=== PATIENT | male | born 1945 | race American Indian/Alaskan Native ===

== ENCOUNTER 2017-02-13 17:25 | Emergency (ER) | payer MEDICARE ==
[2017-02-13] MEDS ORDERED: KEPPRA 1,000 MG/NS 0.75% 100ML 1,000 MG/100 ML BAG IV ONE (18:39)
[2017-02-13] MEDS ORDERED: ATIVAN ONE (18:42)
[2017-02-13] MEDS ORDERED: TORADOL IV ONE (18:46)
[2017-02-13] MEDS ORDERED: ATIVAN IV ONE (18:46)
[2017-02-13 19:05] LABS: Urine Drugs of Abuse Note Disclamer
[2017-02-13 19:14] LABS: Bilirubin,Urine NEG (Negative); Blood,Urine SM (Negative); Ketones,Urine 80 mg/dL (Negative); Leukocyte Esterase,Urine NEG (Negative); Mucus,Urine FEW /HPF; Nitrite,Urine NEG (Negative)
[2017-02-13 19:14] LABS: Albumin 4.5 g/dL (3.9-5); Albumin/Globulin Ratio 1.5 %; Anion Gap 24 mmol/L; BUN/Creatinine Ratio 17.14; Bilirubin,Direct 0.4 mg/dL (0-0.2); Bilirubin,Indirect 0.9 mg/dL; Bilirubin,Total 1.3 mg/dL (0.1-1.2); Blood Urea Nitrogen 12 mg/dL (9-20); Calcium 9.2 mg/dL (8.4-10.2); Carbon Dioxide 22 mmol/L (22-30); Chloride 96.5 mmol/L (98-107); Creatine Kinase 69 units/L (55-170); Glucose 101 mg/dL (75-100); Potassium 4.1 mmol/L (3.6-5.0); Sodium 138 mmol/L (137-145); Total Protein 7.6 g/dL (6.3-8.2)
[2017-02-13 19:16] LABS: Basophils % (Auto) 0.3 % (0.0-1.8); Hematocrit 50.4 % (35.5-45.6); Hemoglobin 17.2 gm/dl (11.8-15.2); Mean Corpuscular HGB Conc 34 % (32-34); Mean Corpuscular Hemoglobin 32 pg (28-32); Mean Corpuscular Volume 94 fl (84-94); Red Blood Count 5.35 M/mm3 (3.65-5.03); Red Cell Distribution Width 14.5 % (13.2-15.2); White Blood Count 13.1 K/mm3 (4.5-11.0)
[2017-02-13 19:25] LABS: Platelet Count 224 K/mm3 (140-440)
[2017-02-13 19:25] LABS: INR 0.97 (0.87-1.13)
[2017-02-13 19:26] LABS: Partial Thromboplastin Time 29.4 Sec. (24.2-36.6)
--- NOTE | 2017-02-13 19:47 | Cat Scan Report ---
FINAL REPORT PROCEDURE: CT HEAD/BRAIN WO CON TECHNIQUE: Computerized tomography of the head was performed without contrast material. HISTORY: headache after seizure COMPARISON: 06/28/2016 FINDINGS: There are stable involutional changes. No CT evidence of acute intracranial hemorrhage, mass, hydrocephalus, or acute territorial infarction. The intracranial arteries are symmetric in density. Calvarium is intact. Visualized paranasal sinuses and mastoids are aerated. IMPRESSION: No CT evidence of acute abnormality
--- NOTE | 2017-02-13 20:52 | Emergency Department Report ---
ED Seizure HPI - General Chief Complaint: Seizure Stated Complaint: SEIZURE Time Seen by Provider: 02/13/17 18:39 Source: patient, EMS Mode of arrival: Stretcher Limitations: No Limitations - History of Present Illness Initial Comments: 71-year-old male with a past medical history of seizures and alcohol abuse presents to the hospital status post seizure. Patient complains of headache after seizure. He is alert and oriented to self but does not know where he is or the year. He has been out of medication times one day. Patient states his last alcohol drink was 3 weeks ago. He is unsure what type of primary seizure disorder he has. Witnesses are not available at the bedside. When I was interviewing patient has eyes deviated to the right and he began to have jerking moments of his left arm and was using his right arm to stop it. This lasted for approximately 30 seconds. Nurse administered Ativan after episode stopped. - Related Data Previous Rx's Medication Instructions Recorded Last Taken Type Folic Acid [Folvite] 1 mg PO QDAY #30 tablet 07/01/16 Unknown Rx Thiamine [Vitamin B-1] 100 mg PO QDAY #30 tablet 07/01/16 Unknown Rx levETIRAcetam [Keppra TAB] 500 mg PO BID #60 tablet 02/14/17 Unknown Rx Allergies Allergy/AdvReac Type Severity Reaction Status Date / Time No Known Allergies Allergy Verified 06/28/16 17:42 ED Review of Systems ROS: Stated complaint: SEIZURE Other details as noted in HPI Comment: All other systems reviewed and negative Other: Constitutional: No fevers chills Eyes: No eye pain visual changes ENT: No ear pain or throat pain Neck: Denies pain Respiratory: + cough reported Cardiovascular: Denies chest pain GI: Denies abdominal pain : Denies dysuria Musculoskeletal: Denies back pain Skin: Denies rash, lesions, erythema Neurologic: Denies numbness, weakness Psychiatric: Denies suicidal ideation, hallucinations ED Past Medical Hx - Past Medical History Previous Medical History?: Yes Hx Seizures: Yes Additional medical history: Alcoholism - Surgical History Past Surgical History?: No Additional Surgical History: uknown family unware - Social History Smoking Status: Never Smoker - Medications Home Medications: Home Medications Medication Instructions Recorded Confirmed Last Taken Type Folic Acid [Folvite] 1 mg PO QDAY #30 tablet 07/01/16 02/13/17 Unknown Rx Thiamine [Vitamin B-1] 100 mg PO QDAY #30 tablet 07/01/16 02/13/17 Unknown Rx levETIRAcetam [Keppra TAB] 500 mg PO BID #60 tablet 02/14/17 Unknown Rx ED Physical Exam - General Limitations: No Limitations - Other Other exam information: General: No limitations, patient is alert in no acute distress Head exam: Atraumatic, normocephalic Eyes exam: Normal appearance, pupils equal reactive to light, extraocular movements intact ENT: Moist mucous membrane, normal oropharynx Neck exam: Normal inspection, full range of motion, no meningismus nontender Respiratory exam: Clear to auscultation bilateral, no wheezes, rales, crackles Cardiovascular: Normal rate and rhythm, normal heart sounds Abdomen: Soft, nondistended, and nontender, with normal bowel sounds, no rebound, or guarding Extremity: Full range of motion normal inspection no deformity Back: Normal Inspection, full range of motion, no tenderness Neurologic: Alert, oriented x3, cranial nerves intact, no motor or sensory deficit Psychiatric: normal affect, normal mood Skin: Warm, dry, intact ED Course Vital Signs 02/13/17 02/13/17 02/13/17 17:46 19:22 20:58 Temperature 99.4 F Pulse Rate 95 H 90 98 H Respiratory 18 16 20 Rate Blood Pressure 162/91 149/93 131/88 [Left] O2 Sat by Pulse 100 98 98 Oximetry 02/13/17 02/14/17 21:43 00:06 Temperature Pulse Rate 88 86 Respiratory 18 18 Rate Blood Pressure 113/75 102/61 [Left] O2 Sat by Pulse 97 96 Oximetry - Reevaluation(s) Reevaluation #1: 02/13/17 20:51 Pt treated with Ativan and keppra in the ed ED Medical Decision Making - Lab Data Result diagrams: 02/13/17 17:40 02/13/17 17:40 Lab Results 02/13/17 02/13/17 02/13/17 Range/Units 17:40 17:40 17:40 WBC 13.1 H (4.5-11.0) K/mm3 RBC 5.35 H (3.65-5.03) M/mm3 Hgb 17.2 H (11.8-15.2) gm/dl Hct 50.4 H (35.5-45.6) % MCV 94 (84-94) fl MCH 32 (28-32) pg MCHC 34 (32-34) % RDW 14.5 (13.2-15.2) % Plt Count 224 (140-440) K/mm3 Lymph % (Auto) 11.1 L (13.4-35.0) % [place] % (Auto) 2.0 (0.0-7.3) % Eos % (Auto) 0.0 (0.0-4.3) % Baso % (Auto) 0.3 (0.0-1.8) % Lymph # 1.5 (1.2-5.4) K/mm3 [place] # 0.3 (0.0-0.8) K/mm3 Eos # 0.0 (0.0-0.4) K/mm3 Baso # 0.0 (0.0-0.1) K/mm3 Seg Neutrophils % 86.6 H (40.0-70.0) % Seg Neutrophils # 11.3 H (1.8-7.7) K/mm3 PT (12.2-14.9) Sec. INR (0.87-1.13) APTT (24.2-36.6) Sec. Sodium 138 (137-145) mmol/L Potassium 4.1 (3.6-5.0) mmol/L Chloride 96.5 L (98-107) mmol/L Carbon Dioxide 22 (22-30) mmol/L Anion Gap 24 mmol/L BUN 12 (9-20) mg/dL Creatinine 0.7 L (0.8-1.5) mg/dL Estimated GFR > 60 ml/min BUN/Creatinine Ratio 17.14 % Glucose 101 H (75-100) mg/dL Calcium 9.2 (8.4-10.2) mg/dL Magnesium 2.20 (1.7-2.3) mg/dL Total Bilirubin 1.30 H (0.1-1.2) mg/dL Direct Bilirubin 0.4 H (0-0.2) mg/dL Indirect Bilirubin 0.9 mg/dL AST 24 (5-40) units/L ALT 46 (7-56) units/L Alkaline Phosphatase 61 (35-129) units/L Total Creatine Kinase 69 (55-170) units/L Total Protein 7.6 (6.3-8.2) g/dL Albumin 4.5 (3.9-5) g/dL Albumin/Globulin Ratio 1.5 % Urine Color (Yellow) Urine Turbidity (Clear) Urine pH (5.0-7.0) Ur Specific [place] (1.003-1.030) Urine Protein (Negative) mg/dL Urine Glucose (UA) (Negative) mg/dL Urine Ketones (Negative) mg/dL Urine Blood (Negative) Urine Nitrite (Negative) Urine Bilirubin (Negative) Urine Urobilinogen (<2.0) mg/dL Ur Leukocyte Esterase (Negative) Urine WBC (Auto) (0.0-6.0) /HPF Urine RBC (Auto) (0.0-6.0) /HPF U Epithel Cells (Auto) (0-13.0) /HPF Urine Mucus /HPF Urine Opiates Screen Urine Methadone Screen Ur Barbiturates Screen Ur Phencyclidine Scrn Ur Amphetamines Screen U Benzodiazepines Scrn Urine Cocaine Screen U Marijuana (THC) Screen Drugs of Abuse Note 02/13/17 02/13/17 02/13/17 Range/Units 18:54 19:01 19:01 WBC (4.5-11.0) K/mm3 RBC (3.65-5.03) M/mm3 Hgb (11.8-15.2) gm/dl Hct (35.5-45.6) % MCV (84-94) fl MCH (28-32) pg MCHC (32-34) % RDW (13.2-15.2) % Plt Count (140-440) K/mm3 Lymph % (Auto) (13.4-35.0) % [place] % (Auto) (0.0-7.3) % Eos % (Auto) (0.0-4.3) % Baso % (Auto) (0.0-1.8) % Lymph # (1.2-5.4) K/mm3 [place] # (0.0-0.8) K/mm3 Eos # (0.0-0.4) K/mm3 Baso # (0.0-0.1) K/mm3 Seg Neutrophils % (40.0-70.0) % Seg Neutrophils # (1.8-7.7) K/mm3 PT 12.8 (12.2-14.9) Sec. INR 0.97 (0.87-1.13) APTT 29.4 (24.2-36.6) Sec. Sodium (137-145) mmol/L Potassium (3.6-5.0) mmol/L Chloride (98-107) mmol/L Carbon Dioxide (22-30) mmol/L Anion Gap mmol/L BUN (9-20) mg/dL Creatinine (0.8-1.5) mg/dL Estimated GFR ml/min BUN/Creatinine Ratio % Glucose (75-100) mg/dL Calcium (8.4-10.2) mg/dL Magnesium (1.7-2.3) mg/dL Total Bilirubin (0.1-1.2) mg/dL Direct Bilirubin (0-0.2) mg/dL Indirect Bilirubin mg/dL AST (5-40) units/L ALT (7-56) units/L Alkaline Phosphatase (35-129) units/L Total Creatine Kinase (55-170) units/L Total Protein (6.3-8.2) g/dL Albumin (3.9-5) g/dL Albumin/Globulin Ratio % Urine Color Yellow (Yellow) Urine Turbidity Clear (Clear) Urine pH 6.0 (5.0-7.0) Ur Specific [place] 1.021 (1.003-1.030) Urine Protein 30 mg/dl (Negative) mg/dL Urine Glucose (UA) Neg (Negative) mg/dL Urine Ketones 80 (Negative) mg/dL Urine Blood Sm (Negative) Urine Nitrite Neg (Negative) Urine Bilirubin Neg (Negative) Urine Urobilinogen 2.0 (<2.0) mg/dL Ur Leukocyte Esterase Neg (Negative) Urine WBC (Auto) 2.0 (0.0-6.0) /HPF Urine RBC (Auto) 10.0 (0.0-6.0) /HPF U Epithel Cells (Auto) 1.0 (0-13.0) /HPF Urine Mucus Few /HPF Urine Opiates Screen Presumptive negative Urine Methadone Screen Presumptive negative Ur Barbiturates Screen Presumptive negative Ur Phencyclidine Scrn Presumptive negative Ur Amphetamines Screen Presumptive negative U Benzodiazepines Scrn Presumptive negative Urine Cocaine Screen Presumptive negative U Marijuana (THC) Screen Presumptive positive Drugs of Abuse Note Disclamer - Radiology Data Radiology results: report reviewed, image reviewed (chest x-ray: No acute finding) CT head: No acute finding - Medical Decision Making Patient was observed for several hours in the ED because as concerns about his baseline mental status. Patient is oriented at this time. In addition to IV Keppra and Ativan he received a liter D5NS due to significant urinary ketosis likely secondary to dehydration. Patient states he has not had alcohol in 3 weeks and no signs of alcohol withdrawal tremors, tachycardia, hypertension at this time. Per medical record patient has a history of cocaine abuse. He is only positive for marijuana at this time. CKs were normal range no electrolyte abnormalities. - Differential Diagnosis breakthrough seizure, alcohol withdrawal, intracranial hemorrhage Critical Care Time: No Critical care attestation.: If time is entered above; I have spent that time in minutes in the direct care of this critically ill patient, excluding procedure time. ED Disposition Clinical Impression: Seizure, Noncompliance with medication regimen, Dehydration Disposition: DISCHARGED TO HOME OR SELFCARE Is pt being admited?: No Does the pt Need Aspirin: No Condition: Stable Instructions: Recurrent Seizures Adult (ED), Dehydration (ED) Additional Instructions: Follow-up with either your primary care doctor or the doctor/clinic provided for further treatment. You were also provided the name of 2 neurologists for further treatment of your seizure disorder. Continue taking your medication as prescribed. Return if symptoms worsen. Prescriptions: levETIRAcetam [Keppra TAB] 500 mg PO BID #60 tablet Referrals: JOSE ANGEL LIPSCOMB MD [Primary Care Provider] - 3-5 Days [facility] [Provider Group] - 3-5 Days (Primary care clinic) DOROTHY PENG JR, MD [Staff Physician] - 3-5 Days (Primary care doctor) MICHAEL DE LA O MD [Staff Physician] - 3-5 Days (Neurologist) PALMIRA JIMENEZ MD [Staff Physician] - 3-5 Days (Neurologist) Time of Disposition: 00:37
[2017-02-13] MEDS: D5NS 1,000 ML IV SCH ×2 (21:47→22:00)
[2017-02-14 00:06] VITALS: BP 102/61
--- NOTE | 2017-02-14 08:43 | XRay Report ---
AP CHEST: HISTORY: Cough The lungs are hyperinflated but clear. No pleural effusion or pneumothorax. Heart and mediastinal structures are within normal limits. No significant change since 06/28/16. IMPRESSION: No acute cardiopulmonary process.
== END 2017-02-14 00:48 | disposition home or self-care (01) ==
LOC: ED 17:25
DX: R56.9 Unspecified convulsions (principal); E86.0 Dehydration; Z91.14 Patient's other noncompliance with medication regimen
CPT/HCPCS: 36415; 70450; 71010; 80048; 80074; 80307; 81001; 82550; 83735; 85025; 85610; 85730; 96365; 96375; 99285; J1885; J1953; J2060; J7042

== ENCOUNTER 2017-05-29 12:44 | Inpatient (IN) | payer MEDICARE ==
[2017-05-29] MEDS ORDERED: KEPPRA 1,000 MG/NS 0.75% 100ML 1,000 MG/100 ML BAG IV ONE ×2 (12:58→13:02)
[2017-05-29] MEDS ORDERED: NACL 0.9% 1000 ML 1,000 ML IV ONE ×2 (12:58→15:56)
[2017-05-29] MEDS ORDERED: NACL 0.9% 1000 ML 1,000 ML ONE (13:03)
--- NOTE | 2017-05-29 13:34 | XRay Report ---
Single view chest: Compared to 02/13/17. History: Seizure. Findings: Normal cardiomediastinal silhouette. Trachea is midline. No consolidation, pneumothorax or pleural effusion. Impression: No acute cardiopulmonary findings.
--- NOTE | 2017-05-29 13:43 | Emergency Department Report ---
ED Seizure HPI - General Chief Complaint: Seizure Stated Complaint: SEIZURES Time Seen by Provider: 05/29/17 12:57 Source: EMS Mode of arrival: Stretcher Limitations: Altered Mental Status - History of Present Illness Initial Comments: 72-year-old male with known history of seizure disorder here after 2 seizures at home. Patient is on Keppra but has not been taking his meds since January. He smells of alcohol on my initial assessment. He is not answering any of my questions on initial evaluation. MD Complaint: seizure -: Sudden Description of Episode: tonic-clonic movement Witnessed:: Yes Seizure History: known seizure disorder, history of non-compliance - Related Data Previous Rx's Medication Instructions Recorded Last Taken Type Folic Acid [Folvite] 1 mg PO QDAY #30 tablet 07/01/16 Unknown Rx Thiamine [Vitamin B-1] 100 mg PO QDAY #30 tablet 07/01/16 Unknown Rx levETIRAcetam [Keppra TAB] 500 mg PO BID #60 tablet 02/14/17 Unknown Rx Allergies Allergy/AdvReac Type Severity Reaction Status Date / Time No Known Allergies Allergy Verified 06/28/16 17:42 ED Review of Systems ROS: Stated complaint: SEIZURES Other details as noted in HPI Comment: Unobtainable due to pts medical conditions ED Past Medical Hx - Past Medical History Previous Medical History?: Yes Hx Seizures: Yes Additional medical history: Alcoholism - Surgical History Past Surgical History?: Yes Additional Surgical History: uknown family unware - Social History Smoking Status: Unknown if ever smoked Substance Use Type: Alcohol - Medications Home Medications: Home Medications Medication Instructions Recorded Confirmed Last Taken Type Folic Acid [Folvite] 1 mg PO QDAY #30 tablet 07/01/16 05/29/17 Unknown Rx Thiamine [Vitamin B-1] 100 mg PO QDAY #30 tablet 07/01/16 05/29/17 Unknown Rx levETIRAcetam [Keppra TAB] 500 mg PO BID #60 tablet 02/14/17 05/29/17 Unknown Rx ED Physical Exam - General Limitations: Altered Mental Status General appearance: alert, in no apparent distress, postictal - Head Head exam: Present: atraumatic, normocephalic - Eye Eye exam: Present: normal appearance - ENT ENT exam: Present: mucous membranes moist - Neck Neck exam: Present: normal inspection - Respiratory Respiratory exam: Present: normal lung sounds bilaterally. Absent: respiratory distress - Cardiovascular Cardiovascular Exam: Present: regular rate, normal rhythm, systolic murmur. Absent: diastolic murmur, rubs, gallop - GI/Abdominal GI/Abdominal exam: Present: soft, normal bowel sounds. Absent: distended, tenderness - Rectal Rectal exam: Present: deferred - Extremities Exam Extremities exam: Present: normal inspection - Back Exam Back exam: Present: normal inspection - Neurological Exam Neurological exam: Present: alert, oriented X3 - Psychiatric Psychiatric exam: Present: normal affect, normal mood - Skin Skin exam: Present: warm, dry, intact, normal color. Absent: rash ED Course Vital Signs 05/29/17 05/29/17 05/29/17 12:55 13:24 15:43 Temperature 97.9 F Pulse Rate 99 H 89 92 H Respiratory 20 18 18 Rate Blood Pressure 131/94 Blood Pressure 127/86 134/91 [Left] O2 Sat by Pulse 100 100 99 Oximetry ED Medical Decision Making - Lab Data Result diagrams: 05/29/17 14:45 05/29/17 13:12 Laboratory Results - last 24 hr 05/29/17 05/29/17 05/29/17 13:12 14:45 14:45 WBC 16.2 H RBC 5.12 H Hgb 16.5 H Hct 49.0 H MCV 96 H MCH 32 MCHC 34 RDW 14.0 Plt Count 232 Lymph % (Auto) 6.1 L [place] % (Auto) 4.4 Eos % (Auto) 0.0 Baso % (Auto) 0.3 Lymph # 1.0 L [place] # 0.7 Eos # 0.0 Baso # 0.0 Seg Neutrophils % 89.2 H Seg Neutrophils # 14.4 H Sodium 140 Potassium 5.5 H Chloride 97.8 L Carbon Dioxide 12 L Anion Gap 36 BUN 19 Creatinine 1.0 Estimated GFR > 60 BUN/Creatinine Ratio 19.00 Glucose 163 H Calcium 8.9 Total Bilirubin 0.30 AST 23 ALT 13 Alkaline Phosphatase 50 Total Protein 7.6 Albumin 4.4 Albumin/Globulin Ratio 1.4 Urine Color Urine Turbidity Urine pH Ur Specific [place] Urine Protein Urine Glucose (UA) Urine Ketones Urine Blood Urine Nitrite Urine Bilirubin Urine Urobilinogen Ur Leukocyte Esterase Urine WBC (Auto) Urine RBC (Auto) U Epithel Cells (Auto) Urine Opiates Screen Urine Methadone Screen Ur Barbiturates Screen Ur Phencyclidine Scrn Ur Amphetamines Screen U Benzodiazepines Scrn Urine Cocaine Screen U Marijuana (THC) Screen Drugs of Abuse Note Plasma/Serum Alcohol < 0.01 05/29/17 05/29/17 15:43 15:43 WBC RBC Hgb Hct MCV MCH MCHC RDW Plt Count Lymph % (Auto) [place] % (Auto) Eos % (Auto) Baso % (Auto) Lymph # [place] # Eos # Baso # Seg Neutrophils % Seg Neutrophils # Sodium Potassium Chloride Carbon Dioxide Anion Gap BUN Creatinine Estimated GFR BUN/Creatinine Ratio Glucose Calcium Total Bilirubin AST ALT Alkaline Phosphatase Total Protein Albumin Albumin/Globulin Ratio Urine Color Straw Urine Turbidity Clear Urine pH 5.0 Ur Specific [place] 1.012 Urine Protein 30 mg/dl Urine Glucose (UA) Neg Urine Ketones Tr Urine Blood Sm Urine Nitrite Neg Urine Bilirubin Neg Urine Urobilinogen < 2.0 Ur Leukocyte Esterase Neg Urine WBC (Auto) 3.0 Urine RBC (Auto) 4.0 U Epithel Cells (Auto) < 1.0 Urine Opiates Screen Presumptive negative Urine Methadone Screen Presumptive negative Ur Barbiturates Screen Presumptive negative Ur Phencyclidine Scrn Presumptive negative Ur Amphetamines Screen Presumptive negative U Benzodiazepines Scrn Presumptive negative Urine Cocaine Screen Presumptive positive U Marijuana (THC) Screen Presumptive positive Drugs of Abuse Note Disclamer Plasma/Serum Alcohol - EKG Data -: EKG Interpreted by Me - EKG Data 05/29/17 13:50 Sinus tachycardia rate 102 multiple PVCs and left axis deviation and LVH no ST segment changes. - Medical Decision Making 72-year-old male with a history of seizure disorder here with 2 seizures. Plan to give [place] of IV Keppra and will reassess patient as he is not giving me any history at this point. Check labs. Patient more arousable after approximately 30 minutes. Labs show likely alcoholic ketoacidosis. Given his in an gap of 32, aggressive hydration initiated and plan to admit to the hospitalist service. Portions of this chart were dictated with dictation software. There may be dictation errors contained within this note. Critical care attestation.: If time is entered above; I have spent that time in minutes in the direct care of this critically ill patient, excluding procedure time. ED Disposition Clinical Impression: Altered mental status, Alcoholic ketoacidosis, Seizure Disposition: OP ADMIT IP TO THIS HOSP Is pt being admited?: Yes Condition: Stable
[2017-05-29 14:08] LABS: Alanine Aminotransferase 13 units/L (7-56); Albumin 4.4 g/dL (3.9-5); Albumin/Globulin Ratio 1.4 %; Alkaline Phosphatase 50 units/L (35-129); Anion Gap 36 mmol/L; Blood Urea Nitrogen 19 mg/dL (9-20); Calcium 8.9 mg/dL (8.4-10.2); Carbon Dioxide 12 mmol/L (22-30); Chloride 97.8 mmol/L (98-107); Glucose 163 mg/dL (75-100); Potassium 5.5 mmol/L (3.6-5.0); Sodium 140 mmol/L (137-145); Total Protein 7.6 g/dL (6.3-8.2)
[2017-05-29 14:56] LABS: Basophils % (Auto) 0.3 % (0.0-1.8); Hemoglobin 16.5 gm/dl (11.8-15.2); Mean Corpuscular HGB Conc 34 % (32-34); Mean Corpuscular Hemoglobin 32 pg (28-32); Mean Corpuscular Volume 96 fl (84-94); Platelet Count 232 K/mm3 (140-440); Red Blood Count 5.12 M/mm3 (3.65-5.03); White Blood Count 16.2 K/mm3 (4.5-11.0)
[2017-05-29 15:53] LABS: Urine Drugs of Abuse Note Disclamer
[2017-05-29] MEDS ORDERED: ZOFRAN ONE (15:54)
[2017-05-29] MEDS ORDERED: ZOFRAN IV ONE (15:56)
[2017-05-29 16:05] LABS: Bilirubin,Urine NEG (Negative); Blood,Urine SM (Negative); Ketones,Urine TR mg/dL (Negative); Leukocyte Esterase,Urine NEG (Negative); Nitrite,Urine NEG (Negative); Urobilinogen,Urine < 2.0 mg/dL (<2.0)
[2017-05-29] MEDS ORDERED: LACTATED RINGERS 1,000 ML IV ONE (17:25)
[2017-05-29 18:21] LABS: ISTAT Base Excess -7; ISTAT DEVICE 0; ISTAT HCO3 18.8; ISTAT PCO2 33.6 (35-45); ISTAT PH 7.356 (7.35-7.45); ISTAT PO2 67 (80-105); ISTAT SO2 92; ISTAT TCO2 20
[2017-05-29] MEDS ORDERED: ATIVAN IV PRN ×2 (18:22)
--- NOTE | 2017-05-29 19:49 | History and Physical Report ---
History of Present Illness Date of examination: 05/29/17 Date of admission: 05/29/17 Chief complaint: Seizuresx 2 today History of present illness: History of Present Illness 2-year-old male with known history of seizure disorder here after 2 seizures at home. Patient is on Keppra but has not been taking his meds since January. He smells of alcohol on my initial assessment. He is not answering any questions on initial evaluation. MD Complaint: seizure -: Sudden Description of Episode: tonic-clonic movement Witnessed:: Yes Seizure History: known seizure disorder, history of non-compliance Review of Systems ROS: Stated complaint: SEIZURES Other details as noted in HPI Comment: Unobtainable due to pts medical conditions - Past Medical History Previous Medical History?: Yes Hx Seizures: Yes Additional medical history: Alcoholism - Surgical History Past Surgical History?: Yes Additional Surgical History: uknown family unware - Social History Smoking Status: Unknown if ever smoked Substance Use Type: Alcohol - Medications Home Medications: Home Medications Medication Instructions Recorded Confirmed Last Taken Type Folic Acid [Folvite] 1 mg PO QDAY #30 tablet 07/01/16 05/29/17 Unknown Rx Thiamine [Vitamin B-1] 100 mg PO QDAY #30 tablet 07/01/16 05/29/17 Unknown Rx levETIRAcetam [Keppra TAB] 500 mg PO BID #60 tablet 02/14/17 05/29/17 Unknown Rx Medications and Allergies Allergies Allergy/AdvReac Type Severity Reaction Status Date / Time No Known Allergies Allergy Verified 06/28/16 17:42 Home Medications Medication Instructions Recorded Confirmed Last Taken Type Folic Acid [Folvite] 1 mg PO QDAY #30 tablet 07/01/16 05/29/17 Unknown Rx Thiamine [Vitamin B-1] 100 mg PO QDAY #30 tablet 07/01/16 05/29/17 Unknown Rx levETIRAcetam [Keppra TAB] 500 mg PO BID #60 tablet 02/14/17 05/29/17 Unknown Rx Active Meds: Active Medications Lorazepam (Ativan) 2 mg IV Q1HR PRN PRN Reason: CIWA-Ar 8-15 Lorazepam (Ativan) 4 mg IV Q1HR PRN PRN Reason: CIWA-Ar 16-25 Last Admin: 05/29/17 18:34 Dose: 4 mg Exam - Constitutional Vitals: Temp Pulse Resp BP Pulse Ox 97.9 F 110 H 20 140/84 99 05/29/17 12:55 05/29/17 18:52 05/29/17 18:52 05/29/17 18:52 05/29/17 18:52 General appearance: Present: no acute distress, well-nourished - EENT Eyes: Present: PERRL ENT: hearing intact, clear oral mucosa - Neck Neck: Present: supple, normal ROM - Respiratory Respiratory effort: normal Respiratory: bilateral: CTA - Cardiovascular Heart rate: 80 Rhythm: regular Heart Sounds: Present: S1 & S2. Absent: rub, click - Extremities Extremities: no ischemia, pulses intact, pulses symmetrical, No edema Peripheral Pulses: within normal limits - Abdominal General gastrointestinal: Present: soft, non-tender, non-distended, normal bowel sounds Male genitourinary: Present: normal - Integumentary Integumentary: Present: clear, warm, dry - Musculoskeletal Musculoskeletal: strength equal bilaterally, generalized weakness, other ( Altered sensorium) - Psychiatric Psychiatric: appropriate mood/affect, intact judgment & insight - Neurologic Neurologic: CNII-XII intact, moves all extremities - Allied Health Allied health notes reviewed: nursing, case management Results - Labs CBC & Chem 7: 05/30/17 03:29 05/30/17 03:29 Labs: Laboratory Last Values WBC 16.2 K/mm3 (4.5-11.0) H 05/29/17 14:45 RBC 5.12 M/mm3 (3.65-5.03) H 05/29/17 14:45 Hgb 16.5 gm/dl (11.8-15.2) H 05/29/17 14:45 Hct 49.0 % (35.5-45.6) H 05/29/17 14:45 MCV 96 fl (84-94) H 05/29/17 14:45 MCH 32 pg (28-32) 05/29/17 14:45 MCHC 34 % (32-34) 05/29/17 14:45 RDW 14.0 % (13.2-15.2) 05/29/17 14:45 Plt Count 232 K/mm3 (140-440) 05/29/17 14:45 Lymph % (Auto) 6.1 % (13.4-35.0) L 05/29/17 14:45 [place] % (Auto) 4.4 % (0.0-7.3) 05/29/17 14:45 Eos % (Auto) 0.0 % (0.0-4.3) 05/29/17 14:45 Baso % (Auto) 0.3 % (0.0-1.8) 05/29/17 14:45 Lymph # 1.0 K/mm3 (1.2-5.4) L 05/29/17 14:45 [place] # 0.7 K/mm3 (0.0-0.8) 05/29/17 14:45 Eos # 0.0 K/mm3 (0.0-0.4) 05/29/17 14:45 Baso # 0.0 K/mm3 (0.0-0.1) 05/29/17 14:45 Seg Neutrophils % 89.2 % (40.0-70.0) H 05/29/17 14:45 Seg Neutrophils # 14.4 K/mm3 (1.8-7.7) H 05/29/17 14:45 POC ABG pH 7.356 (7.35-7.45) 05/29/17 18:19 POC ABG pCO2 33.6 (35-45) L 05/29/17 18:19 POC ABG pO2 67 (80-105) L 05/29/17 18:19 POC ABG HCO3 18.8 05/29/17 18:19 POC ABG Total CO2 20 05/29/17 18:19 POC ABG O2 Sat 92 05/29/17 18:19 POC ABG Base Excess -7 05/29/17 18:19 FiO2 21 % 05/29/17 18:19 Sodium 140 mmol/L (137-145) 05/29/17 13:12 Potassium 5.5 mmol/L (3.6-5.0) H 05/29/17 13:12 Chloride 97.8 mmol/L (98-107) L 05/29/17 13:12 Carbon Dioxide 12 mmol/L (22-30) L 05/29/17 13:12 Anion Gap 36 mmol/L 05/29/17 13:12 BUN 19 mg/dL (9-20) 05/29/17 13:12 Creatinine 1.0 mg/dL (0.8-1.5) 05/29/17 13:12 Estimated GFR > 60 ml/min 05/29/17 13:12 BUN/Creatinine Ratio 19.00 % 05/29/17 13:12 Glucose 163 mg/dL (75-100) H 05/29/17 13:12 Calcium 8.9 mg/dL (8.4-10.2) 05/29/17 13:12 Total Bilirubin 0.30 mg/dL (0.1-1.2) 05/29/17 13:12 AST 23 units/L (5-40) 05/29/17 13:12 ALT 13 units/L (7-56) 05/29/17 13:12 Alkaline Phosphatase 50 units/L (35-129) 05/29/17 13:12 Total Protein 7.6 g/dL (6.3-8.2) 05/29/17 13:12 Albumin 4.4 g/dL (3.9-5) 05/29/17 13:12 Albumin/Globulin Ratio 1.4 % 05/29/17 13:12 Urine Color Straw (Yellow) 05/29/17 15:43 Urine Turbidity Clear (Clear) 05/29/17 15:43 Urine pH 5.0 (5.0-7.0) 05/29/17 15:43 Ur Specific [place] 1.012 (1.003-1.030) 05/29/17 15:43 Urine Protein 30 mg/dl mg/dL (Negative) 05/29/17 15:43 Urine Glucose (UA) Neg mg/dL (Negative) 05/29/17 15:43 Urine Ketones Tr mg/dL (Negative) 05/29/17 15:43 Urine Blood Sm (Negative) 05/29/17 15:43 Urine Nitrite Neg (Negative) 05/29/17 15:43 Urine Bilirubin Neg (Negative) 05/29/17 15:43 Urine Urobilinogen < 2.0 mg/dL (<2.0) 05/29/17 15:43 Ur Leukocyte Esterase Neg (Negative) 05/29/17 15:43 Urine WBC (Auto) 3.0 /HPF (0.0-6.0) 05/29/17 15:43 Urine RBC (Auto) 4.0 /HPF (0.0-6.0) 05/29/17 15:43 U Epithel Cells (Auto) < 1.0 /HPF (0-13.0) 05/29/17 15:43 Urine Opiates Screen Presumptive negative 05/29/17 15:43 Urine Methadone Screen Presumptive negative 05/29/17 15:43 Ur Barbiturates Screen Presumptive negative 05/29/17 15:43 Ur Phencyclidine Scrn Presumptive negative 05/29/17 15:43 Ur Amphetamines Screen Presumptive negative 05/29/17 15:43 U Benzodiazepines Scrn Presumptive negative 05/29/17 15:43 Urine Cocaine Screen Presumptive positive 05/29/17 15:43 U Marijuana (THC) Screen Presumptive positive 05/29/17 15:43 Drugs of Abuse Note Disclamer 05/29/17 15:43 Plasma/Serum Alcohol < 0.01 gm% (0-0.07) 05/29/17 14:45 - Imaging and Cardiology EKG: report reviewed Chest x-ray: report reviewed (NAF) Assessment and Plan Advance Directives: Yes (Full code) VTE prophylaxis?: Chemical Plan of care discussed with patient/family: Yes - Patient Problems (1) Seizure disorder Current Visit: Yes Status: Acute Plan to address problem: Non compliant IV Keppra initiated Transition to PO Keppra (2) Encephalopathy acute Current Visit: Yes Status: Acute Plan to address problem: Sec to seizures. Patient somnolent and Lethargic in ER IV fluids for now (3) EtOH dependence Current Visit: Yes Status: Chronic Qualifiers: Substance use status: in withdrawal Complication of substance-induced condition: C Plan to address problem: Patient may go into DT's [place] protocol initiated (4) Tetrahydrocannabinol (THC) use disorder, mild, abuse Current Visit: Yes Status: Chronic Plan to address problem: Patient to be counselled (5) DVT prophylaxis Current Visit: Yes Status: Acute Plan to address problem: On Lovenox
[2017-05-29] MEDS ORDERED: ZOFRAN IV PRN (19:50)
[2017-05-29] MEDS ORDERED: MILK OF MAGNESIA PO PRN (19:50)
[2017-05-29] MEDS ORDERED: DULCOLAX PR PRN (19:50)
[2017-05-29] MEDS ORDERED: AMBIEN PO PRN (19:50)
[2017-05-29] MEDS ORDERED: TYLENOL PO PRN (19:50)
[2017-05-29] MEDS ORDERED: PERCOCET 5/325 PO PRN (19:50)
[2017-05-29] MEDS ORDERED: FOLVITE PO SCH (20:00)
[2017-05-29] MEDS ORDERED: D5NS 1,000 ML IV SCH (20:00)
[2017-05-29] MEDS: 1: FOLVITE 1 MG, INFUVITE 10 ML, VITAMIN B-1 100 MG in NACL 0.9% 1000 ML 988.8 ML 2: NA IV SCH (21:28)
[2017-05-30] MEDS: VITAMIN B-1 PO SCH ×2 (01:23→11:14)
[2017-05-30] MEDS: KEPPRA PO SCH ×2 (01:24→11:15)
--- NOTE | 2017-05-30 03:16 | Admit Criteria Form ---
Admission Criteria Documentation: SEIZURE Clinical Indications for Admission to Inpatient Care (Place 'X' for any and all applicable criteria): Admission is indicated for seizure and 1 or more of the following (1)(2)(3)(4)(5 )(6) [X]I. Inpatient admission required rather than observation care (Also use Seizure: Observation Care Criteria as appropriate) because of 1 or more of the following: [X]1) Altered mental status that is severe or persistent [ ]2) New focal neurologic deficit that is severe or persistent [ ]3) Metabolic disorder (eg, hypoglycemia, hyponatremia) that is severe or persistent [ ]4) Recurrent seizure [ ]5) Outpatient antiseizure regimen cannot be established (eg , patient cannot tolerate medication, initiation requires inpatient care) [ ]6) Need for ongoing intravenous infusion of anti-seizure medication [ ]7) Cerebral bleeding, hydrocephalus, or vasospasm monitoring [ ]8) Increased intracranial pressure or cerebral edema monitoring [ ]9) Other conditions, treatment or monitoring requiring inpatient admission [ ]II. Status epilepticus [A] or repetitive seizures not controlled with emergent treatment (6)(8) [ ]III. Brain disorder (eg, tumor, edema, and hydrocephalus) that requiring monitoring or intervention available only at inpatient level of care. [ ]IV. Brain insult (eg, severe trauma, stroke, drug toxicity, or withdrawal) that requires monitoring or intervention available only at inpatient level of care (10)(11) [ ]V. Cardiac arrhythmias of immediate concern Extended stay beyond goal length of stay may be needed for (22) [ ]a) Complications of status epilepticus [ ]b) Refractory status epilepticus [ ]c) Etiology-specific therapy for conditions such as IT SENIOR ANALYST infection, head injury,eclampsia, severe metabolic abnormalities, and brain tumor [ ]d) Residual neurologic damage, [ ]e) Initiation of significant change to anticonvulsant treatment [ ]f) Older patients (65 years or older) [ ]g) Patient requiring intubation (eg, to protect airway) The original [employer] content created by [employer] has been revised. The portions of the content which have been revised are identified through the use of italic text or in bold, and [facility] [employer] has neither reviewed nor approved the modified material. All other unmodified content is copyright [facility]. Please see references footnoted in the original [facility] edition 2017 Admission Criteria Met: Yes
[2017-05-30 03:46] LABS: Basophils % (Auto) 0.9 % (0.0-1.8); Hematocrit 46.9 % (35.5-45.6); Hemoglobin 16.3 gm/dl (11.8-15.2); Mean Corpuscular HGB Conc 35 % (32-34); Mean Corpuscular Hemoglobin 33 pg (28-32); Mean Corpuscular Volume 94 fl (84-94); Red Blood Count 4.97 M/mm3 (3.65-5.03); Red Cell Distribution Width 13.4 % (13.2-15.2); White Blood Count 14.7 K/mm3 (4.5-11.0)
[2017-05-30 03:51] LABS: Platelet Count 168 K/mm3 (140-440)
[2017-05-30] MEDS: 1: FOLVITE 1 MG, INFUVITE 10 ML, VITAMIN B-1 100 MG in NACL 0.9% 1000 ML 988.8 ML 2: NA IV SCH (04:54)
[2017-05-30 04:58] LABS: Alanine Aminotransferase 9 units/L (7-56); Albumin 3.4 g/dL (3.9-5); Alkaline Phosphatase 45 units/L (35-129); Anion Gap 24 mmol/L; BUN/Creatinine Ratio 18.75; Blood Urea Nitrogen 15 mg/dL (9-20); Carbon Dioxide 15 mmol/L (22-30); Chloride 101.2 mmol/L (98-107); Glucose 77 mg/dL (75-100); Potassium 4.4 mmol/L (3.6-5.0); Sodium 136 mmol/L (137-145); Total Protein 6.7 g/dL (6.3-8.2)
[2017-05-30 08:10] LABS: Total Iron Binding Capacity 289.8 mcg/dL (250-450)
--- NOTE | 2017-05-30 09:32 | Progress Note ---
Assessment and Plan Assessment and plan: Patient is 72 years-old male with known history of seizure disorder here after 2 seizures at home. Patient is on Keppra but has not been taking his meds since January. He smells of alcohol on my initial assessment. Status Epilepticus Due to binge drinking alcohol Normal CT of the head IV Keppra initiated we will transition to PO Keppra Supportive care Encephalopathy acute Resolved, currently alert and oriented to place, person and time. Secondary to seizures. IV fluids Alcohol abuse [facility] protocol initiated Counseling done patient strongly advised to quit drinking Tetrahydrocannabinol (THC) use disorder, mild, abuse Counseling done Noncompliance Patient noncompliance with medication Considering the DVT prophylaxis On Lovenox History Interval history: Patient denies headache, dizziness, lightheadedness or active seizure. Hospitalist Physical - Constitutional Vitals: Temp Pulse Resp BP Pulse Ox 97.9 F 95 H 18 133/70 100 05/29/17 12:55 05/29/17 22:00 05/29/17 22:34 05/29/17 19:30 05/29/17 22:34 General appearance: Present: no acute distress, well-nourished - EENT Eyes: Present: PERRL ENT: hearing intact - Neck Neck: Present: supple - Respiratory Respiratory effort: normal Respiratory: bilateral: CTA - Cardiovascular Rhythm: regular Heart Sounds: Present: S1 & S2 - Extremities Extremities: no ischemia Peripheral Pulses: within normal limits - Abdominal General gastrointestinal: soft, non-tender - Integumentary Integumentary: Present: clear, warm, dry - Psychiatric Psychiatric: appropriate mood/affect - Neurologic Neurologic: CNII-XII intact - Allied Health Allied health notes reviewed: nursing Results - Labs CBC & Chem 7: 05/30/17 03:29 05/30/17 03:29 Labs: Laboratory Last Values WBC 14.7 K/mm3 (4.5-11.0) H 05/30/17 03:29 RBC 4.97 M/mm3 (3.65-5.03) 05/30/17 03:29 Hgb 16.3 gm/dl (11.8-15.2) H 05/30/17 03:29 Hct 46.9 % (35.5-45.6) H 05/30/17 03:29 MCV 94 fl (84-94) 05/30/17 03:29 MCH 33 pg (28-32) H 05/30/17 03:29 MCHC 35 % (32-34) H 05/30/17 03:29 RDW 13.4 % (13.2-15.2) 05/30/17 03:29 Plt Count 168 K/mm3 (140-440) 05/30/17 03:29 Lymph % (Auto) 17.9 % (13.4-35.0) 05/30/17 03:29 [place] % (Auto) 8.8 % (0.0-7.3) H 05/30/17 03:29 Eos % (Auto) 0.0 % (0.0-4.3) 05/30/17 03:29 Baso % (Auto) 0.9 % (0.0-1.8) 05/30/17 03:29 Lymph # 2.6 K/mm3 (1.2-5.4) 05/30/17 03:29 [place] # 1.3 K/mm3 (0.0-0.8) H 05/30/17 03:29 Eos # 0.0 K/mm3 (0.0-0.4) 05/30/17 03:29 Baso # 0.1 K/mm3 (0.0-0.1) 05/30/17 03:29 Seg Neutrophils % 72.4 % (40.0-70.0) H 05/30/17 03:29 Seg Neutrophils # 10.6 K/mm3 (1.8-7.7) H 05/30/17 03:29 POC ABG pH 7.356 (7.35-7.45) 05/29/17 18:19 POC ABG pCO2 33.6 (35-45) L 05/29/17 18:19 POC ABG pO2 67 (80-105) L 05/29/17 18:19 POC ABG HCO3 18.8 05/29/17 18:19 POC ABG Total CO2 20 05/29/17 18:19 POC ABG O2 Sat 92 05/29/17 18:19 POC ABG Base Excess -7 05/29/17 18:19 FiO2 21 % 05/29/17 18:19 Sodium 136 mmol/L (137-145) L 05/30/17 03:29 Potassium 4.4 mmol/L (3.6-5.0) 05/30/17 03:29 Chloride 101.2 mmol/L (98-107) 05/30/17 03:29 Carbon Dioxide 15 mmol/L (22-30) L 05/30/17 03:29 Anion Gap 24 mmol/L 05/30/17 03:29 BUN 15 mg/dL (9-20) 05/30/17 03:29 Creatinine 0.8 mg/dL (0.8-1.5) 05/30/17 03:29 Estimated GFR > 60 ml/min 05/30/17 03:29 BUN/Creatinine Ratio 18.75 % 05/30/17 03:29 Glucose 77 mg/dL (75-100) 05/30/17 03:29 Calcium 8.0 mg/dL (8.4-10.2) L 05/30/17 03:29 Iron 80 ug/dL (49-181) 05/30/17 07:30 TIBC 289.80 mcg/dL (250-450) 05/30/17 07:30 % Saturation 27.61 % 05/30/17 07:30 Transferrin 207 mg/dl (180-329) 05/30/17 07:30 Total Bilirubin 0.60 mg/dL (0.1-1.2) 05/30/17 03:29 AST 22 units/L (5-40) 05/30/17 03:29 ALT 9 units/L (7-56) 05/30/17 03:29 Alkaline Phosphatase 45 units/L (35-129) 05/30/17 03:29 Total Protein 6.7 g/dL (6.3-8.2) 05/30/17 03:29 Albumin 3.4 g/dL (3.9-5) L 05/30/17 03:29 Albumin/Globulin Ratio 1.0 % 05/30/17 03:29 Vitamin B12 304.6 pg/mL (211-911) 05/30/17 07:20 Urine Color Straw (Yellow) 05/29/17 15:43 Urine Turbidity Clear (Clear) 05/29/17 15:43 Urine pH 5.0 (5.0-7.0) 05/29/17 15:43 Ur Specific [place] 1.012 (1.003-1.030) 05/29/17 15:43 Urine Protein 30 mg/dl mg/dL (Negative) 05/29/17 15:43 Urine Glucose (UA) Neg mg/dL (Negative) 05/29/17 15:43 Urine Ketones Tr mg/dL (Negative) 05/29/17 15:43 Urine Blood Sm (Negative) 05/29/17 15:43 Urine Nitrite Neg (Negative) 05/29/17 15:43 Urine Bilirubin Neg (Negative) 05/29/17 15:43 Urine Urobilinogen < 2.0 mg/dL (<2.0) 05/29/17 15:43 Ur Leukocyte Esterase Neg (Negative) 05/29/17 15:43 Urine WBC (Auto) 3.0 /HPF (0.0-6.0) 05/29/17 15:43 Urine RBC (Auto) 4.0 /HPF (0.0-6.0) 05/29/17 15:43 U Epithel Cells (Auto) < 1.0 /HPF (0-13.0) 05/29/17 15:43 Urine Opiates Screen Presumptive negative 05/29/17 15:43 Urine Methadone Screen Presumptive negative 05/29/17 15:43 Ur Barbiturates Screen Presumptive negative 05/29/17 15:43 Ur Phencyclidine Scrn Presumptive negative 05/29/17 15:43 Ur Amphetamines Screen Presumptive negative 05/29/17 15:43 U Benzodiazepines Scrn Presumptive negative 05/29/17 15:43 Urine Cocaine Screen Presumptive positive 05/29/17 15:43 U Marijuana (THC) Screen Presumptive positive 05/29/17 15:43 Drugs of Abuse Note Disclamer 05/29/17 15:43 Plasma/Serum Alcohol < 0.01 gm% (0-0.07) 05/29/17 14:45
[2017-05-30] MEDS: LOVENOX SUB-Q SCH (11:14)
--- NOTE | 2017-05-30 12:57 | Event Note ---
72-year-old man with a past medical history of seizure disorder and alcohol abuse. Presents after having 2 seizures at home, patient was was on Keppra and was noncompliant with it. He smelled of alcohol and he presented in the ER. Admits that everytime he binge drinks, he has breakthrough seizures. He was partying this weekend and drank a lot Status epilepticus Continue antiepileptic drugs, neurology follow-up obtain CT head alcohol abuse Patient has been counseled on etoh abstinence CIWA protocol Metabolic encephalopathy Continue supportive care, treat underlying cause DVT prophylaxis Lovenox
--- NOTE | 2017-05-31 10:28 | Cat Scan Report ---
CT scan of head without contrast: History: Seizures. Findings: Ventricles are normal in size and midline in location. No evidence of acute ischemia, hemorrhage or mass. No extra-axial fluid collection. Normal brainstem and cerebellum. Normal sinuses and mastoid air cells. Normal calvarium. Impression: No acute intracranial abnormality.
[2017-05-31] MEDS: LOVENOX SUB-Q SCH (11:02)
[2017-05-31] MEDS: VITAMIN B-1 PO SCH (11:02)
[2017-05-31] MEDS: KEPPRA PO SCH ×2 (11:03→21:27)
--- NOTE | 2017-05-31 12:38 | Consultation ---
History of Present Illness - Reason for Consult Consult date: 05/31/17 seizure - History of Present Illness patient seen and re-assessed for the epilepsy at [facility] seizure free on keppra and the ct OF THE HEAD IS NORMAL FOR THE AGE KEPPRA DOSE LISTED IS GOOD DOSE i WOULD REC MONOTHERAPY FOR SEIZURE CONTROL Medications and Allergies Allergies Allergy/AdvReac Type Severity Reaction Status Date / Time No Known Allergies Allergy Verified 06/28/16 17:42 Home Medications Medication Instructions Recorded Confirmed Last Taken Type Folic Acid [Folvite] 1 mg PO QDAY #30 tablet 07/01/16 05/29/17 Unknown Rx Thiamine [Vitamin B-1] 100 mg PO QDAY #30 tablet 07/01/16 05/29/17 Unknown Rx levETIRAcetam [Keppra TAB] 500 mg PO BID #60 tablet 02/14/17 05/29/17 Unknown Rx Active Meds: Active Medications Acetaminophen (Tylenol) 650 mg PO Q4H PRN PRN Reason: Pain MILD(1-3)/Fever >100.5/[place] Bisacodyl (Dulcolax) 10 mg [place] QDAY PRN PRN Reason: Constipation unrelieved by MOM Enoxaparin Sodium (Lovenox) 40 mg SUB-Q QDAY [facility] Last Admin: 05/31/17 11:02 Dose: 40 mg Folic Acid (Folvite) 1 mg PO QDAY [facility] Last Admin: 05/29/17 22:40 Dose: Not Given Folic Acid 1 mg/ Multivitamins /Minerals 10 ml/ Thiamine HCl 100 mg/ Sodium Chloride 1,000 mls @ 125 mls/hr IV .BY DURATION [facility] Last Admin: 05/29/17 21:28 Dose: 125 mls/hr Sodium Chloride (Nacl 0.9% 1000 Ml) 1,000 mls @ 125 mls/hr IV .BY DURATION [facility] Last Admin: 05/30/17 04:54 Dose: Not Given Levetiracetam (Keppra) 750 mg PO BID [facility] Last Admin: 05/31/17 11:03 Dose: 750 mg Lorazepam (Ativan) 2 mg IV Q1HR PRN PRN Reason: CIWA-Ar 8-15 Lorazepam (Ativan) 4 mg IV Q1HR PRN PRN Reason: CIWA-Ar 16-25 Last Admin: 05/29/17 18:34 Dose: 4 mg Magnesium Hydroxide (Milk Of Magnesia) 30 ml PO Q4H PRN PRN Reason: Constipation Ondansetron HCl (Zofran) 4 mg IV Q8H PRN PRN Reason: N/V unrelieved by Reglan Oxycodone/Acetaminophen (Percocet 5/325) 1 tab PO Q6H PRN PRN Reason: Pain, Moderate (4-6) Thiamine HCl (Vitamin B-1) 100 mg PO QDAY [facility] Last Admin: 05/31/17 11:02 Dose: 100 mg Zolpidem Tartrate (Ambien) 5 mg PO QHS PRN PRN Reason: Insomnia Exam - Constitutional Vitals: Temp Pulse Resp BP Pulse Ox 97.2 F L 56 L 20 120/79 100 05/31/17 09:06 05/31/17 09:06 05/30/17 10:33 05/31/17 09:06 05/29/17 22:34 Results - Labs CBC & Chem 7: 05/30/17 03:29 05/30/17 03:29
--- NOTE | 2017-05-31 15:12 | Progress Note ---
Assessment and Plan Assessment and plan: Patient is a 72-year-old man with a past medical history of seizure disorder and alcohol abuse. Presents after having 2 seizures at home, patient was was on Keppra and was noncompliant with it. He smelled of alcohol and he presented in the ER. Status epilepticus Continue antiepileptic drugs, neurology follow-up obtain CT head Delirium tremens/alcohol dependence [facility] protocol Medical nonadherence Patient has been counseled on improved compliance Metabolic encephalopathy Continue supportive care, treat underlying cause Polysubstance abuse. Urine drug screen positive for cocaine and marijuana, serum alcohol level negative DVT prophylaxis Lovenox History Interval history: Patient was seen and examined. Follow-up on current diagnosis-seizure which has resolved, altered mental status which is resolved. Overnight uneventful. Patient denies any chest pain, shortness breath, nausea/vomiting or severe headaches. Imaging, nursing note, chart, labs and old chart reviewed. Discussed with patient. Hospitalist Physical - Physical exam Narrative exam: GEN: Thin frail unkempt NAD, AWAKE, ALERT, ORIENTATED 3 HEENT: NCAT, EOMI, PERRL, OP Clear NECK: supple, no adenopathy, no thyromegaly, no JVD CVS/HEART: RRR, NORMAL S1S2, NO JVD, pulses present bilaterally CHEST/LUNGS: CTA B, Symmetrical chest expansion, good air entry bilaterally GI/Abdomen: soft, NTND, good bowel sounds, no guarding or rebound /Bladder: no suprapubic tenderness, no CVA or paraspinal tenderness EXT/Skin: no c/c/e, no significant edema or obvious rash MSK: FROM x 4 Neuro: CN 2-12 grossly intact, no new focal deficits Psych: calm - Constitutional Vitals: Temp Pulse Resp BP Pulse Ox 97.2 F L 55 L 20 120/79 100 05/31/17 09:06 05/31/17 10:00 05/30/17 10:33 05/31/17 09:06 05/29/17 22:34 General appearance: Present: no acute distress, well-nourished Results - Labs CBC & Chem 7: 05/30/17 03:29 05/30/17 03:29 Labs: Laboratory Last Values WBC 14.7 K/mm3 (4.5-11.0) H 05/30/17 03:29 RBC 4.97 M/mm3 (3.65-5.03) 05/30/17 03:29 Hgb 16.3 gm/dl (11.8-15.2) H 05/30/17 03:29 Hct 46.9 % (35.5-45.6) H 05/30/17 03:29 MCV 94 fl (84-94) 05/30/17 03:29 MCH 33 pg (28-32) H 05/30/17 03:29 MCHC 35 % (32-34) H 05/30/17 03:29 RDW 13.4 % (13.2-15.2) 05/30/17 03:29 Plt Count 168 K/mm3 (140-440) 05/30/17 03:29 Lymph % (Auto) 17.9 % (13.4-35.0) 05/30/17 03:29 [place] % (Auto) 8.8 % (0.0-7.3) H 05/30/17 03:29 Eos % (Auto) 0.0 % (0.0-4.3) 05/30/17 03:29 Baso % (Auto) 0.9 % (0.0-1.8) 05/30/17 03:29 Lymph # 2.6 K/mm3 (1.2-5.4) 05/30/17 03:29 [place] # 1.3 K/mm3 (0.0-0.8) H 05/30/17 03:29 Eos # 0.0 K/mm3 (0.0-0.4) 05/30/17 03:29 Baso # 0.1 K/mm3 (0.0-0.1) 05/30/17 03:29 Seg Neutrophils % 72.4 % (40.0-70.0) H 05/30/17 03:29 Seg Neutrophils # 10.6 K/mm3 (1.8-7.7) H 05/30/17 03:29 POC ABG pH 7.356 (7.35-7.45) 05/29/17 18:19 POC ABG pCO2 33.6 (35-45) L 05/29/17 18:19 POC ABG pO2 67 (80-105) L 05/29/17 18:19 POC ABG HCO3 18.8 05/29/17 18:19 POC ABG Total CO2 20 05/29/17 18:19 POC ABG O2 Sat 92 05/29/17 18:19 POC ABG Base Excess -7 05/29/17 18:19 FiO2 21 % 05/29/17 18:19 Sodium 136 mmol/L (137-145) L 05/30/17 03:29 Potassium 4.4 mmol/L (3.6-5.0) 05/30/17 03:29 Chloride 101.2 mmol/L (98-107) 05/30/17 03:29 Carbon Dioxide 15 mmol/L (22-30) L 05/30/17 03:29 Anion Gap 24 mmol/L 05/30/17 03:29 BUN 15 mg/dL (9-20) 05/30/17 03:29 Creatinine 0.8 mg/dL (0.8-1.5) 05/30/17 03:29 Estimated GFR > 60 ml/min 05/30/17 03:29 BUN/Creatinine Ratio 18.75 % 05/30/17 03:29 Glucose 77 mg/dL (75-100) 05/30/17 03:29 Calcium 8.0 mg/dL (8.4-10.2) L 05/30/17 03:29 Iron 80 ug/dL (49-181) 05/30/17 07:30 TIBC 289.80 mcg/dL (250-450) 05/30/17 07:30 % Saturation 27.61 % 05/30/17 07:30 Transferrin 207 mg/dl (180-329) 05/30/17 07:30 Total Bilirubin 0.60 mg/dL (0.1-1.2) 05/30/17 03:29 AST 22 units/L (5-40) 05/30/17 03:29 ALT 9 units/L (7-56) 05/30/17 03:29 Alkaline Phosphatase 45 units/L (35-129) 05/30/17 03:29 Total Protein 6.7 g/dL (6.3-8.2) 05/30/17 03:29 Albumin 3.4 g/dL (3.9-5) L 05/30/17 03:29 Albumin/Globulin Ratio 1.0 % 05/30/17 03:29 Vitamin B12 304.6 pg/mL (211-911) 05/30/17 07:20 Urine Color Straw (Yellow) 05/29/17 15:43 Urine Turbidity Clear (Clear) 05/29/17 15:43 Urine pH 5.0 (5.0-7.0) 05/29/17 15:43 Ur Specific [place] 1.012 (1.003-1.030) 05/29/17 15:43 Urine Protein 30 mg/dl mg/dL (Negative) 05/29/17 15:43 Urine Glucose (UA) Neg mg/dL (Negative) 05/29/17 15:43 Urine Ketones Tr mg/dL (Negative) 05/29/17 15:43 Urine Blood Sm (Negative) 05/29/17 15:43 Urine Nitrite Neg (Negative) 05/29/17 15:43 Urine Bilirubin Neg (Negative) 05/29/17 15:43 Urine Urobilinogen < 2.0 mg/dL (<2.0) 05/29/17 15:43 Ur Leukocyte Esterase Neg (Negative) 05/29/17 15:43 Urine WBC (Auto) 3.0 /HPF (0.0-6.0) 05/29/17 15:43 Urine RBC (Auto) 4.0 /HPF (0.0-6.0) 05/29/17 15:43 U Epithel Cells (Auto) < 1.0 /HPF (0-13.0) 05/29/17 15:43 Urine Opiates Screen Presumptive negative 05/29/17 15:43 Urine Methadone Screen Presumptive negative 05/29/17 15:43 Ur Barbiturates Screen Presumptive negative 05/29/17 15:43 Ur Phencyclidine Scrn Presumptive negative 05/29/17 15:43 Ur Amphetamines Screen Presumptive negative 05/29/17 15:43 U Benzodiazepines Scrn Presumptive negative 05/29/17 15:43 Urine Cocaine Screen Presumptive positive 05/29/17 15:43 U Marijuana (THC) Screen Presumptive positive 05/29/17 15:43 Drugs of Abuse Note Disclamer 05/29/17 15:43 Plasma/Serum Alcohol < 0.01 gm% (0-0.07) 05/29/17 14:45
[2017-05-31] MEDS ORDERED: NACL 0.9% 1000 ML 1,000 ML IV SCH (19:00)
[2017-05-31] MEDS: 1: FOLVITE 1 MG, INFUVITE 10 ML, VITAMIN B-1 100 MG in NACL 0.9% 1000 ML 988.8 ML 2: NA IV SCH ×2 (21:26→21:32)
--- NOTE | 2017-05-31 23:42 | Consultation ---
HISTORY OF PRESENT ILLNESS: This is a 72-year-old black male admitted to room #43. This patient has a prior history of epileptic seizures. He was admitted at this time because he ran out of his medication, began having seizures again. He has been restarted on Keppra 750 b.i.d. His medical history is significant for having CAT scans of the head in the past. I have reviewed over the current CAT scan and it does show evidence of no intracranial abnormalities. Normal appearing brain is present. No focal areas of atrophy are noted. There is no family history of seizures. The patient does not remember the name of the medications he is getting. ALLERGIES: He has no known allergies. SOCIAL HISTORY: Denies smoking, denies drinking. PHYSICAL EXAMINATION: VITAL SIGNS: His blood pressure is 170/80, respirations 18, pulse rate is 86. NEUROLOGIC: Cranial nerves 2-12 are intact. Speech is clear, fully oriented, and appropriate. He has an equal tone. No tremors or asterixis. I do find that he has any focal motor weakness. I do not notice any seizure activity present when I am evaluating him. The remainder of the motor and sensory examination is unremarkable. 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 He did admit to running out of his medication. I planned to get an EEG. He has a CT scan, which is negative. At his age, CT scan will suffice to evaluate given the fact it is unremarkable and he has had these seizures previously. Generally, his seizures reoccur when he runs out of his medication. It might be helpful to have a social worker palliative care talk to the family about compliance issues; this might be the issue to address to prevent further readmissions. JOB# [id number] NIKHIL/NALDO
[2017-06-01] MEDS: LOVENOX SUB-Q SCH (09:56)
[2017-06-01] MEDS: KEPPRA PO SCH (09:56)
[2017-06-01] MEDS: VITAMIN B-1 PO SCH (09:57)
[2017-06-01 10:36] VITALS: BP 125/78
--- NOTE | 2017-06-01 10:38 | Discharge Summary ---
Providers - Providers Date of Admission: 05/29/17 19:50 Date of discharge: 06/01/17 Attending physician: CHANA MCMILLAN 05/30/17 07:13 Consult to Case Management [CONS] Routine Services Needed at Discharge: Home Health Services [employer] Supervisor Notified:: YES 05/30/17 12:58 Consult to Physician [CONS] Routine Consulting Provider: JO-ANN BARRERA Reason For Exam: seizure Place consult to:: OFFICE Notified:: YES Phone number called:: [phone] If yes, spoke with:: [facility] Time called:: 10:53 Comment:: ASHLEY Primary care physician: MILLICENT LAWRENCE Hospitalization Condition: Stable Hospital course: Patient is a 72-year-old man with a past medical history of seizure disorder and alcohol abuse. Presents after having 2 seizures at home, patient was was on Keppra and was noncompliant with it. He smelled of alcohol and he presented in the ER. Status epilepticus due to polysubstance abuse Continue antiepileptic drugs, neurology follow-up obtain CT head--->nothing acute Delirium tremens/alcohol dependence [facility] protocol Medical nonadherence Patient has been counseled on improved compliance Metabolic encephalopathy Continue supportive care, treat underlying cause Polysubstance abuse. Urine drug screen positive for cocaine and marijuana, serum alcohol level negative, counselled on stopping, he denies cocaine use. DVT prophylaxis Lovenox Disposition: DC-01 TO HOME OR SELFCARE Time spent for discharge: 36 minutes Core Measure Documentation - Palliative Care Palliative Care/ Comfort Measures: Not Applicable - Core Measures Any of the following diagnoses?: none - VTE Discharge Requirements Deep Vein Thrombosis/Pulmonary Embolism Present on Admission: No Has pt received <5 days of overlap therapy or INR<2.0: No Anticoagulant overlap therapy prescribed at discharge: No Contraindication No Overlap Therapy order at DC: Not Indicated Exam - Physical Exam Narrative exam: GEN: Thin frail unkempt NAD, AWAKE, ALERT, ORIENTATED 3 HEENT: NCAT, EOMI, PERRL, OP Clear NECK: supple, no adenopathy, no thyromegaly, no JVD CVS/HEART: RRR, NORMAL S1S2, NO JVD, pulses present bilaterally CHEST/LUNGS: CTA B, Symmetrical chest expansion, good air entry bilaterally GI/Abdomen: soft, NTND, good bowel sounds, no guarding or rebound /Bladder: no suprapubic tenderness, no CVA or paraspinal tenderness EXT/Skin: no c/c/e, no significant edema or obvious rash MSK: FROM x 4 Neuro: CN 2-12 grossly intact, no new focal deficits Psych: calm - Constitutional Vitals: Temp Pulse Resp BP Pulse Ox 98.6 F 70 18 167/80 100 05/31/17 22:00 05/31/17 22:00 05/31/17 22:00 05/31/17 22:00 05/31/17 22:00 Plan Activity: no driving until cleared by PCP, other (no strenous activity until cleared by pcp) Diet: regular Follow up with: PRIMARY CARE, [Referring] - 3-5 Days Prescriptions: levETIRAcetam [Keppra TAB] 750 mg PO BID #30 tablet
== END 2017-06-01 16:22 | disposition home or self-care (01) | DRG 896 ==
LOC: ED 12:44 → CC2 19:50
PROVIDERS: ADMIT Internal Medicine; ATTEND Internal Medicine
PROC: 4A033R1 Measurement of Arterial Saturation, Peripheral, Percutaneous Approach (ICD-10-PCS; principal; 2017-05-29)
DX: F10.231 Alcohol dependence with withdrawal delirium (principal); G93.41 Metabolic encephalopathy; E87.2 Acidosis; G40.901 Epilepsy, unspecified, not intractable, with status epilepticus; F12.10 Cannabis abuse, uncomplicated; F14.10 Cocaine abuse, uncomplicated; F19.10 Other psychoactive substance abuse, uncomplicated; D64.9 Anemia, unspecified; Z91.19 Patient's noncompliance with other medical treatment and regimen; Z71.51 Drug abuse counseling and surveillance of drug abuser; Z79.899 Other long term (current) drug therapy
CPT/HCPCS: 36415; 70450; 71010; 80053; 80307; 80320; 81001; 82607; 82747; 82803; 83550; 85025; 93005; 93010; 96374; 96375; G0480; J1650; J1953; J2060; J2405; J3411; J7030; J7042; J7120

== ENCOUNTER 2017-06-21 08:33 | Emergency (ER) | payer MEDICARE ==
[2017-06-21] MEDS ORDERED: KEPPRA PO ONE ×2 (08:53→08:54)
--- NOTE | 2017-06-21 09:23 | Emergency Department Report ---
ED Seizure HPI - General Chief Complaint: Seizure Stated Complaint: SEIZURES Time Seen by Provider: 06/21/17 09:01 Source: patient, EMS Mode of arrival: Stretcher Limitations: Physical Limitation - History of Present Illness Initial Comments: 72-year-old male with known seizure disorder here with complaint of seizure. Patient was sent from assisted post seizure. He currently denies any symptoms. He is well known to this emergency department. MD Complaint: seizure Seizure History: history of non-compliance Place: home Associated Symptoms: denies other symptoms - Related Data Previous Rx's Medication Instructions Recorded Last Taken Type Folic Acid [Folvite] 1 mg PO QDAY #30 tablet 07/01/16 Unknown Rx Thiamine [Vitamin B-1] 100 mg PO QDAY #30 tablet 07/01/16 Unknown Rx levETIRAcetam [Keppra TAB] 500 mg PO BID #60 tablet 02/14/17 Unknown Rx levETIRAcetam [Keppra TAB] 750 mg PO BID #30 tablet 06/01/17 Unknown Rx Allergies Allergy/AdvReac Type Severity Reaction Status Date / Time No Known Allergies Allergy Verified 06/28/16 17:42 ED Review of Systems ROS: Stated complaint: SEIZURES Other details as noted in HPI Comment: All other systems reviewed and negative Constitutional: denies: chills, fever ENT: denies: ear pain, throat pain Respiratory: denies: cough, shortness of breath, wheezing Cardiovascular: denies: chest pain, palpitations Endocrine: no symptoms reported Gastrointestinal: denies: abdominal pain, nausea, diarrhea Genitourinary: denies: urgency, dysuria Musculoskeletal: denies: back pain, joint swelling, arthralgia Skin: denies: rash, lesions Neurological: denies: headache, weakness, paresthesias Psychiatric: denies: anxiety, depression Hematological/Lymphatic: denies: easy bleeding, easy bruising ED Past Medical Hx - Past Medical History Previous Medical History?: Yes Hx Seizures: Yes Additional medical history: Alcoholism - Surgical History Additional Surgical History: uknown family unware - Family History Family history: no significant - Social History Smoking Status: Current Every Day Smoker Substance Use Type: Alcohol, Marijuana - Medications Home Medications: Home Medications Medication Instructions Recorded Confirmed Last Taken Type Folic Acid [Folvite] 1 mg PO QDAY #30 tablet 07/01/16 05/29/17 Unknown Rx Thiamine [Vitamin B-1] 100 mg PO QDAY #30 tablet 07/01/16 05/29/17 Unknown Rx levETIRAcetam [Keppra TAB] 500 mg PO BID #60 tablet 02/14/17 05/29/17 Unknown Rx levETIRAcetam [Keppra TAB] 750 mg PO BID #30 tablet 06/01/17 Unknown Rx ED Physical Exam - General Limitations: Physical Limitation General appearance: alert, in no apparent distress - Head Head exam: Present: atraumatic, normocephalic - Eye Eye exam: Present: normal appearance - ENT ENT exam: Present: mucous membranes moist - Neck Neck exam: Present: normal inspection - Respiratory Respiratory exam: Present: normal lung sounds bilaterally. Absent: respiratory distress - Cardiovascular Cardiovascular Exam: Present: regular rate, normal rhythm. Absent: systolic murmur, diastolic murmur, rubs, gallop - GI/Abdominal GI/Abdominal exam: Present: soft, normal bowel sounds - Rectal Rectal exam: Present: deferred - Extremities Exam Extremities exam: Present: normal inspection - Back Exam Back exam: Present: normal inspection - Neurological Exam Neurological exam: Present: alert, oriented X3 - Psychiatric Psychiatric exam: Present: normal affect, normal mood - Skin Skin exam: Present: warm, dry, intact, normal color. Absent: rash ED Course Vital Signs 06/21/17 06/21/17 06/21/17 08:41 08:46 08:48 Temperature 98.5 F Pulse Rate 63 104 H 100 H Respiratory 26 H 12 19 Rate Blood Pressure 165/127 Blood Pressure 165/67 [Left] 06/21/17 06/21/17 08:51 09:02 Temperature 98.5 F Pulse Rate 100 H Respiratory 19 25 H Rate Blood Pressure 167/65 Blood Pressure [Left] ED Medical Decision Making - Lab Data Result diagrams: 06/21/17 09:26 06/21/17 09:26 Laboratory Results - last 24 hr 06/21/17 06/21/17 06/21/17 09:26 09:26 09:26 WBC 8.7 RBC 5.17 H Hgb 16.8 H Hct 48.2 H MCV 93 MCH 33 H MCHC 35 H RDW 13.8 Plt Count 249 Lymph % (Auto) 14.3 [place] % (Auto) 4.2 Eos % (Auto) 0.1 Baso % (Auto) 0.9 Lymph # 1.2 [place] # 0.4 Eos # 0.0 Baso # 0.1 Seg Neutrophils % 80.5 H Seg Neutrophils # 7.0 Sodium 139 Potassium 4.2 Chloride 100.9 Carbon Dioxide 23 Anion Gap 19 BUN 11 Creatinine 0.8 Estimated GFR > 60 BUN/Creatinine Ratio 14 Glucose 93 Calcium 9.1 Total Bilirubin 0.60 AST 16 ALT 11 Alkaline Phosphatase 52 Total Protein 7.6 Albumin 4.1 Albumin/Globulin Ratio 1.2 Urine Color Urine Turbidity Urine pH Ur Specific [place] Urine Protein Urine Glucose (UA) Urine Ketones Urine Blood Urine Nitrite Urine Bilirubin Urine Urobilinogen Ur Leukocyte Esterase Urine WBC (Auto) Urine RBC (Auto) Urine Mucus Plasma/Serum Alcohol < 0.01 06/21/17 09:48 WBC RBC Hgb Hct MCV MCH MCHC RDW Plt Count Lymph % (Auto) [place] % (Auto) Eos % (Auto) Baso % (Auto) Lymph # [place] # Eos # Baso # Seg Neutrophils % Seg Neutrophils # Sodium Potassium Chloride Carbon Dioxide Anion Gap BUN Creatinine Estimated GFR BUN/Creatinine Ratio Glucose Calcium Total Bilirubin AST ALT Alkaline Phosphatase Total Protein Albumin Albumin/Globulin Ratio Urine Color Straw Urine Turbidity Clear Urine pH 9.0 H Ur Specific [place] 1.011 Urine Protein 30 mg/dl Urine Glucose (UA) Neg Urine Ketones Neg Urine Blood Neg Urine Nitrite Neg Urine Bilirubin Neg Urine Urobilinogen < 2.0 Ur Leukocyte Esterase Neg Urine WBC (Auto) 2.0 Urine RBC (Auto) 1.0 Urine Mucus Few Plasma/Serum Alcohol - Medical Decision Making 72-year-old male with known seizure disorder here with complaint of seizure. Unclear patient is taking his Keppra he denies any other complaints at this time. Patient administered Her here in the emergency department. He has had no further seizure activity. His labs appear unremarkable. Plan to discharge the patient in follow-up. Portions of this chart were dictated with dictation software. There may be dictation errors contained within this note. Critical care attestation.: If time is entered above; I have spent that time in minutes in the direct care of this critically ill patient, excluding procedure time. ED Disposition Clinical Impression: Seizure, Seizure disorder Disposition: DC-01 TO HOME OR SELFCARE Is pt being admited?: No Condition: Stable Instructions: Recurrent Seizures Adult (ED) Referrals: PRIMARY CARE, [Primary Care Provider] - 3-5 Days
[2017-06-21 10:11] LABS: Basophils % (Auto) 0.9 % (0.0-1.8); Eosinophils % (Auto) 0.1 % (0.0-4.3); Hematocrit 48.2 % (35.5-45.6); Hemoglobin 16.8 gm/dl (11.8-15.2); Mean Corpuscular HGB Conc 35 % (32-34); Mean Corpuscular Hemoglobin 33 pg (28-32); Mean Corpuscular Volume 93 fl (84-94); Platelet Count 249 K/mm3 (140-440); Red Blood Count 5.17 M/mm3 (3.65-5.03); Red Cell Distribution Width 13.8 % (13.2-15.2); White Blood Count 8.7 K/mm3 (4.5-11.0)
[2017-06-21 10:14] LABS: Bilirubin,Urine NEG (Negative); Blood,Urine NEG (Negative); Ketones,Urine NEG (Negative); Leukocyte Esterase,Urine NEG (Negative); Mucus,Urine FEW /HPF; Nitrite,Urine NEG (Negative); Urobilinogen,Urine < 2.0 mg/dL (<2.0)
[2017-06-21 10:29] LABS: Alanine Aminotransferase 11 units/L (7-56); Albumin 4.1 g/dL (3.9-5); Albumin/Globulin Ratio 1.2 %; Alkaline Phosphatase 52 units/L (35-129); Anion Gap 19 mmol/L; BUN/Creatinine Ratio 14; Blood Urea Nitrogen 11 mg/dL (9-20); Calcium 9.1 mg/dL (8.4-10.2); Carbon Dioxide 23 mmol/L (22-30); Chloride 100.9 mmol/L (98-107); Glucose 93 mg/dL (75-100); Potassium 4.2 mmol/L (3.6-5.0); Sodium 139 mmol/L (137-145); Total Protein 7.6 g/dL (6.3-8.2)
[2017-06-21 12:40] VITALS: BP 143/101
== END 2017-06-21 12:40 | disposition home or self-care (01) ==
LOC: ED 08:33
DX: G40.909 Epilepsy, unspecified, not intractable, without status epilepticus (principal); F17.200 Nicotine dependence, unspecified, uncomplicated; F12.10 Cannabis abuse, uncomplicated
CPT/HCPCS: 36415; 80053; 81001; 85025; 99284; G0480; 80320

== ENCOUNTER 2018-07-09 18:40 | Emergency (ER) | payer MEDICARE ==
[2018-07-09] MEDS ORDERED: KEPPRA 1,000 MG/NS 0.75% 100ML 1,000 MG/100 ML BAG IV ONE ×2 (19:19→22:12)
--- NOTE | 2018-07-09 19:29 | Emergency Department Report ---
ED Seizure HPI - General Stated Complaint: ALTERED MENTAL STATUS Time Seen by Provider: 07/09/18 19:16 Source: patient, EMS Mode of arrival: Stretcher Limitations: Altered Mental Status - History of Present Illness Initial Comments: Patient is 73 years old male with history of seizure on Keppra. Patient presented to the ER via EMS after one episode of seizure. Patient is staying with his brother is further stated that the patient was not taking his Keppra for the last few days. In the emergency room patient still postictal that he is started answering question appropriately. He denied any injury. Patient also denied any recent fever, cough, neck pain, chest pain, abdominal pain, urinary symptoms or other complaints. MD Complaint: seizure Description of Episode: tonic-clonic movement Witnessed:: Yes Trauma: No Seizure History: known seizure disorder Place: home Possible Precipitating Event: none Associated Symptoms: denies other symptoms - Related Data Previous Rx's Medication Instructions Recorded Last Taken Type Folic Acid [Folvite] 1 mg PO QDAY #30 tablet 02/21/18 Unknown Rx Thiamine [Vitamin B-1] 100 mg PO QDAY #30 tablet 02/21/18 Unknown Rx hydrALAZINE [Apresoline TAB] 10 mg PO Q8HR #90 tablet 02/21/18 Unknown Rx levETIRAcetam [Keppra TAB] 750 mg PO BID #60 tablet 02/21/18 Unknown Rx Allergies Allergy/AdvReac Type Severity Reaction Status Date / Time No Known Allergies Allergy Verified 07/09/18 19:24 ED Review of Systems ROS: Stated complaint: ALTERED MENTAL STATUS Other details as noted in HPI Comment: All other systems reviewed and negative Constitutional: denies: chills, fever Respiratory: denies: cough, orthopnea, shortness of breath, SOB with exertion, SOB at rest, wheezing Cardiovascular: denies: chest pain, palpitations, dyspnea on exertion Gastrointestinal: denies: abdominal pain, nausea, vomiting Neurological: denies: headache, weakness, numbness, paresthesias, confusion, abnormal gait ED Past Medical Hx - Past Medical History Previous Medical History?: Yes Hx Seizures: Yes Additional medical history: Alcoholism - Surgical History Additional Surgical History: uknown family unware - Social History Smoking Status: Current Every Day Smoker Substance Use Type: Alcohol - Medications Home Medications: Home Medications Medication Instructions Recorded Confirmed Last Taken Type Folic Acid [Folvite] 1 mg PO QDAY #30 tablet 02/21/18 Unknown Rx Thiamine [Vitamin B-1] 100 mg PO QDAY #30 tablet 02/21/18 Unknown Rx hydrALAZINE [Apresoline TAB] 10 mg PO Q8HR #90 tablet 02/21/18 Unknown Rx levETIRAcetam [Keppra TAB] 750 mg PO BID #60 tablet 02/21/18 Unknown Rx ED Physical Exam - General Limitations: Altered Mental Status General appearance: alert, in no apparent distress - Head Head exam: Present: atraumatic, normocephalic, normal inspection - Eye Eye exam: Present: normal appearance - ENT ENT exam: Present: normal exam, normal orophraynx, mucous membranes moist - Neck Neck exam: Present: normal inspection, full ROM. Absent: tenderness, meningismus, lymphadenopathy, thyromegaly - Respiratory Respiratory exam: Present: normal lung sounds bilaterally. Absent: respiratory distress, wheezes, rales, rhonchi, chest wall tenderness, accessory muscle use, decreased breath sounds, prolonged expiratory - Cardiovascular Cardiovascular Exam: Present: regular rate, normal rhythm, normal heart sounds - GI/Abdominal GI/Abdominal exam: Present: soft, normal bowel sounds. Absent: distended, tenderness, guarding, rebound, rigid, organomegaly, mass, bruit, pulsatile mass - Extremities Exam Extremities exam: Present: normal inspection, full ROM, normal capillary refill. Absent: pedal edema, calf tenderness - Back Exam Back exam: Present: normal inspection, full ROM - Neurological Exam Neurological exam: Present: alert, oriented X3, CN II-XII intact, normal gait, reflexes normal - Skin Skin exam: Present: warm, intact, normal color ED Course Vital Signs 07/09/18 07/09/18 07/09/18 19:04 19:16 19:21 Temperature 97.6 F Pulse Rate 68 Respiratory 16 Rate Blood Pressure 174/95 174/95 Blood Pressure [Right] O2 Sat by Pulse 99 98 98 Oximetry 07/09/18 07/09/18 07/09/18 19:30 19:46 20:01 Temperature Pulse Rate Respiratory Rate Blood Pressure 174/95 183/90 149/90 Blood Pressure [Right] O2 Sat by Pulse 98 98 97 Oximetry 07/09/18 07/09/18 07/09/18 20:16 20:30 20:48 Temperature Pulse Rate Respiratory Rate Blood Pressure 149/90 149/90 174/90 Blood Pressure [Right] O2 Sat by Pulse 98 99 95 Oximetry 07/09/18 07/09/18 07/09/18 21:00 21:16 22:22 Temperature Pulse Rate Respiratory Rate Blood Pressure 174/90 152/80 152/80 Blood Pressure [Right] O2 Sat by Pulse 99 98 99 Oximetry 07/09/18 07/09/18 22:24 22:27 Temperature Pulse Rate Respiratory 17 17 Rate Blood Pressure Blood Pressure 152/80 [Right] O2 Sat by Pulse 98 98 Oximetry ED Medical Decision Making - Lab Data Result diagrams: 07/09/18 22:34 07/09/18 22:34 Critical care attestation.: If time is entered above; I have spent that time in minutes in the direct care of this critically ill patient, excluding procedure time. ED Disposition Clinical Impression: Seizure Disposition: DC-07 LEFT AGAINST MED ADVICE Is pt being admited?: No Condition: Stable Referrals: PRIMARY CARE [Primary Care Provider] - 3-5 Days Forms: AMA Form
[2018-07-09 22:49] LABS: Basophils # (Auto) 0.1 K/mm3 (0.0-0.1); Basophils % (Auto) 1.2 % (0.0-1.8); Eosinophils % (Auto) 0.1 % (0.0-4.3); Hematocrit 44.8 % (35.5-45.6); Hemoglobin 15.2 gm/dl (11.8-15.2); Lymphocytes # (Auto) 2.5 K/mm3 (1.2-5.4); Lymphocytes % (Auto) 39.5 % (13.4-35.0); Mean Corpuscular HGB Conc 34 % (32-34); Mean Corpuscular Hemoglobin 31 pg (28-32); Mean Corpuscular Volume 93 fl (84-94); Monocytes # (Auto) 0.5 K/mm3 (0.0-0.8); Monocytes % (Auto) 7.4 % (0.0-7.3); Platelet Count 261 K/mm3 (140-440); Red Blood Count 4.84 M/mm3 (3.65-5.03); Red Cell Distribution Width 15.6 % (13.2-15.2)
[2018-07-09 23:06] LABS: Alanine Aminotransferase 10 units/L (7-56); BUN/Creatinine Ratio 19; Bilirubin,Direct 0.2 mg/dL (0-0.2); Blood Urea Nitrogen 13 mg/dL (9-20); Calcium 9.1 mg/dL (8.4-10.2); Hemolysis Index 9
[2018-07-10 00:20] VITALS: BP 148/78
== END 2018-07-10 00:10 | disposition left against medical advice (07) ==
LOC: ED 18:40
DX: G40.909 Epilepsy, unspecified, not intractable, without status epilepticus (principal); F17.200 Nicotine dependence, unspecified, uncomplicated
CPT/HCPCS: 36415; 80048; 80074; 85025; 96365; 96366; 99284; J1953

== ENCOUNTER 2020-11-23 16:53 | Observation (INO) | payer MEDICARE, OTHER ==
[2020-11-23] MEDS ORDERED: LORazepam 2 MG/ML VIAL ONE (17:45)
[2020-11-23] MEDS ORDERED: DEXTROSE 50% IN WATER (25GM) 50 ML SYRINGE IV ONE (17:45)
[2020-11-23] MEDS ORDERED: LORazepam 2 MG/ML VIAL IV ONE (17:45)
[2020-11-23] MEDS ORDERED: levETIRAcetam 1000 MG/NS 0.75% 1,000 MG/100 ML BAG IV ONE (17:45)
[2020-11-23] MEDS ORDERED: LORazepam 2 MG/ML VIAL IV PRN ×3 (17:50)
--- NOTE | 2020-11-23 17:50 | Emergency Department Report ---
ED Seizure HPI - General Chief Complaint: Seizure Stated Complaint: SEIZURE Time Seen by Provider: 11/23/20 17:41 Source: patient, EMS Mode of arrival: Stretcher Limitations: No Limitations - History of Present Illness Initial Comments: Patient is 75 years old male with history of seizure, dementia and chronic alcoholism. Patient brought to the emergency room via EMS from home for evaluation of seizure. Patient experienced another seizure while he is on EMS stretcher. Patient received Ativan and Keppra. Patient is not communicating as he is post ictal now. MD Complaint: seizure - Related Data Previous Rx's Medication Instructions Recorded Last Taken Type Folic Acid [Folvite] 1 mg PO QDAY #30 tablet 07/29/20 Unknown Rx Sulfamethoxazole/Trimethoprim 1 each PO BID #14 tablet 07/29/20 Unknown Rx [Bactrim DS TAB] Thiamine [Vitamin B-1] 100 mg PO QDAY #30 tablet 07/29/20 Unknown Rx hydrALAZINE [Apresoline TAB] 10 mg PO Q8HR #90 tablet 07/29/20 Unknown Rx levETIRAcetam [Keppra TAB] 750 mg PO BID #60 tablet 07/29/20 Unknown Rx Allergies Allergy/AdvReac Type Severity Reaction Status Date / Time No Known Allergies Allergy Verified 11/23/20 17:16 ED Review of Systems ROS: Stated complaint: SEIZURE Other details as noted in HPI Comment: All other systems reviewed and negative Constitutional: denies: chills, fever Respiratory: denies: cough Cardiovascular: denies: chest pain, palpitations ED Past Medical Hx - Past Medical History Previous Medical History?: Yes Hx Congestive Heart Failure: No Hx Diabetes: No Hx Seizures: Yes Hx Asthma: No Hx COPD: No Additional medical history: Alcoholism - Surgical History Additional Surgical History: ukno family unware - Social History Smoking Status: Current Every Day Smoker Substance Use Type: None - Medications Home Medications: Home Medications Medication Instructions Recorded Confirmed Last Taken Type Folic Acid [Folvite] 1 mg PO QDAY #30 tablet 07/29/20 Unknown Rx Sulfamethoxazole/Trimethoprim 1 each PO BID #14 tablet 07/29/20 Unknown Rx [Bactrim DS TAB] Thiamine [Vitamin B-1] 100 mg PO QDAY #30 tablet 07/29/20 Unknown Rx hydrALAZINE [Apresoline TAB] 10 mg PO Q8HR #90 tablet 07/29/20 Unknown Rx levETIRAcetam [Keppra TAB] 750 mg PO BID #60 tablet 07/29/20 Unknown Rx ED Physical Exam - General Limitations: No Limitations General appearance: postictal - Head Head exam: Present: atraumatic, normocephalic, normal inspection - Neck Neck exam: Present: normal inspection - Respiratory Respiratory exam: Present: normal lung sounds bilaterally - Cardiovascular Cardiovascular Exam: Present: tachycardia - GI/Abdominal GI/Abdominal exam: Present: soft, normal bowel sounds. Absent: distended, tenderness, guarding, rebound, rigid, mass, bruit, pulsatile mass, hernia - Extremities Exam Extremities exam: Present: normal inspection, full ROM, normal capillary refill - Back Exam Back exam: Present: normal inspection, full ROM - Neurological Exam Neurological exam: Present: altered - Skin Skin exam: Present: warm, intact ED Course Vital Signs 11/23/20 11/23/20 11/23/20 20:43 21:00 22:00 Pulse Rate 90 95 H 86 Respiratory 20 20 13 Rate Blood Pressure 139/83 138/90 Blood Pressure 134/84 [Left] O2 Sat by Pulse 100 98 Oximetry ED Medical Decision Making - Lab Data Result diagrams: 11/23/20 19:10 11/23/20 19:10 - EKG Data -: EKG Interpreted by [facility] EKG shows normal: sinus rhythm Rate: normal - EKG Data Interpretation: no acute changes - Radiology Data Radiology results: report reviewed - Medical Decision Making Patient is 75 years old male with history of seizure, dementia and chronic alcoholism. Patient brought to the emergency room via EMS from home for evaluation of seizure. Patient experienced another seizure while he is on EMS stretcher. Patient received Ativan and Keppra. Patient is not communicating as he is post ictal now. Patient remained stable however his still postictal. Labs reviewed and is unremarkable. CT brain is negative for acute finding. I discussed the patient with Dr. Rock, he agreed to admit the patient to medical service for further management. Critical care attestation.: If time is entered above; I have spent that time in minutes in the direct care of this critically ill patient, excluding procedure time. ED Disposition Clinical Impression: Altered mental status, Seizure Disposition: OP ADMIT IP TO THIS HOSP Is pt being admited?: Yes Condition: Stable Referrals: PRIMARY CARE, [Primary Care Provider] - 3-5 Days
--- NOTE | 2020-11-23 19:08 | Cat Scan Report ---
CT head/brain wo con INDICATION: Seizure. TECHNIQUE: Routine CT head. All CT scans at this location are performed using CT dose reduction for A CARL by means of automated exposure control. COMPARISON: 07/27/2020. FINDINGS: Intracranial: [place]-white matter differentiation is maintained. No intracranial hemorrhage. No extra a xial collection. No hydrocephalus. No herniation. Sinuses: Paranasal sinuses and mastoid air cells are essentially clear. Orbits: Globes are intact. Calvarium: No acute fracture. IMPRESSION: 1. No acute intracranial abnormality. Signer Name: Dre Mauricio MD Signed: 11/23/2020 7:04 PM Workstation Name: [id number]
[2020-11-23 19:22] LABS: Basophils # (Auto) 0.1 K/mm3 (0.0-0.1); Basophils % (Auto) 0.8 % (0.0-1.8); Eosinophils % (Auto) 0.1 % (0.0-4.3); Hematocrit 46.1 % (35.5-45.6); Hemoglobin 16.1 gm/dl (11.8-15.2); Lymphocytes # (Auto) 1.2 K/mm3 (1.2-5.4); Mean Corpuscular HGB Conc 35 % (32-34); Mean Corpuscular Volume 94 fl (84-94); Monocytes # (Auto) 0.4 K/mm3 (0.0-0.8); Monocytes % (Auto) 4.4 % (0.0-7.3); Red Blood Count 4.93 M/mm3 (3.65-5.03); Red Cell Distribution Width 14.6 % (13.2-15.2)
[2020-11-23 19:38] LABS: Alanine Aminotransferase 5 units/L (7-56); Albumin 4.4 g/dL (3.9-5); BUN/Creatinine Ratio 19; Blood Urea Nitrogen 17 mg/dL (9-20); Calcium 9.2 mg/dL (8.4-10.2); Hemolysis Index 46
[2020-11-23 19:41] LABS: Bilirubin,Direct < 0.2 mg/dL (0-0.2)
[2020-11-23 20:13] LABS: Platelet Count 153 K/mm3 (140-440)
[2020-11-23 22:59] LABS: Bacteria,Urine 1+ /HPF (Negative); Bilirubin,Urine NEG (Negative); Blood,Urine MOD (Negative); Color,Urine Yellow (Yellow); Mucus,Urine FEW /HPF
[2020-11-23 23:06] LABS: Amphetamine Screen,Urine PRESUMPTIVE NEGATIVE; Benzodiazepines Screen,Urine PRESUMPTIVE NEGATIVE; Cannabinoid Screen,Urine PRESUMPTIVE POSITIVE; Cocaine Screen,Urine PRESUMPTIVE NEGATIVE; Methadone Screen,Urine PRESUMPTIVE NEGATIVE; Opiate Screen,Urine PRESUMPTIVE NEGATIVE
[2020-11-24] MEDS ORDERED: ONDANSETRON 4 MG/2 ML INJ IV PRN (00:27)
[2020-11-24] MEDS ORDERED: MAGNESIUM HYDROXIDE (MOM) ORAL LIQD UDC PO PRN (00:27)
[2020-11-24] MEDS ORDERED: ACETAMINOPHEN 325 MG TAB PO PRN (00:27)
[2020-11-24] MEDS ORDERED: SODIUM CHLORIDE 0.9% 1000 ML 1,000 ML IV SCH (00:30)
--- NOTE | 2020-11-24 00:35 | History and Physical Report ---
History of Present Illness Date of examination: 11/23/20 Date of admission: 11/23/20 22:55 Chief complaint: Seizures History of present illness: 75-year-old male with known history of chronic alcoholism, seizure disorder and dementia brought into the emergency room today via EMS for evaluation of seizures. Most of the history was gotten from the ER staff as patient is not communicating and post ictal. Family also not available to give any history at this time. Patient was said to have had another episode episode of another seizure in route to the hospital. Work-up in the emergency room today including CT scan of the head urinalysis and labs were unremarkable. Patient has been started on IV Keppra and Ativan as needed for seizure disorder. Past History Past Medical History: seizures, other (Dementia) Past Surgical History: No surgical history Social history: smoking (Current daily smoker), alcohol abuse (Chronic alcoholism) Family history: no significant family history Medications and Allergies Allergies Allergy/AdvReac Type Severity Reaction Status Date / Time No Known Allergies Allergy Verified 11/23/20 17:16 Home Medications Medication Instructions Recorded Confirmed Last Taken Type Folic Acid [Folvite] 1 mg PO QDAY #30 tablet 07/29/20 11/24/20 Unknown Rx Sulfamethoxazole/Trimethoprim 1 each PO BID #14 tablet 07/29/20 11/24/20 Unknown Rx [Bactrim DS TAB] Thiamine [Vitamin B-1] 100 mg PO QDAY #30 tablet 07/29/20 11/24/20 Unknown Rx hydrALAZINE [Apresoline TAB] 10 mg PO Q8HR #90 tablet 07/29/20 11/24/20 Unknown Rx levETIRAcetam [Keppra TAB] 750 mg PO BID #60 tablet 07/29/20 11/24/20 Unknown Rx Active Meds: Active Medications Acetaminophen (Acetaminophen 325 Mg Tab) 650 mg PO Q4H PRN PRN Reason: Pain MILD(1-3)/Fever >100.5/JOHNSON Heparin Sodium (Porcine) (Heparin 5,000 Unit/1 Ml Vial) 5,000 unit SUB-Q Q8HR CAITLIN Sodium Chloride (Nacl 0.9% 1000 Ml) 1,000 mls @ 125 mls/hr IV DIRECT CAITLIN Lorazepam (Lorazepam 2 Mg/Ml Vial) 2 mg IV Q1H PRN PRN Reason: CIWA-Ar 8-15 Lorazepam (Lorazepam 2 Mg/Ml Vial) 4 mg IV Q1H PRN PRN Reason: CIWA-Ar 16-25 Lorazepam (Lorazepam 2 Mg/Ml Vial) 4 mg IV Q15MIN PRN PRN Reason: CIWA-Ar >25 Magnesium Hydroxide (Magnesium Hydroxide (Mom) Oral Liqd Udc) 30 ml PO Q4H PRN PRN Reason: Constipation Ondansetron HCl (Ondansetron 4 Mg/2 Ml Inj) 4 mg IV Q8H PRN PRN Reason: Nausea And Vomiting Sodium Chloride (Sodium Chloride 0.9% 10 Ml Flush Syringe) 10 ml IV BID CAITLIN Sodium Chloride (Sodium Chloride 0.9% 10 Ml Flush Syringe) 10 ml IV PRN PRN PRN Reason: LINE FLUSH Review of Systems ROS unobtainable: due to mental status Exam - Constitutional Vitals: Temp Pulse Resp BP Pulse Ox 86 13 138/90 98 11/23/20 22:00 11/23/20 22:00 11/23/20 22:00 11/23/20 22:00 General appearance: Present: no acute distress, well-nourished - EENT Eyes: Present: PERRL, EOM intact. Absent: scleral icterus ENT: hearing intact, clear oral mucosa, dentition normal - Neck Neck: Present: supple, normal ROM - Respiratory Respiratory effort: normal Respiratory: bilateral: CTA - Cardiovascular Rhythm: regular Heart Sounds: Present: S1 & S2. Absent: systolic murmur, diastolic murmur, rub, click - Extremities Extremities: no ischemia, pulses intact, pulses symmetrical, No edema, normal temperature, normal color, Full ROM Peripheral Pulses: within normal limits - Abdominal General gastrointestinal: Present: soft, non-tender, non-distended, normal bowel sounds. Absent: mass - Integumentary Integumentary: Present: clear, warm, dry. Absent: rash - Musculoskeletal Musculoskeletal: strength equal bilaterally - Psychiatric Psychiatric: cooperative - Neurologic Neurologic: CNII-XII intact, no focal deficits, moves all extremities, other (Alert and Oriented X1, Drowsy.) Results - Labs CBC & Chem 7: 11/23/20 19:10 11/23/20 19:10 Labs: Abnormal lab results 11/23/20 11/23/20 11/23/20 Range/Units 17:44 19:10 19:10 Hgb 16.1 H (11.8-15.2) gm/dl Hct 46.1 H (35.5-45.6) % MCH 33 H (28-32) pg MCHC 35 H (32-34) % Seg Neutrophils % 80.7 H (40.0-70.0) % Glucose 216 H (75-100) mg/dL POC Glucose 68 L (70-105) mg/dL ALT 5 L (7-56) units/L Urine pH (5.0-7.0) 11/23/20 11/23/20 Range/Units 19:13 Unknown Hgb (11.8-15.2) gm/dl Hct (35.5-45.6) % MCH (28-32) pg MCHC (32-34) % Seg Neutrophils % (40.0-70.0) % Glucose (75-100) mg/dL POC Glucose 148 H (70-105) mg/dL ALT (7-56) units/L Urine pH 8.0 H (5.0-7.0) Assessment and Plan - Patient Problems (1) Seizure Current Visit: Yes Status: Chronic Plan to address problem: Patient placed on seizure precautions. We will continue on IV Keppra and Ativan as needed. Consult placed to neurology for evaluation. (2) Altered mental status Current Visit: Yes Status: Acute Plan to address problem: Patient is possibly post ictal. Will monitor mental status. (3) Hypertension Current Visit: No Status: Acute Plan to address problem: We will resume routine home medications and monitor vital signs closely. (4) DVT prophylaxis Current Visit: No Status: Acute Plan to address problem: Patient placed on subcutaneous heparin. (5) Full code status Current Visit: No Status: Acute Plan to address problem: Patient is full code.
[2020-11-24] MEDS ORDERED: HEPARIN 5,000 UNIT/1 ML VIAL SUB-Q SCH (06:00)
[2020-11-24] MEDS ORDERED: hydrALAZINE 10 MG TAB PO SCH (08:48)
[2020-11-24] MEDS ORDERED: FOLIC ACID 1 MG TAB PO SCH (10:00)
[2020-11-24] MEDS ORDERED: levETIRAcetam 500 MG in DEXTROSE 5% IN WATER 100 ML IV SCH (10:00)
[2020-11-24] MEDS ORDERED: THIAMINE 100 MG TAB PO SCH (10:00)
--- NOTE | 2020-11-24 10:54 | Discharge Summary ---
Providers - Providers Date of Admission: 11/23/20 22:55 Attending physician: KARLEY NINA MD 11/24/20 00:27 Consult to Physician [CONS] Routine Comment: Consulting Provider: JLUIS RIZO Physician Instructions: Reason For Exam: Seizures Primary care physician: [facility] Hospitalization Reason for admission: Seizures Condition: Stable Hospital course: 75-year-old male with known history of chronic alcoholism, seizure disorder and dementia brought into the emergency room today via EMS for evaluation of seizures. Most of the history was gotten from the ER staff as patient is not communicating and post ictal. Family also not available to give any history at this time. Patient was said to have had another episode episode of another seizure in route to the hospital. Work-up in the emergency room today including CT scan of the head urinalysis and labs were unremarkable. Patient has been started on IV Keppra and Ativan as needed for seizure disorder Patient this morning is significantly improved he tells me that he has history of seizure he reports history of alcohol although admits to tremor when he is not drinking but denies any alcohol related seizure review of his medications appears to be that his seizure disorder in the past has been attributed to his alcohol use I did have extensive discussion with the patient about 50 minutes counseling on EtOH use discussed cessation. He understands he is not to drive he tells me that he has a play daughter and to his from [place] and does not have family here. I did call the number in our system but appears to be nonfunctional number. Imaging studies including CT is unremarkable is clinically stable at this point for discharge also given counseling on marijuana use as his UDS came back positive for same. We will renew his medications and anticipate discharge this afternoon. (1) Seizure (2) acute metabolic encephalopathy (3) alcohol use disorder (4) THC use disorder (5) hypertension Disposition: - TO HOME OR SELFCARE Time spent for discharge: 35 mins Core Measure Documentation - Palliative Care Palliative Care/ Comfort Measures: Not Applicable - Core Measures Any of the following diagnoses?: none Exam - Physical Exam Narrative exam: VITAL SIGNS: Reviewed. GENERAL: The patient appears normally developed, Vital signs as documented. HEAD: No signs of head trauma. EYES: Pupils are equal. Extraocular motions intact. EARS: Hearing grossly intact. MOUTH: Oropharynx is normal except for missing oral dentition. NECK: No adenopathy, no JVD. CHEST: Chest with clear breath sounds bilaterally. No wheezes, rales, or rhonchi. CARDIAC: Regular rate and rhythm. S1 and S2, without murmurs, gallops, or rubs. VASCULAR: No Edema. Peripheral pulses normal and equal in all extremities. ABDOMEN: Soft, non tender and non distended. No rebound or guarding, and no masses palpated. Bowel Sounds normal. MUSCULOSKELETAL: Good range of motion of all major joints. Extremities without clubbing, cyanosis or edema. NEUROLOGIC EXAM: Alert and oriented x 3 No focal sensory or strength deficits. Speech normal. Follows commands. PSYCHIATRIC: Mood normal. SKIN: detail exam as documented in skin assessment - Constitutional Vitals: Temp Pulse Resp BP Pulse Ox 97.4 F L 71 16 116/73 99 11/24/20 06:09 11/24/20 06:09 11/24/20 06:09 11/24/20 06:09 11/24/20 06:09 Plan Activity: advance as tolerated, fall precautions Diet: low fat Special Instructions: record daily weights, record daily BP diary Follow up with: PRIMARY CAREMD [Primary Care Provider] - 3-5 Days JOSE J GARDINER MD [Staff Physician] - 7 Days Prescriptions: Folic Acid [Folvite] 1 mg PO QDAY #30 tablet levETIRAcetam [Keppra TAB] 750 mg PO BID #60 tablet Thiamine [Vitamin B-1] 100 mg PO QDAY #30 tablet
[2020-11-24 14:31] VITALS: BP 119/79
== END 2020-11-24 14:20 | disposition home or self-care (01) ==
LOC: ED 16:53 → 3A 22:55
PROVIDERS: ADMIT Internal Medicine Geriatric Medicine; ATTEND Internal Medicine
DX: R56.9 Unspecified convulsions (principal); R41.82 Altered mental status, unspecified; G93.41 Metabolic encephalopathy; I10 Essential (primary) hypertension; F17.200 Nicotine dependence, unspecified, uncomplicated; F12.90 Cannabis use, unspecified, uncomplicated
CPT/HCPCS: 36415; 70450; 80048; 80076; 80307; 81001; 82962; 85025; 93005; 96361; 96365; 96366; 96372; 96375; 99285; G0378; J1644; J1953; J2060; J7030; 80320; G0480

== ENCOUNTER 2022-05-09 16:53 | Inpatient (IN) | payer MEDICARE ==
[2022-05-09] MEDS ORDERED: SODIUM CHLORIDE 0.9% 1000 ML 1,000 ML IV ONE ×2 (18:19→20:15)
[2022-05-09] MEDS ORDERED: levETIRAcetam 500 MG in DEXTROSE 5% IN WATER 100 ML IV NR (18:30)
--- NOTE | 2022-05-09 18:57 | XRay Report ---
XR chest 1V ap INDICATION / CLINICAL INFORMATION: Altered Mental Status. COMPARISON: 07/27/2020 FINDINGS: Patient is rotated to the right. SUPPORT DEVICES: None. HEART /PULMONARY VASCULATURE: Heart size is within normal limits. Mild congestive changes. LUNGS / PLEURA: Mildly diminished lung volumes with bronchovascular crowding. There is no focal airsp debra consolidation. No sizable pleural effusion. Curvilinear density along the right costophrenic sulc us likely reflects skinfold. No pneumothorax. ADDITIONAL FINDINGS: No significant additional findings. IMPRESSION: Mild central pulmonary vasculature congestion. No evidence of focal infiltrate. Signer Name: Juan Duke MD Signed: 05/09/2022 6:52 PM Workstation Name: [id number]
[2022-05-09 19:17] LABS: Hematocrit 48.9 % (35.5-45.6); Hemoglobin 16.6 gm/dl (11.8-15.2); Mean Corpuscular HGB Conc 34 % (32-34); Mean Corpuscular Volume 87 fl (84-94); Platelet Count 213 K/mm3 (140-440); Red Blood Count 5.65 M/mm3 (3.65-5.03); Red Cell Distribution Width 15.4 % (13.2-15.2)
[2022-05-09 19:31] LABS: INR 0.97 (0.87-1.13)
[2022-05-09 19:33] LABS: Alanine Aminotransferase 10 units/L (7-56); Albumin 4.6 g/dL (3.9-5); Calcium 9.1 mg/dL (8.4-10.2); Hemolysis Index 5
[2022-05-09 19:55] LABS: BUN/Creatinine Ratio 14; Blood Urea Nitrogen 225 mg/dL (9-20)
[2022-05-09] MEDS ORDERED: CALCIUM CHLORIDE 1,000 MG in SODIUM CHLORIDE 0.9% 100 ML IV ONE (20:12)
[2022-05-09] MEDS ORDERED: ALBUTEROL 2.5 MG/3 ML NEBU IH ONE (20:13)
[2022-05-09] MEDS ORDERED: DEXTROSE 50% IN WATER (25GM) 50 ML SYRINGE IV ONE (20:13)
[2022-05-09] MEDS ORDERED: INSULIN REGULAR, HUMAN 100 UNITS/1 ML IV ONE (20:13)
[2022-05-09] MEDS ORDERED: SODIUM POLYSTYRENE 15 GM/60 ML ORAL LIQD PO ONE (20:14)
[2022-05-09 20:19] LABS: Basophils % (Manual) 0 % (0.0-1.8); Eosinophils % (Manual) 0 % (0.0-4.3); Monocytes % (Manual) 0 % (0.0-7.3); Total Cells Counted 100
[2022-05-09 20:20] LABS: Platelet Estimate Consistent w Auto; Target Cells Few; Tear Drop Cells Few
[2022-05-09] MEDS ORDERED: SODIUM CHLORIDE 0.9% 100 ML IV PRN (20:33)
--- NOTE | 2022-05-09 20:39 | Event Note ---
Date: 05/09/22 Consulted for PATRIZIA, hyperkalemia and acidosis STAT vascular consult for access STAT HD orders placed, ER to notify vocational rehabilitation consultant nurse Medical management of hyperkalemia in the interim Continue IVF Check bladder scan, r/o retention Full note to follow Obdulia Salcedo MD
[2022-05-09] MEDS ORDERED: SODIUM BICARB 8.4% 50 MEQ/50 ML SYRINGE IV ONE (21:00)
[2022-05-09] MEDS ORDERED: SODIUM BICARBONATE 150 MEQ in DEXTROSE 5% IN WATER 1,000 ML IV SCH (21:00)
--- NOTE | 2022-05-09 21:11 | Event Note ---
Date: 05/09/22 The indications and procedure of hemodialysis was explained in detail to patient and verbal consent was obtained to proceed with HD. Obdulia Salcedo MD
--- NOTE | 2022-05-09 22:29 | Emergency Department Report ---
ED General Adult HPI - General Chief complaint: Weakness Stated complaint: WEAKNESS PUI?: No Time Seen by Provider: 05/09/22 18:08 Source: patient, EMS Mode of arrival: Stretcher Limitations: Physical Limitation - History of Present Illness Initial comments: pt is 76 years old with htn and drug abuse and seizure , was brought in by EMS , fos failure to eat and generalised weakness -: days(s) (5) Radiation: non-radiation Severity scale (0 -10): 0 Associated Symptoms: malaise, weakness - Related Data Previous Rx's Medication Instructions Recorded Last Taken Type hydrALAZINE [Apresoline TAB] 10 mg PO Q8HR #90 tablet 07/29/20 Unknown Rx Folic Acid [Folvite] 1 mg PO QDAY #30 tablet 11/24/20 Unknown Rx Thiamine [Vitamin B-1] 100 mg PO QDAY #30 tablet 11/24/20 Unknown Rx levETIRAcetam [Keppra TAB] 750 mg PO BID #60 tablet 11/24/20 Unknown Rx Allergies Allergy/AdvReac Type Severity Reaction Status Date / Time No Known Allergies Allergy Verified 11/23/20 17:16 ED Review of Systems ROS: Stated complaint: WEAKNESS Other details as noted in HPI Constitutional: denies: chills, fever Eyes: denies: eye pain, eye discharge, vision change ENT: denies: ear pain, throat pain Respiratory: denies: cough, shortness of breath, wheezing Cardiovascular: denies: chest pain, palpitations Endocrine: no symptoms reported Gastrointestinal: denies: abdominal pain, nausea, diarrhea Genitourinary: denies: urgency, dysuria Musculoskeletal: denies: back pain, joint swelling, arthralgia Skin: denies: rash, lesions Neurological: denies: headache, weakness, paresthesias Psychiatric: denies: anxiety, depression Hematological/Lymphatic: denies: easy bleeding, easy bruising ED Past Medical Hx - Past Medical History Hx Hypertension: Yes Hx Congestive Heart Failure: No Hx Diabetes: No Hx Seizures: Yes Hx Asthma: No Hx COPD: No Hx Dementia: Yes Additional medical history: Alcoholism - Surgical History Additional Surgical History: uknown family unware - Social History Smoking Status: Current Every Day Smoker - Medications Home Medications: Home Medications Medication Instructions Recorded Confirmed Last Taken Type hydrALAZINE [Apresoline TAB] 10 mg PO Q8HR #90 tablet 07/29/20 11/24/20 Unknown Rx Folic Acid [Folvite] 1 mg PO QDAY #30 tablet 11/24/20 Unknown Rx Thiamine [Vitamin B-1] 100 mg PO QDAY #30 tablet 11/24/20 Unknown Rx levETIRAcetam [Keppra TAB] 750 mg PO BID #60 tablet 11/24/20 Unknown Rx ED Physical Exam - General Limitations: Physical Limitation General appearance: alert, cachectic - Head Head exam: Present: atraumatic, normocephalic - Eye Eye exam: Present: normal appearance - ENT ENT exam: Present: mucous membranes moist - Neck Neck exam: Present: normal inspection - Respiratory Respiratory exam: Present: normal lung sounds bilaterally. Absent: respiratory distress - Cardiovascular Cardiovascular Exam: Present: normal rhythm, tachycardia. Absent: systolic murmur, diastolic murmur, rubs, gallop - GI/Abdominal GI/Abdominal exam: Present: soft, normal bowel sounds - Rectal Rectal exam: Present: deferred - Extremities Exam Extremities exam: Present: normal inspection - Back Exam Back exam: Present: normal inspection - Neurological Exam Neurological exam: Present: alert, oriented X3 - Psychiatric Psychiatric exam: Present: normal mood - Skin Skin exam: Present: intact, normal color. Absent: rash ED Course Vital Signs 05/09/22 05/09/22 05/09/22 17:05 18:07 18:59 Pulse Rate 102 H 104 H 95 H Pulse Rate [ Bilateral Throughout] Respiratory 18 17 18 Rate Respiratory Rate [Bilateral Throughout] Blood Pressure 157/97 193/121 188/110 [Left] O2 Sat by Pulse 99 99 99 Oximetry 05/09/22 21:00 Pulse Rate Pulse Rate [ 98 H Bilateral Throughout] Respiratory Rate Respiratory 19 Rate [Bilateral Throughout] Blood Pressure [Left] O2 Sat by Pulse Oximetry ED Medical Decision Making - Lab Data Result diagrams: 05/09/22 18:51 05/09/22 18:51 - EKG Data -: EKG Interpreted by Ri EKG shows normal: sinus rhythm - EKG Data Interpretation: other (tall peaked t waves ) - Radiology Data Radiology results: report reviewed, image reviewed - Medical Decision Making work up showed : - Hyperkalemia : calcium , glucose and insulin, bicarb and kaxalate given , spoke with dr Logan will get vascular access for urgent dialysis, spoke with dr Salcedo for dialysis Critical Care Time: Yes Critical care time in (mins) excluding proc time.: 65 Critical care attestation.: If time is entered above; I have spent that time in minutes in the direct care of this critically ill patient, excluding procedure time. ED Disposition Clinical Impression: Failure to thrive, Hyperkalemia, Acute renal failure Disposition: 09 ADMITTED INPATIENT Is pt being admited?: Yes Does the pt Need Aspirin: No Condition: Critical
--- NOTE | 2022-05-09 22:48 | Procedure Note ---
Date of procedure: 05/10/22 Pre-op diagnosis: Acute kidney injury, hyperkalemia Post-op diagnosis: same Procedure: RIJ HD placement under ultrasound guidance. Winston precautions addressed, time out done An informed consent was obtained for the patient, signed and was filed as part o f his medical records The patient was draped and cleaned in sterile fashion. The RIJ was canulated and dark blood aspirated. Guidewire was placed, a stab wound done. The vein was dilated and a 20 cm trialysis catheter, was placed. Seldinger technique. Guidewire removed. On note this was the second attempt in the RIJ. The patient was extremely agitated and unable to tolerate laying still for a p rolonged period of time. Under ultrasound guidance, I tried to identify yari left feomral vein- it was extremely small. His right groin has a large inguinal scrotal hernia which makes the right femora l impossible to canulate Anesthesia: other (Midazolam 1mg IV given) Surgeon: EBER VIDAL Estimated blood loss: minimal Condition: critical Disposition: other (Remains in the ED)
[2022-05-09] MEDS ORDERED: MIDAZOLAM 5 MG/5 ML INJ MDV IV NR (23:00)
[2022-05-09] MEDS ORDERED: MIDAZOLAM 5 MG/5 ML INJ MDV IV ONE (23:47)
[2022-05-09 23:52] LABS: Hepatitis B Surface Antigen Non-Reactive (Negative); Hepatitis C Virus Antibody Non-Reactive (NonReactive)
[2022-05-10] MEDS ORDERED: ACETAMINOPHEN 325 MG TAB PO PRN (00:08)
[2022-05-10] MEDS ORDERED: MORPHINE 4 MG/1 ML INJ IV PRN (00:08)
[2022-05-10] MEDS ORDERED: MORPHINE 2 MG/1 ML INJ IV PRN (00:08)
[2022-05-10] MEDS ORDERED: ONDANSETRON 4 MG/2 ML INJ IV PRN (00:08)
[2022-05-10] MEDS ORDERED: MAGNESIUM HYDROXIDE (MOM) ORAL LIQD UDC PO PRN (00:08)
[2022-05-10] MEDS ORDERED: SODIUM CHLORIDE 0.9% 1000 ML 1,000 ML IV SCH (00:15)
--- NOTE | 2022-05-10 00:17 | History and Physical Report ---
History of Present Illness Date of examination: 05/10/22 Date of admission: 05/10/2022 Chief complaint: Generalized Weakness History of present illness: 76-year-old -French male with known history of seizure disorder, hypertension and drug abuse brought into the emergency room today via EMS for evaluation of generalized weakness and decreased oral intake. According to family, patient has been having decreased oral intake for the past 1 to 2 weeks. Patient denies any other problems today apart from generalized weakness. He has not had any seizure activity lately. Denies any chest pain or shortness of breath, no headache or dizziness, no diaphoresis, no chest pain or shortness of breath. Work-up in the emergency room today, significant findings were that of hyponatremia 133, hyperkalemia of 8.0, BUN of 225 and creatinine of 15.7. Chest x-ray reveals mild central pulmonary vascular congestion. No evidence of focal infiltrate. EKG shows some peaked T waves. Transport Manager on-call and food equipment service technician on-call was consulted by the ER physician. A Vas-Cath was placed by the food equipment service technician for hemodialysis. Patient has had insulin and glucose, calcium gluconate, Kayexalate for the hyperkalemia. Past History Past Medical History: hypertension, seizures Past Surgical History: No surgical history Social history: smoking (Current daily smoker), alcohol abuse Family history: no significant family history Medications and Allergies Allergies Allergy/AdvReac Type Severity Reaction Status Date / Time No Known Allergies Allergy Verified 11/23/20 17:16 Home Medications Medication Instructions Recorded Confirmed Last Taken Type hydrALAZINE [Apresoline TAB] 10 mg PO Q8HR #90 tablet 07/29/20 11/24/20 Unknown Rx Folic Acid [Folvite] 1 mg PO QDAY #30 tablet 11/24/20 Unknown Rx Thiamine [Vitamin B-1] 100 mg PO QDAY #30 tablet 11/24/20 Unknown Rx levETIRAcetam [Keppra TAB] 750 mg PO BID #60 tablet 11/24/20 Unknown Rx Active Meds: Active Medications Sodium Bicarbonate 150 meq/ (Dextrose) 1,150 mls @ 125 mls/hr IV DIRECT CAITLIN Sodium Chloride (Nacl 0.9%) 100 mls @ 999 mls/hr IV MAIDA PRN PRN Reason: Hypotension Review of Systems Constitutional: no fever, no chills Ears, nose, mouth and throat: no nasal congestion, no sore throat Cardiovascular: no chest pain, no palpitations Respiratory: no cough, no shortness of breath Gastrointestinal: no abdominal pain, no nausea, no vomiting, no diarrhea Genitourinary Male: no dysuria, no hematuria, no flank pain Musculoskeletal: no neck pain, no low back pain Integumentary: no rash, no pruritis Neurological: no headaches, no confusion Psychiatric: no anxiety, no depression Endocrine: no polyphagia, no polydipsia, no polyuria, no nocturia Exam - Constitutional Vitals: Temp Pulse Resp BP Pulse Ox 98 H 34 H 188/110 98 05/09/22 21:00 05/09/22 22:23 05/09/22 18:59 05/09/22 22:23 General appearance: Present: no acute distress, well-nourished - EENT Eyes: Present: PERRL, EOM intact. Absent: scleral icterus ENT: hearing intact, clear oral mucosa, dentition normal - Neck Neck: Present: supple, normal ROM - Respiratory Respiratory effort: normal Respiratory: bilateral: CTA - Cardiovascular Rhythm: regular Heart Sounds: Present: S1 & S2. Absent: gallop, systolic murmur, diastolic murmur, rub, click - Extremities Extremities: no ischemia, pulses intact, pulses symmetrical, No edema, normal temperature, normal color, Full ROM Peripheral Pulses: within normal limits - Abdominal General gastrointestinal: Present: soft, non-tender, non-distended, normal bowel sounds. Absent: mass - Integumentary Integumentary: Present: clear, warm, dry, normal turgor. Absent: rash - Musculoskeletal Musculoskeletal: strength equal bilaterally - Psychiatric Psychiatric: appropriate mood/affect, intact judgment & insight, memory intact, cooperative - Neurologic Neurologic: CNII-XII intact, no focal deficits, moves all extremities HEART Score - HEART Score Troponin: Troponin T < 0.010 ng/mL (0.00-0.029) 05/09/22 18:51 Results - Labs CBC & Chem 7: 05/09/22 18:51 05/09/22 18:51 Labs: Abnormal lab results 05/09/22 05/09/22 05/09/22 Range/Units 18:51 18:51 18:51 RBC 5.65 H (3.65-5.03) M/mm3 Hgb 16.6 H (11.8-15.2) gm/dl Hct 48.9 H (35.5-45.6) % RDW 15.4 H (13.2-15.2) % Seg Neuts % (Manual) 98.0 H (40.0-70.0) % Lymphocytes % (Manual) 1.0 L (13.4-35.0) % Nucleated RBC % 1.0 H (0.0-0.9) % Seg Neutrophils # Man 10.6 H (1.8-7.7) K/mm3 Lymphocytes # (Manual) 0.1 L (1.2-5.4) K/mm3 Sodium 133 L (137-145) mmol/L Potassium 8.0 H* (3.6-5.0) mmol/L Chloride 89.9 L (98-107) mmol/L Carbon Dioxide 11 L (22-30) mmol/L BUN 225 H (9-20) mg/dL Creatinine 15.7 H (0.8-1.3) mg/dL Glucose 122 H (75-100) mg/dL Ammonia 61.0 H (25-60) umol/L C-Reactive Protein 12.90 H (0.00-1.30) mg/dL Salicylates (2.8-20.0) mg/dL Acetaminophen (10.0-30.0) ug/mL 05/09/22 05/09/22 Range/Units 18:51 18:51 RBC (3.65-5.03) M/mm3 Hgb (11.8-15.2) gm/dl Hct (35.5-45.6) % RDW (13.2-15.2) % Seg Neuts % (Manual) (40.0-70.0) % Lymphocytes % (Manual) (13.4-35.0) % Nucleated RBC % (0.0-0.9) % Seg Neutrophils # Man (1.8-7.7) K/mm3 Lymphocytes # (Manual) (1.2-5.4) K/mm3 Sodium (137-145) mmol/L Potassium (3.6-5.0) mmol/L Chloride (98-107) mmol/L Carbon Dioxide (22-30) mmol/L BUN (9-20) mg/dL Creatinine (0.8-1.3) mg/dL Glucose (75-100) mg/dL Ammonia (25-60) umol/L C-Reactive Protein (0.00-1.30) mg/dL Salicylates < 0.3 L (2.8-20.0) mg/dL Acetaminophen 5.0 L (10.0-30.0) ug/mL Assessment and Plan Assessment: 1.Generalized Weakness 2.Hyperkalemia 3.Dehydration 4.PATRIZIA Plan: 1. Patient admitted and placed on IV fluid. Will be closely monitored in the intensive care unit. 2. Patient will be undergone dialysis once vascular access is established. 3. We will monitor chemistry closely. 4. We will resume other routine home medications once reconciled. 5. Consult placed to vascular surgery for possible PermCath placement DVT Prophylaxis:SQ Heparin Code Status: Full Code.
--- NOTE | 2022-05-10 00:48 | Consultation ---
History of Present Illness Consult date: 05/10/22 Requesting physician: SHLOMO GILBERT Reason for consult: other (Hyperkalemia, PATRIZIA needs Vascular access for HD) History of present illness: 76-year-old -Citizen Of [place] male with known history of seizure disorder, hypertension and drug abuse brought into the emergency room today via EMS for evaluation of generalized weakness and decreased oral intake. According to family, patient has been having decreased oral intake for the past 1 to 2 weeks. Patient denies any other problems today apart from generalized weakness. He has not had any seizure activity lately. Denies any chest pain or shortness of breath, no headache or dizziness, no diaphoresis, no chest pain or shortness of breath. Work-up in the emergency room today, significant findings were that of hyponatremia 133, hyperkalemia of 8.0, BUN of 225 and creatinine of 15.7. Chest x-ray reveals mild central pulmonary vascular congestion. No evidence of focal infiltrate. EKG shows some peaked T waves. Linux Unix Engineer on-call and vice president of contracts on-call was consulted by the ER physician. A Vas-Cath was placed by the vice president of contracts for hemodialysis. Patient has had insulin and glucose, calcium gluconate, Kayexalate for the hyperkalemia. ROS: Stated complaint: WEAKNESS Other details as noted in HPI Constitutional: denies: chills, fever Eyes: denies: eye pain, eye discharge, vision change ENT: denies: ear pain, throat pain Respiratory: denies: cough, shortness of breath, wheezing Cardiovascular: denies: chest pain, palpitations Endocrine: no symptoms reported Gastrointestinal: denies: abdominal pain, nausea, diarrhea Genitourinary: denies: urgency, dysuria Musculoskeletal: denies: back pain, joint swelling, arthralgia Skin: denies: rash, lesions Neurological: denies: headache, weakness, paresthesias Psychiatric: denies: anxiety, depression Hematological/Lymphatic: denies: easy bleeding, easy bruising Past History Past Medical History: hypertension, seizures Past Surgical History: No surgical history Social history: smoking (Current daily smoker), alcohol abuse Family history: no significant family history Medications and Allergies Allergies Allergy/AdvReac Type Severity Reaction Status Date / Time No Known Allergies Allergy Verified 11/23/20 17:16 Home Medications Medication Instructions Recorded Confirmed Last Taken Type amLODIPine [Norvasc] 5 mg PO DAILY 05/10/22 05/10/22 Unknown History levETIRAcetam [Keppra TAB] 500 mg PO BID 05/10/22 05/10/22 Unknown History Active Meds: Active Medications Acetaminophen (Acetaminophen 325 Mg Tab) 650 mg PO Q6H PRN PRN Reason: Pain MILD(1-3)/Fever >100.5/JOHNSON Heparin Sodium (Porcine) (Heparin 5,000 Unit/1 Ml Vial) 5,000 unit SUB-Q Q8HR CAITLIN Sodium Bicarbonate 150 meq/ (Dextrose) 1,150 mls @ 125 mls/hr IV DIRECT CAITLIN Sodium Chloride (Nacl 0.9%) 100 mls @ 999 mls/hr IV MAIDA PRN PRN Reason: Hypotension Sodium Chloride (Nacl 0.9% 1000 Ml) 1,000 mls @ 125 mls/hr IV DIRECT CAITLIN Magnesium Hydroxide (Magnesium Hydroxide (Mom) Oral Liqd Udc) 30 ml PO Q4H PRN PRN Reason: Constipation Morphine Sulfate (Morphine 2 Mg/1 Ml Inj) 2 mg IV Q4H PRN PRN Reason: Pain, Moderate (4-6) Morphine Sulfate (Morphine 4 Mg/1 Ml Inj) 4 mg IV Q4H PRN PRN Reason: Pain , Severe (7-10) Ondansetron HCl (Ondansetron 4 Mg/2 Ml Inj) 4 mg IV Q8H PRN PRN Reason: Nausea And Vomiting Sodium Chloride (Sodium Chloride 0.9% 10 Ml Flush Syringe) 10 ml IV BID CAITLIN Sodium Chloride (Sodium Chloride 0.9% 10 Ml Flush Syringe) 10 ml IV PRN PRN PRN Reason: LINE FLUSH Physical Examination Vital signs: Vital Signs Pulse Resp BP Pulse Ox 102 H 18 157/97 99 05/09/22 17:05 05/09/22 17:05 05/09/22 17:05 05/09/22 17:05 General appearance: no acute distress, other (cachexia) Eyes: non-icteric ENT: oropharynx dry Neck: supple, no lymphadenopathy, no JVD Effort: normal Ascultation: Bilateral: diminished breath sounds Cardiovascular: regular rate and rhythm, other (S1,S2) Gastrointestinal: normoactive bowel sounds, soft, non-tender normal mental status, non-focal exam, pupils equal and round mood appropriate, affect normal Results - Laboratory Findings CBC and BMP: 05/17/22 04:13 05/17/22 04:20 PT/INR, D-dimer PT 14.0 Sec. (12.2-14.9) 05/09/22 18:51 INR 0.97 (0.87-1.13) 05/09/22 18:51 Abnormal lab findings: Abnormal Labs 05/09/22 05/09/22 05/09/22 18:51 18:51 18:51 RBC 5.65 H Hgb 16.6 H Hct 48.9 H RDW 15.4 H Seg Neuts % (Manual) 98.0 H Lymphocytes % (Manual) 1.0 L Nucleated RBC % 1.0 H Seg Neutrophils # Man 10.6 H Lymphocytes # (Manual) 0.1 L Sodium 133 L Potassium 8.0 H* Chloride 89.9 L Carbon Dioxide 11 L BUN 225 H Creatinine 15.7 H Glucose 122 H Ammonia 61.0 H C-Reactive Protein 12.90 H Salicylates Acetaminophen 05/09/22 05/09/22 18:51 18:51 RBC Hgb Hct RDW Seg Neuts % (Manual) Lymphocytes % (Manual) Nucleated RBC % Seg Neutrophils # Man Lymphocytes # (Manual) Sodium Potassium Chloride Carbon Dioxide BUN Creatinine Glucose Ammonia C-Reactive Protein Salicylates < 0.3 L Acetaminophen 5.0 L - Diagnostic Findings Chest x-ray: image reviewed Assessment and Plan PATRIZIA Severe Hyperkalemia Lung Mass (RUL) Tobacco Abuse (10+ pk year) Severe protein calorie malnutrition Dehydration H/O Seizures COPD HTN H/O Drug Abuse PATRIZIA Severe Hyperkalemia Lung Mass (RUL) Tobacco Abuse (10+ pk year) Severe protein calorie malnutrition Dehydration H/O Seizures COPD HTN H/O Drug Abuse -Place Alvarez catheter -Place HD catheter for emergent HD -ICU admission, continue with telemetry monitoring -Medical management of hyperkalemia while awaiting HD -accuchecks with glycemic control per SSI (While critically ill target blood glucose of 140-180 mg/dL; avoid hypoglycemia) - avoid nephrotoxins, renally dose all medications - avoid benzodiazepines, reduce the possibility of delirium - prn analgesia per pain score - Maintenance of sleep-wake cycle, avoid delirium - VTE prophylaxis - PT/OT/ROM exercises - mobility protocols for pressure ulcer prophylaxis - Monitor hemodynamics closely -Chronic home medications as clinically indicated Updated his niece who is at the bedside CONDITION: CRITICAL PROGNOSIS: GUARDED CODE STATUS: FULL CODE The high probability of a clinically significant, sudden or life-threatening deterioration of the renal, system(s) required my full and direct attention, intervention and personal management. The aggregate critical care time was [33] minutes without overlap. Time includes spent on; [x] Data Review and interpretation [x] Patient assessment and monitoring of vital signs [x] Documentation [x] Medication orders and management
[2022-05-10] MEDS ORDERED: VANCOMYCIN/NS 1 GM/250 ML 1 GM/250 ML BAG IV ONE (01:49)
[2022-05-10] MEDS ORDERED: NORepinephrine/NS 8 MG-250 ML 8 MG/250 ML INFUS..BTL IV SCH (02:00)
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
--- NOTE | 2022-05-10 03:04 | Event Note ---
Date: 05/10/22 Called by HD nurse that the [facility] HD catheter is "sucking in air" and is not working well On CXR it is in good position. Patient has been treated medically for hyperkalemia. Will get stat BMP. Discussed with the hospitalist, patient will most likely need vascular for placement of a perm cath.
[2022-05-10] MEDS ORDERED: CALCIUM GLUCONATE 1,000 MG in SODIUM CHLORIDE 0.9% 100 ML IV STA (03:14)
[2022-05-10] MEDS ORDERED: CALC GLUCONATE 1GM/NS 100 ML 1 GM/100 ML BAG IV ONE (04:00)
--- NOTE | 2022-05-10 04:02 | Event Note ---
Date: 05/10/22 Consulted vascular for assistance with access. Discussed case with Dr Rodriguez in detail.
--- NOTE | 2022-05-10 04:26 | Event Note ---
Date: 05/10/22 Contacted about malfunctioning dialysis line. Contacted nurse who told me multiple IVs have failed and the patient is small and has not had anything to eat or drink for 3 weeks per history. Sounds like patient dehydrated. HD line only worked for a very small period of time. Ordered CT chest without contrast for further evaluation. Awaiting new BMP. If K elevated, then will place another line with assistance of labor representative team.
[2022-05-10 04:31] LABS: Amphetamine Screen,Urine Negative; Benzodiazepines Screen,Urine Negative; Cocaine Screen,Urine Negative; Methadone Screen,Urine Negative; Opiate Screen,Urine Negative
[2022-05-10 04:49] LABS: Bacteria,Urine 1+ /HPF (Negative)
[2022-05-10 05:02] LABS: Calcium 9.6 mg/dL (8.4-10.2)
[2022-05-10] MEDS: SODIUM BICARBONATE 150 MEQ in WATER FOR INJECTION (PF) 1,000 ML IV SCH (05:10)
[2022-05-10 05:11] LABS: Color,Urine Red (Yellow); RBC,Urine > 182.0 /HPF (0.0-6.0); WBC,Urine > 182.0 /HPF (0.0-6.0)
[2022-05-10 05:25] LABS: Cannabinoid Screen,Urine Positive
--- NOTE | 2022-05-10 06:11 | Cat Scan Report ---
CT CHEST WITHOUT CONTRAST INDICATION / CLINICAL INFORMATION: hd line malfunction. TECHNIQUE: Axial CT images were obtained through the chest without contrast. All CT scans at this [facility] ation are performed using CT dose reduction for ALARA by means of automated exposure control. COMPARISON: None available. FINDINGS: CHEST: LOWER NECK: Right IJ hemodialysis catheter terminates within the superior vena cava near the cavoatri al junction. Soft tissues of the low neck demonstrate no acute finding small amount of air present li raza related to line placement. The thyroid demonstrates no significant abnormality. THORACIC AORTA: Mild atherosclerotic calcification without acute abnormality. PULMONARY ARTERY:No significant abnormality. HEART: No significant abnormality. CORONARY ARTERY CALCIFICATION: Present -- Moderate. MEDIASTINUM / NYLA: No significant abnormality. ESOPHAGUS: No significant abnormality. LYMPH NODES: No adenopathy demonstrated within the axilla, nyla, or mediastinum. LUNGS: Noncalcified nodule right upper lobe measuring 2.7 x 1.4 cm. Extensive emphysematous changes a nd right greater than left apical bleb formation. PLEURA: No pleural effusion. No pneumothorax. THORACIC SOFT TISSUES: No significant abnormality of the chest wall or upper thoracic musculature. OSSEOUS STRUCTURES: Numerous osseous lesions compatible with metastatic disease. UPPER ABDOMEN: No significant abnormality. ADDITIONAL CHEST FINDINGS: None. IMPRESSION: 1. Multiple osseous metastatic lesions. 2. Right upper lobe nodule as detailed. Neoplasm not excluded. 3. Hemodialysis catheter terminates within the superior vena cava near the cavoatrial junction. 4. Other findings as detailed. Signer Name: Andrez Pineda II, MD Signed: 05/10/2022 6:07 AM Workstation Name: [id number]
[2022-05-10] MEDS: HEPARIN 5,000 UNIT/1 ML VIAL SUB-Q SCH ×3 (06:52→21:06)
[2022-05-10] MEDS ORDERED: DEXTROSE 50% IN WATER (25GM) 50 ML SYRINGE IV ONE (07:54)
[2022-05-10] MEDS ORDERED: INSULIN REGULAR, HUMAN 100 UNITS/1 ML IV ONE (07:54)
[2022-05-10] MEDS ORDERED: CALCIUM GLUCONATE 1,000 MG in SODIUM CHLORIDE 0.9% 100 ML IV ONE (07:54)
[2022-05-10] MEDS ORDERED: SODIUM POLYSTYRENE 15 GM/60 ML ORAL LIQD PO SCH (08:15)
--- NOTE | 2022-05-10 09:50 | Consultation ---
History of Present Illness - Reason for Consult Consult date: 05/10/22 - History of Present Illness Per records, hal is a 76-year-old -Danish male with known history of seizure disorder, hypertension and drug abuse who presented to the ED via EMS w/ hx of generalized weakness and decreased oral intake. Family reported that patient had decreased oral intake for the past 1 to 2 weeks. Patient denies any other problems today apart from generalized weakness. He denied recent seizure activity, chest pain or shortness of breath. Labs at admission notable for Na 133, K 8.0, BUN 225 and SCr 15.7. Chest x-ray reveals mild central pulmonary vascular congestion. EKG notable for peaked T waves. Nephrology consulted for emergent HD Past History Past Medical History: hypertension, seizures Past Surgical History: No surgical history Social history: smoking (Current daily smoker), alcohol abuse Family history: no significant family history Medications and Allergies Allergies Allergy/AdvReac Type Severity Reaction Status Date / Time No Known Allergies Allergy Verified 11/23/20 17:16 Home Medications Medication Instructions Recorded Confirmed Last Taken Type amLODIPine [Norvasc] 5 mg PO DAILY 05/10/22 05/10/22 Unknown History levETIRAcetam [Keppra TAB] 500 mg PO BID 05/10/22 05/10/22 Unknown History Active Meds: Active Medications Acetaminophen (Acetaminophen 325 Mg Tab) 650 mg PO Q6H PRN PRN Reason: Pain MILD(1-3)/Fever >100.5/JOHNSON Heparin Sodium (Porcine) (Heparin 5,000 Unit/1 Ml Vial) 5,000 unit SUB-Q Q8HR CAITLIN Last Admin: 05/10/22 06:52 Dose: 5,000 unit Sodium Bicarbonate 150 meq/ (Dextrose) 1,150 mls @ 125 mls/hr IV DIRECT CAITLIN Sodium Chloride (Nacl 0.9%) 100 mls @ 999 mls/hr IV MAIDA PRN PRN Reason: Hypotension Sodium Chloride (Nacl 0.9% 1000 Ml) 1,000 mls @ 125 mls/hr IV DIRECT CAITLIN NORepinephrine/NS 8 MG-250 ML (Norepinephrine/Ns 8 Mg-250 Ml (Double Conc)) 8 mg in 250 mls @ 3.75 mls/hr IV TITRATE CAITLIN; Protocol Sodium Bicarbonate 150 meq/ (Sterile Water) 1,150 mls @ 150 mls/hr IV DIRECT CAITLIN Stop: 05/14/22 11:39 Last Admin: 05/10/22 05:10 Dose: 150 mls/hr Magnesium Hydroxide (Magnesium Hydroxide (Mom) Oral Liqd Udc) 30 ml PO Q4H PRN PRN Reason: Constipation Morphine Sulfate (Morphine 2 Mg/1 Ml Inj) 2 mg IV Q4H PRN PRN Reason: Pain, Moderate (4-6) Morphine Sulfate (Morphine 4 Mg/1 Ml Inj) 4 mg IV Q4H PRN PRN Reason: Pain , Severe (7-10) Ondansetron HCl (Ondansetron 4 Mg/2 Ml Inj) 4 mg IV Q8H PRN PRN Reason: Nausea And Vomiting Sodium Chloride (Sodium Chloride 0.9% 10 Ml Flush Syringe) 10 ml IV BID [facility] Sodium Chloride (Sodium Chloride 0.9% 10 Ml Flush Syringe) 10 ml IV PRN PRN PRN Reason: LINE FLUSH Sodium Polystyrene Sulfonate (Sodium Polystyrene 15 Gm/60 Ml Oral Liqd) 30 gm PO ONCE@0815 [facility] Stop: 05/10/22 12:15 Last Admin: 05/10/22 08:48 Dose: 30 gm Review of Systems All systems: negative Exam - Vital Signs Vital signs: Vital Signs Pulse Resp BP Pulse Ox 102 H 18 157/97 99 05/09/22 17:05 05/09/22 17:05 05/09/22 17:05 05/09/22 17:05 - General Appearance General appearance: frail EENT: ATNC Respiratory: Clear to Ascultation Heart: tachycardia, S1S2 Gastrointestinal: Present: normal. Absent: tenderness, distended Integumentary: warm and dry Neurologic: other (alert) Musculoskeletal: Present: other (no edema) Psychiatric: cooperative Results - Lab Results 05/11/22 04:00 05/11/22 04:00 Most recent lab results Calcium 9.6 mg/dL (8.4-10.2) 05/10/22 04:18 Assessment and Plan Impression: * Nonoliguric acute kidney injury secondary to volume depletion vs obstructive component * Severe hyperkalemia * Azotemia * Metabolic acidosis * R lung nodule w/ metastatic osseous lesions * Hypertension * Hx of seizure disorder Plan: * Patient is s/p attempted HD yesterday - however, vascath nonfunctional. * Renal function and hyperkalemia improved slightly. Repeat BMP pending * Will hold hemodialysis pending repeat labs as patient with appx 800ml UOP this AM * Continue IVF for hydration - currently on bicarb gtt * Medical management of hyperkalemia in the interim * Maintain simmons catheter * Dose medications for renal function * Avoid potential nephrotoxins * Strict I/O * AM labs * Case discussed with Dr. Rodriguez
--- NOTE | 2022-05-10 11:43 | Consultation ---
History of Present Illness Consult date: 05/10/22 Requesting physician: KARLEY NINA Reason for consult: other (PATRIZIA; Severe Hyperkalemia) History of present illness: PCCM CONSULT NOTE (Full dictation # ) Please see dictated notes for full details Past History Past Medical History: hypertension, seizures Past Surgical History: No surgical history Social history: smoking (Current daily smoker), alcohol abuse Family history: no significant family history Medications and Allergies Allergies Allergy/AdvReac Type Severity Reaction Status Date / Time No Known Allergies Allergy Verified 11/23/20 17:16 Home Medications Medication Instructions Recorded Confirmed Last Taken Type hydrALAZINE [Apresoline TAB] 10 mg PO Q8HR #90 tablet 07/29/20 11/24/20 Unknown Rx Folic Acid [Folvite] 1 mg PO QDAY #30 tablet 11/24/20 Unknown Rx Thiamine [Vitamin B-1] 100 mg PO QDAY #30 tablet 11/24/20 Unknown Rx levETIRAcetam [Keppra TAB] 750 mg PO BID #60 tablet 11/24/20 Unknown Rx Active Meds: Active Medications Acetaminophen (Acetaminophen 325 Mg Tab) 650 mg PO Q6H PRN PRN Reason: Pain MILD(1-3)/Fever >100.5/JOHNSON Folic Acid (Folic Acid 1 Mg Tab) 1 mg PO QDAY CAITLIN Heparin Sodium (Porcine) (Heparin 5,000 Unit/1 Ml Vial) 5,000 unit SUB-Q Q8HR CAITLIN Last Admin: 05/10/22 06:52 Dose: 5,000 unit Sodium Chloride (Nacl 0.9%) 100 mls @ 999 mls/hr IV MAIDA PRN PRN Reason: Hypotension NORepinephrine/NS 8 MG-250 ML (Norepinephrine/Ns 8 Mg-250 Ml (Double Conc)) 8 mg in 250 mls @ 3.75 mls/hr IV TITRATE CAITLIN; Protocol Sodium Bicarbonate 150 meq/ (Sterile Water) 1,150 mls @ 150 mls/hr IV DIRECT CAITLIN Stop: 05/14/22 11:39 Last Admin: 05/10/22 05:10 Dose: 150 mls/hr Levetiracetam (Levetiracetam 500 Mg Tab) 750 mg PO BID CAITLIN Magnesium Hydroxide (Magnesium Hydroxide (Mom) Oral Liqd Udc) 30 ml PO Q4H PRN PRN Reason: Constipation Morphine Sulfate (Morphine 2 Mg/1 Ml Inj) 2 mg IV Q4H PRN PRN Reason: Pain, Moderate (4-6) Morphine Sulfate (Morphine 4 Mg/1 Ml Inj) 4 mg IV Q4H PRN PRN Reason: Pain , Severe (7-10) Ondansetron HCl (Ondansetron 4 Mg/2 Ml Inj) 4 mg IV Q8H PRN PRN Reason: Nausea And Vomiting Sodium Chloride (Sodium Chloride 0.9% 10 Ml Flush Syringe) 10 ml IV BID [facility] Sodium Chloride (Sodium Chloride 0.9% 10 Ml Flush Syringe) 10 ml IV PRN PRN PRN Reason: LINE FLUSH Sodium Polystyrene Sulfonate (Sodium Polystyrene 15 Gm/60 Ml Oral Liqd) 30 gm PO ONCE@0815 [facility] Stop: 05/10/22 12:15 Last Admin: 05/10/22 08:48 Dose: 30 gm Thiamine HCl (Thiamine 100 Mg Tab) 100 mg PO QDAY [facility] Physical Examination Vital signs: Vital Signs Pulse Resp BP Pulse Ox 102 H 18 157/97 99 05/09/22 17:05 05/09/22 17:05 05/09/22 17:05 05/09/22 17:05 Results - Laboratory Findings CBC and BMP: 05/09/22 18:51 05/10/22 04:18 PT/INR, D-dimer PT 14.0 Sec. (12.2-14.9) 05/09/22 18:51 INR 0.97 (0.87-1.13) 05/09/22 18:51 Abnormal lab findings: Abnormal Labs 05/09/22 05/09/22 05/09/22 18:51 18:51 18:51 RBC 5.65 H Hgb 16.6 H Hct 48.9 H RDW 15.4 H Seg Neuts % (Manual) 98.0 H Lymphocytes % (Manual) 1.0 L Nucleated RBC % 1.0 H Seg Neutrophils # Man 10.6 H Lymphocytes # (Manual) 0.1 L Sodium 133 L Potassium 8.0 H* Chloride 89.9 L Carbon Dioxide 11 L BUN 225 H Creatinine 15.7 H Glucose 122 H Ammonia 61.0 H C-Reactive Protein 12.90 H Urine WBC (Auto) Salicylates Acetaminophen 05/09/22 05/09/22 05/10/22 18:51 18:51 02:16 RBC Hgb Hct RDW Seg Neuts % (Manual) Lymphocytes % (Manual) Nucleated RBC % Seg Neutrophils # Man Lymphocytes # (Manual) Sodium Potassium Chloride Carbon Dioxide BUN Creatinine Glucose Ammonia C-Reactive Protein Urine WBC (Auto) > 182.0 H Salicylates < 0.3 L Acetaminophen 5.0 L 05/10/22 04:18 RBC Hgb Hct RDW Seg Neuts % (Manual) Lymphocytes % (Manual) Nucleated RBC % Seg Neutrophils # Man Lymphocytes # (Manual) Sodium 146 H D Potassium 6.3 H* D Chloride Carbon Dioxide 18 L D BUN 162 H Creatinine 9.1 H Glucose Ammonia C-Reactive Protein Urine WBC (Auto) Salicylates Acetaminophen
[2022-05-10 12:10] LABS: Calcium 8.8 mg/dL (8.4-10.2)
[2022-05-10] MEDS ORDERED: HEPARIN/NS 5000 UNIT/500ML 1,000 ML IR ONE (12:10)
[2022-05-10] MEDS ORDERED: LIDOCAINE (2%) 20 MG/1 ML VIAL 20 ML MDV INFILTRATI ONE (12:12)
[2022-05-10] MEDS ORDERED: fentaNYL 100 MCG/2 ML INJ ONE (12:12)
[2022-05-10] MEDS ORDERED: MIDAZOLAM 2 MG/2 ML INJ ONE (12:12)
[2022-05-10] MEDS ORDERED: SODIUM CHLORIDE 0.9% 1000 ML 1,000 ML ONE (12:29)
[2022-05-10] MEDS: LIDOCAINE 2%/EPINEPHRINE 1:200,000 VIAL (20 ML) INFILTRATI ONE ×2 (12:45→13:00)
[2022-05-10] MEDS ORDERED: HEPARIN 10,000 UNITS/10 ML VIAL ONE (13:05)
--- NOTE | 2022-05-10 13:38 | Operative Report ---
Operative Report Operative Report: EXAM: 1. Ultrasound-guided puncture of the left common femoral vein 2. Fluoroscopic-guided placement of a left common femoral vein tunneled non- cuffed smallbore dual-lumen catheter. 3. SVC venography and right atrial venography. 4. Fluoroscopic guided exchange of the right internal jugular triple-lumen 30 cm nontunneled hemodialysis catheter. DATE: 05/10/2022 INDICATION: HD line malfunction, no IV access MEDICATIONS: Please see nursing report for full details. DEVICES: 13 Fr 30 cm triple lumen hemodialysis catheter 5 Dutch dual-lumen power PICC catheter [employer] LED[employer] CLERK: FANY CRAIG MD CONTRAST: None PROCEDURE: The risks, benefits, and alternatives were discussed and informed consent was obtained. The patient was transported to the angiography suite in satisfactory/stable condition and was transported onto the angiography table. The patient's left common femoral vein was assessed with ultrasound and determined to be patent prior to procedure. The patient was prepped and draped in a sterile fashion. The puncture site was anesthetized. Under sonographic guidance, the left common femoral vein was punctured with a 21-gauge micropuncture needle and a 0.018 inch wire was advanced into the inferior vena cava. A suitable exit site was identified on the patient's chest inferior and lateral to the venotomy. The site was anesthetized with local anesthetic and the track was anesthetized. Dermatotomy was made. The 5 Dutch dual-lumen smallbore catheter was tunneled between the dermatotomy to the venotomy with the assistance of the peel-away sheath, micropuncture needle, and 0.018 inch wire. Over 0.018 inch wire, the transitional dilator was exchanged for a 5 Dutch peel-away sheath. The wire was used to ryan intravascular distance and removed. The catheter was cut to appropriate size. The catheter was advanced through the peel-away sheath and positioned centrally under fluoroscopic guidance. The peel-away sheath was removed. Derabond was used to close the venotomy. 3-0 Ethilon suture was used to secure the catheter at the dermatotomy. The catheter was charged with heparinized saline. Biopatch applied. Sterile dressing applied. Attention was then turned towards the right neck. The catheter was evaluated and was seen on fluoroscopy. The tip was in the lower SVC. The area was prepped and draped in a sterile fashion. Contrast was injected through the central PICC line demonstrating intravenous location. 0.035 inch wire was then passed into the IVC. Catheter was removed and a new catheter was placed which was in the proximal right atrium. The catheter was able to aspirate and flush without issue. The dialysis lumens were charged with heparinized saline, 1000 units/mL of space. The central lumen was charged with heparinized saline. The catheter was secured with 2-0 Ethilon. Biopatch applied. Sterile dressing applied. The patient was transferred from the angiography suite back to the floor in stable condition. FNDINGS: 1. Excellent flow was obtained through the dual lumen smallbore tunneled catheter. 2. The catheter tip is in the IVC. 3. The SVC and right atrium are patent. 4. The previous hemodialysis catheter tip was in the SVC and the new hemodialysis catheter tip is in the proximal right atrium. 5. Excellent flow was obtained through the newly placed hemodialysis catheter. IMPRESSION: 1. Successful ultrasound and fluoroscopically guided placement of a left common femoral vein tunneled noncuffed dual-lumen smallbore catheter. 2. Successful SVC and right atrial venography. 3. Successful exchange of the right internal jugular 30 cm triple-lumen nontunneled hemodialysis catheter.
[2022-05-10] MEDS: FOLIC ACID 1 MG TAB PO SCH (14:13)
[2022-05-10] MEDS: THIAMINE 100 MG TAB PO SCH (14:14)
[2022-05-10] MEDS: levETIRAcetam 500 MG TAB PO SCH ×2 (14:14→21:06)
--- NOTE | 2022-05-10 14:35 | Progress Note ---
Assessment and Plan PATRIZIA Severe Hyperkalemia Lung Mass (RUL) Tobacco Abuse (10+ pk year) Adult FTT Dehydration H/O Seizures COPD HTN H/O Drug Abuse - s/p simmons catheter and making good urine - discussed lung Mass and bony lesions with IR; will get CT abd & pelvis (will wait 24-48 hours to see if can administer IV contrast) - he will need a tissue biopsy; if no clear suspicious lesion elsewhere will evaluate for CT guided needle biopsy +/- Bronchoscopy re: difficult anatomical location - PATRIZIA likely pre & post renal; continue gentle hydration - s/p Vascath; HD/UF per nephrology - continue Daily SAT and SBT assessment as tolerated - continue accuchecks with glycemic control per SSI (While critically ill target blood glucose of 140-180 mg/dL; avoid hypoglycemia) - continue to wean supplemental oxygen for target O2 sat's > 90% acutely - aspiration precautions - bronchodilators with pulmonary hygiene per RT (LABA & prn JOHANA) - begin inhaled corticosteroids re: COPD - avoid nephrotoxins, renally dose all medications - avoid benzodiazepine's, reduce the possibility of delirium - AB's per ID rec's - prn analgesia per pain score - Maintenance of sleep-wake cycle, avoid delirium - G.I. & VTE prophylaxis - PT/OT/ROM exercises - mobility protocols for pressure ulcer prophylaxis - Monitor hemodynamics closely - continue other care per attending / other consultants - discharge planning ongoing concurrently .... Re-evaluate in am & prn CONDITION: CRITICAL PROGNOSIS: GUARDED CODE STATUS: FULL CODE The high probability of a clinically significant, sudden or life-threatening deterioration of the [renal, respiratory, cardiovascular] system(s) required my full and direct attention, intervention and personal management. The aggregate critical care time was [34] minutes without overlap. Time includes spent on; [x] Data Review and interpretation [x] Patient assessment and monitoring of vital signs [x] Documentation [x] Medication orders and management Subjective Date of service: 05/10/22 Principal diagnosis: PATRIZIA; Hyperkalemia; Lung Mass; Tobacco Abuse; Seizures; COPD; HTN Interval history: Patient is seen today for: PATRIZIA; Severe Hyperkalemia; Lung Mass (RUL); Tobacco Abuse; H/O Seizures; COPD; HTN; H/O Drug Abuse Seen and examined at bedside; 24hour events reviewed; nursing and respiratory care staff consulted; no adverse overnight events reported to me; resting peacefully in bed; s/p RIJ vasvath placement; azotemia improving; denies N/V/F/C Objective Vital Signs - 12hr 05/10/22 05/10/22 05/10/22 02:31 02:45 03:01 Temperature Pulse Rate 116 H 116 H 116 H Respiratory 17 16 18 Rate Blood Pressure 146/101 142/96 128/91 O2 Sat by Pulse 100 99 99 Oximetry 05/10/22 05/10/22 05/10/22 03:11 03:21 03:31 Temperature Pulse Rate 113 H 116 H 117 H Respiratory 15 18 20 Rate Blood Pressure 136/110 128/86 142/89 O2 Sat by Pulse 97 99 89 Oximetry 05/10/22 05/10/22 05/10/22 03:41 03:51 04:00 Temperature Pulse Rate 125 H Respiratory 19 14 Rate Blood Pressure 118/86 118/86 O2 Sat by Pulse 99 99 Oximetry 05/10/22 05/10/22 05/10/22 04:01 04:11 04:20 Temperature Pulse Rate Respiratory 18 20 22 Rate Blood Pressure 118/86 118/86 124/82 O2 Sat by Pulse 88 94 84 Oximetry 05/10/22 05/10/22 05/10/22 04:39 04:41 04:51 Temperature Pulse Rate 124 H 118 H 117 H Respiratory 19 22 Rate Blood Pressure 124/83 O2 Sat by Pulse Oximetry 05/10/22 05/10/22 05/10/22 05:00 05:11 05:20 Temperature Pulse Rate 114 H 116 H 111 H Respiratory 18 22 19 Rate Blood Pressure 128/92 128/92 128/92 O2 Sat by Pulse 81 L 99 99 Oximetry 05/10/22 05/10/22 05/10/22 05:52 06:01 06:11 Temperature Pulse Rate 118 H 115 H 116 H Respiratory 20 17 Rate Blood Pressure O2 Sat by Pulse 69 L 99 Oximetry 05/10/22 05/10/22 05/10/22 06:21 06:31 06:41 Temperature Pulse Rate 117 H 117 H 120 H Respiratory 18 21 24 Rate Blood Pressure O2 Sat by Pulse 88 99 92 Oximetry 05/10/22 05/10/22 05/10/22 06:51 07:01 07:11 Temperature Pulse Rate 116 H 115 H 118 H Respiratory 29 H 16 22 Rate Blood Pressure 152/92 129/73 129/73 O2 Sat by Pulse 65 L 93 53 L Oximetry 05/10/22 05/10/22 05/10/22 07:17 07:20 07:30 Temperature 97.4 F L Pulse Rate 118 H 112 H Respiratory 21 15 Rate Blood Pressure 129/73 101/63 O2 Sat by Pulse 98 54 L Oximetry 05/10/22 05/10/22 05/10/22 07:41 07:51 08:00 Temperature Pulse Rate 122 H 128 H 119 H Respiratory 17 22 26 H Rate Blood Pressure 129/73 129/73 123/84 O2 Sat by Pulse 79 L 86 78 L Oximetry 05/10/22 05/10/22 05/10/22 08:11 08:21 08:30 Temperature Pulse Rate 117 H 112 H 115 H Respiratory 14 13 26 H Rate Blood Pressure 123/84 123/84 196/105 O2 Sat by Pulse 92 81 L 95 Oximetry 05/10/22 05/10/22 05/10/22 08:45 09:00 09:15 Temperature Pulse Rate 119 H 120 H 117 H Respiratory 17 27 H 16 Rate Blood Pressure 145/84 134/90 134/90 O2 Sat by Pulse 98 61 L 97 Oximetry 05/10/22 05/10/22 05/10/22 09:31 09:45 10:00 Temperature Pulse Rate 123 H 111 H 122 H Respiratory 20 15 21 Rate Blood Pressure 134/90 134/90 140/78 O2 Sat by Pulse 96 Oximetry 05/10/22 05/10/22 05/10/22 10:15 10:31 10:45 Temperature Pulse Rate 113 H 115 H 120 H Respiratory 17 20 15 Rate Blood Pressure 140/78 140/78 140/78 O2 Sat by Pulse Oximetry 05/10/22 05/10/22 05/10/22 11:00 11:15 13:45 Temperature Pulse Rate 117 H 117 H 126 H Respiratory 15 19 17 Rate Blood Pressure 105/67 105/67 105/67 O2 Sat by Pulse Oximetry 05/10/22 14:00 Temperature Pulse Rate 118 H Respiratory 22 Rate Blood Pressure 121/92 O2 Sat by Pulse Oximetry Constitutional: no acute distress, other (elderly cachectic male with mildly increased respiratory effort at rest) Eyes: non-icteric ENT: oropharynx dry Neck: supple, no lymphadenopathy, no JVD Effort: mildly labored Ascultation: Bilateral: clear, diminished breath sounds Percussion: Bilateral: not dull Cardiovascular: regular rate and rhythm Gastrointestinal: normoactive bowel sounds, soft, non-tender, non-distended Integumentary: other (poor turgor) Extremities: no cyanosis, no edema, pulses normal, no ischemia or petechiae Neurologic: non-focal exam, pupils equal and round, CN II-XII normal, motor strength normal and Psychiatric: mood appropriate, affect normal CBC and BMP: 05/09/22 18:51 05/10/22 11:30 ABG, PT/INR, D-dimer: PT/INR, D-dimer PT 14.0 Sec. (12.2-14.9) 05/09/22 18:51 INR 0.97 (0.87-1.13) 05/09/22 18:51 Abnormal lab findings: Abnormal Labs 05/09/22 05/09/22 05/09/22 18:51 18:51 18:51 RBC 5.65 H Hgb 16.6 H Hct 48.9 H RDW 15.4 H Seg Neuts % (Manual) 98.0 H Lymphocytes % (Manual) 1.0 L Nucleated RBC % 1.0 H Seg Neutrophils # Man 10.6 H Lymphocytes # (Manual) 0.1 L Sodium 133 L Potassium 8.0 H* Chloride 89.9 L Carbon Dioxide 11 L BUN 225 H Creatinine 15.7 H Glucose 122 H Ammonia 61.0 H C-Reactive Protein 12.90 H Urine WBC (Auto) Salicylates Acetaminophen 05/09/22 05/09/22 05/10/22 18:51 18:51 02:16 RBC Hgb Hct RDW Seg Neuts % (Manual) Lymphocytes % (Manual) Nucleated RBC % Seg Neutrophils # Man Lymphocytes # (Manual) Sodium Potassium Chloride Carbon Dioxide BUN Creatinine Glucose Ammonia C-Reactive Protein Urine WBC (Auto) > 182.0 H Salicylates < 0.3 L Acetaminophen 5.0 L 05/10/22 05/10/22 04:18 11:30 RBC Hgb Hct RDW Seg Neuts % (Manual) Lymphocytes % (Manual) Nucleated RBC % Seg Neutrophils # Man Lymphocytes # (Manual) Sodium 146 H D 158 H D Potassium 6.3 H* D 3.1 L D Chloride 111.5 H Carbon Dioxide 18 L D BUN 162 H 105 H Creatinine 9.1 H 3.7 H D Glucose 112 H Ammonia C-Reactive Protein Urine WBC (Auto) Salicylates Acetaminophen CT scan - chest: image reviewed (RUL lung mass) Allied health notes reviewed: nursing
--- NOTE | 2022-05-10 17:25 | Progress Note ---
History Interval history: This is 76-year-old male with seizure disorder, HTN, smoker and drug abuse presents to the emergency department on 05/09 via EMS for evaluation of generalized weakness and decreased oral intake. According to the family patient had decreased oral intake for the past 1 to 2 weeks and has generalized weakness. Work-up in the emergency department revealed hyponatremia at 133, hyperkalemia at 8, elevated BUN and creatinine at 225/15.7 and CXR revealed mild pulmonary vascular congestion. ECG also showed peaked T waves. Nephrology was consulted in the emergency department and a Vas-Cath was placed by [facility] for hemodialysis. Patient was also medically treated with insulin, glucose, calcium gluconate and Kayexalate for hyperkalemia. Patient was admitted to the hospitalist service with consults to nephrology, [facility] and vascular surgery for acute kidney injury requiring urgent dialysis. Hospital course to date: 05/10: Yesterday patient had a Vas-Cath placed by [facility] however this is nonfunctio nal at this time. Vascular surgery was consulted for placement of Vas-Cath. No acute events reported overnight. Patient suddenly became nonverbal however did follow commands, tracks/focus and pupils were round and reactive. Glucose check which was within normal limits. After approximately half an hour patient became verbal again. This afternoon patient is alert and oriented and interactive. Assessment and Plan: This is a 76-year-old female with seizure disorder, HTN, nicotine and drug abuse admitted with acute kidney injury Neuro: H/O seizure disorder, marijuana use -Continue home Keppra -Reorientation as needed -Maintain sleep-wake cycle -aspiration/seizure precautions -As needed analgesia -Folic acid, thiamine Cardiac: H/O HTN -Blood pressure monitoring per protocol -Hold home hydralazine Respiratory: Acute hypoxic respiratory failure, right lung nodule, current nicotine abuse -CCM consulted, appreciate recommendations -Pulmonary hygiene -SPO2 monitor per protocol -Supplemental oxygen tested and -Nicotine abuse cessation counseling provided -CT chest shows multiple osseous metastatic lesion, right upper lobe nodule, neoplasm not excluded, hemodialysis catheter terminates within the superior vena cava currently at the cavoatrial junction GI: NAD -PPI -Cardiac renal diet -BR: Colace : Acute kidney injury, dehydration, hyperkalemia (resolved), hypokalemia, hypernatremia/hyperchloremia -Nephrology consulted, appreciate recommendations -S/p Vas-Cath placement for emergent hemodialysis however Vas-Cath was not fu nctional -Vascular surgery consulted for PermCath placement -Strict intake and output -Renally dose medications -Avoid nephrotoxic medications -Medical management for hyperkalemia -urine lytes pending -Free water PO 250 ml q4hr -Trend BMP ID: NAD -Monitor WBC and temperature curve Endo: NAD -Avoid hypoglycemia Heme: NAD -Trend CBC -Transfuse hemoglobin less than 7 -SCDs to BLE while in bed The high probability of a clinically significant, sudden or life threatening deterioration of the [multi] system(s) required my full and direct attention, intervention and personal management. The aggregate critical care time was [60] minutes. This time is in addition to time spent performing reported procedures but includes the following: [x] Data Review and interpretation [x] Patient assessment and monitoring of vital signs [x] Documentation [x] Medication orders and management Hospitalist Physical - Constitutional Vitals: Temp Pulse Resp BP Pulse Ox 97.6 F 110 H 12 139/94 98 05/10/22 16:41 05/10/22 16:00 05/10/22 16:00 05/10/22 16:00 05/10/22 16:00 General appearance: Present: no acute distress, well-nourished HEART Score - HEART Score Troponin: Troponin T < 0.010 ng/mL (0.00-0.029) 05/09/22 18:51 Results - Labs CBC & Chem 7: 05/09/22 18:51 05/10/22 11:30 Labs: Laboratory Last Values WBC 10.8 K/mm3 (4.5-11.0) 05/09/22 18:51 RBC 5.65 M/mm3 (3.65-5.03) H 05/09/22 18:51 Hgb 16.6 gm/dl (11.8-15.2) H 05/09/22 18:51 Hct 48.9 % (35.5-45.6) H 05/09/22 18:51 MCV 87 fl (84-94) 05/09/22 18:51 MCH 29 pg (28-32) 05/09/22 18:51 MCHC 34 % (32-34) 05/09/22 18:51 RDW 15.4 % (13.2-15.2) H 05/09/22 18:51 Plt Count 213 K/mm3 (140-440) 05/09/22 18:51 Add Manual Diff Complete 05/09/22 18:51 Total Counted 100 05/09/22 18:51 Seg Neutrophils % Auto Service Instructor 05/09/22 18:51 Seg Neuts % (Manual) 98.0 % (40.0-70.0) H 05/09/22 18:51 Band Neutrophils % 0 % 05/09/22 18:51 Lymphocytes % (Manual) 1.0 % (13.4-35.0) L 05/09/22 18:51 Reactive Lymphs % (Man) 0 % 05/09/22 18:51 Monocytes % (Manual) 0 % (0.0-7.3) 05/09/22 18:51 Eosinophils % (Manual) 0 % (0.0-4.3) 05/09/22 18:51 Basophils % (Manual) 0 % (0.0-1.8) 05/09/22 18:51 Metamyelocytes % 1.0 % 05/09/22 18:51 Myelocytes % 0 % 05/09/22 18:51 Promyelocytes % 0 % 05/09/22 18:51 Blast Cells % 0 % 05/09/22 18:51 Nucleated RBC % 1.0 % (0.0-0.9) H 05/09/22 18:51 Seg Neutrophils # Man 10.6 K/mm3 (1.8-7.7) H 05/09/22 18:51 Band Neutrophils # 0.0 K/mm3 05/09/22 18:51 Lymphocytes # (Manual) 0.1 K/mm3 (1.2-5.4) L 05/09/22 18:51 Abs React Lymphs (Man) 0.0 K/mm3 05/09/22 18:51 Monocytes # (Manual) 0.0 K/mm3 (0.0-0.8) 05/09/22 18:51 Eosinophils # (Manual) 0.0 K/mm3 (0.0-0.4) 05/09/22 18:51 Basophils # (Manual) 0.0 K/mm3 (0.0-0.1) 05/09/22 18:51 Metamyelocytes # 0.1 K/mm3 05/09/22 18:51 Myelocytes # 0.0 K/mm3 05/09/22 18:51 Promyelocytes # 0.0 K/mm3 05/09/22 18:51 Blast Cells # 0.0 K/mm3 05/09/22 18:51 WBC Morphology Not Reportable 05/09/22 18:51 WBC Morphology TNR 05/09/22 18:51 Hypersegmented Neuts Not Reportable 05/09/22 18:51 Hyposegmented Neuts Not Reportable 05/09/22 18:51 Hypogranular Neuts Not Reportable 05/09/22 18:51 Smudge Cells Not Reportable 05/09/22 18:51 Toxic Granulation Not Reportable 05/09/22 18:51 Toxic Vacuolation Not Reportable 05/09/22 18:51 Dohle Bodies Not Reportable 05/09/22 18:51 Pelger-Huet Anomaly Not Reportable 05/09/22 18:51 Paola Rods Not Reportable 05/09/22 18:51 Platelet Estimate Consistent w auto 05/09/22 18:51 Clumped Platelets Not Reportable 05/09/22 18:51 Plt Clumps, EDTA Not Reportable 05/09/22 18:51 Large Platelets Not Reportable 05/09/22 18:51 Giant Platelets Not Reportable 05/09/22 18:51 Platelet Satelliting Not Reportable 05/09/22 18:51 Plt Morphology Comment Not Reportable 05/09/22 18:51 RBC Morphology Not Reportable 05/09/22 18:51 Dimorphic RBCs Not Reportable 05/09/22 18:51 Polychromasia Not Reportable 05/09/22 18:51 Hypochromasia Not Reportable 05/09/22 18:51 Poikilocytosis Not Reportable 05/09/22 18:51 Anisocytosis Not Reportable 05/09/22 18:51 Microcytosis Not Reportable 05/09/22 18:51 Macrocytosis Not Reportable 05/09/22 18:51 Spherocytes Not Reportable 05/09/22 18:51 Pappenheimer Bodies Not Reportable 05/09/22 18:51 Sickle Cells Not Reportable 05/09/22 18:51 Target Cells Few 05/09/22 18:51 Tear Drop Cells Few 05/09/22 18:51 Ovalocytes Not Reportable 05/09/22 18:51 Helmet Cells Not Reportable 05/09/22 18:51 Kemp-[place] Bodies Not Reportable 05/09/22 18:51 Slayden Rings Not Reportable 05/09/22 18:51 Bradford Cells Not Reportable 05/09/22 18:51 Bite Cells Not Reportable 05/09/22 18:51 Crenated Cell Not Reportable 05/09/22 18:51 Elliptocytes Not Reportable 05/09/22 18:51 Acanthocytes (Spur) Not Reportable 05/09/22 18:51 Rouleaux Not Reportable 05/09/22 18:51 Hemoglobin C Crystals Not Reportable 05/09/22 18:51 Schistocytes Not Reportable 05/09/22 18:51 Malaria parasites Not Reportable 05/09/22 18:51 Jamal Bodies Not Reportable 05/09/22 18:51 Hem Pathologist Commnt No 05/09/22 18:51 PT 14.0 Sec. (12.2-14.9) 05/09/22 18:51 INR 0.97 (0.87-1.13) 05/09/22 18:51 Sodium 158 mmol/L (137-145) H D 05/10/22 11:30 Potassium 3.1 mmol/L (3.6-5.0) L D 05/10/22 11:30 Chloride 111.5 mmol/L (98-107) H 05/10/22 11:30 Carbon Dioxide 25 mmol/L (22-30) D 05/10/22 11:30 Anion Gap 25 mmol/L 05/10/22 11:30 BUN 105 mg/dL (9-20) H 05/10/22 11:30 Creatinine 3.7 mg/dL (0.8-1.3) H D 05/10/22 11:30 Estimated GFR 19 ml/min 05/10/22 11:30 BUN/Creatinine Ratio 28 % 05/10/22 11:30 Glucose 112 mg/dL (75-100) H 05/10/22 11:30 POC Glucose 76 mg/dL (70-105) 05/10/22 08:44 Lactic Acid 1.20 mmol/L (0.7-2.0) 05/09/22 18:51 Calcium 8.8 mg/dL (8.4-10.2) 05/10/22 11:30 Total Bilirubin 1.10 mg/dL (0.1-1.2) 05/09/22 18:51 AST 13 units/L (5-40) 05/09/22 18:51 ALT 10 units/L (7-56) 05/09/22 18:51 Alkaline Phosphatase 98 units/L (35-129) 05/09/22 18:51 Ammonia 61.0 umol/L (25-60) H 05/09/22 18:51 Total Creatine Kinase 92 units/L (55-170) 05/09/22 18:51 Troponin T < 0.010 ng/mL (0.00-0.029) 05/09/22 18:51 C-Reactive Protein 12.90 mg/dL (0.00-1.30) H 05/09/22 18:51 NT-Pro-B Natriuret Pep 817.0 pg/mL (0-900) 05/09/22 18:51 Total Protein 7.7 g/dL (6.3-8.2) 05/09/22 18:51 Albumin 4.6 g/dL (3.9-5) 05/09/22 18:51 Albumin/Globulin Ratio 1.5 % 05/09/22 18:51 TSH 2.020 mlU/mL (0.270-4.200) 05/09/22 18:51 Urine Color Red (Yellow) 05/10/22 02:16 Urine Turbidity Cloudy (Clear) 05/10/22 02:16 Specific [place] (Man) 1.030 (1.003-1.030) 05/10/22 02:16 Ur Protein (Man) >500 mg/dL (Negative) 05/10/22 02:16 Ur Ketones (Man) 5mg/dl (Negative) 05/10/22 02:16 Urine Bilirubin (Man) Negative (Negative) 05/10/22 02:16 Urine WBC (Auto) > 182.0 /HPF (0.0-6.0) H 05/10/22 02:16 Urine RBC (Auto) > 182.0 /HPF (0.0-6.0) 05/10/22 02:16 Urine Bacteria (Auto) 1+ /HPF (Negative) 05/10/22 02:16 Urine RBC (Manual) 5+ (Negative) 05/10/22 02:16 Salicylates < 0.3 mg/dL (2.8-20.0) L 05/09/22 18:51 Urine Opiates Screen Negative 05/10/22 02:16 Urine Methadone Screen Negative 05/10/22 02:16 Acetaminophen 5.0 ug/mL (10.0-30.0) L 05/09/22 18:51 Ur Barbiturates Screen Negative 05/10/22 02:16 Ur Phencyclidine Scrn Negative 05/10/22 02:16 Ur Amphetamines Screen Negative 05/10/22 02:16 U Benzodiazepines Scrn Negative 05/10/22 02:16 Urine Cocaine Screen Negative 05/10/22 02:16 U Marijuana (THC) Screen Positive 05/10/22 02:16 Drugs of Abuse Note Disclamer 05/10/22 02:16 Plasma/Serum Alcohol < 0.01 % (0-0.07) 05/09/22 18:51 Hepatitis A IgM Ab Non-reactive (NonReactive) 05/09/22 23:00 Hep Bs Antigen Non-reactive (Negative) 05/09/22 23:00 Hep B Core IgM Ab Non-reactive (NonReactive) 05/09/22 23:00 Hepatitis C Antibody Non-reactive (NonReactive) 05/09/22 23:00 Alvarez/IV: Voiding Method Indwelling Catheter Active Medications - Current Medications Current Medications: Generic Name Dose Route Start Last Admin Trade Name Freq PRN Reason Stop Dose Admin Acetaminophen 650 mg 05/10/22 00:08 Acetaminophen 325 Mg Tab PO Q6H PRN Pain MILD(1-3)/Fever >100.5/JOHNSON Docusate Sodium 100 mg 05/10/22 22:00 Docusate Sodium 100 Mg Cap PO BID CAITLIN Folic Acid 1 mg 05/10/22 12:00 05/10/22 14:13 Folic Acid 1 Mg Tab PO 1 mg QDAY CAITLIN Administration Heparin Sodium (Porcine) 5,000 unit 05/10/22 06:00 05/10/22 14:13 Heparin 5,000 Unit/1 Ml Vial SUB-Q 5,000 unit Q8HR CAITLIN Administration Sodium Chloride 100 mls @ 999 mls/hr 05/09/22 20:33 Nacl 0.9% IV MAIDA PRN Hypotension NORepinephrine/NS 8 MG-250 ML 8 mg in 250 mls @ 3.75 mls/hr 05/10/22 02:00 Norepinephrine/Ns 8 Mg-250 Ml (Double Conc) IV TITRATE CAITLIN Protocol 2 MCG/MIN Sodium Bicarbonate 150 meq/ 1,150 mls @ 150 mls/hr 05/10/22 04:00 05/10/22 05:10 Sterile Water IV 05/14/22 11:39 150 mls/hr DIRECT CAITLIN Administration Levetiracetam 750 mg 05/10/22 12:00 05/10/22 14:14 Levetiracetam 500 Mg Tab PO 750 mg BID CAITLIN Administration Magnesium Hydroxide 30 ml 05/10/22 00:08 Magnesium Hydroxide (Mom) Oral Liqd Udc PO Q4H PRN Constipation Morphine Sulfate 2 mg 05/10/22 00:08 Morphine 2 Mg/1 Ml Inj IV Q4H PRN Pain, Moderate (4-6) Morphine Sulfate 4 mg 05/10/22 00:08 Morphine 4 Mg/1 Ml Inj IV Q4H PRN Pain , Severe (7-10) Ondansetron HCl 4 mg 05/10/22 00:08 Ondansetron 4 Mg/2 Ml Inj IV Q8H PRN Nausea And Vomiting Sodium Chloride 10 ml 05/10/22 10:00 05/10/22 14:14 Sodium Chloride 0.9% 10 Ml Flush Syringe IV 10 ml BID CAITLIN Administration Sodium Chloride 10 ml 05/10/22 00:08 Sodium Chloride 0.9% 10 Ml Flush Syringe IV PRN PRN LINE FLUSH Thiamine HCl 100 mg 05/10/22 12:00 05/10/22 14:14 Thiamine 100 Mg Tab PO 100 mg QDAY CAITLIN Administration
[2022-05-10] MEDS ORDERED: FREE WATER PO SCH (18:00)
--- NOTE | 2022-05-10 18:20 | Event Note ---
<RENETTA MOHAN - Last Filed: 05/10/22 18:20> Date: 05/10/22 This is 76-year-old male with seizure disorder, HTN, smoker and drug abuse presents to the emergency department on 05/09 via EMS for evaluation of generalized weakness and decreased oral intake. According to the family patient had decreased oral intake for the past 1 to 2 weeks and has generalized weakness. Work-up in the emergency department revealed hyponatremia at 133, hyperkalemia at 8, elevated BUN and creatinine at 225/15.7 and CXR revealed mild pulmonary vascular congestion. ECG also showed peaked T waves. Nephrology was consulted in the emergency department and a Vas-Cath was placed by [facility] for hemodialysis. Patient was also medically treated with insulin, glucose, calcium gluconate and Kayexalate for hyperkalemia. Patient was admitted to the hospitalist service with consults to nephrology, [facility] and vascular surgery for acute kidney injury requiring urgent dialysis. Hospital course to date: 05/10: Yesterday patient had a Vas-Cath placed by [facility] however this is nonfunctional at this time. Vascular surgery was consulted for placement of Vas-Cath. No acute events reported overnight. Patient suddenly became nonverbal however did follow commands, tracks/focus and pupils were round and reactive. Glucose check which was within normal limits. After approximately half an hour patient became verbal again. This afternoon patient is alert and oriented and interactive. Assessment and Plan: This is a 76-year-old female with seizure disorder, HTN, nicotine and drug abuse admitted with acute kidney injury Neuro: H/O seizure disorder, marijuana use -Continue home Keppra -Reorientation as needed -Maintain sleep-wake cycle -aspiration/seizure precautions -As needed analgesia -Folic acid, thiamine Cardiac: H/O HTN -Blood pressure monitoring per protocol -Hold home hydralazine Respiratory: Acute hypoxic respiratory failure, right lung nodule, current nicotine abuse -[facility] consulted, appreciate recommendations -Pulmonary hygiene -SPO2 monitor per protocol -Supplemental oxygen tested and -Nicotine abuse cessation counseling provided -CT chest shows multiple osseous metastatic lesion, right upper lobe nodule, neoplasm not excluded, hemodialysis catheter terminates within the superior vena cava currently at the cavoatrial junction GI: NAD -PPI -Cardiac renal diet -BR: Colace : Acute kidney injury, dehydration, hyperkalemia (resolved), hypokalemia, hypernatremia/hyperchloremia -Nephrology consulted, appreciate recommendations -S/p Vas-Cath placement for emergent hemodialysis however Vas-Cath was not functional -Vascular surgery consulted for PermCath placement -Strict intake and output -Renally dose medications -Avoid nephrotoxic medications -Medical management for hyperkalemia -urine lytes pending -Free water PO 250 ml q4hr -Trend BMP ID: NAD -Monitor WBC and temperature curve Endo: NAD -Avoid hypoglycemia Heme: NAD -Trend CBC -Transfuse hemoglobin less than 7 -SCDs to BLE while in bed The high probability of a clinically significant, sudden or life threatening deterioration of the [multi] system(s) required my full and direct attention, intervention and personal management. The aggregate critical care time was [60] minutes. This time is in addition to time spent performing reported procedures but includes the following: [x] Data Review and interpretation [x] Patient assessment and monitoring of vital signs [x] Documentation [x] Medication orders and management <KARLEY NINA - Last Filed: 05/10/22 19:02> I saw and evaluated the patient. I agree with the findings and the plan of care as documented in the Nurse Practitioner's~note, with the following corrections and additions. Standard counseling provided to the patient on substance abuse cessation he verbalized understanding although further explanation and counseling is to be provided while fully awake
[2022-05-10] MEDS: DOCUSATE SODIUM 100 MG CAP PO SCH (21:05)
[2022-05-10] MEDS: FREE WATER PO SCH (21:06)
[2022-05-11] MEDS: SODIUM BICARBONATE 150 MEQ in WATER FOR INJECTION (PF) 1,000 ML IV SCH (03:30)
[2022-05-11 05:04] LABS: Hemoglobin 10.5 gm/dl (11.8-15.2); Lymphocytes # (Auto) 0.5 K/mm3 (1.2-5.4); Lymphocytes % (Auto) 6.4 % (13.4-35.0); Mean Corpuscular HGB Conc 35 % (32-34); Mean Corpuscular Volume 85 fl (84-94); Monocytes # (Auto) 0.7 K/mm3 (0.0-0.8); Monocytes % (Auto) 9.6 % (0.0-7.3); Platelet Count 118 K/mm3 (140-440); Red Blood Count 3.53 M/mm3 (3.65-5.03); Red Cell Distribution Width 14.7 % (13.2-15.2)
[2022-05-11 05:08] LABS: BUN/Creatinine Ratio 51; Blood Urea Nitrogen 41 mg/dL (9-20); Calcium 7.5 mg/dL (8.4-10.2); Hemolysis Index 0
[2022-05-11] MEDS: POTASSIUM CHLORIDE 20 MEQ 20 MEQ/100 ML BAG IV SCH ×4 (06:37→11:39)
[2022-05-11] MEDS: HEPARIN 5,000 UNIT/1 ML VIAL SUB-Q SCH ×3 (07:07→21:23)
[2022-05-11] MEDS: FREE WATER PO SCH ×3 (07:07→13:44)
[2022-05-11] MEDS ORDERED: POTASSIUM CHLORIDE 20 MEQ PACKET PO SCH (08:00)
--- NOTE | 2022-05-11 09:11 | Progress Note ---
Assessment and Plan Impression: * Nonoliguric acute kidney injury secondary to volume depletion vs obstructive component * Urinary retention * Hypernatremia * Hypokalemia - likely iatrogenic secondary to metabolic alkalosis * Metabolic alkalosis * R lung nodule w/ metastatic osseous lesions * Hypotension * Hx of seizure disorder * Severe hyperkalemia - resolved * Azotemia - resolved * Metabolic acidosis - resolved Plan: * PATRIZIA and hyperkalemia resolved - no indication for hemodialysis * Bicarb discontinued - agree given metabolic alkalosis and hypokalemia * Start 1/2 NS 100ml/hour * Note order for K repletion * Check Mg - replete prn * Maintain simmons catheter; consider voiding trial tomorrow. * Dose medications for renal function * Avoid potential nephrotoxins * Strict I/O * AM labs * Niece at bedside Subjective Date of service: 05/11/22 Principal diagnosis: PATRIZIA; Hyperkalemia; Lung Mass; Tobacco Abuse; Seizures; COPD; HTN Interval history: Patient has no complaints Objective - Vital Signs Vital signs: Vital Signs - 12hr 05/10/22 05/10/22 05/10/22 22:00 23:00 23:11 Temperature Pulse Rate 99 H 103 H 102 H Respiratory 16 13 20 Rate Blood Pressure 75/47 99/60 99/60 O2 Sat by Pulse 99 99 100 Oximetry 05/11/22 05/11/22 05/11/22 00:00 01:00 02:00 Temperature 97.8 F Pulse Rate 100 H 100 H 102 H Respiratory 20 17 17 Rate Blood Pressure 132/79 84/54 93/59 O2 Sat by Pulse 84 99 99 Oximetry 05/11/22 05/11/22 05/11/22 03:01 04:00 05:00 Temperature 98.5 F Pulse Rate 106 H 96 H 93 H Respiratory 17 16 17 Rate Blood Pressure 134/93 104/66 98/52 O2 Sat by Pulse 77 L 99 98 Oximetry 05/11/22 05/11/22 05/11/22 06:00 07:00 07:17 Temperature 98.1 F Pulse Rate 96 H 98 H Respiratory 16 20 Rate Blood Pressure 97/60 88/57 O2 Sat by Pulse 99 Oximetry - General Appearance General appearance: frail EENT: ATNC Respiratory: Present: Clear to Ascultation Cardiology: regular, S1S2 Gastrointestinal: normal, no tenderness, no distended Integumentary: no rash, warm and dry Musculoskeletal: other (no edema) Psychiatric: cooperative - Lab 05/11/22 04:00 05/12/22 02:52 Most recent lab results Calcium 7.5 mg/dL (8.4-10.2) L 05/11/22 04:00 Urine Creatinine 61.0 mg/dL (0.1-20.0) H 05/10/22 17:16 Urine Sodium 19 mmol/L 05/10/22 17:16 Medications & Allergies - Medications Allergies/Adverse Reactions: Allergies No Known Allergies Allergy (Verified 11/23/20 17:16) Home Medications: Home Medications Medication Instructions Recorded Confirmed Last Taken Type amLODIPine [Norvasc] 5 mg PO DAILY 05/10/22 05/10/22 Unknown History levETIRAcetam [Keppra TAB] 500 mg PO BID 05/10/22 05/10/22 Unknown History Active Medications: Generic Name Dose Route Start Last Admin Trade Name Freq PRN Reason Stop Dose Admin Acetaminophen 650 mg 05/10/22 00:08 Acetaminophen 325 Mg Tab PO Q6H PRN Pain MILD(1-3)/Fever >100.5/JOHNSON Docusate Sodium 100 mg 05/10/22 22:00 05/10/22 21:05 Docusate Sodium 100 Mg Cap PO Not Given BID CAITLIN Folic Acid 1 mg 05/10/22 12:00 05/10/22 14:13 Folic Acid 1 Mg Tab PO 1 mg QDAY CAITLIN Administration Heparin Sodium (Porcine) 5,000 unit 05/10/22 06:00 05/11/22 07:07 Heparin 5,000 Unit/1 Ml Vial SUB-Q Not Given Q8HR CAITLIN Sodium Chloride 100 mls @ 999 mls/hr 05/09/22 20:33 Nacl 0.9% IV MAIDA PRN Hypotension NORepinephrine/NS 8 MG-250 ML 8 mg in 250 mls @ 3.75 mls/hr 05/10/22 02:00 Norepinephrine/Ns 8 Mg-250 Ml (Double Conc) IV TITRATE CAITLIN Protocol 2 MCG/MIN Potassium Chloride 20 meq in 100 mls @ 100 mls/hr 05/11/22 06:00 05/11/22 07:37 Kcl 20meq/100ml IV 05/11/22 09:59 100 mls/hr Q1H CAITLIN Administration Levetiracetam 750 mg 05/10/22 12:00 05/10/22 21:06 Levetiracetam 500 Mg Tab PO 750 mg BID CAITLIN Administration Magnesium Hydroxide 30 ml 05/10/22 00:08 Magnesium Hydroxide (Mom) Oral Liqd Udc PO Q4H PRN Constipation Morphine Sulfate 2 mg 05/10/22 00:08 Morphine 2 Mg/1 Ml Inj IV Q4H PRN Pain, Moderate (4-6) Morphine Sulfate 4 mg 05/10/22 00:08 Morphine 4 Mg/1 Ml Inj IV Q4H PRN Pain , Severe (7-10) Ondansetron HCl 4 mg 05/10/22 00:08 Ondansetron 4 Mg/2 Ml Inj IV Q8H PRN Nausea And Vomiting Potassium Chloride 40 meq 05/11/22 08:00 05/11/22 08:24 Potassium Chloride 20 Meq Packet PO 05/11/22 12:00 40 meq ONCE@0800 CAITLIN Administration Sodium Chloride 10 ml 05/10/22 10:00 05/10/22 21:07 Sodium Chloride 0.9% 10 Ml Flush Syringe IV Not Given BID CAITLIN Sodium Chloride 10 ml 05/10/22 00:08 Sodium Chloride 0.9% 10 Ml Flush Syringe IV PRN PRN LINE FLUSH Thiamine HCl 100 mg 05/10/22 12:00 05/10/22 14:14 Thiamine 100 Mg Tab PO 100 mg QDAY CAITLIN Administration
[2022-05-11] MEDS: DOCUSATE SODIUM 100 MG CAP PO SCH ×2 (10:40→21:23)
[2022-05-11] MEDS: levETIRAcetam 500 MG TAB PO SCH ×2 (10:40→21:23)
[2022-05-11] MEDS: FOLIC ACID 1 MG TAB PO SCH (10:40)
[2022-05-11] MEDS: THIAMINE 100 MG TAB PO SCH (10:41)
[2022-05-11] MEDS: SODIUM CHLORIDE 0.45% 1000 ML 1,000 ML IV SCH ×2 (10:42→21:07)
--- NOTE | 2022-05-11 13:55 | Electrocardiograph Report ---
[facility] Test Date: 2022-05-09 Test Time: 18:53:55 Pat Name: CHRISTA MARES JR Department: Room: A262 1 Gender: M Counter Former: [id number] : 1945 Requested By: SHLOMO GILBERT Order Number: [id number] Reading MD: Phillip Roa Measurements Intervals Hoskins Rate: 95 P: 60 MS: 141 QRS: -84 QRSD: 108 T: 61 QT: 355 QTc: 447 Interpretive Statements Sinus rhythm Left anterior fascicular block Probable left ventricular hypertrophy No previous ECG available for comparison Electronically Signed On 05-11-2022 13:55:54 EDT by Phillip Roa
[2022-05-11] MEDS ORDERED: MAGNESIUM SULFATE 4 GM/100 ML BAG IV SCH (14:00)
--- NOTE | 2022-05-11 14:11 | Progress Note ---
Assessment and Plan PATRIZIA Severe Hyperkalemia Lung Mass (RUL) Tobacco Abuse (10+ pk year) Adult FTT Dehydration H/O Seizures COPD HTN H/O Drug Abuse - get CT Abd & Pelvis with IV & Oral contrast now - he will need a tissue biopsy; if no clear suspicious lesion elsewhere will re- evaluate for CT guided needle biopsy +/- Bronchoscopy re: difficult anatomical location - PATRIZIA likely pre & post renal; continue gentle hydration - s/p Vascath; HD/UF per nephrology - continue accuchecks with glycemic control per SSI (While critically ill target blood glucose of 140-180 mg/dL; avoid hypoglycemia) - continue to wean supplemental oxygen for target O2 sat's > 90% acutely - aspiration precautions - bronchodilators with pulmonary hygiene per RT (LABA & prn JOHANA) - continue inhaled corticosteroids re: COPD - avoid nephrotoxins, renally dose all medications - avoid benzodiazepine's, reduce the possibility of delirium - AB's per ID rec's - prn analgesia per pain score - Maintenance of sleep-wake cycle, avoid delirium - G.I. & VTE prophylaxis - PT/OT/ROM exercises - mobility protocols for pressure ulcer prophylaxis - Monitor hemodynamics closely - continue other care per attending / other consultants - discharge planning ongoing concurrently .... Re-evaluate in am & prn CONDITION: CRITICAL PROGNOSIS: GUARDED CODE STATUS: FULL CODE The high probability of a clinically significant, sudden or life-threatening deterioration of the [renal, respiratory, cardiovascular] system(s) required my full and direct attention, intervention and personal management. The aggregate critical care time was [32] minutes without overlap. Time includes spent on; [x] Data Review and interpretation [x] Patient assessment and monitoring of vital signs [x] Documentation [x] Medication orders and management Subjective Date of service: 05/11/22 Principal diagnosis: PATRIZIA; Hyperkalemia; Lung Mass; Tobacco Abuse; Seizures; COPD; HTN Interval history: Patient is seen today for: PATRIZIA; Severe Hyperkalemia; Lung Mass (RUL); Tobacco Abuse; H/O Seizures; COPD; HTN; H/O Drug Abuse Seen and examined at bedside; 24hour events reviewed; nursing and respiratory care staff consulted; no adverse overnight events reported to me; resting peacefully in bed; azotemia much better; denies N/V/F/C Objective Vital Signs - 12hr 05/11/22 05/11/22 05/11/22 03:01 04:00 05:00 Temperature 98.5 F Pulse Rate 106 H 96 H 93 H Respiratory 17 16 17 Rate Blood Pressure 134/93 104/66 98/52 O2 Sat by Pulse 77 L 99 98 Oximetry 05/11/22 05/11/22 05/11/22 06:00 07:00 07:17 Temperature 98.1 F Pulse Rate 96 H 98 H Respiratory 16 20 Rate Blood Pressure 97/60 88/57 O2 Sat by Pulse 99 Oximetry 05/11/22 05/11/22 05/11/22 08:00 09:00 10:00 Temperature 98.1 F Pulse Rate 98 H 92 H 101 H Respiratory 16 16 13 Rate Blood Pressure 116/68 108/71 114/78 O2 Sat by Pulse 99 97 88 Oximetry 05/11/22 05/11/22 05/11/22 11:00 11:38 12:00 Temperature 98.7 F 98.7 F Pulse Rate 94 H 95 H Respiratory 32 H 16 Rate Blood Pressure 81/48 98/56 O2 Sat by Pulse 96 99 Oximetry 05/11/22 13:00 Temperature Pulse Rate 94 H Respiratory 15 Rate Blood Pressure 83/48 O2 Sat by Pulse 100 Oximetry Constitutional: no acute distress, other (elderly cachectic male with mildly increased respiratory effort at rest) Eyes: non-icteric ENT: oropharynx dry Neck: supple, no lymphadenopathy, no JVD Effort: mildly labored Ascultation: Bilateral: clear, diminished breath sounds Percussion: Bilateral: not dull Cardiovascular: regular rate and rhythm Gastrointestinal: normoactive bowel sounds, soft, non-tender, non-distended Integumentary: other (poor turgor) Extremities: no cyanosis, no edema, pulses normal, no ischemia or petechiae Neurologic: non-focal exam, pupils equal and round, CN II-XII normal, motor strength normal and Psychiatric: mood appropriate, affect normal CBC and BMP: 05/11/22 04:00 05/12/22 02:52 ABG, PT/INR, D-dimer: PT/INR, D-dimer PT 14.0 Sec. (12.2-14.9) 05/09/22 18:51 INR 0.97 (0.87-1.13) 05/09/22 18:51 Abnormal lab findings: Abnormal Labs 05/09/22 05/09/22 05/09/22 18:51 18:51 18:51 RBC 5.65 H Hgb 16.6 H Hct 48.9 H MCHC RDW 15.4 H Plt Count Lymph % (Auto) Maury % (Auto) Lymph # (Auto) Seg Neutrophils % Seg Neuts % (Manual) 98.0 H Lymphocytes % (Manual) 1.0 L Nucleated RBC % 1.0 H Seg Neutrophils # Man 10.6 H Lymphocytes # (Manual) 0.1 L Sodium 133 L Potassium 8.0 H* Chloride 89.9 L Carbon Dioxide 11 L BUN 225 H Creatinine 15.7 H Glucose 122 H Calcium Magnesium Ammonia 61.0 H C-Reactive Protein 12.90 H Urine WBC (Auto) Urine Creatinine Salicylates Acetaminophen 05/09/22 05/09/22 05/10/22 18:51 18:51 02:16 RBC Hgb Hct MCHC RDW Plt Count Lymph % (Auto) Maury % (Auto) Lymph # (Auto) Seg Neutrophils % Seg Neuts % (Manual) Lymphocytes % (Manual) Nucleated RBC % Seg Neutrophils # Man Lymphocytes # (Manual) Sodium Potassium Chloride Carbon Dioxide BUN Creatinine Glucose Calcium Magnesium Ammonia C-Reactive Protein Urine WBC (Auto) > 182.0 H Urine Creatinine Salicylates < 0.3 L Acetaminophen 5.0 L 05/10/22 05/10/22 05/10/22 04:18 11:30 17:16 RBC Hgb Hct MCHC RDW Plt Count Lymph % (Auto) Maury % (Auto) Lymph # (Auto) Seg Neutrophils % Seg Neuts % (Manual) Lymphocytes % (Manual) Nucleated RBC % Seg Neutrophils # Man Lymphocytes # (Manual) Sodium 146 H D 158 H D Potassium 6.3 H* D 3.1 L D Chloride 111.5 H Carbon Dioxide 18 L D BUN 162 H 105 H Creatinine 9.1 H 3.7 H D Glucose 112 H Calcium Magnesium Ammonia C-Reactive Protein Urine WBC (Auto) Urine Creatinine 61.0 H Salicylates Acetaminophen 05/11/22 05/11/22 05/11/22 04:00 04:00 04:00 RBC 3.53 L Hgb 10.5 L D Hct 30.0 L D MCHC 35 H RDW Plt Count 118 L Lymph % (Auto) 6.4 L Maury % (Auto) 9.6 H Lymph # (Auto) 0.5 L Seg Neutrophils % 84.0 H Seg Neuts % (Manual) Lymphocytes % (Manual) Nucleated RBC % Seg Neutrophils # Man Lymphocytes # (Manual) Sodium 149 H D Potassium 2.3 L* D Chloride Carbon Dioxide 36 H D BUN 41 H Creatinine Glucose 117 H Calcium 7.5 L Magnesium 1.60 L Ammonia C-Reactive Protein Urine WBC (Auto) Urine Creatinine Salicylates Acetaminophen Allied health notes reviewed: nursing
--- NOTE | 2022-05-11 15:13 | Progress Note ---
<RENETTA MOHANLorne - Last Filed: 05/11/22 15:17> Assessment and Plan Assessment and plan: Assessment and Plan: This is a 76-year-old female with seizure disorder, HTN, nicotine and drug abuse admitted with acute kidney injury Neuro: H/O seizure disorder, marijuana use -Continue home Keppra -Reorientation as needed -Maintain sleep-wake cycle -aspiration/seizure precautions -As needed analgesia -Folic acid, thiamine Cardiac: H/O HTN -Blood pressure monitoring per protocol -Hold home hydralazine Respiratory: Acute hypoxic respiratory failure, right lung nodule, current nicotine abuse -CCM consulted, appreciate recommendations -Pulmonary hygiene -SPO2 monitor per protocol -Supplemental oxygen tested and -Nicotine abuse cessation counseling provided -CT chest shows multiple osseous metastatic lesion, right upper lobe nodule, neoplasm not excluded, hemodialysis catheter terminates within the superior vena cava currently at the cavoatrial junction -CT abdomen/pelvis with oral and IV contrast pending GI: NAD -PPI -Cardiac renal diet -BR: Colace : Acute kidney injury likely postobstructive, dehydration, Hypokalemia, Hypernatremia, hypophosphatemia, urinary retention -Nephrology consulted, appreciate recommendations -S/p Vas-Cath placement for emergent hemodialysis however Vas-Cath was not functional -Vascular surgery consulted for PermCath placement -Monitor intake and output -Renally dose medications -Avoid nephrotoxic medications -FeNa 0.7% -Free water PO 250 ml q4hr -Flomax and doxazosin -Replete potassium, phosphorus -Trend BMP ID: NAD -Monitor WBC and temperature curve Endo: NAD -Avoid hypoglycemia Heme: NAD -Trend CBC -Transfuse hemoglobin less than 7 -SCDs to BLE while in bed The high probability of a clinically significant, sudden or life threatening deterioration of the [multi] system(s) required my full and direct attention, intervention and personal management. The aggregate critical care time was [60] minutes. This time is in addition to time spent performing reported procedures but includes the following: [x] Data Review and interpretation [x] Patient assessment and monitoring of vital signs [x] Documentation [x] Medication orders and management Disposition Plan: icu Total Time Spent with Patient (Minutes): 60 History Interval history: This is 76-year-old male with seizure disorder, HTN, smoker and drug abuse presents to the emergency department on 05/09 via EMS for evaluation of generalized weakness and decreased oral intake. According to the family patient had decreased oral intake for the past 1 to 2 weeks and has generalized weakness. Work-up in the emergency department revealed hyponatremia at 133, hyperkalemia at 8, elevated BUN and creatinine at 225/15.7 and CXR revealed mild pulmonary vascular congestion. ECG also showed peaked T waves. Nephrology was consulted in the emergency department and a Vas-Cath was placed by [facility] for hemodialysis. Patient was also medically treated with insulin, glucose, calcium gluconate and Kayexalate for hyperkalemia. Patient was admitted to the hospitalist service with consults to nephrology, [facility] and vascular surgery for acute kidney injury requiring urgent dialysis. Hospital course to date: 05/10: Yesterday patient had a Vas-Cath placed by [facility] however this is nonfunctional at this time. Vascular surgery was consulted for placement of Vas-Cath. No acute events reported overnight. Patient suddenly became nonverbal however did follow commands, tracks/focus and pupils were round and reactive. Glucose check which was within normal limits. After approximately half an hour patient became verbal again. This afternoon patient is alert and oriented and interactive. 05/11: Hypernatremia slowly improving, noted to have hypokalemia, hypomagnesemia and hypophosphatemia. Potassium repleted with IV and p.o., bicarbonate drip discontinued. Started on Flomax and [facility] would like to add doxazosin. Patient started on half-normal saline and [facility] would like to obtain CT abdomen/pelvis with contrast. Attempted to update niece at bedside however she became upset and stated I confused her even more. Free water flush 350 every 8 p.o. Hospitalist Physical - Constitutional Vitals: Temp Pulse Resp BP Pulse Ox 98.7 F 94 H 15 83/48 100 05/11/22 12:00 05/11/22 13:00 05/11/22 13:00 05/11/22 13:00 05/11/22 13:00 General appearance: Present: no acute distress, well-nourished - EENT Eyes: Present: PERRL, EOM intact ENT: poor dentition - Neck Neck: Present: normal ROM - Respiratory Respiratory effort: normal Respiratory: bilateral: CTA, diminished - Cardiovascular Rhythm: regular Heart Sounds: Present: S1 & S2. Absent: systolic murmur, diastolic murmur - Extremities Extremities: no ischemia, pulses intact, pulses symmetrical, No edema, normal temperature, normal color Peripheral Pulses: within normal limits - Abdominal General gastrointestinal: soft, non-tender, non-distended, normal bowel sounds - Integumentary Integumentary: Present: warm, dry - Psychiatric Psychiatric: appropriate mood/affect, cooperative - Neurologic Neurologic: CNII-XII intact, moves all extremities - Allied Health Allied health notes reviewed: nursing, RT, social work HEART Score - HEART Score Troponin: Troponin T < 0.010 ng/mL (0.00-0.029) 05/09/22 18:51 Results - Labs CBC & Chem 7: 05/11/22 04:00 05/11/22 04:00 Labs: Laboratory Last Values WBC 7.0 K/mm3 (4.5-11.0) 05/11/22 04:00 RBC 3.53 M/mm3 (3.65-5.03) L 05/11/22 04:00 Hgb 10.5 gm/dl (11.8-15.2) L D 05/11/22 04:00 Hct 30.0 % (35.5-45.6) L D 05/11/22 04:00 MCV 85 fl (84-94) 05/11/22 04:00 MCH 30 pg (28-32) 05/11/22 04:00 MCHC 35 % (32-34) H 05/11/22 04:00 RDW 14.7 % (13.2-15.2) 05/11/22 04:00 Plt Count 118 K/mm3 (140-440) L 05/11/22 04:00 Lymph % (Auto) 6.4 % (13.4-35.0) L 05/11/22 04:00 [place] % (Auto) 9.6 % (0.0-7.3) H 05/11/22 04:00 Eos % (Auto) 0.0 % (0.0-4.3) 05/11/22 04:00 Baso % (Auto) 0.0 % (0.0-1.8) 05/11/22 04:00 Lymph # (Auto) 0.5 K/mm3 (1.2-5.4) L 05/11/22 04:00 [place] # (Auto) 0.7 K/mm3 (0.0-0.8) 05/11/22 04:00 Eos # (Auto) 0.0 K/mm3 (0.0-0.4) 05/11/22 04:00 Baso # (Auto) 0.0 K/mm3 (0.0-0.1) 05/11/22 04:00 Add Manual Diff Complete 05/09/22 18:51 Total Counted 100 05/09/22 18:51 Seg Neutrophils % 84.0 % (40.0-70.0) H 05/11/22 04:00 Seg Neuts % (Manual) 98.0 % (40.0-70.0) H 05/09/22 18:51 Band Neutrophils % 0 % 05/09/22 18:51 Lymphocytes % (Manual) 1.0 % (13.4-35.0) L 05/09/22 18:51 Reactive Lymphs % (Man) 0 % 05/09/22 18:51 Monocytes % (Manual) 0 % (0.0-7.3) 05/09/22 18:51 Eosinophils % (Manual) 0 % (0.0-4.3) 05/09/22 18:51 Basophils % (Manual) 0 % (0.0-1.8) 05/09/22 18:51 Metamyelocytes % 1.0 % 05/09/22 18:51 Myelocytes % 0 % 05/09/22 18:51 Promyelocytes % 0 % 05/09/22 18:51 Blast Cells % 0 % 05/09/22 18:51 Nucleated RBC % 1.0 % (0.0-0.9) H 05/09/22 18:51 Seg Neutrophils # 5.9 K/mm3 (1.8-7.7) 05/11/22 04:00 Seg Neutrophils # Man 10.6 K/mm3 (1.8-7.7) H 05/09/22 18:51 Band Neutrophils # 0.0 K/mm3 05/09/22 18:51 Lymphocytes # (Manual) 0.1 K/mm3 (1.2-5.4) L 05/09/22 18:51 Abs React Lymphs (Man) 0.0 K/mm3 05/09/22 18:51 Monocytes # (Manual) 0.0 K/mm3 (0.0-0.8) 08/21/22 18:51 Eosinophils # (Manual) 0.0 K/mm3 (0.0-0.4) 05/09/22 18:51 Basophils # (Manual) 0.0 K/mm3 (0.0-0.1) 05/09/22 18:51 Metamyelocytes # 0.1 K/mm3 05/09/22 18:51 Myelocytes # 0.0 K/mm3 05/09/22 18:51 Promyelocytes # 0.0 K/mm3 05/09/22 18:51 Blast Cells # 0.0 K/mm3 05/09/22 18:51 WBC Morphology Not Reportable 05/09/22 18:51 WBC Morphology TNR 05/09/22 18:51 Hypersegmented Neuts Not Reportable 05/09/22 18:51 Hyposegmented Neuts Not Reportable 05/09/22 18:51 Hypogranular Neuts Not Reportable 05/09/22 18:51 Smudge Cells Not Reportable 05/09/22 18:51 Toxic Granulation Not Reportable 05/09/22 18:51 Toxic Vacuolation Not Reportable 05/09/22 18:51 Dohle Bodies Not Reportable 05/09/22 18:51 Pelger-Huet Anomaly Not Reportable 05/09/22 18:51 Paola Rods Not Reportable 05/09/22 18:51 Platelet Estimate Consistent w auto 05/09/22 18:51 Clumped Platelets Not Reportable 05/09/22 18:51 Plt Clumps, EDTA Not Reportable 05/09/22 18:51 Large Platelets Not Reportable 05/09/22 18:51 Giant Platelets Not Reportable 05/09/22 18:51 Platelet Satelliting Not Reportable 05/09/22 18:51 Plt Morphology Comment Not Reportable 05/09/22 18:51 RBC Morphology Not Reportable 05/09/22 18:51 Dimorphic RBCs Not Reportable 05/09/22 18:51 Polychromasia Not Reportable 05/09/22 18:51 Hypochromasia Not Reportable 05/09/22 18:51 Poikilocytosis Not Reportable 05/09/22 18:51 Anisocytosis Not Reportable 05/09/22 18:51 Microcytosis Not Reportable 05/09/22 18:51 Macrocytosis Not Reportable 05/09/22 18:51 Spherocytes Not Reportable 05/09/22 18:51 Pappenheimer Bodies Not Reportable 05/09/22 18:51 Sickle Cells Not Reportable 05/09/22 18:51 Target Cells Few 05/09/22 18:51 Tear Drop Cells Few 05/09/22 18:51 Ovalocytes Not Reportable 05/09/22 18:51 Helmet Cells Not Reportable 05/09/22 18:51 [place] Bodies Not Reportable 05/09/22 18:51 Eleva Rings Not Reportable 05/09/22 18:51 [place] Cells Not Reportable 05/09/22 18:51 Bite Cells Not Reportable 05/09/22 18:51 Crenated Cell Not Reportable 05/09/22 18:51 Elliptocytes Not Reportable 05/09/22 18:51 Acanthocytes (Spur) Not Reportable 05/09/22 18:51 Rouleaux Not Reportable 05/09/22 18:51 Hemoglobin C Crystals Not Reportable 05/09/22 18:51 Schistocytes Not Reportable 05/09/22 18:51 Malaria parasites Not Reportable 05/09/22 18:51 Jamal Bodies Not Reportable 05/09/22 18:51 Hem Pathologist Commnt No 05/09/22 18:51 PT 14.0 Sec. (12.2-14.9) 05/09/22 18:51 INR 0.97 (0.87-1.13) 05/09/22 18:51 Sodium 149 mmol/L (137-145) H D 05/11/22 04:00 Potassium 2.3 mmol/L (3.6-5.0) L* 05/11/22 04:00 Potassium 2.3 mmol/L (3.6-5.0) L* D 05/11/22 04:00 Chloride 104.4 mmol/L (98-107) 05/11/22 04:00 Carbon Dioxide 36 mmol/L (22-30) H D 05/11/22 04:00 Anion Gap 11 mmol/L 05/11/22 04:00 BUN 41 mg/dL (9-20) H 05/11/22 04:00 Creatinine 0.8 mg/dL (0.8-1.3) D 05/11/22 04:00 Estimated GFR > 60 ml/min 05/11/22 04:00 BUN/Creatinine Ratio 51 % 05/11/22 04:00 Glucose 117 mg/dL (75-100) H 05/11/22 04:00 POC Glucose 76 mg/dL (70-105) 05/10/22 08:44 Lactic Acid 1.20 mmol/L (0.7-2.0) 05/09/22 18:51 Calcium 7.5 mg/dL (8.4-10.2) L 05/11/22 04:00 Phosphorus 1.70 mg/dL (2.5-4.5) L 05/11/22 04:00 Magnesium 1.60 mg/dL (1.7-2.3) L 05/11/22 04:00 Total Bilirubin 1.10 mg/dL (0.1-1.2) 05/09/22 18:51 AST 13 units/L (5-40) 05/09/22 18:51 ALT 10 units/L (7-56) 05/09/22 18:51 Alkaline Phosphatase 98 units/L (35-129) 05/09/22 18:51 Ammonia 61.0 umol/L (25-60) H 05/09/22 18:51 Total Creatine Kinase 92 units/L (55-170) 05/09/22 18:51 Troponin T < 0.010 ng/mL (0.00-0.029) 05/09/22 18:51 C-Reactive Protein 12.90 mg/dL (0.00-1.30) H 05/09/22 18:51 NT-Pro-B Natriuret Pep 817.0 pg/mL (0-900) 05/09/22 18:51 Total Protein 7.7 g/dL (6.3-8.2) 05/09/22 18:51 Albumin 4.6 g/dL (3.9-5) 05/09/22 18:51 Albumin/Globulin Ratio 1.5 % 05/09/22 18:51 TSH 2.020 mlU/mL (0.270-4.200) 05/09/22 18:51 Urine Color Red (Yellow) 05/10/22 02:16 Urine Turbidity Cloudy (Clear) 05/10/22 02:16 Specific [place] (Man) 1.030 (1.003-1.030) 05/10/22 02:16 Ur Protein (Man) >500 mg/dL (Negative) 05/10/22 02:16 Ur Ketones (Man) 5mg/dl (Negative) 05/10/22 02:16 Urine Bilirubin (Man) Negative (Negative) 05/10/22 02:16 Urine WBC (Auto) > 182.0 /HPF (0.0-6.0) H 05/10/22 02:16 Urine RBC (Auto) > 182.0 /HPF (0.0-6.0) 05/10/22 02:16 Urine Bacteria (Auto) 1+ /HPF (Negative) 05/10/22 02:16 Urine RBC (Manual) 5+ (Negative) 05/10/22 02:16 Urine Osmolality 576 Mosm/kg 05/10/22 17:16 Urine Creatinine 61.0 mg/dL (0.1-20.0) H 05/10/22 17:16 Urine Sodium 19 mmol/L 05/10/22 17:16 Urine Urea Nitrogen 1015 05/10/22 17:16 Salicylates < 0.3 mg/dL (2.8-20.0) L 05/09/22 18:51 Urine Opiates Screen Negative 05/10/22 02:16 Urine Methadone Screen Negative 05/10/22 02:16 Acetaminophen 5.0 ug/mL (10.0-30.0) L 05/09/22 18:51 Ur Barbiturates Screen Negative 05/10/22 02:16 Ur Phencyclidine Scrn Negative 05/10/22 02:16 Ur Amphetamines Screen Negative 05/10/22 02:16 U Benzodiazepines Scrn Negative 05/10/22 02:16 Urine Cocaine Screen Negative 05/10/22 02:16 U Marijuana (THC) Screen Positive 05/10/22 02:16 Drugs of Abuse Note Disclamer 05/10/22 02:16 Plasma/Serum Alcohol < 0.01 % (0-0.07) 05/09/22 18:51 Hepatitis A IgM Ab Non-reactive (NonReactive) 05/09/22 23:00 Hep Bs Antigen Non-reactive (Negative) 05/09/22 23:00 Hep B Core IgM Ab Non-reactive (NonReactive) 05/09/22 23:00 Hepatitis C Antibody Non-reactive (NonReactive) 05/09/22 23:00 Alvarez/IV: Voiding Method Indwelling Catheter Active Medications - Current Medications Current Medications: Generic Name Dose Route Start Last Admin Trade Name Freq PRN Reason Stop Dose Admin Acetaminophen 650 mg 05/10/22 00:08 Acetaminophen 325 Mg Tab PO Q6H PRN Pain MILD(1-3)/Fever >100.5/JOHNSON Docusate Sodium 100 mg 05/10/22 22:00 05/11/22 10:40 Docusate Sodium 100 Mg Cap PO Not Given BID CAITLIN Doxazosin Mesylate 1 mg 05/11/22 22:00 Doxazosin 1 Mg Tab PO QHS CAITLIN Folic Acid 1 mg 05/10/22 12:00 05/11/22 10:40 Folic Acid 1 Mg Tab PO 1 mg QDAY CAITLIN Administration Heparin Sodium (Porcine) 5,000 unit 05/10/22 06:00 05/11/22 13:44 Heparin 5,000 Unit/1 Ml Vial SUB-Q 5,000 unit Q8HR CAITLIN Administration NORepinephrine/NS 8 MG-250 ML 8 mg in 250 mls @ 3.75 mls/hr 05/10/22 02:00 Norepinephrine/Ns 8 Mg-250 Ml (Double Conc) IV TITRATE CAITLIN Protocol 2 MCG/MIN Sodium Chloride 1,000 mls @ 100 mls/hr 05/11/22 10:00 05/11/22 10:42 Nacl 0.45% 1000 Ml IV 100 mls/hr DIRECT CAITLIN Administration Magnesium Sulfate 4 gm in 100 mls @ 25 mls/hr 05/11/22 14:00 05/11/22 13:45 Magnesium Sulfate 4gm/100ml IV 05/11/22 18:00 25 mls/hr ONCE@1400 CAITLIN Administration Levetiracetam 750 mg 05/10/22 12:00 05/11/22 10:40 Levetiracetam 500 Mg Tab PO 750 mg BID CAITLIN Administration Magnesium Hydroxide 30 ml 05/10/22 00:08 Magnesium Hydroxide (Mom) Oral Liqd Udc PO Q4H PRN Constipation Morphine Sulfate 2 mg 05/10/22 00:08 Morphine 2 Mg/1 Ml Inj IV Q4H PRN Pain, Moderate (4-6) Morphine Sulfate 4 mg 05/10/22 00:08 Morphine 4 Mg/1 Ml Inj IV Q4H PRN Pain , Severe (7-10) Ondansetron HCl 4 mg 05/10/22 00:08 Ondansetron 4 Mg/2 Ml Inj IV Q8H PRN Nausea And Vomiting Sodium Chloride 10 ml 05/10/22 10:00 05/11/22 10:40 Sodium Chloride 0.9% 10 Ml Flush Syringe IV 10 ml BID CAITLIN Administration Sodium Chloride 10 ml 05/10/22 00:08 Sodium Chloride 0.9% 10 Ml Flush Syringe IV PRN PRN LINE FLUSH Thiamine HCl 100 mg 05/10/22 12:00 05/11/22 10:41 Thiamine 100 Mg Tab PO 100 mg QDAY CAITLIN Administration Nutrition/Malnutrition Assess - Dietary Evaluation Nutrition/Malnutrition Findings: Nutrition Notes Start: 05/10/22 1 7:09 Freq: Status: Active Protocol: Document 05/10/22 17:09 ARNOLDO (Rec: 05/10/22 17:52 ARNOLDO [id number]) Nutrition Notes Need for Assessment generated from: 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 Current Diet Cardiac -Renal- Diet + D Suppl (since B 05/10). Labs/Tests 05/10: Na 158, K 3.1, Cl 111.5 , BUN 105, Crea 3.7, Glu 112. Pertinent Medications 05/10: Folic acid, Thiamine, others nutritionally unremarkable. Height 5 ft 10 in Weight 35.6 kg Urich Body Weight (kg) 75.45 BMI 11.2 Intake Prior to Admission Poor Weight change and time frame Pt states having loss, unintentionally, more than 34 lb body weight recently. Weight Status Underweight Subjective/Other Information RD consult for Low BMI, risk of malnutrition nutrition education and dietary supplementation assessments. No reports available on Pt's PO intake of meals at the time , will assess at F/U. I will prescribe dietary supplements to compensate for poor or insufficient PO intake of meals during LOS. Pt is on Room Air, O2 saturation @ 98%, according to Physical Assessment History notes. Pt has missing teeth, according to Physical Assessment History notes. Pt shows sudden unintentional loss of body weight and poor PO intake of meals for 2 weeks as signs of concern for risk of malnutrition at the time, according to Admission documents. Procedure on 05/10: L-CFV Dual -tunneled PICC Catheter placement, and R-IJV Triple- lumen HD non-tunneled catheter placement, well tolerated, according to Operative Report notes. Pt's Low BMI seems to correspond to a natural body composition, and exacerbated by a sudden loss of body weight and chronic malnutrition, since some signs of concern were mentioned in the Physical Assessment History and the Progress notes . Pt still in critical condition , not a candidate for Nutrition Education at the time, will assess feasibility on F/U. Percent of energy/protein needs met: Prescribed Cardiac -Renal- Diet provides for energy/ protein needs (2,230 Kcal/85 g ) during LOS; additionally, Dietary Supplements will compensate for possible poor or insufficient PO intake of meals with 1,275 Kcal and 57 g of protein. Burn Absent Trauma Absent GI Symptoms None Food Allergy No Skin Integrity/Comment Assessment WNL. Minimum of two criteria Yes Energy Intake (severe) < or equal to 50% Estimated Energy Requirement > or equal to 5 days Interpretation of Weight Loss (severe) >5% in 1 month Fluid Accumulation N/A Reduced Manager Cleaning Strength N/A (non-severe) Protein-Calorie Malnutrition Severe #2 Nutrition Diagnosis Underweight Comments: Pt's Low BMI seems to correspond to a natural body composition, and exacerbated by a sudden loss of body weight and chronic malnutrition, since some signs of concern were mentioned in the Physical Assessment History and the Progress notes . Etiology Possibly associated to Adult Failure to Thrive. As Evidenced by Signs and Symptoms BMI: 11.3 Kg/m2. #1 Nutrition Diagnosis Malnutrition Etiology Possibly PATRIZIA. As Evidenced by Signs and Symptoms Pt shows sudden unintentional loss of body weight and poor PO intake of meals for 2 weeks as signs of concern for risk of malnutrition at the time, according to Admission documents. Is patient on ventilator? No Is Patient Ambulatory and/or Out of Bed No REE-([facility]-confined to bed) 1317.564 Kcal/Kg value to use for calculation 58 Approximate Energy Requirements Using 5 kcal/Kg Calculation Used for Recommendations Kcal/kg Additional Notes Protein: 1.2-1.5 g/Kg ABW; 43- 54 g/day. Fluids: 1 ml/Kcal, or as per MD. Nutrition Intervention Change Diet Order: Continue Cardiac -Renal- Diet as tolerated. Add Supplement/Snack (indicate name/kcal Start 8 fl oz Nepro w/ /protein ) CARBSTEADY; TID. Provides kCal: 1,275 Provides Protein (gm) 57 Goal #1 Compensate, through dietary supplementation, for possible poor or insufficient PO intake of meals during LOS. Goal #2 Adjust the dietary intervention to better serve Pt's needs and clinical conditions during LOS. Follow-Up By: 05/17/22 Additional Comments Continue monitoring food tolerance, %PO intake of meals , dietary supplements, and BM. <VETO OTERO - Last Filed: 05/12/22 09:57> History Interval history: I saw and evaluated the patient. Discussed with the nurse practitioner and agree with their findings and plan as documented in this note except Personally spoke with the niece. Clarification provided regarding patient clinical progress. Hospitalist Physical - Constitutional Vitals: Temp Pulse Resp BP Pulse Ox 98.1 F 81 18 128/73 98 05/12/22 08:00 05/12/22 09:00 05/12/22 09:00 05/12/22 09:00 05/12/22 09:00 HEART Score - HEART Score Troponin: Troponin T < 0.010 ng/mL (0.00-0.029) 05/09/22 18:51 Results - Labs CBC & Chem 7: 05/11/22 04:00 05/12/22 02:52 Labs: Laboratory Last Values WBC 7.0 K/mm3 (4.5-11.0) 05/11/22 04:00 RBC 3.53 M/mm3 (3.65-5.03) L 05/11/22 04:00 Hgb 10.5 gm/dl (11.8-15.2) L D 05/11/22 04:00 Hct 30.0 % (35.5-45.6) L D 05/11/22 04:00 MCV 85 fl (84-94) 05/11/22 04:00 MCH 30 pg (28-32) 05/11/22 04:00 MCHC 35 % (32-34) H 05/11/22 04:00 RDW 14.7 % (13.2-15.2) 05/11/22 04:00 Plt Count 118 K/mm3 (140-440) L 05/11/22 04:00 Lymph % (Auto) 6.4 % (13.4-35.0) L 05/11/22 04:00 [place] % (Auto) 9.6 % (0.0-7.3) H 05/11/22 04:00 Eos % (Auto) 0.0 % (0.0-4.3) 05/11/22 04:00 Baso % (Auto) 0.0 % (0.0-1.8) 05/11/22 04:00 Lymph # (Auto) 0.5 K/mm3 (1.2-5.4) L 05/11/22 04:00 [place] # (Auto) 0.7 K/mm3 (0.0-0.8) 05/11/22 04:00 Eos # (Auto) 0.0 K/mm3 (0.0-0.4) 05/11/22 04:00 Baso # (Auto) 0.0 K/mm3 (0.0-0.1) 05/11/22 04:00 Add Manual Diff Complete 05/09/22 18:51 Total Counted 100 05/09/22 18:51 Seg Neutrophils % 84.0 % (40.0-70.0) H 05/11/22 04:00 Seg Neuts % (Manual) 98.0 % (40.0-70.0) H 05/09/22 18:51 Band Neutrophils % 0 % 05/09/22 18:51 Lymphocytes % (Manual) 1.0 % (13.4-35.0) L 05/09/22 18:51 Reactive Lymphs % (Man) 0 % 05/09/22 18:51 Monocytes % (Manual) 0 % (0.0-7.3) 05/09/22 18:51 Eosinophils % (Manual) 0 % (0.0-4.3) 05/09/22 18:51 Basophils % (Manual) 0 % (0.0-1.8) 05/09/22 18:51 Metamyelocytes % 1.0 % 05/09/22 18:51 Myelocytes % 0 % 05/09/22 18:51 Promyelocytes % 0 % 05/09/22 18:51 Blast Cells % 0 % 05/09/22 18:51 Nucleated RBC % 1.0 % (0.0-0.9) H 05/09/22 18:51 Seg Neutrophils # 5.9 K/mm3 (1.8-7.7) 05/11/22 04:00 Seg Neutrophils # Man 10.6 K/mm3 (1.8-7.7) H 05/09/22 18:51 Band Neutrophils # 0.0 K/mm3 05/09/22 18:51 Lymphocytes # (Manual) 0.1 K/mm3 (1.2-5.4) L 05/09/22 18:51 Abs React Lymphs (Man) 0.0 K/mm3 05/09/22 18:51 Monocytes # (Manual) 0.0 K/mm3 (0.0-0.8) 05/09/22 18:51 Eosinophils # (Manual) 0.0 K/mm3 (0.0-0.4) 05/09/22 18:51 Basophils # (Manual) 0.0 K/mm3 (0.0-0.1) 05/09/22 18:51 Metamyelocytes # 0.1 K/mm3 05/09/22 18:51 Myelocytes # 0.0 K/mm3 05/09/22 18:51 Promyelocytes # 0.0 K/mm3 05/09/22 18:51 Blast Cells # 0.0 K/mm3 05/09/22 18:51 WBC Morphology Not Reportable 05/09/22 18:51 WBC Morphology TNR 05/09/22 18:51 Hypersegmented Neuts Not Reportable 05/09/22 18:51 Hyposegmented Neuts Not Reportable 05/09/22 18:51 Hypogranular Neuts Not Reportable 05/09/22 18:51 Smudge Cells Not Reportable 05/09/22 18:51 Toxic Granulation Not Reportable 05/09/22 18:51 Toxic Vacuolation Not Reportable 05/09/22 18:51 Dohle Bodies Not Reportable 05/09/22 18:51 Pelger-Huet Anomaly Not Reportable 05/09/22 18:51 Paola Rods Not Reportable 05/09/22 18:51 Platelet Estimate Consistent w auto 05/09/22 18:51 Clumped Platelets Not Reportable 05/09/22 18:51 Plt Clumps, EDTA Not Reportable 05/09/22 18:51 Large Platelets Not Reportable 05/09/22 18:51 Giant Platelets Not Reportable 05/09/22 18:51 Platelet Satelliting Not Reportable 05/09/22 18:51 Plt Morphology Comment Not Reportable 05/09/22 18:51 RBC Morphology Not Reportable 05/09/22 18:51 Dimorphic RBCs Not Reportable 05/09/22 18:51 Polychromasia Not Reportable 05/09/22 18:51 Hypochromasia Not Reportable 05/09/22 18:51 Poikilocytosis Not Reportable 05/09/22 18:51 Anisocytosis Not Reportable 05/09/22 18:51 Microcytosis Not Reportable 05/09/22 18:51 Macrocytosis Not Reportable 05/09/22 18:51 Spherocytes Not Reportable 05/09/22 18:51 Pappenheimer Bodies Not Reportable 05/09/22 18:51 Sickle Cells Not Reportable 05/09/22 18:51 Target Cells Few 05/09/22 18:51 Tear Drop Cells Few 05/09/22 18:51 Ovalocytes Not Reportable 05/09/22 18:51 Helmet Cells Not Reportable 05/09/22 18:51 [place] Bodies Not Reportable 05/09/22 18:51 Eleva Rings Not Reportable 05/09/22 18:51 [place] Cells Not Reportable 05/09/22 18:51 Bite Cells Not Reportable 05/09/22 18:51 Crenated Cell Not Reportable 05/09/22 18:51 Elliptocytes Not Reportable 05/09/22 18:51 Acanthocytes (Spur) Not Reportable 05/09/22 18:51 Rouleaux Not Reportable 05/09/22 18:51 Hemoglobin C Crystals Not Reportable 05/09/22 18:51 Schistocytes Not Reportable 05/09/22 18:51 Malaria parasites Not Reportable 05/09/22 18:51 Jamal Bodies Not Reportable 05/09/22 18:51 Hem Pathologist Commnt No 05/09/22 18:51 PT 14.0 Sec. (12.2-14.9) 05/09/22 18:51 INR 0.97 (0.87-1.13) 05/09/22 18:51 Sodium 144 mmol/L (137-145) 05/12/22 02:52 Potassium 3.7 mmol/L (3.6-5.0) 05/12/22 02:52 Chloride 106.2 mmol/L (98-107) 05/12/22 02:52 Carbon Dioxide 26 mmol/L (22-30) 05/12/22 02:52 Anion Gap 16 mmol/L 05/12/22 02:52 BUN 16 mg/dL (9-20) 05/12/22 02:52 Creatinine 0.4 mg/dL (0.8-1.3) L 05/12/22 02:52 Estimated GFR > 60 ml/min 05/12/22 02:52 BUN/Creatinine Ratio 40 % 05/12/22 02:52 Glucose 88 mg/dL (75-100) 05/12/22 02:52 POC Glucose 76 mg/dL (70-105) 05/10/22 08:44 Lactic Acid 1.20 mmol/L (0.7-2.0) 05/09/22 18:51 Calcium 6.9 mg/dL (8.4-10.2) L 05/12/22 02:52 Phosphorus 2.70 mg/dL (2.5-4.5) D 05/12/22 02:52 Magnesium 2.00 mg/dL (1.7-2.3) 05/12/22 02:52 Total Bilirubin 1.10 mg/dL (0.1-1.2) 05/09/22 18:51 AST 13 units/L (5-40) 05/09/22 18:51 ALT 10 units/L (7-56) 05/09/22 18:51 Alkaline Phosphatase 98 units/L (35-129) 05/09/22 18:51 Ammonia 61.0 umol/L (25-60) H 05/09/22 18:51 Total Creatine Kinase 92 units/L (55-170) 05/09/22 18:51 Troponin T < 0.010 ng/mL (0.00-0.029) 05/09/22 18:51 C-Reactive Protein 12.90 mg/dL (0.00-1.30) H 05/09/22 18:51 NT-Pro-B Natriuret Pep 817.0 pg/mL (0-900) 05/09/22 18:51 Total Protein 7.7 g/dL (6.3-8.2) 05/09/22 18:51 Albumin 4.6 g/dL (3.9-5) 05/09/22 18:51 Albumin/Globulin Ratio 1.5 % 05/09/22 18:51 TSH 2.020 mlU/mL (0.270-4.200) 05/09/22 18:51 Urine Color Red (Yellow) 05/10/22 02:16 Urine Turbidity Cloudy (Clear) 05/10/22 02:16 Specific Berthold (Man) 1.030 (1.003-1.030) 05/10/22 02:16 Ur Protein (Man) >500 mg/dL (Negative) 05/10/22 02:16 Ur Ketones (Man) 5mg/dl (Negative) 05/10/22 02:16 Urine Bilirubin (Man) Negative (Negative) 05/10/22 02:16 Urine WBC (Auto) > 182.0 /HPF (0.0-6.0) H 05/10/22 02:16 Urine RBC (Auto) > 182.0 /HPF (0.0-6.0) 05/10/22 02:16 Urine Bacteria (Auto) 1+ /HPF (Negative) 05/10/22 02:16 Urine RBC (Manual) 5+ (Negative) 05/10/22 02:16 Urine Osmolality 576 Mosm/kg 05/10/22 17:16 Urine Creatinine 61.0 mg/dL (0.1-20.0) H 05/10/22 17:16 Urine Sodium 19 mmol/L 05/10/22 17:16 Urine Urea Nitrogen 1015 05/10/22 17:16 Salicylates < 0.3 mg/dL (2.8-20.0) L 05/09/22 18:51 Urine Opiates Screen Negative 05/10/22 02:16 Urine Methadone Screen Negative 05/10/22 02:16 Acetaminophen 5.0 ug/mL (10.0-30.0) L 05/09/22 18:51 Ur Barbiturates Screen Negative 05/10/22 02:16 Ur Phencyclidine Scrn Negative 05/10/22 02:16 Ur Amphetamines Screen Negative 05/10/22 02:16 U Benzodiazepines Scrn Negative 05/10/22 02:16 Urine Cocaine Screen Negative 05/10/22 02:16 U Marijuana (THC) Screen Positive 05/10/22 02:16 Drugs of Abuse Note Disclamer 05/10/22 02:16 Plasma/Serum Alcohol < 0.01 % (0-0.07) 05/09/22 18:51 Hepatitis A IgM Ab Non-reactive (NonReactive) 05/09/22 23:00 Hep Bs Antigen Non-reactive (Negative) 05/09/22 23:00 Hep B Core IgM Ab Non-reactive (NonReactive) 05/09/22 23:00 Hepatitis C Antibody Non-reactive (NonReactive) 05/09/22 23:00 Alvarez/IV: Voiding Method Indwelling Catheter Active Medications - Current Medications Current Medications: Generic Name Dose Route Start Last Admin Trade Name Freq PRN Reason Stop Dose Admin Acetaminophen 650 mg 05/10/22 00:08 Acetaminophen 325 Mg Tab PO Q6H PRN Pain MILD(1-3)/Fever >100.5/JOHNSON Docusate Sodium 100 mg 05/10/22 22:00 05/12/22 09:17 Docusate Sodium 100 Mg Cap PO Not Given BID CAITLIN Doxazosin Mesylate 1 mg 05/11/22 22:00 05/11/22 21:23 Doxazosin 1 Mg Tab PO Not Given QHS CAITLIN Folic Acid 1 mg 05/10/22 12:00 05/12/22 09:15 Folic Acid 1 Mg Tab PO 1 mg QDAY CAITLIN Administration Heparin Sodium (Porcine) 5,000 unit 05/10/22 06:00 05/12/22 06:14 Heparin 5,000 Unit/1 Ml Vial SUB-Q 5,000 unit Q8HR CAITLIN Administration NORepinephrine/NS 8 MG-250 ML 8 mg in 250 mls @ 3.75 mls/hr 05/10/22 02:00 05/12/22 08:20 Norepinephrine/Ns 8 Mg-250 Ml (Double Conc) IV 0 mcg/min TITRATE CAITLIN 0 mls/hr Titration Protocol 2 MCG/MIN Sodium Chloride 1,000 mls @ 100 mls/hr 05/11/22 10:00 05/12/22 06:25 Nacl 0.45% 1000 Ml IV 100 mls/hr DIRECT CAITLIN Administration Lactated Ringer's 1,000 mls @ 999 mls/hr 05/12/22 09:00 05/12/22 09:16 Lactated Ringers IV 05/12/22 10:00 999 mls/hr BOLUS ONE Administration Levetiracetam 750 mg 05/10/22 12:00 05/12/22 09:15 Levetiracetam 500 Mg Tab PO 750 mg BID CAITLIN Administration Magnesium Hydroxide 30 ml 05/10/22 00:08 Magnesium Hydroxide (Mom) Oral Liqd Udc PO Q4H PRN Constipation Morphine Sulfate 2 mg 05/10/22 00:08 Morphine 2 Mg/1 Ml Inj IV Q4H PRN Pain, Moderate (4-6) Morphine Sulfate 4 mg 05/10/22 00:08 Morphine 4 Mg/1 Ml Inj IV Q4H PRN Pain , Severe (7-10) Ondansetron HCl 4 mg 05/10/22 00:08 Ondansetron 4 Mg/2 Ml Inj IV Q8H PRN Nausea And Vomiting Sodium Chloride 10 ml 05/10/22 10:00 05/12/22 09:17 Sodium Chloride 0.9% 10 Ml Flush Syringe IV 10 ml BID CAITLIN Administration Sodium Chloride 10 ml 05/10/22 00:08 Sodium Chloride 0.9% 10 Ml Flush Syringe IV PRN PRN LINE FLUSH Tamsulosin HCl 0.4 mg 05/12/22 10:00 05/12/22 09:15 Tamsulosin 0.4 Mg Cap PO 0.4 mg QDAY CAITLIN Administration Thiamine HCl 100 mg 05/10/22 12:00 05/12/22 09:16 Thiamine 100 Mg Tab PO 100 mg QDAY CAITLIN Administration Nutrition/Malnutrition Assess - Dietary Evaluation Nutrition/Malnutrition Findings: Nutrition Notes Start: 05/10/22 17:09 Freq: Status: Active Protocol: Document 05/10/22 17:09 ARNOLDO (Rec: 05/10/22 17:52 ARNOLDO [id number]) Nutrition Notes Need for Assessment generated from: 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 Current Diet Cardiac -Renal- Diet + D Suppl (since B 05/10). Labs/Tests 05/10: Na 158, K 3.1, Cl 111.5 , BUN 105, Crea 3.7, Glu 112. Pertinent Medications 05/10: Folic acid, Thiamine, others nutritionally unremarkable. Height 5 ft 10 in Weight 35.6 kg Urich Body Weight (kg) 75.45 BMI 11.2 Intake Prior to Admission Poor Weight change and time frame Pt states having loss, unintentionally, more than 34 lb body weight recently. Weight Status Underweight Subjective/Other Information RD consult for Low BMI, risk of malnutrition nutrition education and dietary supplementation assessments. No reports available on Pt's PO intake of meals at the time , will assess at F/U. I will prescribe dietary supplements to compensate for poor or insufficient PO intake of meals during LOS. Pt is on Room Air, O2 saturation @ 98%, according to Physical Assessment History notes. Pt has missing teeth, according to Physical Assessment History notes. Pt shows sudden unintentional loss of body weight and poor PO intake of meals for 2 weeks as signs of concern for risk of malnutrition at the time, according to Admission documents. Procedure on 05/10: L-CFV Dual -tunneled PICC Catheter placement, and R-IJV Triple- lumen HD non-tunneled catheter placement, well tolerated, according to Operative Report notes. Pt's Low BMI seems to correspond to a natural body composition, and exacerbated by a sudden loss of body weight and chronic malnutrition, since some signs of concern were mentioned in the Physical Assessment History and the Progress notes . Pt still in critical condition , not a candidate for Nutrition Education at the time, will assess feasibility on F/U. Percent of energy/protein needs met: Prescribed Cardiac -Renal- Diet provides for energy/ protein needs (2,230 Kcal/85 g ) during LOS; additionally, Dietary Supplements will compensate for possible poor or insufficient PO intake of meals with 1,275 Kcal and 57 g of protein. Burn Absent Trauma Absent GI Symptoms None Food Allergy No Skin Integrity/Comment Assessment WNL. Minimum of two criteria Yes Energy Intake (severe) < or equal to 50% Estimated Energy Requirement > or equal to 5 days Interpretation of Weight Loss (severe) >5% in 1 month Fluid Accumulation N/A Reduced Manager Cleaning Strength N/A (non-severe) Protein-Calorie Malnutrition Severe #2 Nutrition Diagnosis Underweight Comments: Pt's Low BMI seems to correspond to a natural body composition, and exacerbated by a sudden loss of body weight and chronic malnutrition, since some signs of concern were mentioned in the Physical Assessment History and the Progress notes . Etiology Possibly associated to Adult Failure to Thrive. As Evidenced by Signs and Symptoms BMI: 11.3 Kg/m2. #1 Nutrition Diagnosis Malnutrition Etiology Possibly PATRIZIA. As Evidenced by Signs and Symptoms Pt shows sudden unintentional loss of body weight and poor PO intake of meals for 2 weeks as signs of concern for risk of malnutrition at the time, according to Admission documents. Is patient on ventilator? No Is Patient Ambulatory and/or Out of Bed No [facility] 1317.564 Kcal/Kg value to use for calculation 58 Approximate Energy Requirements Using 2065 kcal/Kg Calculation Used for Recommendations Kcal/kg Additional Notes Protein: 1.2-1.5 g/Kg ABW; 43- 54 g/day. Fluids: 1 ml/Kcal, or as per MD. Nutrition Intervention Change Diet Order: Continue Cardiac -Renal- Diet as tolerated. Add Supplement/Snack (indicate name/kcal Start 8 fl oz Nepro w/ /protein ) CARBSTEADY; TID. Provides kCal: 1,275 Provides Protein (gm) 57 Goal #1 Compensate, through dietary supplementation, for possible poor or insufficient PO intake of meals during LOS. Goal #2 Adjust the dietary intervention to better serve Pt's needs and clinical conditions during LOS. Follow-Up By: 05/17/22 Additional Comments Continue monitoring food tolerance, %PO intake of meals , dietary supplements, and BM.
[2022-05-11 16:26] LABS: Blood Urea Nitrogen 27 mg/dL (9-20); Calcium 7.7 mg/dL (8.4-10.2); Hemolysis Index 10
[2022-05-11 16:28] LABS: BUN/Creatinine Ratio 45
[2022-05-11] MEDS ORDERED: POTASSIUM PHOSPHATE 40 MMOL in SODIUM CHLORIDE 0.9% 500 ML 500 ML IV ONE (17:09)
[2022-05-11] MEDS ORDERED: SODIUM CHLORIDE 0.9% 1000 ML 1,000 ML IV ONE (17:09)
[2022-05-11] MEDS: DOXAZOSIN 1 MG TAB PO SCH (21:23)
--- NOTE | 2022-05-11 22:52 | Cat Scan Report ---
CT ABDOMEN AND PELVIS WITH CONTRAST INDICATION / CLINICAL INFORMATION: r/o mets 70ml of [id number]. TECHNIQUE: Axial CT images were obtained through the abdomen and pelvis after 70 cc Omnipaque [address] scans at this location are performed using CT dose reduction for ALARA by means of automated exposure control. COMPARISON: CT abdomen and pelvis 02/10/2018. FINDINGS: LOWER CHEST: No acute findings within the lower chest. LIVER: Interval development of hypodense lesions within the dome of the right hepatic lobe measuring up to 11 mm image #[id number], series #2 and 7-8 mm posterior segment right hepatic lobe image #31; series #2. GALLBLADDER / BILE DUCTS: Minimal dependent sludge within the gallbladder fundus. No inflammatory lane nges. Biliary ducts grossly unremarkable. SPLEEN: No significant abnormality. PANCREAS: No significant abnormality. ADRENALS: No significant abnormality. KIDNEYS/URETERS: Kidneys demonstrate no focal lesion. Mild hydronephrosis suggested on the right as i s mild hydroureter. STOMACH / DUODENUM / SMALL BOWEL: GE junction is indistinct. Evaluation of the gastroesophageal wall is not possible. The stomach demonstrates prominent gastric folds without obvious focal lesion. The d uodenum and small bowel demonstrate no evidence of small bowel obstruction. COLON: Moderate amount of enteric contrast throughout the lumen of the large bowel. The bowel wall no t well visualized. APPENDIX: The cecum and appendix lie within a right inguinal hernia. PERITONEUM: Small moderate amount of ascites present within the pelvis. LYMPH NODES: Lower periaortic lymph nodes have increased in size since the comparison imaging, howeve r remains subcentimeter in maximum dimension short axis. Right pelvic sidewall lymph nodes have incre ased in size now measuring 10 mm short axis with central low-attenuation suggesting possible necrosis . AORTA / ARTERIES: Moderate atherosclerotic calcification without acute abnormality. IVC / VEINS: No significant abnormality. URINARY BLADDER: The bladder demonstrates moderate bladder wall thickening somewhat uniform in appear ance. Alvarez catheter is present. Mild trabeculation excluded. REPRODUCTIVE ORGANS: Prostate is borderline in size to minimally enlarged. No distinct peripheral foc i of enhancement are present. Correlation with PSA recommended. SKELETAL SYSTEM: No significant abnormality. ADDITIONAL ABDOMINAL/PELVIC FINDINGS: None. IMPRESSION: 1. Intra-abdominal contents is somewhat limited in evaluation secondary to diminished contrast of gabriela tomic structures. There are new areas of larger but subcentimeter lymph nodes within the lower periao rtic region but additional borderline to minimally enlarged right pelvic sidewall lymph node with heidy tral low-attenuation suggesting possible necrosis. 2. Enlarged prostate. Correlation with PSA recommended. 3. Multiple osseous metastatic lesions. 4. New small hypoattenuating lesions within the liver as detailed. The appearance is most concerning for metastatic disease. 5. Small volume intra-abdominal and intrapelvic ascites. Signer Name: Andrez Pineda II, MD Signed: 05/11/2022 10:47 PM Workstation Name: [id number]
[2022-05-12 04:15] LABS: Blood Urea Nitrogen 16 mg/dL (9-20); Calcium 6.9 mg/dL (8.4-10.2); Hemolysis Index 12
[2022-05-12 04:20] LABS: BUN/Creatinine Ratio 40
[2022-05-12] MEDS: HEPARIN 5,000 UNIT/1 ML VIAL SUB-Q SCH ×3 (06:14→21:01)
[2022-05-12] MEDS: SODIUM CHLORIDE 0.45% 1000 ML 1,000 ML IV SCH (06:25)
[2022-05-12] MEDS ORDERED: LACTATED RINGERS 1,000 ML IV ONE (09:00)
[2022-05-12] MEDS: TAMSULOSIN 0.4 MG CAP PO SCH (09:15)
[2022-05-12] MEDS: FOLIC ACID 1 MG TAB PO SCH (09:15)
[2022-05-12] MEDS: levETIRAcetam 500 MG TAB PO SCH ×2 (09:15→21:00)
[2022-05-12] MEDS: THIAMINE 100 MG TAB PO SCH (09:16)
[2022-05-12] MEDS: DOCUSATE SODIUM 100 MG CAP PO SCH (09:17)
--- NOTE | 2022-05-12 13:57 | Progress Note ---
Assessment and Plan PATRIZIA Severe Hyperkalemia Lung Mass (RUL) Tobacco Abuse (10+ pk year) Adult FTT Dehydration H/O Seizures COPD HTN H/O Drug Abuse - get lactate level and trend - observe in ICU overnight re: hypotension and volume resuscitate - IVNS @ 75 ml's/hr X 2 liters re: hypotension - CT needle biopsy of liver lesion ordered - wean Levophed for target MAP > 65 mmHg - continue care as below otherwise; - HD/UF per nephrology - continue accuchecks with glycemic control per SSI (While critically ill target blood glucose of 140-180 mg/dL; avoid hypoglycemia) - continue to wean supplemental oxygen for target O2 sat's > 90% acutely - aspiration precautions - bronchodilators with pulmonary hygiene per RT (LABA & prn JOHANA) - continue inhaled corticosteroids re: COPD - avoid nephrotoxins, renally dose all medications - avoid benzodiazepine's, reduce the possibility of delirium - AB's per ID rec's - prn analgesia per pain score - Maintenance of sleep-wake cycle, avoid delirium - G.I. & VTE prophylaxis - PT/OT/ROM exercises - mobility protocols for pressure ulcer prophylaxis - Monitor hemodynamics closely - continue other care per attending / other consultants - discharge planning ongoing concurrently .... Re-evaluate in am & prn CONDITION: CRITICAL PROGNOSIS: GUARDED CODE STATUS: FULL CODE The high probability of a clinically significant, sudden or life-threatening deterioration of the [renal, respiratory, cardiovascular] system(s) required my full and direct attention, intervention and personal management. The aggregate critical care time was [33] minutes without overlap. Time includes spent on; [x] Data Review and interpretation [x] Patient assessment and monitoring of vital signs [x] Documentation [x] Medication orders and management Subjective Date of service: 05/12/22 Principal diagnosis: PATRIZIA; Hyperkalemia; Lung Mass; Tobacco Abuse; Seizures; COPD; HTN Interval history: Patient is seen today for: PATRIZIA; Severe Hyperkalemia; Lung Mass (RUL); Tobacco Abuse; H/O Seizures; COPD; HTN; H/O Drug Abuse Seen and examined at bedside; 24hour events reviewed; nursing and respiratory care staff consulted; no adverse overnight events reported to me; resting peacefully in bed; azotemia has resolved; CT abd/pelvis reveals livere lesions; no N/V/F/C; hypotensive overnight and started on Levophed Objective Vital Signs - 12hr 05/12/22 05/12/22 05/12/22 02:00 02:15 02:30 Temperature Pulse Rate 75 81 74 Pulse Rate [ From Monitor] Respiratory 20 20 21 Rate Blood Pressure 105/68 113/72 103/65 O2 Sat by Pulse 100 99 100 Oximetry 05/12/22 05/12/22 05/12/22 02:46 03:00 03:13 Temperature Pulse Rate 79 83 Pulse Rate [ From Monitor] Respiratory 25 H 15 Rate Blood Pressure 133/80 152/86 O2 Sat by Pulse 81 L 99 Oximetry 05/12/22 05/12/22 05/12/22 03:15 03:30 03:45 Temperature Pulse Rate 78 82 78 Pulse Rate [ From Monitor] Respiratory 12 14 15 Rate Blood Pressure 116/69 111/60 113/54 O2 Sat by Pulse 100 99 100 Oximetry 05/12/22 05/12/22 05/12/22 04:00 04:04 04:15 Temperature 98.1 F Pulse Rate 78 82 Pulse Rate [ From Monitor] Respiratory 17 21 Rate Blood Pressure 83/42 79/40 O2 Sat by Pulse 100 100 Oximetry 05/12/22 05/12/22 05/12/22 04:30 04:45 05:00 Temperature Pulse Rate 81 78 77 Pulse Rate [ From Monitor] Respiratory 21 18 25 H Rate Blood Pressure 97/56 101/54 110/64 O2 Sat by Pulse 100 100 100 Oximetry 05/12/22 05/12/22 05/12/22 05:15 05:30 05:45 Temperature Pulse Rate 79 79 76 Pulse Rate [ From Monitor] Respiratory 17 22 17 Rate Blood Pressure 105/61 102/58 107/65 O2 Sat by Pulse 100 100 100 Oximetry 05/12/22 05/12/22 05/12/22 06:00 06:15 06:30 Temperature Pulse Rate 73 72 84 Pulse Rate [ From Monitor] Respiratory 16 12 11 L Rate Blood Pressure 112/67 127/76 128/77 O2 Sat by Pulse 100 100 100 Oximetry 05/12/22 05/12/22 05/12/22 06:45 07:00 07:16 Temperature Pulse Rate 86 81 83 Pulse Rate [ From Monitor] Respiratory 16 15 16 Rate Blood Pressure 119/68 110/59 98/47 O2 Sat by Pulse 97 100 100 Oximetry 05/12/22 05/12/22 05/12/22 07:30 07:45 08:00 Temperature 98.1 F Pulse Rate 84 85 79 Pulse Rate [ 79 From Monitor] Respiratory 18 15 21 Rate Blood Pressure 88/52 110/66 130/82 O2 Sat by Pulse 99 100 97 Oximetry 05/12/22 05/12/22 05/12/22 08:16 08:30 08:46 Temperature Pulse Rate 78 103 H 82 Pulse Rate [ From Monitor] Respiratory 25 H 31 H 13 Rate Blood Pressure 110/66 104/58 104/58 O2 Sat by Pulse 100 96 100 Oximetry 05/12/22 05/12/22 05/12/22 09:00 09:16 09:30 Temperature Pulse Rate 81 82 83 Pulse Rate [ From Monitor] Respiratory 18 21 19 Rate Blood Pressure 128/73 128/73 130/78 O2 Sat by Pulse 98 100 100 Oximetry 05/12/22 05/12/22 05/12/22 09:46 10:00 10:16 Temperature Pulse Rate 86 84 82 Pulse Rate [ From Monitor] Respiratory 17 18 18 Rate Blood Pressure 130/78 140/81 140/81 O2 Sat by Pulse 98 97 Oximetry 05/12/22 05/12/22 05/12/22 10:30 10:46 11:00 Temperature Pulse Rate 105 H 88 91 H Pulse Rate [ From Monitor] Respiratory 18 25 H 22 Rate Blood Pressure 140/81 142/113 133/83 O2 Sat by Pulse 97 96 94 Oximetry 05/12/22 05/12/22 05/12/22 11:16 11:30 11:34 Temperature 98 F Pulse Rate 96 H 91 H Pulse Rate [ From Monitor] Respiratory 23 14 Rate Blood Pressure 133/83 85/46 O2 Sat by Pulse 100 98 Oximetry 05/12/22 05/12/22 05/12/22 11:46 12:00 12:16 Temperature Pulse Rate 94 H 90 97 H Pulse Rate [ 90 From Monitor] Respiratory 16 19 33 H Rate Blood Pressure 85/46 84/47 84/47 O2 Sat by Pulse 98 100 100 Oximetry 05/12/22 05/12/22 05/12/22 12:30 12:46 13:00 Temperature Pulse Rate 113 H 94 H 107 H Pulse Rate [ From Monitor] Respiratory 29 H 20 17 Rate Blood Pressure 84/47 127/86 146/93 O2 Sat by Pulse 99 99 98 Oximetry Constitutional: no acute distress, other (elderly cachectic male with mildly increased respiratory effort at rest) Eyes: non-icteric ENT: oropharynx moist Neck: supple, no lymphadenopathy, no JVD Effort: normal Ascultation: Bilateral: clear, diminished breath sounds Percussion: Bilateral: not dull Cardiovascular: regular rate and rhythm Gastrointestinal: normoactive bowel sounds, soft, non-tender, non-distended Integumentary: other (poor turgor) Extremities: no cyanosis, no edema, pulses normal, no ischemia or petechiae Neurologic: non-focal exam, pupils equal and round, CN II-XII normal, motor strength normal and Psychiatric: mood appropriate, affect normal CBC and BMP: 05/11/22 04:00 05/12/22 02:52 ABG, PT/INR, D-dimer: PT/INR, D-dimer PT 14.0 Sec. (12.2-14.9) 05/09/22 18:51 INR 0.97 (0.87-1.13) 05/09/22 18:51 Abnormal lab findings: Abnormal Labs 05/09/22 05/09/22 05/09/22 18:51 18:51 18:51 RBC 5.65 H Hgb 16.6 H Hct 48.9 H MCHC RDW 15.4 H Plt Count Lymph % (Auto) [place] % (Auto) Lymph # (Auto) Seg Neutrophils % Seg Neuts % (Manual) 98.0 H Lymphocytes % (Manual) 1.0 L Nucleated RBC % 1.0 H Seg Neutrophils # Man 10.6 H Lymphocytes # (Manual) 0.1 L Sodium 133 L Potassium 8.0 H* Chloride 89.9 L Carbon Dioxide 11 L BUN 225 H Creatinine 15.7 H Glucose 122 H Calcium Phosphorus Magnesium Ammonia 61.0 H C-Reactive Protein 12.90 H Urine WBC (Auto) Urine Creatinine Salicylates Acetaminophen 05/09/22 05/09/22 05/10/22 18:51 18:51 02:16 RBC Hgb Hct MCHC RDW Plt Count Lymph % (Auto) [place] % (Auto) Lymph # (Auto) Seg Neutrophils % Seg Neuts % (Manual) Lymphocytes % (Manual) Nucleated RBC % Seg Neutrophils # Man Lymphocytes # (Manual) Sodium Potassium Chloride Carbon Dioxide BUN Creatinine Glucose Calcium Phosphorus Magnesium Ammonia C-Reactive Protein Urine WBC (Auto) > 182.0 H Urine Creatinine Salicylates < 0.3 L Acetaminophen 5.0 L 05/10/22 05/10/22 05/10/22 04:18 11:30 17:16 RBC Hgb Hct MCHC RDW Plt Count Lymph % (Auto) [place] % (Auto) Lymph # (Auto) Seg Neutrophils % Seg Neuts % (Manual) Lymphocytes % (Manual) Nucleated RBC % Seg Neutrophils # Man Lymphocytes # (Manual) Sodium 146 H D 158 H D Potassium 6.3 H* D 3.1 L D Chloride 111.5 H Carbon Dioxide 18 L D BUN 162 H 105 H Creatinine 9.1 H 3.7 H D Glucose 112 H Calcium Phosphorus Magnesium Ammonia C-Reactive Protein Urine WBC (Auto) Urine Creatinine 61.0 H Salicylates Acetaminophen 05/11/22 05/11/22 05/11/22 04:00 04:00 04:00 RBC 3.53 L Hgb 10.5 L D Hct 30.0 L D MCHC 35 H RDW Plt Count 118 L Lymph % (Auto) 6.4 L [place] % (Auto) 9.6 H Lymph # (Auto) 0.5 L Seg Neutrophils % 84.0 H Seg Neuts % (Manual) Lymphocytes % (Manual) Nucleated RBC % Seg Neutrophils # Man Lymphocytes # (Manual) Sodium 149 H D Potassium 2.3 L* D Chloride Carbon Dioxide 36 H D BUN 41 H Creatinine Glucose 117 H Calcium 7.5 L Phosphorus Magnesium 1.60 L Ammonia C-Reactive Protein Urine WBC (Auto) Urine Creatinine Salicylates Acetaminophen 05/11/22 05/11/22 05/12/22 04:00 15:30 02:52 RBC Hgb Hct MCHC RDW Plt Count Lymph % (Auto) [place] % (Auto) Lymph # (Auto) Seg Neutrophils % Seg Neuts % (Manual) Lymphocytes % (Manual) Nucleated RBC % Seg Neutrophils # Man Lymphocytes # (Manual) Sodium Potassium 2.3 L* Chloride Carbon Dioxide 32 H BUN 27 H Creatinine 0.6 L 0.4 L Glucose Calcium 7.7 L 6.9 L Phosphorus 1.70 L 1.00 L D Magnesium Ammonia C-Reactive Protein Urine WBC (Auto) Urine Creatinine Salicylates Acetaminophen Allied health notes reviewed: nursing
--- NOTE | 2022-05-12 15:08 | Hem/Onc Consultation ---
History of Present Illness - Reason for Consult Consult date: 05/12/22 Lung mass - History of Present Illness Heme Consult Note CPT 32471 Dx Lung Mass This is a 76 year old male who presented to [facility] ED via EMS for evaluation of generalized weakness and decreased oral intake. Past medical history of seizure disorder, hypertension and drug abuse. According to family, patient has been having decreased oral intake for the past 1 to 2 weeks. Denies any chest pain or shortness of breath, no headache or dizziness, no diaphoresis, no chest pain or shortness of breath. In the ED, significant findings were that of hyponatremia 133, hyperkalemia of 8.0, BUN of 225 and creatinine of 15.7. Chest x-ray reveals mild central pulmonary vascular congestion. No evidence of focal infiltrate. EKG shows some peaked T waves. Right upper lobe nodule noted on chest CT with multiple osseous metastatic lesions. Oncology was consulted for evaluation of lung mass. 05/11 A/P CT: New areas of larger but subcentimeter lymph nodes within the lower periaortic region but additional borderline to minimally enlarged right pelvic sidewall lymph node with central low-attenuation suggesting possible necrosis. Enlarged prostate; correlation with PSA recommended. Multiple osseous metastatic lesions. New small hypoattenuating lesions within the liver.The appearance is concerning for metastatic disease. Small volume intra-abdominal and intrapelvic ascrites. 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 Nonoliguric PATRIZIA secondary to volume depletion vs obstruction PLAN: CT guided lung mass biopsy Agree with +/- Bronchoscopy re: difficult anatomical location Recommend brain CT to evaluate for metastasis Labs to include iron panel, LDH, retic Monitor CBC Laboratory Last Values WBC 7.0 K/mm3 (4.5-11.0) 05/11/22 04:00 Hgb 10.5 gm/dl (11.8-15.2) L D 05/11/22 04:00 Hct 30.0 % (35.5-45.6) L D 05/11/22 04:00 MCV 85 fl (84-94) 05/11/22 04:00 Plt Count 118 K/mm3 (140-440) L 05/11/22 04:00 Lymph % (Auto) 6.4 % (13.4-35.0) L 05/11/22 04:00 [place] % (Auto) 9.6 % (0.0-7.3) H 05/11/22 04:00 Lymph # (Auto) 0.5 K/mm3 (1.2-5.4) L 05/11/22 04:00 Seg Neutrophils % 84.0 % (40.0-70.0) H 05/11/22 04:00 Seg Neuts % (Manual) 98.0 % (40.0-70.0) H 05/09/22 18:51 Lymphocytes % (Manual) 1.0 % (13.4-35.0) L 05/09/22 18:51 Nucleated RBC % 1.0 % (0.0-0.9) H 05/09/22 18:51 Seg Neutrophils # Man 10.6 K/mm3 (1.8-7.7) H 05/09/22 18:51 Lymphocytes # (Manual) 0.1 K/mm3 (1.2-5.4) L 05/09/22 18:51 PT 14.0 Sec. (12.2-14.9) 05/09/22 18:51 INR 0.97 (0.87-1.13) 05/09/22 18:51 Creatinine 0.4 mg/dL (0.8-1.3) L 05/12/22 02:52 Ammonia 61.0 umol/L (25-60) H 05/09/22 18:51 Ur Barbiturates Screen Negative 05/10/22 02:16 Ur Phencyclidine Scrn Negative 05/10/22 02:16 Ur Amphetamines Screen Negative 05/10/22 02:16 U Benzodiazepines Scrn Negative 05/10/22 02:16 Urine Cocaine Screen Negative 05/10/22 02:16 U Marijuana (THC) Screen Positive 05/10/22 02:16 Drugs of Abuse Note Disclamer 05/10/22 02:16 Plasma/Serum Alcohol < 0.01 % (0-0.07) 05/09/22 18:51 Hepatitis A IgM Ab Non-reactive (NonReactive) 05/09/22 23:00 Hep Bs Antigen Non-reactive (Negative) 05/09/22 23:00 Hep B Core IgM Ab Non-reactive (NonReactive) 05/09/22 23:00 Hepatitis C Antibody Non-reactive (NonReactive) 05/09/22 23:00 Past History Past Medical History: hypertension, seizures Past Surgical History: No surgical history Social history: smoking (Current daily smoker), alcohol abuse Family history: no significant family history Medications and Allergies Allergies Allergy/AdvReac Type Severity Reaction Status Date / Time No Known Allergies Allergy Verified 11/23/20 17:16 Home Medications Medication Instructions Recorded Confirmed Last Taken Type amLODIPine [Norvasc] 5 mg PO DAILY 05/10/22 05/10/22 Unknown History levETIRAcetam [Keppra TAB] 500 mg PO BID 05/10/22 05/10/22 Unknown History Active Meds: Active Medications Acetaminophen (Acetaminophen 325 Mg Tab) 650 mg PO Q6H PRN PRN Reason: Pain MILD(1-3)/Fever >100.5/JOHNSON Arformoterol Tartrate (Arformoterol 15 Mcg/2 Ml Nebu) 15 mcg IH Q12HRT CAITLIN Budesonide (Budesonide 0.5 Mg/2 Ml Nebu) 0.5 mg IH Q12HRT CAITLIN Docusate Sodium (Docusate Sodium 100 Mg Cap) 100 mg PO BID FOR[facility]LY [facility], [facility] Last Admin: 05/12/22 09:17 Dose: Not Given Doxazosin Mesylate (Doxazosin 1 Mg Tab) 1 mg PO QHS [facility], [facility]–1983 Last Admin: 05/11/22 21:23 Dose: Not Given Folic Acid (Folic Acid 1 Mg Tab) 1 mg PO QDAY [facility], [facility]1983 Last Admin: 05/12/22 09:15 Dose: 1 mg Heparin Sodium (Porcine) (Heparin 5,000 Unit/1 Ml Vial) 5,000 unit SUB-Q Q8HR [facility], [facility]1983 Last Admin: 05/12/22 06:14 Dose: 5,000 unit NORepinephrine/NS 8 MG-250 ML (Norepinephrine/Ns 8 Mg-250 Ml (Double Conc)) 8 mg in 250 mls @ 3.75 mls/hr IV TITRATE CAITLIN; Protocol Last Titration: 05/12/22 12:50 Dose: 0 mcg/min, 0 mls/hr Sodium Chloride (Nacl 0.9% 1000 Ml) 1,000 mls @ 75 mls/hr IV DIRECT CAITLIN Stop: 05/14/22 03:19 Levetiracetam (Levetiracetam 500 Mg Tab) 750 mg PO BID [facility], [facility] Last Admin: 05/12/22 09:15 Dose: 750 mg Magnesium Hydroxide (Magnesium Hydroxide (Mom) Oral Liqd Udc) 30 ml PO Q4H PRN PRN Reason: Constipation Morphine Sulfate (Morphine 2 Mg/1 Ml Inj) 2 mg IV Q4H PRN PRN Reason: Pain, Moderate (4-6) Morphine Sulfate (Morphine 4 Mg/1 Ml Inj) 4 mg IV Q4H PRN PRN Reason: Pain , Severe (7-10) Ondansetron HCl (Ondansetron 4 Mg/2 Ml Inj) 4 mg IV Q8H PRN PRN Reason: Nausea And Vomiting Sodium Chloride (Sodium Chloride 0.9% 10 Ml Flush Syringe) 10 ml IV BID [facility], [facility] Last Admin: 05/12/22 09:17 Dose: 10 ml Sodium Chloride (Sodium Chloride 0.9% 10 Ml Flush Syringe) 10 ml IV PRN PRN PRN Reason: LINE FLUSH Tamsulosin HCl (Tamsulosin 0.4 Mg Cap) 0.4 mg PO QDAY [facility], [facility] Last Admin: 05/12/22 09:15 Dose: 0.4 mg Thiamine HCl (Thiamine 100 Mg Tab) 100 mg PO QDAY [facility] Last Admin: 05/12/22 09:16 Dose: 100 mg Exam - Constitutional Vitals: Last Vital Signs Temp 98 F 05/12/22 11:34 Pulse 96 H 05/12/22 14:00 Resp 13 05/12/22 14:00 BP 103/63 05/12/22 14:00 Pulse Ox 100 05/12/22 14:00 Results - Labs lab Results: Laboratory Results - last 24 hr 05/11/22 05/12/22 15:30 02:52 Sodium 144 144 Potassium 3.7 D 3.7 Chloride 103.7 106.2 Carbon Dioxide 32 H 26 Anion Gap 12 16 BUN 27 H 16 Creatinine 0.6 L 0.4 L Estimated GFR > 60 > 60 BUN/Creatinine Ratio 45 40 Glucose 91 88 Calcium 7.7 L 6.9 L Phosphorus 1.00 L D 2.70 D Magnesium 2.00
[2022-05-12] MEDS: SODIUM CHLORIDE 0.9% 1000 ML 1,000 ML IV SCH (15:11)
--- NOTE | 2022-05-12 17:26 | Progress Note ---
<RENETTA MOHAN - Last Filed: 05/12/22 17:20> Assessment and Plan Assessment and plan: Assessment and Plan: This is a 76-year-old female with seizure disorder, HTN, nicotine and drug abuse admitted with acute kidney injury Neuro: H/O seizure disorder, marijuana use -Continue home Keppra -Reorientation as needed -Maintain sleep-wake cycle -aspiration/seizure precautions -As needed analgesia -Folic acid, thiamine -CT head pending Cardiac: H/O HTN -Blood pressure monitoring per protocol -Hold home hydralazine Respiratory: Acute hypoxic respiratory failure (poa, resolved), right lung nodule, current nicotine abuse -CCM consulted, appreciate recommendations -Pulmonary hygiene -SPO2 monitor per protocol -Supplemental oxygen tested and -Nicotine abuse cessation counseling provided -CT chest shows multiple osseous metastatic lesion, right upper lobe nodule, neoplasm not excluded, hemodialysis catheter terminates within the superior vena cava currently at the cavoatrial junction -CT abdomen/pelvis with oral and IV contrast shows hypodense lesions in the dome of the right hepatic lobe, cecum and appendix lie within the right inguinal hernia, small amount of ascites present within the pelvis, lower periaortic lymph nodes increase in size, right pelvic sidewall lymph nodes increased in size which shows central low-attenuation suggesting possible necrosis, prostate is borderline in size and minimally enlarged, multiple osseous metastatic lesions. GI: ? Liver mets -PPI -Cardiac renal diet -BR: Colace -CT guided liver biopsy : Acute kidney injury likely postobstructive, dehydration, Hypokalemia, Hypernatremia, hypophosphatemia, urinary retention -Nephrology consulted, appreciate recommendations -S/p Vas-Cath placement for emergent hemodialysis however [facility] [place] -Vascular surgery consulted for PermCath placement -Monitor intake and output -Renally dose medications -Avoid nephrotoxic medications -FeNa 0.7% -MIVF -Flomax and doxazosin -Replete potassium, phosphorus -Trend BMP ID: NAD -Monitor WBC and temperature curve Endo: NAD -Avoid hypoglycemia Heme: NAD -Trend CBC -Transfuse hemoglobin less than 7 -SCDs to BLE while in bed The high probability of a clinically significant, sudden or life threatening deterioration of the [multi] system(s) required my full and direct attention, intervention and personal management. The aggregate critical care time was [60] minutes. This time is in addition to time spent performing reported procedures but includes the following: [x] Data Review and interpretation [x] Patient assessment and monitoring of vital signs [x] Documentation [x] Medication orders and management Disposition Plan: icu Total Time Spent with Patient (Minutes): 60 History Interval history: This is 76-year-old male with seizure disorder, HTN, smoker and drug abuse presents to the emergency department on 05/09 via EMS for evaluation of generalized weakness and decreased oral intake. According to the family patient had decreased oral intake for the past 1 to 2 weeks and has generalized weakness. Work-up in the emergency department revealed hyponatremia at 133, hyperkalemia at 8, elevated BUN and creatinine at 225/15.7 and CXR revealed mild pulmonary vascular congestion. ECG also showed peaked T waves. Nephrology was consulted in the emergency department and a Vas-Cath was placed by [facility] for hemodialysis. Patient was also medically treated with insulin, glucose, calcium gluconate and Kayexalate for hyperkalemia. Patient was admitted to the hospitalist service with consults to nephrology, [facility] and vascular surgery for acute kidney injury requiring urgent dialysis. Hospital course to date: 05/10: Yesterday patient had a Vas-Cath placed by [facility] however this is nonfunctional at this time. Vascular surgery was consulted for placement of Vas-Cath. No acute events reported overnight. Patient suddenly became non verbal however did follow commands, tracks/focus and pupils were round and reactive. Glucose check which was within normal limits. After approximately half an hour patient became verbal again. This afternoon patient is alert and oriented and interactive. 05/11: Hypernatremia slowly improving, noted to have hypokalemia, hypomagnesemia and hypophosphatemia. Potassium repleted with IV and p.o., bicarbonate drip discontinued. Started on Flomax and [facility] would like to add doxazosin. Patient started on half-normal saline and [facility] would like to obtain CT abdomen/pelvis with contrast. Updated niece at bedside. Free water flush 350 every 8 p.o. 05/12: Patient to be started on Levophed for hypotension and will be on IV fluids per [facility]. Hematology/oncology consulted and CT head was ordered. CT biopsy of the liver was also ordered. From a PICC line removed today as well as Alvarez catheter. Hospitalist Physical - Constitutional Vitals: Temp Pulse Resp BP Pulse Ox 97.9 F 95 H 30 H 125/80 100 05/12/22 16:00 05/12/22 17:00 05/12/22 17:00 05/12/22 17:00 05/12/22 17:00 General appearance: Present: no acute distress, well-nourished - EENT Eyes: Present: PERRL, EOM intact ENT: hearing intact, poor dentition - Neck Neck: Present: normal ROM - Respiratory Respiratory effort: normal Respiratory: bilateral: CTA - Cardiovascular Rhythm: regular Heart Sounds: Present: S1 & S2. Absent: systolic murmur, diastolic murmur - Extremities Extremities: no ischemia, pulses intact, pulses symmetrical, normal temperature, normal color Peripheral Pulses: within normal limits - Abdominal General gastrointestinal: soft, non-tender, non-distended, normal bowel sounds - Integumentary Integumentary: Present: warm, dry - Psychiatric Psychiatric: cooperative - Neurologic Neurologic: CNII-XII intact, no focal deficits, moves all extremities - Allied Health Allied health notes reviewed: nursing, RT, social work HEART Score - HEART Score Troponin: Troponin T < 0.010 ng/mL (0.00-0.029) 05/09/22 18:51 Results - Labs CBC & Chem 7: 05/11/22 04:00 05/12/22 02:52 Labs: Laboratory Last Values WBC 7.0 K/mm3 (4.5-11.0) 05/11/22 04:00 RBC 3.53 M/mm3 (3.65-5.03) L 05/11/22 04:00 Hgb 10.5 gm/dl (11.8-15.2) L D 05/11/22 04:00 Hct 30.0 % (35.5-45.6) L D 05/11/22 04:00 MCV 85 fl (84-94) 05/11/22 04:00 MCH 30 pg (28-32) 05/11/22 04:00 MCHC 35 % (32-34) H 05/11/22 04:00 RDW 14.7 % (13.2-15.2) 05/11/22 04:00 Plt Count 118 K/mm3 (140-440) L 05/11/22 04:00 Lymph % (Auto) 6.4 % (13.4-35.0) L 05/11/22 04:00 [place] % (Auto) 9.6 % (0.0-7.3) H 05/11/22 04:00 Eos % (Auto) 0.0 % (0.0-4.3) 05/11/22 04:00 Baso % (Auto) 0.0 % (0.0-1.8) 05/11/22 04:00 Lymph # (Auto) 0.5 K/mm3 (1.2-5.4) L 05/11/22 04:00 [place] # (Auto) 0.7 K/mm3 (0.0-0.8) 05/11/22 04:00 Eos # (Auto) 0.0 K/mm3 (0.0-0.4) 05/11/22 04:00 Baso # (Auto) 0.0 K/mm3 (0.0-0.1) 05/11/22 04:00 Add Manual Diff Complete 05/09/22 18:51 Total Counted 100 05/09/22 18:51 Seg Neutrophils % 84.0 % (40.0-70.0) H 05/11/22 04:00 Seg Neuts % (Manual) 98.0 % (40.0-70.0) H 05/09/22 18:51 Band Neutrophils % 0 % 05/09/22 18:51 Lymphocytes % (Manual) 1.0 % (13.4-35.0) L 05/09/22 18:51 Reactive Lymphs % (Man) 0 % 05/09/22 18:51 Monocytes % (Manual) 0 % (0.0-7.3) 05/09/22 18:51 Eosinophils % (Manual) 0 % (0.0-4.3) 05/09/22 18:51 Basophils % (Manual) 0 % (0.0-1.8) 05/09/22 18:51 Metamyelocytes % 1.0 % 05/09/22 18:51 Myelocytes % 0 % 05/09/22 18:51 Promyelocytes % 0 % 05/09/22 18:51 Blast Cells % 0 % 05/09/22 18:51 Nucleated RBC % 1.0 % (0.0-0.9) H 05/09/22 18:51 Seg Neutrophils # 5.9 K/mm3 (1.8-7.7) 05/11/22 04:00 Seg Neutrophils # Man 10.6 K/mm3 (1.8-7.7) H 05/09/22 18:51 Band Neutrophils # 0.0 K/mm3 05/09/22 18:51 Lymphocytes # (Manual) 0.1 K/mm3 (1.2-5.4) L 05/09/22 18:51 Abs React Lymphs (Man) 0.0 K/mm3 05/09/22 18:51 Monocytes # (Manual) 0.0 K/mm3 (0.0-0.8) 05/09/22 18:51 Eosinophils # (Manual) 0.0 K/mm3 (0.0-0.4) 05/09/22 18:51 Basophils # (Manual) 0.0 K/mm3 (0.0-0.1) 05/09/22 18:51 Metamyelocytes # 0.1 K/mm3 05/09/22 18:51 Myelocytes # 0.0 K/mm3 05/09/22 18:51 Promyelocytes # 0.0 K/mm3 05/09/22 18:51 Blast Cells # 0.0 K/mm3 05/09/22 18:51 WBC Morphology Not Reportable 05/09/22 18:51 WBC Morphology TNR 05/09/22 18:51 Hypersegmented Neuts Not Reportable 05/09/22 18:51 Hyposegmented Neuts Not Reportable 05/09/22 18:51 Hypogranular Neuts Not Reportable 05/09/22 18:51 Smudge Cells Not Reportable 05/09/22 18:51 Toxic Granulation Not Reportable 05/09/22 18:51 Toxic Vacuolation Not Reportable 05/09/22 18:51 Dohle Bodies Not Reportable 05/09/22 18:51 Pelger-Huet Anomaly Not Reportable 05/09/22 18:51 Paola Rods Not Reportable 05/09/22 18:51 Platelet Estimate Consistent w auto 05/09/22 18:51 Clumped Platelets Not Reportable 05/09/22 18:51 Plt Clumps, EDTA Not Reportable 05/09/22 18:51 Large Platelets Not Reportable 05/09/22 18:51 Giant Platelets Not Reportable 05/09/22 18:51 Platelet Satelliting Not Reportable 05/09/22 18:51 Plt Morphology Comment Not Reportable 05/09/22 18:51 RBC Morphology Not Reportable 05/09/22 18:51 Dimorphic RBCs Not Reportable 05/09/22 18:51 Polychromasia Not Reportable 05/09/22 18:51 Hypochromasia Not Reportable 05/09/22 18:51 Poikilocytosis Not Reportable 05/09/22 18:51 Anisocytosis Not Reportable 05/09/22 18:51 Microcytosis Not Reportable 05/09/22 18:51 Macrocytosis Not Reportable 05/09/22 18:51 Spherocytes Not Reportable 05/09/22 18:51 Pappenheimer Bodies Not Reportable 05/09/22 18:51 Sickle Cells Not Reportable 05/09/22 18:51 Target Cells Few 05/09/22 18:51 Tear Drop Cells Few 05/09/22 18:51 Ovalocytes Not Reportable 05/09/22 18:51 Helmet Cells Not Reportable 05/09/22 18:51 Kemp-Grampian Bodies Not Reportable 05/09/22 18:51 Lincoln Rings Not Reportable 05/09/22 18:51 Franco Cells Not Reportable 05/09/22 18:51 Bite Cells Not Reportable 05/09/22 18:51 Crenated Cell Not Reportable 05/09/22 18:51 Elliptocytes Not Reportable 05/09/22 18:51 Acanthocytes (Spur) Not Reportable 05/09/22 18:51 Rouleaux Not Reportable 05/09/22 18:51 Hemoglobin C Crystals Not Reportable 05/09/22 18:51 Schistocytes Not Reportable 05/09/22 18:51 Malaria parasites Not Reportable 05/09/22 18:51 Jamal Bodies Not Reportable 05/09/22 18:51 Hem Pathologist Commnt No 05/09/22 18:51 PT 14.0 Sec. (12.2-14.9) 05/09/22 18:51 INR 0.97 (0.87-1.13) 05/09/22 18:51 Sodium 144 mmol/L (137-145) 05/12/22 02:52 Potassium 3.7 mmol/L (3.6-5.0) 05/12/22 02:52 Chloride 106.2 mmol/L (98-107) 05/12/22 02:52 Carbon Dioxide 26 mmol/L (22-30) 05/12/22 02:52 Anion Gap 16 mmol/L 05/12/22 02:52 BUN 16 mg/dL (9-20) 05/12/22 02:52 Creatinine 0.4 mg/dL (0.8-1.3) L 05/12/22 02:52 Estimated GFR > 60 ml/min 05/12/22 02:52 BUN/Creatinine Ratio 40 % 05/12/22 02:52 Glucose 88 mg/dL (75-100) 05/12/22 02:52 POC Glucose 76 mg/dL (70-105) 05/10/22 08:44 Lactic Acid 0.60 mmol/L (0.7-2.0) L 05/12/22 15:15 Calcium 6.9 mg/dL (8.4-10.2) L 05/12/22 02:52 Phosphorus 2.70 mg/dL (2.5-4.5) D 05/12/22 02:52 Magnesium 2.00 mg/dL (1.7-2.3) 05/12/22 02:52 Total Bilirubin 1.10 mg/dL (0.1-1.2) 05/09/22 18:51 AST 13 units/L (5-40) 05/09/22 18:51 ALT 10 units/L (7-56) 05/09/22 18:51 Alkaline Phosphatase 98 units/L (35-129) 05/09/22 18:51 Ammonia 61.0 umol/L (25-60) H 05/09/22 18:51 Total Creatine Kinase 92 units/L (55-170) 05/09/22 18:51 Troponin T < 0.010 ng/mL (0.00-0.029) 05/09/22 18:51 C-Reactive Protein 12.90 mg/dL (0.00-1.30) H 05/09/22 18:51 NT-Pro-B Natriuret Pep 817.0 pg/mL (0-900) 05/09/22 18:51 Total Protein 7.7 g/dL (6.3-8.2) 05/09/22 18:51 Albumin 4.6 g/dL (3.9-5) 05/09/22 18:51 Albumin/Globulin Ratio 1.5 % 05/09/22 18:51 TSH 2.020 mlU/mL (0.270-4.200) 05/09/22 18:51 Urine Color Red (Yellow) 05/10/22 02:16 Urine Turbidity Cloudy (Clear) 05/10/22 02:16 Specific [place] (Man) 1.030 (1.003-1.030) 05/10/22 02:16 Ur Protein (Man) >500 mg/dL (Negative) 05/10/22 02:16 Ur Ketones (Man) 5mg/dl (Negative) 05/10/22 02:16 Urine Bilirubin (Man) Negative (Negative) 05/10/22 02:16 Urine WBC (Auto) > 182.0 /HPF (0.0-6.0) H 05/10/22 02:16 Urine RBC (Auto) > 182.0 /HPF (0.0-6.0) 05/10/22 02:16 Urine Bacteria (Auto) 1+ /HPF (Negative) 05/10/22 02:16 Urine RBC (Manual) 5+ (Negative) 05/10/22 02:16 Urine Osmolality 576 Mosm/kg 05/10/22 17:16 Urine Creatinine 61.0 mg/dL (0.1-20.0) H 05/10/22 17:16 Urine Sodium 19 mmol/L 05/10/22 17:16 Urine Urea Nitrogen 1015 05/10/22 17:16 Salicylates < 0.3 mg/dL (2.8-20.0) L 05/09/22 18:51 Urine Opiates Screen Negative 05/10/22 02:16 Urine Methadone Screen Negative 05/10/22 02:16 Acetaminophen 5.0 ug/mL (10.0-30.0) L 05/09/22 18:51 Ur Barbiturates Screen Negative 05/10/22 02:16 Ur Phencyclidine Scrn Negative 05/10/22 02:16 Ur Amphetamines Screen Negative 05/10/22 02:16 U Benzodiazepines Scrn Negative 05/10/22 02:16 Urine Cocaine Screen Negative 05/10/22 02:16 U Marijuana (THC) Screen Positive 05/10/22 02:16 Drugs of Abuse Note Disclamer 05/10/22 02:16 Plasma/Serum Alcohol < 0.01 % (0-0.07) 05/09/22 18:51 Hepatitis A IgM Ab Non-reactive (NonReactive) 05/09/22 23:00 Hep Bs Antigen Non-reactive (Negative) 05/09/22 23:00 Hep B Core IgM Ab Non-reactive (NonReactive) 05/09/22 23:00 Hepatitis C Antibody Non-reactive (NonReactive) 05/09/22 23:00 Alvarez/IV: Voiding Method Indwelling Catheter Active Medications - Current Medications Current Medications: Generic Name Dose Route Start Last Admin Trade Name Freq PRN Reason Stop Dose Admin Acetaminophen 650 mg 05/10/22 00:08 Acetaminophen 325 Mg Tab PO Q6H PRN Pain MILD(1-3)/Fever >100.5/JOHNSON Arformoterol Tartrate 15 mcg 05/12/22 20:00 Arformoterol 15 Mcg/2 Ml Nebu IH Q12HRT [facility] Budesonide 0.5 mg 05/12/22 20:00 Budesonide 0.5 Mg/2 Ml Nebu IH Q12HRT [facility] Docusate Sodium 100 mg 05/10/22 22:00 05/12/22 09:17 Docusate Sodium 100 Mg Cap PO Not Given BID CAITLIN Doxazosin Mesylate 1 mg 05/11/22 22:00 05/11/22 21:23 Doxazosin 1 Mg Tab PO Not Given QHS CAITLIN Folic Acid 1 mg 05/10/22 12:00 05/12/22 09:15 Folic Acid 1 Mg Tab PO 1 mg QDAY [facility] Administration Heparin Sodium (Porcine) 5,000 unit 05/10/22 06:00 05/12/22 15:11 Heparin 5,000 Unit/1 Ml Vial SUB-Q 5,000 unit Q8HR CAITLIN Administration NORepinephrine/NS 8 MG-250 ML 8 mg in 250 mls @ 3.75 mls/hr 05/10/22 02:00 05/12/22 12:50 Norepinephrine/Ns 8 Mg-250 Ml (Double Conc) IV 0 mcg/min TITRATE CAITLIN 0 mls/hr Titration Protocol 2 MCG/MIN Sodium Chloride 1,000 mls @ 75 mls/hr 05/12/22 14:00 05/12/22 15:11 Nacl 0.9% 1000 Ml IV 05/14/22 03:19 75 mls/hr DIRECT CAITLIN Administration Levetiracetam 750 mg 05/10/22 12:00 05/12/22 09:15 Levetiracetam 500 Mg Tab PO 750 mg BID CAITLIN Administration Magnesium Hydroxide 30 ml 05/10/22 00:08 Magnesium Hydroxide (Mom) Oral Liqd Udc PO Q4H PRN Constipation Morphine Sulfate 2 mg 05/10/22 00:08 Morphine 2 Mg/1 Ml Inj IV Q4H PRN Pain, Moderate (4-6) Morphine Sulfate 4 mg 05/10/22 00:08 Morphine 4 Mg/1 Ml Inj IV Q4H PRN Pain , Severe (7-10) Ondansetron HCl 4 mg 05/10/22 00:08 Ondansetron 4 Mg/2 Ml Inj IV Q8H PRN Nausea And Vomiting Sodium Chloride 10 ml 05/10/22 10:00 05/12/22 09:17 Sodium Chloride 0.9% 10 Ml Flush Syringe IV 10 ml BID CAITLIN Administration Sodium Chloride 10 ml 05/10/22 00:08 Sodium Chloride 0.9% 10 Ml Flush Syringe IV PRN PRN LINE FLUSH Tamsulosin HCl 0.4 mg 05/12/22 10:00 05/12/22 09:15 Tamsulosin 0.4 Mg Cap PO 0.4 mg QDAY CAITLIN Administration Thiamine HCl 100 mg 05/10/22 12:00 05/12/22 09:16 Thiamine 100 Mg Tab PO 100 mg QDAY CAITLIN Administration Nutrition/Malnutrition Assess - Dietary Evaluation Nutrition/Malnutrition Findings: Nutrition Notes Start: 05/10/22 17:09 Freq: Status: Active Protocol: Document 05/10/22 17:09 ARNOLDO (Rec: 05/10/22 17:52 ARNOLDO [id number]) Nutrition Notes Need for Assessment generated from: MD Order,black 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 Current Diet Cardiac -Renal- Diet + D Suppl (since B 05/10). Labs/Tests 05/10: Na 158, K 3.1, Cl 111.5 , BUN 105, Crea 3.7, Glu 112. Pertinent Medications 05/10: Folic acid, Thiamine, others nutritionally unremarkable. Height 5 ft 10 in Weight 35.6 kg Mayer Body Weight (kg) 75.45 BMI 11.2 Intake Prior to Admission Poor Weight change and time frame Pt states having loss, unintentionally, more than 34 lb body weight recently. Weight Status Underweight Subjective/Other Information RD consult for Low BMI, risk of malnutrition nutrition education and dietary supplementation assessments. No reports available on Pt's PO intake of meals at the time , will assess at F/U. I will prescribe dietary supplements to compensate for poor or insufficient PO intake of meals during LOS. Pt is on Room Air, O2 saturation @ 98%, according to Physical Assessment History notes. Pt has missing teeth, according to Physical Assessment History notes. Pt shows sudden unintentional loss of body weight and poor PO intake of meals for 2 weeks as signs of concern for risk of malnutrition at the time, according to Admission documents. Procedure on 05/10: L-CFV Dual -tunneled PICC Catheter placement, and R-IJV Triple- lumen HD non-tunneled catheter placement, well tolerated, according to Operative Report notes. Pt's Low BMI seems to correspond to a natural body composition, and exacerbated by a sudden loss of body weight and chronic malnutrition, since some signs of concern were mentioned in the Physical Assessment History and the Progress notes . Pt still in critical condition , not a candidate for Nutrition Education at the time, will assess feasibility on F/U. Percent of energy/protein needs met: Prescribed Cardiac -Renal- Diet provides for energy/ protein needs (2,230 Kcal/85 g ) during LOS; additionally, Dietary Supplements will compensate for possible poor or insufficient PO intake of meals with 1,275 Kcal and 57 g of protein. Burn Absent Trauma Absent GI Symptoms None Food Allergy No Skin Integrity/Comment Assessment WNL. 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 Etiology Possibly associated to Adult Failure to Thrive. As Evidenced by Signs and Symptoms BMI: 11.3 Kg/m2. #1 Nutrition Diagnosis Malnutrition Etiology Possibly PATRIZIA. As Evidenced by Signs and Symptoms Pt shows sudden unintentional loss of body weight and poor PO intake of meals for 2 weeks as signs of concern for risk of malnutrition at the time, according to Admission documents. Is patient on ventilator? No Is Patient Ambulatory and/or Out of Bed No REE-([facility]-confined to bed) 1317.564 Kcal/Kg value to use for calculation 58 Approximate Energy Requirements Using 2065 kcal/Kg Calculation Used for Recommendations Kcal/kg Additional Notes Protein: 1.2-1.5 g/Kg ABW; 43- 54 g/day. Fluids: 1 ml/Kcal, or as per MD. Nutrition Intervention Change Diet Order: Continue Cardiac -Renal- Diet as tolerated. Add Supplement/Snack (indicate name/kcal Start 8 fl oz Nepro w/ /protein ) CARBSTEADY; TID. Provides kCal: 1,275 Provides Protein (gm) 57 Goal #1 Compensate, through dietary supplementation, for possible poor or insufficient PO intake of meals during LOS. Goal #2 Adjust the dietary intervention to better serve Pt's needs and clinical conditions during LOS. Follow-Up By: 05/17/22 Additional Comments Continue monitoring food tolerance, %PO intake of meals , dietary supplements, and BM. <VETO OTERO - Last Filed: 05/14/22 14:31> History Interval history: I saw and evaluated the patient. Discussed with the nurse practitioner and agree with their findings and plan as documented in this note. Hospitalist Physical - Constitutional Vitals: Temp Pulse Resp BP Pulse Ox 97.8 F 76 21 95/61 100 05/14/22 12:00 05/14/22 14:00 05/14/22 14:00 05/14/22 14:00 05/14/22 14:00 HEART Score - HEART Score Troponin: Troponin T < 0.010 ng/mL (0.00-0.029) 05/09/22 18:51 Results - Labs CBC & Chem 7: 05/14/22 04:00 05/14/22 04:00 Labs: Laboratory Last Values WBC 6.6 K/mm3 (4.5-11.0) 05/14/22 04:00 RBC 3.31 M/mm3 (3.65-5.03) L 05/14/22 04:00 Hgb 9.8 gm/dl (11.8-15.2) L 05/14/22 04:00 Hct 29.2 % (35.5-45.6) L 05/14/22 04:00 MCV 88 fl (84-94) 05/14/22 04:00 MCH 30 pg (28-32) 05/14/22 04:00 MCHC 34 % (32-34) 05/14/22 04:00 RDW 14.8 % (13.2-15.2) 05/14/22 04:00 Plt Count 159 K/mm3 (140-440) 05/14/22 04:00 Lymph % (Auto) 6.4 % (13.4-35.0) L 05/11/22 04:00 [place] % (Auto) 9.6 % (0.0-7.3) H 05/11/22 04:00 Eos % (Auto) 0.0 % (0.0-4.3) 05/11/22 04:00 Baso % (Auto) 0.0 % (0.0-1.8) 05/11/22 04:00 Lymph # (Auto) 0.5 K/mm3 (1.2-5.4) L 05/11/22 04:00 [place] # (Auto) 0.7 K/mm3 (0.0-0.8) 05/11/22 04:00 Eos # (Auto) 0.0 K/mm3 (0.0-0.4) 05/11/22 04:00 Baso # (Auto) 0.0 K/mm3 (0.0-0.1) 05/11/22 04:00 Add Manual Diff Complete 05/09/22 18:51 Total Counted 100 05/09/22 18:51 Seg Neutrophils % 84.0 % (40.0-70.0) H 05/11/22 04:00 Seg Neuts % (Manual) 98.0 % (40.0-70.0) H 05/09/22 18:51 Band Neutrophils % 0 % 05/09/22 18:51 Lymphocytes % (Manual) 1.0 % (13.4-35.0) L 05/09/22 18:51 Reactive Lymphs % (Man) 0 % 05/09/22 18:51 Monocytes % (Manual) 0 % (0.0-7.3) 05/09/22 18:51 Eosinophils % (Manual) 0 % (0.0-4.3) 05/09/22 18:51 Basophils % (Manual) 0 % (0.0-1.8) 05/09/22 18:51 Metamyelocytes % 1.0 % 05/09/22 18:51 Myelocytes % 0 % 05/09/22 18:51 Promyelocytes % 0 % 05/09/22 18:51 Blast Cells % 0 % 05/09/22 18:51 Nucleated RBC % 1.0 % (0.0-0.9) H 05/09/22 18:51 Seg Neutrophils # 5.9 K/mm3 (1.8-7.7) 05/11/22 04:00 Seg Neutrophils # Man 10.6 K/mm3 (1.8-7.7) H 05/09/22 18:51 Band Neutrophils # 0.0 K/mm3 05/09/22 18:51 Lymphocytes # (Manual) 0.1 K/mm3 (1.2-5.4) L 05/09/22 18:51 Abs React Lymphs (Man) 0.0 K/mm3 05/09/22 18:51 Monocytes # (Manual) 0.0 K/mm3 (0.0-0.8) 05/09/22 18:51 Eosinophils # (Manual) 0.0 K/mm3 (0.0-0.4) 05/09/22 18:51 Basophils # (Manual) 0.0 K/mm3 (0.0-0.1) 05/09/22 18:51 Metamyelocytes # 0.1 K/mm3 05/09/22 18:51 Myelocytes # 0.0 K/mm3 05/09/22 18:51 Promyelocytes # 0.0 K/mm3 05/09/22 18:51 Blast Cells # 0.0 K/mm3 05/09/22 18:51 WBC Morphology Not Reportable 05/09/22 18:51 WBC Morphology TNR 05/09/22 18:51 Hypersegmented Neuts Not Reportable 05/09/22 18:51 Hyposegmented Neuts Not Reportable 05/09/22 18:51 Hypogranular Neuts Not Reportable 05/09/22 18:51 Smudge Cells Not Reportable 05/09/22 18:51 Toxic Granulation Not Reportable 05/09/22 18:51 Toxic Vacuolation Not Reportable 05/09/22 18:51 Dohle Bodies Not Reportable 05/09/22 18:51 Pelger-Huet Anomaly Not Reportable 05/09/22 18:51 Paola Rods Not Reportable 05/09/22 18:51 Platelet Estimate Consistent w auto 05/09/22 18:51 Clumped Platelets Not Reportable 05/09/22 18:51 Plt Clumps, EDTA Not Reportable 05/09/22 18:51 Large Platelets Not Reportable 05/09/22 18:51 Giant Platelets Not Reportable 05/09/22 18:51 Platelet Satelliting Not Reportable 05/09/22 18:51 Plt Morphology Comment Not Reportable 05/09/22 18:51 RBC Morphology Not Reportable 05/09/22 18:51 Dimorphic RBCs Not Reportable 05/09/22 18:51 Polychromasia Not Reportable 05/09/22 18:51 Hypochromasia Not Reportable 05/09/22 18:51 Poikilocytosis Not Reportable 05/09/22 18:51 Anisocytosis Not Reportable 05/09/22 18:51 Microcytosis Not Reportable 05/09/22 18:51 Macrocytosis Not Reportable 05/09/22 18:51 Spherocytes Not Reportable 05/09/22 18:51 Pappenheimer Bodies Not Reportable 05/09/22 18:51 Sickle Cells Not Reportable 05/09/22 18:51 Target Cells Few 05/09/22 18:51 Tear Drop Cells Few 05/09/22 18:51 Ovalocytes Not Reportable 05/09/22 18:51 Helmet Cells Not Reportable 05/09/22 18:51 [place] Bodies Not Reportable 05/09/22 18:51 Lincoln Rings Not Reportable 05/09/22 18:51 Franco Cells Not Reportable 05/09/22 18:51 Bite Cells Not Reportable 05/09/22 18:51 Crenated Cell Not Reportable 05/09/22 18:51 Elliptocytes Not Reportable 05/09/22 18:51 Acanthocytes (Spur) Not Reportable 05/09/22 18:51 Rouleaux Not Reportable 05/09/22 18:51 Hemoglobin C Crystals Not Reportable 05/09/22 18:51 Schistocytes Not Reportable 05/09/22 18:51 Malaria parasites Not Reportable 05/09/22 18:51 Percent Retic 0.53 % (0.78-2.58) L 05/13/22 11:49 Jamal Bodies Not Reportable 05/09/22 18:51 Hem Pathologist Commnt No 05/09/22 18:51 PT 14.0 Sec. (12.2-14.9) 05/09/22 18:51 INR 0.97 (0.87-1.13) 05/09/22 18:51 Sodium 143 mmol/L (137-145) 05/14/22 04:00 Potassium 3.2 mmol/L (3.6-5.0) L 05/14/22 04:00 Chloride 107.4 mmol/L (98-107) H 05/14/22 04:00 Carbon Dioxide 27 mmol/L (22-30) 05/14/22 04:00 Anion Gap 12 mmol/L 05/14/22 04:00 BUN 10 mg/dL (9-20) 05/14/22 04:00 Creatinine 0.4 mg/dL (0.8-1.3) L 05/14/22 04:00 Estimated GFR > 60 ml/min 05/14/22 04:00 BUN/Creatinine Ratio 25 % 05/14/22 04:00 Glucose 98 mg/dL (75-100) 05/14/22 04:00 POC Glucose 95 mg/dL (70-105) 05/13/22 18:18 Lactic Acid 0.60 mmol/L (0.7-2.0) L 05/12/22 15:15 Calcium 7.2 mg/dL (8.4-10.2) L 05/14/22 04:00 Phosphorus 2.70 mg/dL (2.5-4.5) D 05/12/22 02:52 Magnesium 2.00 mg/dL (1.7-2.3) 05/14/22 08:24 Iron 33 ug/dL (49-181) L 05/13/22 11:49 TIBC 126 mcg/dL (250-450) L 05/13/22 11:49 Ferritin 628.3 ng/mL (30.0-300.0) H 05/13/22 11:49 Total Bilirubin 1.10 mg/dL (0.1-1.2) 05/09/22 18:51 AST 13 units/L (5-40) 05/09/22 18:51 ALT 10 units/L (7-56) 05/09/22 18:51 Alkaline Phosphatase 98 units/L (35-129) 05/09/22 18:51 Ammonia 61.0 umol/L (25-60) H 05/09/22 18:51 Lactate Dehydrogenase 238 units/L (91-180) H 05/13/22 11:49 Total Creatine Kinase 92 units/L (55-170) 05/09/22 18:51 Troponin T < 0.010 ng/mL (0.00-0.029) 05/09/22 18:51 C-Reactive Protein 12.90 mg/dL (0.00-1.30) H 05/09/22 18:51 NT-Pro-B Natriuret Pep 817.0 pg/mL (0-900) 05/09/22 18:51 Total Protein 7.7 g/dL (6.3-8.2) 05/09/22 18:51 Albumin 4.6 g/dL (3.9-5) 05/09/22 18:51 Albumin/Globulin Ratio 1.5 % 05/09/22 18:51 TSH 2.020 mlU/mL (0.270-4.200) 05/09/22 18:51 Urine Color Red (Yellow) 05/10/22 02:16 Urine Turbidity Cloudy (Clear) 05/10/22 02:16 Specific [place] (Man) 1.030 (1.003-1.030) 05/10/22 02:16 Ur Protein (Man) >500 mg/dL (Negative) 05/10/22 02:16 Ur Ketones (Man) 5mg/dl (Negative) 05/10/22 02:16 Urine Bilirubin (Man) Negative (Negative) 05/10/22 02:16 Urine WBC (Auto) > 182.0 /HPF (0.0-6.0) H 05/10/22 02:16 Urine RBC (Auto) > 182.0 /HPF (0.0-6.0) 05/10/22 02:16 Urine Bacteria (Auto) 1+ /HPF (Negative) 05/10/22 02:16 Urine RBC (Manual) 5+ (Negative) 05/10/22 02:16 Urine Osmolality 576 Mosm/kg 05/10/22 17:16 Urine Creatinine 61.0 mg/dL (0.1-20.0) H 05/10/22 17:16 Urine Sodium 19 mmol/L 05/10/22 17:16 Urine Urea Nitrogen 1015 05/10/22 17:16 Salicylates < 0.3 mg/dL (2.8-20.0) L 05/09/22 18:51 Urine Opiates Screen Negative 05/10/22 02:16 Urine Methadone Screen Negative 05/10/22 02:16 Acetaminophen 5.0 ug/mL (10.0-30.0) L 05/09/22 18:51 Ur Barbiturates Screen Negative 05/10/22 02:16 Ur Phencyclidine Scrn Negative 05/10/22 02:16 Ur Amphetamines Screen Negative 05/10/22 02:16 U Benzodiazepines Scrn Negative 05/10/22 02:16 Urine Cocaine Screen Negative 05/10/22 02:16 U Marijuana (THC) Screen Positive 05/10/22 02:16 Drugs of Abuse Note Disclamer 05/10/22 02:16 Plasma/Serum Alcohol < 0.01 % (0-0.07) 05/09/22 18:51 Hepatitis A IgM Ab Non-reactive (NonReactive) 05/09/22 23:00 Hep Bs Antigen Non-reactive (Negative) 05/09/22 23:00 Hep B Core IgM Ab Non-reactive (NonReactive) 05/09/22 23:00 Hepatitis C Antibody Non-reactive (NonReactive) 05/09/22 23:00 Alvarez/IV: Voiding Method Urinal Active Medications - Current Medications Current Medications: Generic Name Dose Route Start Last Admin Trade Name Freq PRN Reason Stop Dose Admin Acetaminophen 650 mg 05/10/22 00:08 Acetaminophen 325 Mg Tab PO Q6H PRN Pain MILD(1-3)/Fever >100.5/JOHNSON Arformoterol Tartrate 15 mcg 05/12/22 20:00 05/14/22 08:59 Arformoterol 15 Mcg/2 Ml Nebu IH 15 mcg Q12HRT CAITLIN Administration Ascorbic Acid 250 mg 05/14/22 10:00 05/14/22 10:21 Ascorbic Acid 250 Mg Tab FEEDTUBE 250 mg QDAY CAITLIN Administration Budesonide 0.5 mg 05/12/22 20:00 05/14/22 08:59 Budesonide 0.5 Mg/2 Ml Nebu IH 0.5 mg Q12HRT CAITLIN Administration Docusate Sodium 100 mg 05/10/22 22:00 05/13/22 21:03 Docusate Sodium 100 Mg Cap PO Not Given BID CAITLIN Doxazosin Mesylate 1 mg 05/11/22 22:00 05/13/22 21:03 Doxazosin 1 Mg Tab PO Not Given QHS CAITLIN Ferrous Sulfate 300 mg 05/14/22 10:00 05/14/22 10:21 Ferrous Sulfate 300 Mg (60mg Elemental Iron) / 5 Ml Oral Liqd PO 300 mg QDAY CAITLIN Administration Folic Acid 1 mg 05/10/22 12:00 05/14/22 10:22 Folic Acid 1 Mg Tab PO 1 mg QDAY CAITLIN Administration Heparin Sodium (Porcine) 5,000 unit 05/10/22 06:00 05/14/22 13:53 Heparin 5,000 Unit/1 Ml Vial SUB-Q 5,000 unit Q8HR CAITLIN Administration NORepinephrine/NS 8 MG-250 ML 8 mg in 250 mls @ 3.75 mls/hr 05/10/22 02:00 05/14/22 13:49 Norepinephrine/Ns 8 Mg-250 Ml (Double Conc) IV 2 mcg/min TITRATE CAITLIN 3.75 mls/hr Titration Protocol 2 MCG/MIN Levetiracetam 750 mg 05/10/22 12:00 05/14/22 10:21 Levetiracetam 500 Mg Tab PO 750 mg BID CAITLIN Administration Magnesium Hydroxide 30 ml 05/10/22 00:08 Magnesium Hydroxide (Mom) Oral Liqd Udc PO Q4H PRN Constipation Midodrine 10 mg 05/13/22 09:00 05/14/22 12:07 Midodrine 10 Mg Tab PO 10 mg TID@0800,1200,1600 CAITLIN Administration Morphine Sulfate 2 mg 05/10/22 00:08 Morphine 2 Mg/1 Ml Inj IV Q4H PRN Pain, Moderate (4-6) Morphine Sulfate 4 mg 05/10/22 00:08 Morphine 4 Mg/1 Ml Inj IV Q4H PRN Pain , Severe (7-10) Ondansetron HCl 4 mg 05/10/22 00:08 Ondansetron 4 Mg/2 Ml Inj IV Q8H PRN Nausea And Vomiting Sodium Chloride 10 ml 05/10/22 10:00 05/14/22 10:22 Sodium Chloride 0.9% 10 Ml Flush Syringe IV 10 ml BID CAITLIN Administration Sodium Chloride 10 ml 05/10/22 00:08 Sodium Chloride 0.9% 10 Ml Flush Syringe IV PRN PRN LINE FLUSH Tamsulosin HCl 0.4 mg 05/12/22 10:00 05/14/22 10:22 Tamsulosin 0.4 Mg Cap PO 0.4 mg QDAY CAITLIN Administration Thiamine HCl 100 mg 05/10/22 12:00 05/14/22 10:22 Thiamine 100 Mg Tab PO 100 mg QDAY CAITLIN Administration Nutrition/Malnutrition Assess - Dietary Evaluation Nutrition/Malnutrition Findings: Nutrition Notes Start: 05/10/22 17:09 Freq: Status: Active Protocol: Document 05/10/22 17:09 ARNOLDO (Rec: 05/10/22 17:52 ARNOLDO [id number]) Nutrition Notes Need for Assessment generated from: MD Order,black 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 Current Diet Cardiac -Renal- Diet + D Suppl (since B 05/10). Labs/Tests 05/10: Na 158, K 3.1, Cl 111.5 , BUN 105, Crea 3.7, Glu 112. Pertinent Medications 05/10: Folic acid, Thiamine, others nutritionally unremarkable. Height 5 ft 10 in Weight 35.6 kg Mayer Body Weight (kg) 75.45 BMI 11.2 Intake Prior to Admission Poor Weight change and time frame Pt states having loss, unintentionally, more than 34 lb body weight recently. Weight Status Underweight Subjective/Other Information RD consult for Low BMI, risk of malnutrition nutrition education and dietary supplementation assessments. No reports available on Pt's PO intake of meals at the time , will assess at F/U. I will prescribe dietary supplements to compensate for poor or insufficient PO intake of meals during LOS. Pt is on Room Air, O2 saturation @ 98%, according to Physical Assessment History notes. Pt has missing teeth, according to Physical Assessment History notes. Pt shows sudden unintentional loss of body weight and poor PO intake of meals for 2 weeks as signs of concern for risk of malnutrition at the time, according to Admission documents. Procedure on 05/10: L-CFV Dual -tunneled PICC Catheter placement, and R-IJV Triple- lumen HD non-tunneled catheter placement, well tolerated, according to Operative Report notes. Pt's Low BMI seems to correspond to a natural body composition, and exacerbated by a sudden loss of body weight and chronic malnutrition, since some signs of concern were mentioned in the Physical Assessment History and the Progress notes . Pt still in critical condition , not a candidate for Nutrition Education at the time, will assess feasibility on F/U. Percent of energy/protein needs met: Prescribed Cardiac -Renal- Diet provides for energy/ protein needs (2,230 Kcal/85 g ) during LOS; additionally, Dietary Supplements will compensate for possible poor or insufficient PO intake of meals with 1,275 Kcal and 57 g of protein. Burn Absent Trauma Absent GI Symptoms None Food Allergy No Skin Integrity/Comment Assessment WNL. 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 Etiology Possibly associated to Adult Failure to Thrive. As Evidenced by Signs and Symptoms BMI: 11.3 Kg/m2. #1 Nutrition Diagnosis Malnutrition Etiology Possibly PATRIZIA. As Evidenced by Signs and Symptoms Pt shows sudden unintentional loss of body weight and poor PO intake of meals for 2 weeks as signs of concern for risk of malnutrition at the time, according to Admission documents. Is patient on ventilator? No Is Patient Ambulatory and/or Out of Bed No REE-([place]-confined to bed) 1317.564 Kcal/Kg value to use for calculation 58 Approximate Energy Requirements Using 2065 kcal/Kg Calculation Used for Recommendations Kcal/kg Additional Notes Protein: 1.2-1.5 g/Kg ABW; 43- 54 g/day. Fluids: 1 ml/Kcal, or as per MD. Nutrition Intervention Change Diet Order: Continue Cardiac -Renal- Diet as tolerated. Add Supplement/Snack (indicate name/kcal Start 8 fl oz Nepro w/ /protein ) CARBSTEADY; TID. Provides kCal: 1,275 Provides Protein (gm) 57 Goal #1 Compensate, through dietary supplementation, for possible poor or insufficient PO intake of meals during LOS. Goal #2 Adjust the dietary intervention to better serve Pt's needs and clinical conditions during LOS. Follow-Up By: 05/17/22 Additional Comments Continue monitoring food tolerance, %PO intake of meals , dietary supplements, and BM.
[2022-05-12] MEDS: ARFORMOTEROL 15 MCG/2 ML NEBU IH SCH (20:08)
[2022-05-12] MEDS: BUDESONIDE 0.5 MG/2 ML NEBU IH SCH (20:08)
[2022-05-12] MEDS: DOXAZOSIN 1 MG TAB PO SCH (21:00)
[2022-05-13] MEDS: DOCUSATE SODIUM 100 MG CAP PO SCH ×3 (02:06→21:03)
[2022-05-13] MEDS: SODIUM CHLORIDE 0.9% 1000 ML 1,000 ML IV SCH (04:17)
[2022-05-13 04:29] LABS: Hematocrit 27.6 % (35.5-45.6); Hemoglobin 9.3 gm/dl (11.8-15.2); Mean Corpuscular HGB Conc 34 % (32-34); Mean Corpuscular Volume 88 fl (84-94); Platelet Count 121 K/mm3 (140-440); Red Blood Count 3.13 M/mm3 (3.65-5.03); Red Cell Distribution Width 14.9 % (13.2-15.2)
[2022-05-13 04:46] LABS: Blood Urea Nitrogen 11 mg/dL (9-20); Calcium 7.3 mg/dL (8.4-10.2); Hemolysis Index 4
[2022-05-13 04:52] LABS: BUN/Creatinine Ratio 22
[2022-05-13] MEDS: HEPARIN 5,000 UNIT/1 ML VIAL SUB-Q SCH ×3 (05:31→21:03)
[2022-05-13] MEDS ORDERED: POTASSIUM CHLORIDE ER 20 MEQ TAB PO ONE (05:42)
[2022-05-13] MEDS: ARFORMOTEROL 15 MCG/2 ML NEBU IH SCH ×2 (08:14→20:38)
[2022-05-13] MEDS: BUDESONIDE 0.5 MG/2 ML NEBU IH SCH ×2 (08:14→20:37)
[2022-05-13] MEDS ORDERED: POTASSIUM CHLORIDE ER 20 MEQ TAB PO SCH (09:00)
--- NOTE | 2022-05-13 09:16 | Hem/Onc Progress Note ---
Subjective Date of service: 05/13/22 Interval history: Heme Progress Note Seen via televisit CPT 69716 Dx Lung Mass 76 year old male with generalized weakness and decreased oral intake Pmhx of seizure disorder, hypertension and drug abuse. EKG shows some peaked T waves. Chest CT revealed right upper lobe nodule with multiple osseous metastatic lesions. Abd/Pelvis CT revealed new areas of larger but subcentimeter lymph nodes within the lower periaortic region but additional borderline to minimally enlarged right pelvic sidewall lymph node with central low-attenuation suggesting possible necrosis. Enlarged prostate; correlation with PSA recommended. Multiple osseous metastatic lesions. New small hypoattenuating lesions within the liver. The appearance is concerning for metastatic disease. Small volume intra- abdominal and intrapelvic ascrites. Oncology following for lung mass. Patient examined at bedside, in no acute distress. Anxious to go home. Labs and scans discussed with patient. Plan for biopsy discussed with patient. Denies shortness of breath or unintentional weight loss. 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 EMRE, iron studies Will need outpatient Onc follow up for malignancy treatment Case d/w Dr. Gaudencio Joshi. Laboratory Last Values WBC 6.0 K/mm3 (4.5-11.0) 05/13/22 04:00 Hgb 9.3 gm/dl (11.8-15.2) L 05/13/22 04:00 Hct 27.6 % (35.5-45.6) L 05/13/22 04:00 MCV 88 fl (84-94) 05/13/22 04:00 Plt Count 121 K/mm3 (140-440) L 05/13/22 04:00 Lymph % (Auto) 6.4 % (13.4-35.0) L 05/11/22 04:00 Orange % (Auto) 9.6 % (0.0-7.3) H 05/11/22 04:00 Lymph # (Auto) 0.5 K/mm3 (1.2-5.4) L 05/11/22 04:00 Seg Neutrophils % 84.0 % (40.0-70.0) H 05/11/22 04:00 Seg Neuts % (Manual) 98.0 % (40.0-70.0) H 05/09/22 18:51 Lymphocytes % (Manual) 1.0 % (13.4-35.0) L 05/09/22 18:51 Nucleated RBC % 1.0 % (0.0-0.9) H 05/09/22 18:51 Seg Neutrophils # Man 10.6 K/mm3 (1.8-7.7) H 05/09/22 18:51 Lymphocytes # (Manual) 0.1 K/mm3 (1.2-5.4) L 05/09/22 18:51 PT 14.0 Sec. (12.2-14.9) 05/09/22 18:51 INR 0.97 (0.87-1.13) 05/09/22 18:51 Creatinine 0.5 mg/dL (0.8-1.3) L 05/13/22 04:00 AST 13 units/L (5-40) 05/09/22 18:51 ALT 10 units/L (7-56) 05/09/22 18:51 Alkaline Phosphatase 98 units/L (35-129) 05/09/22 18:51 Ammonia 61.0 umol/L (25-60) H 05/09/22 18:51 Hepatitis A IgM Ab Non-reactive (NonReactive) 05/09/22 23:00 Hep Bs Antigen Non-reactive (Negative) 05/09/22 23:00 Hep B Core IgM Ab Non-reactive (NonReactive) 05/09/22 23:00 Hepatitis C Antibody Non-reactive (NonReactive) 05/09/22 23:00 Objective - Constitutional Vitals: Last Vital Signs Temp 98.2 F 05/13/22 08:00 Pulse 88 05/13/22 08:15 Resp 16 05/13/22 08:15 BP 109/54 05/13/22 08:00 Pulse Ox 100 05/13/22 08:00 - Labs Lab Results: Laboratory Results - last 24 hr 05/12/22 05/13/22 05/13/22 15:15 04:00 04:00 WBC 6.0 RBC 3.13 L Hgb 9.3 L Hct 27.6 L MCV 88 MCH 30 MCHC 34 RDW 14.9 Plt Count 121 L Sodium 141 Potassium 3.1 L Chloride 104.7 Carbon Dioxide 25 Anion Gap 14 BUN 11 Creatinine 0.5 L Estimated GFR > 60 BUN/Creatinine Ratio 22 Glucose 68 L Lactic Acid 0.60 L Calcium 7.3 L Medications & Allergies - Medications Allergies/Adverse Reactions: Allergies No Known Allergies Allergy (Verified 11/23/20 17:16) Home Medications: Home Medications Medication Instructions Recorded Confirmed Last Taken Type amLODIPine [Norvasc] 5 mg PO DAILY 05/10/22 05/10/22 Unknown History levETIRAcetam [Keppra TAB] 500 mg PO BID 05/10/22 05/10/22 Unknown History Active Medications: Generic Name Dose Route Start Last Admin Trade Name Freq PRN Reason Stop Dose Admin Acetaminophen 650 mg 05/10/22 00:08 Acetaminophen 325 Mg Tab PO Q6H PRN Pain MILD(1-3)/Fever >100.5/JOHNSON Arformoterol Tartrate 15 mcg 05/12/22 20:00 05/13/22 08:14 Arformoterol 15 Mcg/2 Ml Nebu IH 15 mcg Q12HRT CAITLIN Administration Budesonide 0.5 mg 05/12/22 20:00 05/13/22 08:14 Budesonide 0.5 Mg/2 Ml Nebu IH 0.5 mg Q12HRT CAITLIN Administration Docusate Sodium 100 mg 05/10/22 22:00 05/13/22 02:06 Docusate Sodium 100 Mg Cap PO Not Given BID CAITLIN Doxazosin Mesylate 1 mg 05/11/22 22:00 05/12/22 21:00 Doxazosin 1 Mg Tab PO 1 mg QHS CAITLIN Administration Folic Acid 1 mg 05/10/22 12:00 05/12/22 09:15 Folic Acid 1 Mg Tab PO 1 mg QDAY CAITLIN Administration Heparin Sodium (Porcine) 5,000 unit 05/10/22 06:00 05/13/22 05:31 Heparin 5,000 Unit/1 Ml Vial SUB-Q Not Given Q8HR CAITLIN NORepinephrine/NS 8 MG-250 ML 8 mg in 250 mls @ 3.75 mls/hr 05/10/22 02:00 05/13/22 06:36 Norepinephrine/Ns 8 Mg-250 Ml (Double Conc) IV 2 mcg/min TITRATE CAITLIN 3.75 mls/hr Titration Protocol 2 MCG/MIN Sodium Chloride 1,000 mls @ 75 mls/hr 05/12/22 14:00 05/13/22 04:17 Nacl 0.9% 1000 Ml IV 05/14/22 03:19 75 mls/hr DIRECT CAITLIN Administration Levetiracetam 750 mg 05/10/22 12:00 05/12/22 21:00 Levetiracetam 500 Mg Tab PO 750 mg BID CAITLIN Administration Magnesium Hydroxide 30 ml 05/10/22 00:08 Magnesium Hydroxide (Mom) Oral Liqd Udc PO Q4H PRN Constipation Midodrine 10 mg 05/13/22 09:00 Midodrine 10 Mg Tab PO TID@0800,1200,1600 CAITLIN Morphine Sulfate 2 mg 05/10/22 00:08 Morphine 2 Mg/1 Ml Inj IV Q4H PRN Pain, Moderate (4-6) Morphine Sulfate 4 mg 05/10/22 00:08 Morphine 4 Mg/1 Ml Inj IV Q4H PRN Pain , Severe (7-10) Ondansetron HCl 4 mg 05/10/22 00:08 Ondansetron 4 Mg/2 Ml Inj IV Q8H PRN Nausea And Vomiting Potassium Chloride 40 meq 05/13/22 09:00 Potassium Chloride Er 20 Meq Tab PO 05/13/22 13:00 ONCE@0900 CAITLIN Sodium Chloride 10 ml 05/10/22 10:00 05/12/22 21:01 Sodium Chloride 0.9% 10 Ml Flush Syringe IV 10 ml BID CAITLIN Administration Sodium Chloride 10 ml 05/10/22 00:08 Sodium Chloride 0.9% 10 Ml Flush Syringe IV PRN PRN LINE FLUSH Tamsulosin HCl 0.4 mg 05/12/22 10:00 05/12/22 09:15 Tamsulosin 0.4 Mg Cap PO 0.4 mg QDAY CAITLIN Administration Thiamine HCl 100 mg 05/10/22 12:00 05/12/22 09:16 Thiamine 100 Mg Tab PO 100 mg QDAY CAITLIN Administration
--- NOTE | 2022-05-13 09:54 | Progress Note ---
Assessment and Plan Impression: * Nonoliguric acute kidney injury secondary to volume depletion vs obstructive component --Resolved without dialysis * Urinary retention * Hypernatremia * Hypokalemia - likely iatrogenic secondary to metabolic alkalosis * Metabolic alkalosis * R lung nodule w/ metastatic osseous lesions * Hypotension * Hx of seizure disorder * Severe hyperkalemia - resolved w/ medical management * Azotemia - resolved * Metabolic acidosis - resolved Plan: * Renal function remains stable * Replete lytes prn * Continue Flomax * Recommend bladder scan as patient with urinary retention * Dose medications for renal function * Avoid potential nephrotoxins * Strict I/O * AM labs * Will follow peripherally Subjective Date of service: 05/13/22 Principal diagnosis: PATRIZIA; Hyperkalemia; Lung Mass; Tobacco Abuse; Seizures; COPD; HTN Interval history: Patient has no complaints Objective - Vital Signs Vital signs: Vital Signs - 12hr 05/12/22 05/12/22 05/12/22 22:00 22:30 23:00 Temperature Pulse Rate 99 H 98 H 100 H Pulse Rate [ Bilateral Throughout] Pulse Rate [ From Monitor] Respiratory 17 23 15 Rate Respiratory Rate [Bilateral Throughout] Blood Pressure 108/65 108/61 102/59 O2 Sat by Pulse 100 100 100 Oximetry 05/12/22 05/12/22 05/12/22 23:26 23:28 23:29 Temperature 98.7 F Pulse Rate 96 H 96 H Pulse Rate [ Bilateral Throughout] Pulse Rate [ From Monitor] Respiratory 16 Rate Respiratory Rate [Bilateral Throughout] Blood Pressure 102/59 O2 Sat by Pulse 100 Oximetry 05/12/22 05/13/22 05/13/22 23:30 00:00 00:30 Temperature Pulse Rate 95 H 97 H 105 H Pulse Rate [ Bilateral Throughout] Pulse Rate [ 98 H From Monitor] Respiratory 15 17 17 Rate Respiratory Rate [Bilateral Throughout] Blood Pressure 100/64 94/54 87/50 O2 Sat by Pulse 100 100 100 Oximetry 05/13/22 05/13/22 05/13/22 01:00 01:30 02:00 Temperature Pulse Rate 96 H 95 H 90 Pulse Rate [ Bilateral Throughout] Pulse Rate [ From Monitor] Respiratory 16 20 20 Rate Respiratory Rate [Bilateral Throughout] Blood Pressure 84/44 102/59 96/57 O2 Sat by Pulse 100 100 100 Oximetry 05/13/22 05/13/22 05/13/22 02:30 03:00 03:30 Temperature Pulse Rate 97 H 89 86 Pulse Rate [ Bilateral Throughout] Pulse Rate [ From Monitor] Respiratory 20 17 17 Rate Respiratory Rate [Bilateral Throughout] Blood Pressure 93/59 101/62 104/62 O2 Sat by Pulse 100 99 100 Oximetry 05/13/22 05/13/22 05/13/22 04:00 04:30 05:00 Temperature 98 F Pulse Rate 95 H 91 H 88 Pulse Rate [ Bilateral Throughout] Pulse Rate [ 92 H From Monitor] Respiratory 21 19 14 Rate Respiratory Rate [Bilateral Throughout] Blood Pressure 81/36 104/59 107/65 O2 Sat by Pulse 100 100 98 Oximetry 05/13/22 05/13/22 05/13/22 05:30 06:00 06:30 Temperature Pulse Rate 100 H 100 H 98 H Pulse Rate [ Bilateral Throughout] Pulse Rate [ From Monitor] Respiratory 16 20 19 Rate Respiratory Rate [Bilateral Throughout] Blood Pressure 89/47 79/42 84/42 O2 Sat by Pulse 99 100 100 Oximetry 05/13/22 05/13/22 05/13/22 07:00 07:31 08:00 Temperature 98.2 F Pulse Rate 88 93 H Pulse Rate [ Bilateral Throughout] Pulse Rate [ 88 From Monitor] Respiratory 17 17 Rate Respiratory Rate [Bilateral Throughout] Blood Pressure 101/62 113/62 109/54 O2 Sat by Pulse 99 100 100 Oximetry 05/13/22 05/13/22 05/13/22 08:15 08:30 09:00 Temperature Pulse Rate 84 98 H Pulse Rate [ 88 Bilateral Throughout] Pulse Rate [ From Monitor] Respiratory 15 20 Rate Respiratory 16 Rate [Bilateral Throughout] Blood Pressure 108/69 102/58 O2 Sat by Pulse 100 100 Oximetry 05/13/22 09:30 Temperature Pulse Rate 93 H Pulse Rate [ Bilateral Throughout] Pulse Rate [ From Monitor] Respiratory 18 Rate Respiratory Rate [Bilateral Throughout] Blood Pressure 98/53 O2 Sat by Pulse 100 Oximetry - General Appearance General appearance: well-developed, well-nourished EENT: ATNC Respiratory: Present: Clear to Ascultation Cardiology: regular, S1S2 Gastrointestinal: normal, no tenderness, no distended Integumentary: warm and dry Neurologic: alert and oriented x3 - Lab 05/14/22 04:00 05/14/22 04:00 Most recent lab results Calcium 7.3 mg/dL (8.4-10.2) L 08/25/22 04:00 Phosphorus 2.70 mg/dL (2.5-4.5) D 05/12/22 02:52 Magnesium 2.00 mg/dL (1.7-2.3) 05/12/22 02:52 Urine Creatinine 61.0 mg/dL (0.1-20.0) H 05/10/22 17:16 Urine Sodium 19 mmol/L 05/10/22 17:16 Medications & Allergies - Medications Allergies/Adverse Reactions: Allergies No Known Allergies Allergy (Verified 11/23/20 17:16) Home Medications: Home Medications Medication Instructions Recorded Confirmed Last Taken Type amLODIPine [Norvasc] 5 mg PO DAILY 05/10/22 05/10/22 Unknown History levETIRAcetam [Keppra TAB] 500 mg PO BID 05/10/22 05/10/22 Unknown History Active Medications: Generic Name Dose Route Start Last Admin Trade Name Freq PRN Reason Stop Dose Admin Acetaminophen 650 mg 05/10/22 00:08 Acetaminophen 325 Mg Tab PO Q6H PRN Pain MILD(1-3)/Fever >100.5/JOHNSON Arformoterol Tartrate 15 mcg 05/12/22 20:00 05/13/22 08:14 Arformoterol 15 Mcg/2 Ml Nebu IH 15 mcg Q12HRT CAITLIN Administration Budesonide 0.5 mg 05/12/22 20:00 05/13/22 08:14 Budesonide 0.5 Mg/2 Ml Nebu IH 0.5 mg Q12HRT CAITLIN Administration Docusate Sodium 100 mg 05/10/22 22:00 05/13/22 02:06 Docusate Sodium 100 Mg Cap PO Not Given BID [facility] Doxazosin Mesylate 1 mg 05/11/22 22:00 05/12/22 21:00 Doxazosin 1 Mg Tab PO 1 mg QHS CAITLIN Administration Folic Acid 1 mg 05/10/22 12:00 05/12/22 09:15 Folic Acid 1 Mg Tab PO 1 mg QDAY CAITLIN Administration Heparin Sodium (Porcine) 5,000 unit 05/10/22 06:00 05/13/22 05:31 Heparin 5,000 Unit/1 Ml Vial SUB-Q Not Given Q8HR [facility] NORepinephrine/NS 8 MG-250 ML 8 mg in 250 mls @ 3.75 mls/hr 05/10/22 02:00 05/13/22 06:36 Norepinephrine/Ns 8 Mg-250 Ml (Double Conc) IV 2 mcg/min TITRATE CAITLIN 3.75 mls/hr Titration Protocol 2 MCG/MIN Sodium Chloride 1,000 mls @ 75 mls/hr 05/12/22 14:00 05/13/22 04:17 Nacl 0.9% 1000 Ml IV 05/14/22 03:19 75 mls/hr DIRECT CAITLIN Administration Levetiracetam 750 mg 05/10/22 12:00 05/12/22 21:00 Levetiracetam 500 Mg Tab PO 750 mg BID CAITLIN Administration Magnesium Hydroxide 30 ml 05/10/22 00:08 Magnesium Hydroxide (Mom) Oral Liqd Udc PO Q4H PRN Constipation Midodrine 10 mg 05/13/22 09:00 Midodrine 10 Mg Tab PO TID@0800,1200,1600 CAITLIN Morphine Sulfate 2 mg 05/10/22 00:08 Morphine 2 Mg/1 Ml Inj IV Q4H PRN Pain, Moderate (4-6) Morphine Sulfate 4 mg 05/10/22 00:08 Morphine 4 Mg/1 Ml Inj IV Q4H PRN Pain , Severe (7-10) Ondansetron HCl 4 mg 05/10/22 00:08 Ondansetron 4 Mg/2 Ml Inj IV Q8H PRN Nausea And Vomiting Potassium Chloride 40 meq 05/13/22 09:00 Potassium Chloride Er 20 Meq Tab PO 05/13/22 13:00 ONCE@0900 CAITLIN Sodium Chloride 10 ml 05/10/22 10:00 05/12/22 21:01 Sodium Chloride 0.9% 10 Ml Flush Syringe IV 10 ml BID CAITLIN Administration Sodium Chloride 10 ml 05/10/22 00:08 Sodium Chloride 0.9% 10 Ml Flush Syringe IV PRN PRN LINE FLUSH Tamsulosin HCl 0.4 mg 05/12/22 10:00 05/12/22 09:15 Tamsulosin 0.4 Mg Cap PO 0.4 mg QDAY CAITLIN Administration Thiamine HCl 100 mg 05/10/22 12:00 05/12/22 09:16 Thiamine 100 Mg Tab PO 100 mg QDAY CAITLIN Administration
[2022-05-13] MEDS: MIDODRINE 10 MG TAB PO SCH ×3 (10:44→16:30)
[2022-05-13] MEDS: levETIRAcetam 500 MG TAB PO SCH ×2 (10:52→21:03)
[2022-05-13] MEDS: TAMSULOSIN 0.4 MG CAP PO SCH (10:53)
[2022-05-13] MEDS: THIAMINE 100 MG TAB PO SCH (10:53)
[2022-05-13] MEDS: FOLIC ACID 1 MG TAB PO SCH (10:53)
--- NOTE | 2022-05-13 11:17 | Cat Scan Report ---
CT head/brain wo con INDICATION: Rule out brain metastasis. TECHNIQUE: All CT scans at this location are performed using CT dose reduction for ALARA by means of automated e xposure control. COMPARISON: 11/23/[address] FINDINGS: There is no evidence of hemorrhage, hydrocephalus, brain edema, or mass effect/mass lesion. There is overall normal brain formation and brain volume for the patient's age. Ventricular and cisternal/sulc al size is normal for age. The included paranasal sinuses and mastoid air cells are clear. The orbits appear unremarkable. IMPRESSION: 1. No findings to suggest intracranial metastatic disease on this noncontrasted head CT. Pre and post contrast brain MRI would be a much more sensitive exam to evaluate for metastases. Signer Name: Aren Obrien MD Signed: 05/13/2022 11:13 AM Workstation Name: [id number]
--- NOTE | 2022-05-13 13:12 | Progress Note ---
<KIMBERLEERENETTALorne - Last Filed: 05/13/22 13:08> Assessment and Plan Assessment and plan: Assessment and Plan: This is a 76-year-old female with seizure disorder, HTN, nicotine and drug abuse admitted with acute kidney injury Neuro: H/O seizure disorder, marijuana use -Continue home Keppra -Reorientation as needed -Maintain sleep-wake cycle -aspiration/seizure precautions -As needed analgesia -Folic acid, thiamine -CT head shows no evidence of metastatic disease, recommend MRI with and without contrast Cardiac: H/O HTN -Blood pressure monitoring per protocol -Hold home hydralazine -Overnight patient was started on Levophed but has been titrated off -MIVF x2 L started yesterday -Midodrine p.o. Respiratory: Acute hypoxic respiratory failure (poa, resolved), right lung nodule, current nicotine abuse -[facility] consulted, appreciate recommendations -Pulmonary hygiene -SPO2 monitor per protocol -Supplemental oxygen tested and -Nicotine abuse cessation counseling provided -CT chest shows multiple osseous metastatic lesion, right upper lobe nodule, neoplasm not excluded, hemodialysis catheter terminates within the superior vena cava currently at the cavoatrial junction -CT abdomen/pelvis with oral and IV contrast shows hypodense lesions in the dome of the right hepatic lobe, cecum and appendix lie within the right inguinal hernia, small amount of ascites present within the pelvis, lower periaortic lymph nodes increase in size, right pelvic sidewall lymph nodes increased in size which shows central low-attenuation suggesting possible necrosis, prostate is borderline in size and minimally enlarged, multiple osseous metastatic lesi ons. GI: ? Liver mets -PPI -Cardiac renal diet -BR: Colace -CT guided liver biopsy pending : Acute kidney injury likely postobstructive, dehydration, Hypokalemia, urinary retention -Nephrology consulted, appreciate recommendations -S/p Vas-Cath placement for emergent hemodialysis however Vas-Cath was not functional -Vascular surgery consulted for PermCath placement -Monitor intake and output -Renally dose medications -Avoid nephrotoxic medications -FeNa 0.7% -MIVF -Flomax and doxazosin -Alvarez catheter replaced on 05/13 for retention -Replete potassium -Trend BMP ID: NAD -Monitor WBC and temperature curve Endo: NAD -Avoid hypoglycemia Heme: NAD -Trend CBC -Transfuse hemoglobin less than 7 -SCDs to BLE while in bed The high probability of a clinically significant, sudden or life threatening deterioration of the [multi] system(s) required my full and direct attention, intervention and personal management. The aggregate critical care time was [60] minutes. This time is in addition to time spent performing reported procedures but includes the following: [x] Data Review and interpretation [x] Patient assessment and monitoring of vital signs [x] Documentation [x] Medication orders and management Disposition Plan: icu Total Time Spent with Patient (Minutes): 60 History Interval history: This is 76-year-old male with seizure disorder, HTN, smoker and drug abuse presents to the emergency department on 05/09 via EMS for evaluation of generalized weakness and decreased oral intake. According to the family patient had decreased oral intake for the past 1 to 2 weeks and has generalized weakness. Work-up in the emergency department revealed hyponatremia at 133, hyperkalemia at 8, elevated BUN and creatinine at 225/15.7 and CXR revealed mild pulmonary vascular congestion. ECG also showed peaked T waves. Nephrology was consulted in the emergency department and a Vas-Cath was placed by [facility] for hemodialysis. Patient was also medically treated with insulin, glucose, calcium gluconate and Kayexalate for hyperkalemia. Patient was admitted to the hospitalist service with consults to nephrology, [facility] and vascular surgery for acute kidney injury requiring urgent dialysis. Hospital course to date: 05/10: Yesterday patient had a Vas-Cath placed by [facility] however this is nonfunctional at this time. Vascular surgery was consulted for placement of Vas-Cath. No acute events reported overnight. Patient suddenly became nonve rbal however did follow commands, tracks/focus and pupils were round and reactive. Glucose check which was within normal limits. After approximately half an hour patient became verbal again. This afternoon patient is alert and oriented and interactive. 05/11: Hypernatremia slowly improving, noted to have hypokalemia, hypomagnesemia and hypophosphatemia. Potassium repleted with IV and p.o., bicarbonate drip discontinued. Started on Flomax and CCM would like to add doxazosin. Patient started on half-normal saline and [facility] would like to obtain CT abdomen/pelvis with contrast. Updated niece at bedside. Free water flush 350 every 8 p.o. 05/12: Patient to be started on Levophed for hypotension and will be on IV fluids per CCM. Hematology/oncology consulted and CT head was ordered. CT biopsy of the liver was also ordered. From a PICC line removed today as well as Alvarez catheter. 05/13: Overnight patient was started on Levophed, remains on MIVF. Started on midodrine. Patient had urinary retention and Alvarez catheter was replaced. CT head shows no findings to suggest intracranial metastatic disease and recommended MRI with and without contrast for evaluation. Patient has been t itrated off Levophed. Hospitalist Physical - Constitutional Vitals: Temp Pulse Resp BP Pulse Ox 98.2 F 85 18 109/76 100 05/13/22 08:00 05/13/22 10:01 05/13/22 10:01 05/13/22 10:01 05/13/22 10:01 General appearance: Present: no acute distress, well-nourished - EENT Eyes: Present: PERRL, EOM intact ENT: poor dentition - Neck Neck: Present: normal ROM - Respiratory Respiratory effort: normal Respiratory: bilateral: diminished - Cardiovascular Rhythm: regular Heart Sounds: Present: S1 & S2. Absent: systolic murmur, diastolic murmur - Extremities Extremities: no ischemia, pulses intact, pulses symmetrical, No edema, normal temperature, normal color Peripheral Pulses: within normal limits - Abdominal General gastrointestinal: soft, non-tender, non-distended, normal bowel sounds - Integumentary Integumentary: Present: warm, dry - Psychiatric Psychiatric: cooperative - Neurologic Neurologic: CNII-XII intact, no focal deficits, moves all extremities - Allied Health Allied health notes reviewed: nursing, social work HEART Score - HEART Score Troponin: Troponin T < 0.010 ng/mL (0.00-0.029) 05/09/22 18:51 Results - Labs CBC & Chem 7: 05/13/22 04:00 05/13/22 04:00 Labs: Laboratory Last Values WBC 6.0 K/mm3 (4.5-11.0) 05/13/22 04:00 RBC 3.13 M/mm3 (3.65-5.03) L 05/13/22 04:00 Hgb 9.3 gm/dl (11.8-15.2) L 05/13/22 04:00 Hct 27.6 % (35.5-45.6) L 05/13/22 04:00 MCV 88 fl (84-94) 05/13/22 04:00 MCH 30 pg (28-32) 05/13/22 04:00 MCHC 34 % (32-34) 05/13/22 04:00 RDW 14.9 % (13.2-15.2) 05/13/22 04:00 Plt Count 121 K/mm3 (140-440) L 05/13/22 04:00 Lymph % (Auto) 6.4 % (13.4-35.0) L 05/11/22 04:00 [place] % (Auto) 9.6 % (0.0-7.3) H 05/11/22 04:00 Eos % (Auto) 0.0 % (0.0-4.3) 05/11/22 04:00 Baso % (Auto) 0.0 % (0.0-1.8) 05/11/22 04:00 Lymph # (Auto) 0.5 K/mm3 (1.2-5.4) L 05/11/22 04:00 [place] # (Auto) 0.7 K/mm3 (0.0-0.8) 05/11/22 04:00 Eos # (Auto) 0.0 K/mm3 (0.0-0.4) 05/11/22 04:00 Baso # (Auto) 0.0 K/mm3 (0.0-0.1) 05/11/22 04:00 Add Manual Diff Complete 05/09/22 18:51 Total Counted 100 05/09/22 18:51 Seg Neutrophils % 84.0 % (40.0-70.0) H 05/11/22 04:00 Seg Neuts % (Manual) 98.0 % (40.0-70.0) H 05/09/22 18:51 Band Neutrophils % 0 % 05/09/22 18:51 Lymphocytes % (Manual) 1.0 % (13.4-35.0) L 05/09/22 18:51 Reactive Lymphs % (Man) 0 % 05/09/22 18:51 Monocytes % (Manual) 0 % (0.0-7.3) 05/09/22 18:51 Eosinophils % (Manual) 0 % (0.0-4.3) 05/09/22 18:51 Basophils % (Manual) 0 % (0.0-1.8) 05/09/22 18:51 Metamyelocytes % 1.0 % 05/09/22 18:51 Myelocytes % 0 % 05/09/22 18:51 Promyelocytes % 0 % 05/09/22 18:51 Blast Cells % 0 % 05/09/22 18:51 Nucleated RBC % 1.0 % (0.0-0.9) H 05/09/22 18:51 Seg Neutrophils # 5.9 K/mm3 (1.8-7.7) 05/11/22 04:00 Seg Neutrophils # Man 10.6 K/mm3 (1.8-7.7) H 05/09/22 18:51 Band Neutrophils # 0.0 K/mm3 05/09/22 18:51 Lymphocytes # (Manual) 0.1 K/mm3 (1.2-5.4) L 05/09/22 18:51 Abs React Lymphs (Man) 0.0 K/mm3 05/09/22 18:51 Monocytes # (Manual) 0.0 K/mm3 (0.0-0.8) 05/09/22 18:51 Eosinophils # (Manual) 0.0 K/mm3 (0.0-0.4) 05/09/22 18:51 Basophils # (Manual) 0.0 K/mm3 (0.0-0.1) 05/09/22 18:51 Metamyelocytes # 0.1 K/mm3 05/09/22 18:51 Myelocytes # 0.0 K/mm3 05/09/22 18:51 Promyelocytes # 0.0 K/mm3 05/09/22 18:51 Blast Cells # 0.0 K/mm3 05/09/22 18:51 WBC Morphology Not Reportable 05/09/22 18:51 WBC Morphology TNR 05/09/22 18:51 Hypersegmented Neuts Not Reportable 05/09/22 18:51 Hyposegmented Neuts Not Reportable 05/09/22 18:51 Hypogranular Neuts Not Reportable 05/09/22 18:51 Smudge Cells Not Reportable 05/09/22 18:51 Toxic Granulation Not Reportable 05/09/22 18:51 Toxic Vacuolation Not Reportable 05/09/22 18:51 Dohle Bodies Not Reportable 05/09/22 18:51 Pelger-Huet Anomaly Not Reportable 05/09/22 18:51 Paola Rods Not Reportable 05/09/22 18:51 Platelet Estimate Consistent w auto 05/09/22 18:51 Clumped Platelets Not Reportable 05/09/22 18:51 Plt Clumps, EDTA Not Reportable 05/09/22 18:51 Large Platelets Not Reportable 05/09/22 18:51 Giant Platelets Not Reportable 05/09/22 18:51 Platelet Satelliting Not Reportable 05/09/22 18:51 Plt Morphology Comment Not Reportable 05/09/22 18:51 RBC Morphology Not Reportable 05/09/22 18:51 Dimorphic RBCs Not Reportable 05/09/22 18:51 Polychromasia Not Reportable 05/09/22 18:51 Hypochromasia Not Reportable 05/09/22 18:51 Poikilocytosis Not Reportable 05/09/22 18:51 Anisocytosis Not Reportable 05/09/22 18:51 Microcytosis Not Reportable 05/09/22 18:51 Macrocytosis Not Reportable 05/09/22 18:51 Spherocytes Not Reportable 05/09/22 18:51 Pappenheimer Bodies Not Reportable 05/09/22 18:51 Sickle Cells Not Reportable 05/09/22 18:51 Target Cells Few 05/09/22 18:51 Tear Drop Cells Few 05/09/22 18:51 Ovalocytes Not Reportable 05/09/22 18:51 Helmet Cells Not Reportable 05/09/22 18:51 [place] Bodies Not Reportable 05/09/22 18:51 [place] Rings Not Reportable 05/09/22 18:51 Wharton Cells Not Reportable 05/09/22 18:51 Bite Cells Not Reportable 05/09/22 18:51 Crenated Cell Not Reportable 05/09/22 18:51 Elliptocytes Not Reportable 05/09/22 18:51 Acanthocytes (Spur) Not Reportable 05/09/22 18:51 Rouleaux Not Reportable 05/09/22 18:51 Hemoglobin C Crystals Not Reportable 05/09/22 18:51 Schistocytes Not Reportable 05/09/22 18:51 Malaria parasites Not Reportable 05/09/22 18:51 Jamal Bodies Not Reportable 05/09/22 18:51 Hem Pathologist Commnt No 05/09/22 18:51 PT 14.0 Sec. (12.2-14.9) 05/09/22 18:51 INR 0.97 (0.87-1.13) 05/09/22 18:51 Sodium 141 mmol/L (137-145) 05/13/22 04:00 Potassium 3.1 mmol/L (3.6-5.0) L 05/13/22 04:00 Chloride 104.7 mmol/L (98-107) 05/13/22 04:00 Carbon Dioxide 25 mmol/L (22-30) 05/13/22 04:00 Anion Gap 14 mmol/L 05/13/22 04:00 BUN 11 mg/dL (9-20) 05/13/22 04:00 Creatinine 0.5 mg/dL (0.8-1.3) L 05/13/22 04:00 Estimated GFR > 60 ml/min 05/13/22 04:00 BUN/Creatinine Ratio 22 % 05/13/22 04:00 Glucose 68 mg/dL (75-100) L 05/13/22 04:00 POC Glucose 76 mg/dL (70-105) 05/10/22 08:44 Lactic Acid 0.60 mmol/L (0.7-2.0) L 05/12/22 15:15 Calcium 7.3 mg/dL (8.4-10.2) L 05/13/22 04:00 Phosphorus 2.70 mg/dL (2.5-4.5) D 05/12/22 02:52 Magnesium 2.00 mg/dL (1.7-2.3) 05/12/22 02:52 Total Bilirubin 1.10 mg/dL (0.1-1.2) 05/09/22 18:51 AST 13 units/L (5-40) 05/09/22 18:51 ALT 10 units/L (7-56) 05/09/22 18:51 Alkaline Phosphatase 98 units/L (35-129) 05/09/22 18:51 Ammonia 61.0 umol/L (25-60) H 05/09/22 18:51 Total Creatine Kinase 92 units/L (55-170) 05/09/22 18:51 Troponin T < 0.010 ng/mL (0.00-0.029) 05/09/22 18:51 C-Reactive Protein 12.90 mg/dL (0.00-1.30) H 05/09/22 18:51 NT-Pro-B Natriuret Pep 817.0 pg/mL (0-900) 05/09/22 18:51 Total Protein 7.7 g/dL (6.3-8.2) 05/09/22 18:51 Albumin 4.6 g/dL (3.9-5) 05/09/22 18:51 Albumin/Globulin Ratio 1.5 % 05/09/22 18:51 TSH 2.020 mlU/mL (0.270-4.200) 05/09/22 18:51 Urine Color Red (Yellow) 05/10/22 02:16 Urine Turbidity Cloudy (Clear) 05/10/22 02:16 Specific [place] (Man) 1.030 (1.003-1.030) 05/10/22 02:16 Ur Protein (Man) >500 mg/dL (Negative) 05/10/22 02:16 Ur Ketones (Man) 5mg/dl (Negative) 05/10/22 02:16 Urine Bilirubin (Man) Negative (Negative) 05/10/22 02:16 Urine WBC (Auto) > 182.0 /HPF (0.0-6.0) H 05/10/22 02:16 Urine RBC (Auto) > 182.0 /HPF (0.0-6.0) 05/10/22 02:16 Urine Bacteria (Auto) 1+ /HPF (Negative) 05/10/22 02:16 Urine RBC (Manual) 5+ (Negative) 05/10/22 02:16 Urine Osmolality 576 Mosm/kg 05/10/22 17:16 Urine Creatinine 61.0 mg/dL (0.1-20.0) H 05/10/22 17:16 Urine Sodium 19 mmol/L 05/10/22 17:16 Urine Urea Nitrogen 1015 05/10/22 17:16 Salicylates < 0.3 mg/dL (2.8-20.0) L 05/09/22 18:51 Urine Opiates Screen Negative 05/10/22 02:16 Urine Methadone Screen Negative 05/10/22 02:16 Acetaminophen 5.0 ug/mL (10.0-30.0) L 05/09/22 18:51 Ur Barbiturates Screen Negative 05/10/22 02:16 Ur Phencyclidine Scrn Negative 05/10/22 02:16 Ur Amphetamines Screen Negative 05/10/22 02:16 U Benzodiazepines Scrn Negative 05/10/22 02:16 Urine Cocaine Screen Negative 05/10/22 02:16 U Marijuana (THC) Screen Positive 05/10/22 02:16 Drugs of Abuse Note Disclamer 05/10/22 02:16 Plasma/Serum Alcohol < 0.01 % (0-0.07) 05/09/22 18:51 Hepatitis A IgM Ab Non-reactive (NonReactive) 05/09/22 23:00 Hep Bs Antigen Non-reactive (Negative) 05/09/22 23:00 Hep B Core IgM Ab Non-reactive (NonReactive) 05/09/22 23:00 Hepatitis C Antibody Non-reactive (NonReactive) 05/09/22 23:00 Alvarez/IV: Voiding Method Urinal Active Medications - Current Medications Current Medications: Generic Name Dose Route Start Last Admin Trade Name Freq PRN Reason Stop Dose Admin Acetaminophen 650 mg 05/10/22 00:08 Acetaminophen 325 Mg Tab PO Q6H PRN Pain MILD(1-3)/Fever >100.5/JOHNSON Arformoterol Tartrate 15 mcg 05/12/22 20:00 05/13/22 08:14 Arformoterol 15 Mcg/2 Ml Nebu IH 15 mcg Q12HRT CAITLIN Administration Budesonide 0.5 mg 05/12/22 20:00 05/13/22 08:14 Budesonide 0.5 Mg/2 Ml Nebu IH 0.5 mg Q12HRT CAITLIN Administration Docusate Sodium 100 mg 05/10/22 22:00 05/13/22 10:44 Docusate Sodium 100 Mg Cap PO Not Given BID CAITLIN Doxazosin Mesylate 1 mg 05/11/22 22:00 05/12/22 21:00 Doxazosin 1 Mg Tab PO 1 mg QHS CAITLIN Administration Folic Acid 1 mg 05/10/22 12:00 05/13/22 10:53 Folic Acid 1 Mg Tab PO 1 mg QDAY CAITLIN Administration Heparin Sodium (Porcine) 5,000 unit 05/10/22 06:00 05/13/22 05:31 Heparin 5,000 Unit/1 Ml Vial SUB-Q Not Given Q8HR CAITLIN NORepinephrine/NS 8 MG-250 ML 8 mg in 250 mls @ 3.75 mls/hr 05/10/22 02:00 05/13/22 06:36 Norepinephrine/Ns 8 Mg-250 Ml (Double Conc) IV 2 mcg/min TITRATE CAITLIN 3.75 mls/hr Titration Protocol 2 MCG/MIN Sodium Chloride 1,000 mls @ 75 mls/hr 05/12/22 14:00 05/13/22 04:17 Nacl 0.9% 1000 Ml IV 05/14/22 03:19 75 mls/hr DIRECT CAITLIN Administration Levetiracetam 750 mg 05/10/22 12:00 05/13/22 10:52 Levetiracetam 500 Mg Tab PO 750 mg BID CAITLIN Administration Magnesium Hydroxide 30 ml 05/10/22 00:08 Magnesium Hydroxide (Mom) Oral Liqd Udc PO Q4H PRN Constipation Midodrine 10 mg 05/13/22 09:00 05/13/22 11:00 Midodrine 10 Mg Tab PO 10 mg TID@0800,1200,1600 CAITLIN Administration Morphine Sulfate 2 mg 05/10/22 00:08 Morphine 2 Mg/1 Ml Inj IV Q4H PRN Pain, Moderate (4-6) Morphine Sulfate 4 mg 05/10/22 00:08 Morphine 4 Mg/1 Ml Inj IV Q4H PRN Pain , Severe (7-10) Ondansetron HCl 4 mg 05/10/22 00:08 Ondansetron 4 Mg/2 Ml Inj IV Q8H PRN Nausea And Vomiting Sodium Chloride 10 ml 05/10/22 10:00 05/13/22 10:53 Sodium Chloride 0.9% 10 Ml Flush Syringe IV 10 ml BID CAITLIN Administration Sodium Chloride 10 ml 05/10/22 00:08 Sodium Chloride 0.9% 10 Ml Flush Syringe IV PRN PRN LINE FLUSH Tamsulosin HCl 0.4 mg 05/12/22 10:00 05/13/22 10:53 Tamsulosin 0.4 Mg Cap PO 0.4 mg QDAY CAITLIN Administration Thiamine HCl 100 mg 05/10/22 12:00 05/13/22 10:53 Thiamine 100 Mg Tab PO 100 mg QDAY CAITLIN Administration Nutrition/Malnutrition Assess - Dietary Evaluation Nutrition/Malnutrition Findings: Nutrition Notes Start: 05/10/22 17:09 Freq: Status: Active Protocol: Document 05/10/22 17:09 ARNOLDO (Rec: 05/10/22 17:52 ARNOLDO [id number]) Nutrition Notes Need for Assessment generated from: Order,business systems lead,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 Current Diet Cardiac -Renal- Diet + D Suppl (since B 05/10). Labs/Tests 05/10: Na 158, K 3.1, Cl 111.5 , BUN 105, Crea 3.7, Glu 112. Pertinent Medications 05/10: Folic acid, Thiamine, others nutritionally unremarkable. Height 5 ft 10 in Weight 35.6 kg [place] Body Weight (kg) 75.45 BMI 11.2 Intake Prior to Admission Poor Weight change and time frame Pt states having loss, unintentionally, more than 34 lb body weight recently. Weight Status Underweight Subjective/Other Information RD consult for Low BMI, risk of malnutrition nutrition education and dietary supplementation assessments. No reports available on Pt's PO intake of meals at the time , will assess at F/U. I will prescribe dietary supplements to compensate for poor or insufficient PO intake of meals during LOS. Pt is on Room Air, O2 saturation @ 98%, according to Physical Assessment History notes. Pt has missing teeth, according to Physical Assessment History notes. Pt shows sudden unintentional loss of body weight and poor PO intake of meals for 2 weeks as signs of concern for risk of malnutrition at the time, according to Admission documents. Procedure on 05/10: L-CFV Dual -tunneled PICC Catheter placement, and R-IJV Triple- lumen HD non-tunneled catheter placement, well tolerated, according to Operative Report notes. Pt's Low BMI seems to correspond to a natural body composition, and exacerbated by a sudden loss of body weight and chronic malnutrition, since some signs of concern were mentioned in the Physical Assessment History and the Progress notes . Pt still in critical condition , not a candidate for Nutrition Education at the time, will assess feasibility on F/U. Percent of energy/protein needs met: Prescribed Cardiac -Renal- Diet provides for energy/ protein needs (2,230 Kcal/85 g ) during LOS; additionally, Dietary Supplements will compensate for possible poor or insufficient PO intake of meals with 1,275 Kcal and 57 g of protein. Burn Absent Trauma Absent GI Symptoms None Food Allergy No Skin Integrity/Comment Assessment WNL. Minimum of two criteria Yes Energy Intake (severe) < or equal to 50% Estimated Energy Requirement > or equal to 5 days Interpretation of Weight Loss (severe) >5% in 1 month Fluid Accumulation N/A Reduced Irrigation Flume Layer Strength N/A (non-severe) Protein-Calorie Malnutrition Severe #2 Nutrition Diagnosis Underweight Comments: Pt's Low BMI seems to correspond to a natural body composition, and exacerbated by a sudden loss of body weight and chronic malnutrition, since some signs of concern were mentioned in the Physical Assessment History and the Progress notes . Etiology Possibly associated to Adult Failure to Thrive. As Evidenced by Signs and Symptoms BMI: 11.3 Kg/m2. #1 Nutrition Diagnosis Malnutrition Etiology Possibly PATRIZIA. As Evidenced by Signs and Symptoms Pt shows sudden unintentional loss of body weight and poor PO intake of meals for 2 weeks as signs of concern for risk of malnutrition at the time, according to Admission documents. Is patient on ventilator? No Is Patient Ambulatory and/or Out of Bed No REE-([place]-confined to bed) 1317.564 Kcal/Kg value to use for calculation 58 Approximate Energy Requirements Using 2065 kcal/Kg Calculation Used for Recommendations Kcal/kg Additional Notes Protein: 1.2-1.5 g/Kg ABW; 43- 54 g/day. Fluids: 1 ml/Kcal, or as per MD. Nutrition Intervention Change Diet Order: Continue Cardiac -Renal- Diet as tolerated. Add Supplement/Snack (indicate name/kcal Start 8 fl oz Nepro w/ /protein ) CARBSTEADY; TID. Provides kCal: 1,275 Provides Protein (gm) 57 Goal #1 Compensate, through dietary supplementation, for possible poor or insufficient PO intake of meals during LOS. Goal #2 Adjust the dietary intervention to better serve Pt's needs and clinical conditions during LOS. Follow-Up By: 05/17/22 Additional Comments Continue monitoring food tolerance, %PO intake of meals , dietary supplements, and BM. <VETO OTERO - Last Filed: 05/14/22 14:26> History Interval history: I saw and evaluated the patient. Discussed with the nurse practitioner and agree with their findings and plan as documented in this note. Hospitalist Physical - Constitutional Vitals: Temp Pulse Resp BP Pulse Ox 97.8 F 76 21 95/61 100 05/14/22 12:00 05/14/22 14:00 05/14/22 14:00 05/14/22 14:00 05/14/22 14:00 HEART Score - HEART Score Troponin: Troponin T < 0.010 ng/mL (0.00-0.029) 05/09/22 18:51 Results - Labs CBC & Chem 7: 05/14/22 04:00 05/14/22 04:00 Labs: Laboratory Last Values WBC 6.6 K/mm3 (4.5-11.0) 05/14/22 04:00 RBC 3.31 M/mm3 (3.65-5.03) L 05/14/22 04:00 Hgb 9.8 gm/dl (11.8-15.2) L 05/14/22 04:00 Hct 29.2 % (35.5-45.6) L 05/14/22 04:00 MCV 88 fl (84-94) 05/14/22 04:00 MCH 30 pg (28-32) 05/14/22 04:00 MCHC 34 % (32-34) 05/14/22 04:00 RDW 14.8 % (13.2-15.2) 05/14/22 04:00 Plt Count 159 K/mm3 (140-440) 05/14/22 04:00 Lymph % (Auto) 6.4 % (13.4-35.0) L 05/11/22 04:00 [place] % (Auto) 9.6 % (0.0-7.3) H 05/11/22 04:00 Eos % (Auto) 0.0 % (0.0-4.3) 05/11/22 04:00 Baso % (Auto) 0.0 % (0.0-1.8) 05/11/22 04:00 Lymph # (Auto) 0.5 K/mm3 (1.2-5.4) L 05/11/22 04:00 [place] # (Auto) 0.7 K/mm3 (0.0-0.8) 05/11/22 04:00 Eos # (Auto) 0.0 K/mm3 (0.0-0.4) 05/11/22 04:00 Baso # (Auto) 0.0 K/mm3 (0.0-0.1) 05/11/22 04:00 Add Manual Diff Complete 05/09/22 18:51 Total Counted 100 05/09/22 18:51 Seg Neutrophils % 84.0 % (40.0-70.0) H 05/11/22 04:00 Seg Neuts % (Manual) 98.0 % (40.0-70.0) H 05/09/22 18:51 Band Neutrophils % 0 % 05/09/22 18:51 Lymphocytes % (Manual) 1.0 % (13.4-35.0) L 05/09/22 18:51 Reactive Lymphs % (Man) 0 % 05/09/22 18:51 Monocytes % (Manual) 0 % (0.0-7.3) 05/09/22 18:51 Eosinophils % (Manual) 0 % (0.0-4.3) 05/09/22 18:51 Basophils % (Manual) 0 % (0.0-1.8) 05/09/22 18:51 Metamyelocytes % 1.0 % 05/09/22 18:51 Myelocytes % 0 % 05/09/22 18:51 Promyelocytes % 0 % 05/09/22 18:51 Blast Cells % 0 % 05/09/22 18:51 Nucleated RBC % 1.0 % (0.0-0.9) H 05/09/22 18:51 Seg Neutrophils # 5.9 K/mm3 (1.8-7.7) 05/11/22 04:00 Seg Neutrophils # Man 10.6 K/mm3 (1.8-7.7) H 05/09/22 18:51 Band Neutrophils # 0.0 K/mm3 05/09/22 18:51 Lymphocytes # (Manual) 0.1 K/mm3 (1.2-5.4) L 05/09/22 18:51 Abs React Lymphs (Man) 0.0 K/mm3 05/09/22 18:51 Monocytes # (Manual) 0.0 K/mm3 (0.0-0.8) 05/09/22 18:51 Eosinophils # (Manual) 0.0 K/mm3 (0.0-0.4) 05/09/22 18:51 Basophils # (Manual) 0.0 K/mm3 (0.0-0.1) 05/09/22 18:51 Metamyelocytes # 0.1 K/mm3 05/09/22 18:51 Myelocytes # 0.0 K/mm3 05/09/22 18:51 Promyelocytes # 0.0 K/mm3 05/09/22 18:51 Blast Cells # 0.0 K/mm3 05/09/22 18:51 WBC Morphology Not Reportable 05/09/22 18:51 WBC Morphology TNR 05/09/22 18:51 Hypersegmented Neuts Not Reportable 05/09/22 18:51 Hyposegmented Neuts Not Reportable 05/09/22 18:51 Hypogranular Neuts Not Reportable 05/09/22 18:51 Smudge Cells Not Reportable 05/09/22 18:51 Toxic Granulation Not Reportable 05/09/22 18:51 Toxic Vacuolation Not Reportable 05/09/22 18:51 Dohle Bodies Not Reportable 05/09/22 18:51 Pelger-Huet Anomaly Not Reportable 05/09/22 18:51 Paola Rods Not Reportable 05/09/22 18:51 Platelet Estimate Consistent w auto 05/09/22 18:51 Clumped Platelets Not Reportable 05/09/22 18:51 Plt Clumps, EDTA Not Reportable 05/09/22 18:51 Large Platelets Not Reportable 05/09/22 18:51 Giant Platelets Not Reportable 05/09/22 18:51 Platelet Satelliting Not Reportable 05/09/22 18:51 Plt Morphology Comment Not Reportable 05/09/22 18:51 RBC Morphology Not Reportable 05/09/22 18:51 Dimorphic RBCs Not Reportable 05/09/22 18:51 Polychromasia Not Reportable 05/09/22 18:51 Hypochromasia Not Reportable 05/09/22 18:51 Poikilocytosis Not Reportable 05/09/22 18:51 Anisocytosis Not Reportable 05/09/22 18:51 Microcytosis Not Reportable 05/09/22 18:51 Macrocytosis Not Reportable 05/09/22 18:51 Spherocytes Not Reportable 05/09/22 18:51 Pappenheimer Bodies Not Reportable 05/09/22 18:51 Sickle Cells Not Reportable 05/09/22 18:51 Target Cells Few 05/09/22 18:51 Tear Drop Cells Few 05/09/22 18:51 Ovalocytes Not Reportable 05/09/22 18:51 Helmet Cells Not Reportable 05/09/22 18:51 [place] Bodies Not Reportable 05/09/22 18:51 [place] Rings Not Reportable 05/09/22 18:51 Franco Cells Not Reportable 05/09/22 18:51 Bite Cells Not Reportable 05/09/22 18:51 Crenated Cell Not Reportable 05/09/22 18:51 Elliptocytes Not Reportable 05/09/22 18:51 Acanthocytes (Spur) Not Reportable 05/09/22 18:51 Rouleaux Not Reportable 05/09/22 18:51 Hemoglobin C Crystals Not Reportable 05/09/22 18:51 Schistocytes Not Reportable 05/09/22 18:51 Malaria parasites Not Reportable 05/09/22 18:51 Percent Retic 0.53 % (0.78-2.58) L 05/13/22 11:49 Jamal Bodies Not Reportable 05/09/22 18:51 Hem Pathologist Commnt No 05/09/22 18:51 PT 14.0 Sec. (12.2-14.9) 05/09/22 18:51 INR 0.97 (0.87-1.13) 05/09/22 18:51 Sodium 143 mmol/L (137-145) 05/14/22 04:00 Potassium 3.2 mmol/L (3.6-5.0) L 05/14/22 04:00 Chloride 107.4 mmol/L (98-107) H 05/14/22 04:00 Carbon Dioxide 27 mmol/L (22-30) 05/14/22 04:00 Anion Gap 12 mmol/L 05/14/22 04:00 BUN 10 mg/dL (9-20) 05/14/22 04:00 Creatinine 0.4 mg/dL (0.8-1.3) L 05/14/22 04:00 Estimated GFR > 60 ml/min 05/14/22 04:00 BUN/Creatinine Ratio 25 % 05/14/22 04:00 Glucose 98 mg/dL (75-100) 05/14/22 04:00 POC Glucose 95 mg/dL (70-105) 05/13/22 18:18 Lactic Acid 0.60 mmol/L (0.7-2.0) L 05/12/22 15:15 Calcium 7.2 mg/dL (8.4-10.2) L 05/14/22 04:00 Phosphorus 2.70 mg/dL (2.5-4.5) D 05/12/22 02:52 Magnesium 2.00 mg/dL (1.7-2.3) 05/14/22 08:24 Iron 33 ug/dL (49-181) L 05/13/22 11:49 TIBC 126 mcg/dL (250-450) L 05/13/22 11:49 Ferritin 628.3 ng/mL (30.0-300.0) H 05/13/22 11:49 Total Bilirubin 1.10 mg/dL (0.1-1.2) 05/09/22 18:51 AST 13 units/L (5-40) 05/09/22 18:51 ALT 10 units/L (7-56) 05/09/22 18:51 Alkaline Phosphatase 98 units/L (35-129) 05/09/22 18:51 Ammonia 61.0 umol/L (25-60) H 05/09/22 18:51 Lactate Dehydrogenase 238 units/L (91-180) H 05/13/22 11:49 Total Creatine Kinase 92 units/L (55-170) 05/09/22 18:51 Troponin T < 0.010 ng/mL (0.00-0.029) 05/09/22 18:51 C-Reactive Protein 12.90 mg/dL (0.00-1.30) H 05/09/22 18:51 NT-Pro-B Natriuret Pep 817.0 pg/mL (0-900) 05/09/22 18:51 Total Protein 7.7 g/dL (6.3-8.2) 05/09/22 18:51 Albumin 4.6 g/dL (3.9-5) 05/09/22 18:51 Albumin/Globulin Ratio 1.5 % 05/09/22 18:51 TSH 2.020 mlU/mL (0.270-4.200) 05/09/22 18:51 Urine Color Red (Yellow) 05/10/22 02:16 Urine Turbidity Cloudy (Clear) 05/10/22 02:16 Specific [place] (Man) 1.030 (1.003-1.030) 05/10/22 02:16 Ur Protein (Man) >500 mg/dL (Negative) 05/10/22 02:16 Ur Ketones (Man) 5mg/dl (Negative) 05/10/22 02:16 Urine Bilirubin (Man) Negative (Negative) 05/10/22 02:16 Urine WBC (Auto) > 182.0 /HPF (0.0-6.0) H 05/10/22 02:16 Urine RBC (Auto) > 182.0 /HPF (0.0-6.0) 05/10/22 02:16 Urine Bacteria (Auto) 1+ /HPF (Negative) 05/10/22 02:16 Urine RBC (Manual) 5+ (Negative) 05/10/22 02:16 Urine Osmolality 576 Mosm/kg 05/10/22 17:16 Urine Creatinine 61.0 mg/dL (0.1-20.0) H 05/10/22 17:16 Urine Sodium 19 mmol/L 05/10/22 17:16 Urine Urea Nitrogen 1015 05/10/22 17:16 Salicylates < 0.3 mg/dL (2.8-20.0) L 05/09/22 18:51 Urine Opiates Screen Negative 05/10/22 02:16 Urine Methadone Screen Negative 05/10/22 02:16 Acetaminophen 5.0 ug/mL (10.0-30.0) L 05/09/22 18:51 Ur Barbiturates Screen Negative 05/10/22 02:16 Ur Phencyclidine Scrn Negative 05/10/22 02:16 Ur Amphetamines Screen Negative 05/10/22 02:16 U Benzodiazepines Scrn Negative 05/10/22 02:16 Urine Cocaine Screen Negative 05/10/22 02:16 U Marijuana (THC) Screen Positive 05/10/22 02:16 Drugs of Abuse Note Disclamer 05/10/22 02:16 Plasma/Serum Alcohol < 0.01 % (0-0.07) 05/09/22 18:51 Hepatitis A IgM Ab Non-reactive (NonReactive) 05/09/22 23:00 Hep Bs Antigen Non-reactive (Negative) 05/09/22 23:00 Hep B Core IgM Ab Non-reactive (NonReactive) 05/09/22 23:00 Hepatitis C Antibody Non-reactive (NonReactive) 05/09/22 23:00 Alvarez/IV: Voiding Method Urinal Active Medications - Current Medications Current Medications: Generic Name Dose Route Start Last Admin Trade Name Freq PRN Reason Stop Dose Admin Acetaminophen 650 mg 05/10/22 00:08 Acetaminophen 325 Mg Tab PO Q6H PRN Pain MILD(1-3)/Fever >100.5/JOHNSON Arformoterol Tartrate 15 mcg 05/12/22 20:00 05/14/22 08:59 Arformoterol 15 Mcg/2 Ml Nebu IH 15 mcg Q12HRT CAITLIN Administration Ascorbic Acid 250 mg 05/14/22 10:00 05/14/22 10:21 Ascorbic Acid 250 Mg Tab FEEDTUBE 250 mg QDAY CAITLIN Administration Budesonide 0.5 mg 05/12/22 20:00 05/14/22 08:59 Budesonide 0.5 Mg/2 Ml Nebu IH 0.5 mg Q12HRT CAITLIN Administration Docusate Sodium 100 mg 05/10/22 22:00 05/13/22 21:03 Docusate Sodium 100 Mg Cap PO Not Given BID CAITLIN Doxazosin Mesylate 1 mg 05/11/22 22:00 05/13/22 21:03 Doxazosin 1 Mg Tab PO Not Given QHS CAITLIN Ferrous Sulfate 300 mg 05/14/22 10:00 05/14/22 10:21 Ferrous Sulfate 300 Mg (60mg Elemental Iron) / 5 Ml Oral Liqd PO 300 mg QDAY CAITLIN Administration Folic Acid 1 mg 05/10/22 12:00 05/14/22 10:22 Folic Acid 1 Mg Tab PO 1 mg QDAY CAITLIN Administration Heparin Sodium (Porcine) 5,000 unit 05/10/22 06:00 05/14/22 13:53 Heparin 5,000 Unit/1 Ml Vial SUB-Q 5,000 unit Q8HR CAITLIN Administration NORepinephrine/NS 8 MG-250 ML 8 mg in 250 mls @ 3.75 mls/hr 05/10/22 02:00 05/14/22 13:49 Norepinephrine/Ns 8 Mg-250 Ml (Double Conc) IV 2 mcg/min TITRATE CAITLIN 3.75 mls/hr Titration Protocol 2 MCG/MIN Levetiracetam 750 mg 05/10/22 12:00 05/14/22 10:21 Levetiracetam 500 Mg Tab PO 750 mg BID CAITLIN Administration Magnesium Hydroxide 30 ml 05/10/22 00:08 Magnesium Hydroxide (Mom) Oral Liqd Udc PO Q4H PRN Constipation Midodrine 10 mg 05/13/22 09:00 05/14/22 12:07 Midodrine 10 Mg Tab PO 10 mg TID@0800,1200,1600 CAITLIN Administration Morphine Sulfate 2 mg 05/10/22 00:08 Morphine 2 Mg/1 Ml Inj IV Q4H PRN Pain, Moderate (4-6) Morphine Sulfate 4 mg 05/10/22 00:08 Morphine 4 Mg/1 Ml Inj IV Q4H PRN Pain , Severe (7-10) Ondansetron HCl 4 mg 05/10/22 00:08 Ondansetron 4 Mg/2 Ml Inj IV Q8H PRN Nausea And Vomiting Sodium Chloride 10 ml 05/10/22 10:00 05/14/22 10:22 Sodium Chloride 0.9% 10 Ml Flush Syringe IV 10 ml BID CAITLIN Administration Sodium Chloride 10 ml 05/10/22 00:08 Sodium Chloride 0.9% 10 Ml Flush Syringe IV PRN PRN LINE FLUSH Tamsulosin HCl 0.4 mg 05/12/22 10:00 05/14/22 10:22 Tamsulosin 0.4 Mg Cap PO 0.4 mg QDAY CAITLIN Administration Thiamine HCl 100 mg 05/10/22 12:00 05/14/22 10:22 Thiamine 100 Mg Tab PO 100 mg QDAY CAITLIN Administration Nutrition/Malnutrition Assess - Dietary Evaluation Nutrition/Malnutrition Findings: Nutrition Notes Start: 05/10/22 17:09 Freq: Status: Active Protocol: Document 05/10/22 17:09 ARNOLDO (Rec: 05/10/22 17:52 ARNOLDO [id number]) Nutrition Notes Need for Assessment generated from: MD Order,business systems lead,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 Current Diet Cardiac -Renal- Diet + D Suppl (since B 05/10). Labs/Tests 05/10: Na 158, K 3.1, Cl 111.5 , BUN 105, Crea 3.7, Glu 112. Pertinent Medications 05/10: Folic acid, Thiamine, others nutritionally unremarkable. Height 5 ft 10 in Weight 35.6 kg [place] Body Weight (kg) 75.45 BMI 11.2 Intake Prior to Admission Poor Weight change and time frame Pt states having loss, unintentionally, more than 34 lb body weight recently. Weight Status Underweight Subjective/Other Information RD consult for Low BMI, risk of malnutrition nutrition education and dietary supplementation assessments. No reports available on Pt's PO intake of meals at the time , will assess at F/U. I will prescribe dietary supplements to compensate for poor or insufficient PO intake of meals during LOS. Pt is on Room Air, O2 saturation @ 98%, according to Physical Assessment History notes. Pt has missing teeth, according to Physical Assessment History notes. Pt shows sudden unintentional loss of body weight and poor PO intake of meals for 2 weeks as signs of concern for risk of malnutrition at the time, according to Admission documents. Procedure on 05/10: L-CFV Dual -tunneled PICC Catheter placement, and R-IJV Triple- lumen HD non-tunneled catheter placement, well tolerated, according to Operative Report notes. Pt's Low BMI seems to correspond to a natural body composition, and exacerbated by a sudden loss of body weight and chronic malnutrition, since some signs of concern were mentioned in the Physical Assessment History and the Progress notes . Pt still in critical condition , not a candidate for Nutrition Education at the time, will assess feasibility on F/U. Percent of energy/protein needs met: Prescribed Cardiac -Renal- Diet provides for energy/ protein needs (2,230 Kcal/85 g ) during LOS; additionally, Dietary Supplements will compensate for possible poor or insufficient PO intake of meals with 1,275 Kcal and 57 g of protein. Burn Absent Trauma Absent GI Symptoms None Food Allergy No Skin Integrity/Comment Assessment WNL. Minimum of two criteria Yes Energy Intake (severe) < or equal to 50% Estimated Energy Requirement > or equal to 5 days Interpretation of Weight Loss (severe) >5% in 1 month Fluid Accumulation N/A Reduced Irrigation Flume Layer Strength N/A (non-severe) Protein-Calorie Malnutrition Severe #2 Nutrition Diagnosis Underweight Comments: Pt's Low BMI seems to correspond to a natural body composition, and exacerbated by a sudden loss of body weight and chronic malnutrition, since some signs of concern were mentioned in the Physical Assessment History and the Progress notes . Etiology Possibly associated to Adult Failure to Thrive. As Evidenced by Signs and Symptoms BMI: 11.3 Kg/m2. #1 Nutrition Diagnosis Malnutrition Etiology Possibly PATRIZIA. As Evidenced by Signs and Symptoms Pt shows sudden unintentional loss of body weight and poor PO intake of meals for 2 weeks as signs of concern for risk of malnutrition at the time, according to Admission documents. Is patient on ventilator? No Is Patient Ambulatory and/or Out of Bed No REE-([place]-confined to bed) [phone] Kcal/Kg value to use for calculation 58 Approximate Energy Requirements Using 5 kcal/Kg Calculation Used for Recommendations Kcal/kg Additional Notes Protein: 1.2-1.5 g/Kg ABW; 43- 54 g/day. Fluids: 1 ml/Kcal, or as per MD. Nutrition Intervention Change Diet Order: Continue Cardiac -Renal- Diet as tolerated. Add Supplement/Snack (indicate name/kcal Start 8 fl oz Nepro w/ /protein ) CARBSTEADY; TID. Provides kCal: 1,275 Provides Protein (gm) 57 Goal #1 Compensate, through dietary supplementation, for possible poor or insufficient PO intake of meals during LOS. Goal #2 Adjust the dietary intervention to better serve Pt's needs and clinical conditions during LOS. Follow-Up By: 05/17/22 Additional Comments Continue monitoring food tolerance, %PO intake of meals , dietary supplements, and BM.
[2022-05-13 13:54] LABS: Iron 33 ug/dL (49-181); Total Iron Binding Capacity 126 mcg/dL (250-450)
[2022-05-13] MEDS ORDERED: MAGNESIUM SULFATE 4 GM/100 ML BAG IV ONE (14:00)
--- NOTE | 2022-05-13 14:05 | Progress Note ---
Assessment and Plan PATRIZIA-resolved Severe Hyperkalemia-resolved Lung Mass (RUL) Tobacco Abuse (10+ pk year) Severe protein calorie malnutrition Dehydration H/O Seizures COPD HTN H/O Drug Abuse - CT guided biopsy of liver lesion pending - wean Levophed for target MAP > 65 mmHg, was started on Midodrine -replete potassium, nutrition support - continue accuchecks with glycemic control per SSI (While critically ill target blood glucose of 140-180 mg/dL; avoid hypoglycemia) - continue to titrate supplemental oxygen to keep SpO2 90-92% - aspiration precautions - bronchodilators with pulmonary hygiene per RT (LABA & prn JOHANA) - continue inhaled corticosteroids re: COPD - avoid nephrotoxins, renally dose all medications - avoid benzodiazepine's, reduce the possibility of delirium - prn analgesia per pain score - Maintenance of sleep-wake cycle, avoid delirium - VTE prophylaxis - PT/OT/ROM exercises - mobility protocols for pressure ulcer prophylaxis - Monitor hemodynamics closely - continue other care per attending / other consultants - discharge planning ongoing concurrently The patient appears to have metastatic lung disease. Await CT guided biopsy of liver lesions CONDITION: CRITICAL PROGNOSIS: GUARDED CODE STATUS: FULL CODE The high probability of a clinically significant, sudden or life-threatening deterioration of the [renal, respiratory, cardiovascular] system(s) required my full and direct attention, intervention and personal management. The aggregate critical care time was [33] minutes without overlap. Time includes spent on; [x] Data Review and interpretation [x] Patient assessment and monitoring of vital signs [x] Documentation [x] Medication orders and management Subjective Date of service: 05/13/22 Principal diagnosis: PATRIZIA; Hyperkalemia; Lung Mass; Tobacco Abuse; Seizures; COPD; HTN Interval history: Patient is seen today for: PATRIZIA; Severe Hyperkalemia; Lung Mass (RUL); Tobacco Abuse; H/O Seizures; COPD; HTN; H/O Drug Abuse Seen and examined at bedside; 24hour events reviewed; nursing and respiratory care staff consulted; no adverse overnight events reported to me; resting peacefully in bed; CT abd/pelvis reveals liver lesions; no N/V/F/C; on Levophed for hypotension at 2mcg Patient had urinary retention and Alvarez catheter was replaced overnight. CT head shows no findings to suggest intracranial metastatic disease Objective Vital Signs - 12hr 05/13/22 05/13/22 05/13/22 02:30 03:00 03:30 Temperature Pulse Rate 97 H 89 86 Pulse Rate [ Bilateral Throughout] Pulse Rate [ From Monitor] Respiratory 20 17 17 Rate Respiratory Rate [Bilateral Throughout] Blood Pressure 93/59 101/62 104/62 O2 Sat by Pulse 100 99 100 Oximetry 05/13/22 05/13/22 05/13/22 04:00 04:30 05:00 Temperature 98 F Pulse Rate 95 H 91 H 88 Pulse Rate [ Bilateral Throughout] Pulse Rate [ 92 H From Monitor] Respiratory 21 19 14 Rate Respiratory Rate [Bilateral Throughout] Blood Pressure 81/36 104/59 107/65 O2 Sat by Pulse 100 100 98 Oximetry 05/13/22 05/13/22 05/13/22 05:30 06:00 06:30 Temperature Pulse Rate 100 H 100 H 98 H Pulse Rate [ Bilateral Throughout] Pulse Rate [ From Monitor] Respiratory 16 20 19 Rate Respiratory Rate [Bilateral Throughout] Blood Pressure 89/47 79/42 84/42 O2 Sat by Pulse 99 100 100 Oximetry 05/13/22 05/13/22 05/13/22 07:00 07:31 08:00 Temperature 98.2 F Pulse Rate 88 93 H Pulse Rate [ Bilateral Throughout] Pulse Rate [ 88 From Monitor] Respiratory 17 17 Rate Respiratory Rate [Bilateral Throughout] Blood Pressure 101/62 113/62 109/54 O2 Sat by Pulse 99 100 100 Oximetry 05/13/22 05/13/22 05/13/22 08:15 08:30 09:00 Temperature Pulse Rate 84 98 H Pulse Rate [ 88 Bilateral Throughout] Pulse Rate [ From Monitor] Respiratory 15 20 Rate Respiratory 16 Rate [Bilateral Throughout] Blood Pressure 108/69 102/58 O2 Sat by Pulse 100 100 Oximetry 05/13/22 05/13/22 09:30 10:01 Temperature Pulse Rate 93 H 85 Pulse Rate [ Bilateral Throughout] Pulse Rate [ From Monitor] Respiratory 18 18 Rate Respiratory Rate [Bilateral Throughout] Blood Pressure 98/53 109/76 O2 Sat by Pulse 100 100 Oximetry Constitutional: no acute distress, alert, other (elderly cachectic male ) Eyes: non-icteric ENT: oropharynx moist Neck: supple, no lymphadenopathy, no JVD Effort: normal Ascultation: Bilateral: clear, diminished breath sounds Cardiovascular: regular rate and rhythm, other (S1,S2) Gastrointestinal: normoactive bowel sounds, soft, non-tender, non-distended Integumentary: other (poor turgor) Extremities: no cyanosis, no edema, pulses normal, no ischemia or petechiae Neurologic: non-focal exam, pupils equal and round, CN II-XII normal, motor strength normal and Psychiatric: mood appropriate, affect normal CBC and BMP: 05/14/22 04:00 05/14/22 04:00 ABG, PT/INR, D-dimer: PT/INR, D-dimer PT 14.0 Sec. (12.2-14.9) 05/09/22 18:51 INR 0.97 (0.87-1.13) 05/09/22 18:51 Abnormal lab findings: Abnormal Labs 05/09/22 05/09/22 05/09/22 18:51 18:51 18:51 RBC 5.65 H Hgb 16.6 H Hct 48.9 H MCHC RDW 15.4 H Plt Count Lymph % (Auto) [place] % (Auto) Lymph # (Auto) Seg Neutrophils % Seg Neuts % (Manual) 98.0 H Lymphocytes % (Manual) 1.0 L Nucleated RBC % 1.0 H Seg Neutrophils # Man 10.6 H Lymphocytes # (Manual) 0.1 L Percent Retic Sodium 133 L Potassium 8.0 H* Chloride 89.9 L Carbon Dioxide 11 L BUN 225 H Creatinine 15.7 H Glucose 122 H Lactic Acid Calcium Phosphorus Magnesium Iron TIBC Ferritin Ammonia 61.0 H Lactate Dehydrogenase C-Reactive Protein 12.90 H Urine WBC (Auto) Urine Creatinine Salicylates Acetaminophen 05/09/22 05/09/22 05/10/22 18:51 18:51 02:16 RBC Hgb Hct MCHC RDW Plt Count Lymph % (Auto) [place] % (Auto) Lymph # (Auto) Seg Neutrophils % Seg Neuts % (Manual) Lymphocytes % (Manual) Nucleated RBC % Seg Neutrophils # Man Lymphocytes # (Manual) Percent Retic Sodium Potassium Chloride Carbon Dioxide BUN Creatinine Glucose Lactic Acid Calcium Phosphorus Magnesium Iron TIBC Ferritin Ammonia Lactate Dehydrogenase C-Reactive Protein Urine WBC (Auto) > 182.0 H Urine Creatinine Salicylates < 0.3 L Acetaminophen 5.0 L 05/10/22 05/10/22 05/10/22 04:18 11:30 17:16 RBC Hgb Hct MCHC RDW Plt Count Lymph % (Auto) [place] % (Auto) Lymph # (Auto) Seg Neutrophils % Seg Neuts % (Manual) Lymphocytes % (Manual) Nucleated RBC % Seg Neutrophils # Man Lymphocytes # (Manual) Percent Retic Sodium 146 H D 158 H D Potassium 6.3 H* D 3.1 L D Chloride 111.5 H Carbon Dioxide 18 L D BUN 162 H 105 H Creatinine 9.1 H 3.7 H D Glucose 112 H Lactic Acid Calcium Phosphorus Magnesium Iron TIBC Ferritin Ammonia Lactate Dehydrogenase C-Reactive Protein Urine WBC (Auto) Urine Creatinine 61.0 H Salicylates Acetaminophen 05/11/22 05/11/22 05/11/22 04:00 04:00 04:00 RBC 3.53 L Hgb 10.5 L D Hct 30.0 L D MCHC 35 H RDW Plt Count 118 L Lymph % (Auto) 6.4 L [place] % (Auto) 9.6 H Lymph # (Auto) 0.5 L Seg Neutrophils % 84.0 H Seg Neuts % (Manual) Lymphocytes % (Manual) Nucleated RBC % Seg Neutrophils # Man Lymphocytes # (Manual) Percent Retic Sodium 149 H D Potassium 2.3 L* D Chloride Carbon Dioxide 36 H D BUN 41 H Creatinine Glucose 117 H Lactic Acid Calcium 7.5 L Phosphorus Magnesium 1.60 L Iron TIBC Ferritin Ammonia Lactate Dehydrogenase C-Reactive Protein Urine WBC (Auto) Urine Creatinine Salicylates Acetaminophen 05/11/22 05/11/22 05/12/22 04:00 15:30 02:52 RBC Hgb Hct MCHC RDW Plt Count Lymph % (Auto) [place] % (Auto) Lymph # (Auto) Seg Neutrophils % Seg Neuts % (Manual) Lymphocytes % (Manual) Nucleated RBC % Seg Neutrophils # Man Lymphocytes # (Manual) Percent Retic Sodium Potassium 2.3 L* Chloride Carbon Dioxide 32 H BUN 27 H Creatinine 0.6 L 0.4 L Glucose Lactic Acid Calcium 7.7 L 6.9 L Phosphorus 1.70 L 1.00 L D Magnesium Iron TIBC Ferritin Ammonia Lactate Dehydrogenase C-Reactive Protein Urine WBC (Auto) Urine Creatinine Salicylates Acetaminophen 05/12/22 05/13/22 05/13/22 15:15 04:00 04:00 RBC 3.13 L Hgb 9.3 L Hct 27.6 L MCHC RDW Plt Count 121 L Lymph % (Auto) [place] % (Auto) Lymph # (Auto) Seg Neutrophils % Seg Neuts % (Manual) Lymphocytes % (Manual) Nucleated RBC % Seg Neutrophils # Man Lymphocytes # (Manual) Percent Retic Sodium Potassium 3.1 L Chloride Carbon Dioxide BUN Creatinine 0.5 L Glucose 68 L Lactic Acid 0.60 L Calcium 7.3 L Phosphorus Magnesium Iron TIBC Ferritin Ammonia Lactate Dehydrogenase C-Reactive Protein Urine WBC (Auto) Urine Creatinine Salicylates Acetaminophen 05/13/22 05/13/22 05/13/22 11:49 11:49 11:49 RBC Hgb Hct MCHC RDW Plt Count Lymph % (Auto) [place] % (Auto) Lymph # (Auto) Seg Neutrophils % Seg Neuts % (Manual) Lymphocytes % (Manual) Nucleated RBC % Seg Neutrophils # Man Lymphocytes # (Manual) Percent Retic 0.53 L Sodium Potassium Chloride Carbon Dioxide BUN Creatinine Glucose Lactic Acid Calcium Phosphorus Magnesium 1.40 L Iron TIBC Ferritin Ammonia Lactate Dehydrogenase 238 H C-Reactive Protein Urine WBC (Auto) Urine Creatinine Salicylates Acetaminophen 05/13/22 05/13/22 11:49 11:49 RBC Hgb Hct MCHC RDW Plt Count Lymph % (Auto) [place] % (Auto) Lymph # (Auto) Seg Neutrophils % Seg Neuts % (Manual) Lymphocytes % (Manual) Nucleated RBC % Seg Neutrophils # Man Lymphocytes # (Manual) Percent Retic Sodium Potassium Chloride Carbon Dioxide BUN Creatinine Glucose Lactic Acid Calcium Phosphorus Magnesium Iron 33 L TIBC 126 L Ferritin 628.3 H Ammonia Lactate Dehydrogenase C-Reactive Protein Urine WBC (Auto) Urine Creatinine Salicylates Acetaminophen Allied health notes reviewed: nursing
[2022-05-13] MEDS: DOXAZOSIN 1 MG TAB PO SCH (21:03)
[2022-05-14 04:43] LABS: Hematocrit 29.2 % (35.5-45.6); Hemoglobin 9.8 gm/dl (11.8-15.2); Mean Corpuscular HGB Conc 34 % (32-34); Mean Corpuscular Volume 88 fl (84-94); Platelet Count 159 K/mm3 (140-440); Red Blood Count 3.31 M/mm3 (3.65-5.03); Red Cell Distribution Width 14.8 % (13.2-15.2)
[2022-05-14 04:56] LABS: Blood Urea Nitrogen 10 mg/dL (9-20); Calcium 7.2 mg/dL (8.4-10.2); Hemolysis Index 1
[2022-05-14 04:59] LABS: BUN/Creatinine Ratio 25
[2022-05-14] MEDS: POTASSIUM CHLORIDE 20 MEQ 20 MEQ/100 ML BAG IV SCH ×2 (05:22→06:15)
[2022-05-14] MEDS: HEPARIN 5,000 UNIT/1 ML VIAL SUB-Q SCH ×3 (05:24→21:01)
[2022-05-14] MEDS: MIDODRINE 10 MG TAB PO SCH ×3 (08:35→17:27)
[2022-05-14] MEDS: ARFORMOTEROL 15 MCG/2 ML NEBU IH SCH ×2 (08:59→21:20)
[2022-05-14] MEDS: BUDESONIDE 0.5 MG/2 ML NEBU IH SCH ×2 (08:59→21:19)
[2022-05-14] MEDS ORDERED: SODIUM CHLORIDE 0.9% 500 ML 500 ML IV ONE (09:00)
[2022-05-14] MEDS: FERROUS SULFATE 300 MG (60MG Elemental Iron) / 5 mL ORAL LIQD PO SCH (10:21)
[2022-05-14] MEDS: ASCORBIC ACID 250 MG TAB FEEDTUBE SCH (10:21)
[2022-05-14] MEDS: levETIRAcetam 500 MG TAB PO SCH ×2 (10:21→21:01)
[2022-05-14] MEDS: THIAMINE 100 MG TAB PO SCH (10:22)
[2022-05-14] MEDS: FOLIC ACID 1 MG TAB PO SCH (10:22)
[2022-05-14] MEDS: TAMSULOSIN 0.4 MG CAP PO SCH (10:22)
--- NOTE | 2022-05-14 15:56 | Progress Note ---
Assessment and Plan Assessment and plan: Assessment and Plan: This is a 76-year-old female with seizure disorder, HTN, nicotine and drug abuse admitted with acute kidney injury Neuro: H/O seizure disorder, marijuana use -Continue home Keppra -Reorientation as needed -Maintain sleep-wake cycle -aspiration/seizure precautions -As needed analgesia -Folic acid, thiamine -CT head shows no evidence of metastatic disease, recommend MRI with and without contrast Cardiac: H/O HTN -Blood pressure monitoring per protocol -Hold home hydralazine -Overnight patient was started on Levophed but has been on and off -s/p MIVF, bolus prn -Midodrine p.o. Respiratory: Acute hypoxic respiratory failure (poa, resolved), right lung nodule, current nicotine abuse -CCM consulted, appreciate recommendations -Pulmonary hygiene -SPO2 monitor per protocol -Supplemental oxygen tested and -Nicotine abuse cessation counseling provided -CT chest shows multiple osseous metastatic lesion, right upper lobe nodule, neoplasm not excluded, hemodialysis catheter terminates within the superior vena cava currently at the cavoatrial junction -CT abdomen/pelvis with oral and IV contrast shows hypodense lesions in the dome of the right hepatic lobe, cecum and appendix lie within the right inguinal hernia, small amount of ascites present within the pelvis, lower periaortic lymph nodes increase in size, right pelvic sidewall lymph nodes increased in size which shows central low-attenuation suggesting possible necrosis, prostate is borderline in size and minimally enlarged, multiple osseous metastatic lesions. GI: ? Liver mets -PPI -Cardiac renal diet -BR: Colace -CT guided liver biopsy will not be performed d/t size of mass : Acute kidney injury likely postobstructive, dehydration, Hypokalemia, urinary retention -Nephrology consulted, appreciate recommendations -S/p Vas-Cath placement for emergent hemodialysis however Vas-Cath was not functional -Vascular surgery consulted for PermCath placement -Monitor intake and output -Renally dose medications -Avoid nephrotoxic medications -FeNa 0.7% -s/p MIVF -Flomax and doxazosin -Alvarez catheter replaced on 05/13 for retention -Replete potassium -Trend BMP ID: NAD -Monitor WBC and temperature curve Endo: NAD -Avoid hypoglycemia Heme: NAD -Trend CBC -Transfuse hemoglobin less than 7 -SCDs to BLE while in bed The high probability of a clinically significant, sudden or life threatening deterioration of the [multi] system(s) required my full and direct attention, intervention and personal management. The aggregate critical care time was [60] minutes. This time is in addition to time spent performing reported procedures but includes the following: [x] Data Review and interpretation [x] Patient assessment and monitoring of vital signs [x] Documentation [x] Medication orders and management Disposition Plan: icu Total Time Spent with Patient (Minutes): 60 History Interval history: This is 76-year-old male with seizure disorder, HTN, smoker and drug abuse presents to the emergency department on 05/09 via EMS for evaluation of generalized weakness and decreased oral intake. According to the family patient had decreased oral intake for the past 1 to 2 weeks and has generalized weakness. Work-up in the emergency department revealed hyponatremia at 133, hyperkalemia at 8, elevated BUN and creatinine at 225/15.7 and CXR revealed mild pulmonary vascular congestion. ECG also showed peaked T waves. Nephrology was consulted in the emergency department and a Vas-Cath was placed by [facility] for hemodialysis. Patient was also medically treated with insulin, glucose, calcium gluconate and Kayexalate for hyperkalemia. Patient was admitted to the hospitalist service with consults to nephrology, [facility] and vascular surgery for acute kidney injury requiring urgent dialysis. Hospital course to date: 05/10: Yesterday patient had a Vas-Cath placed by [facility] however this is no nfunctional at this time. Vascular surgery was consulted for placement of Vas- Cath. No acute events reported overnight. Patient suddenly became nonverbal however did follow commands, tracks/focus and pupils were round and reactive. Glucose check which was within normal limits. After approximately half an hour patient became verbal again. This afternoon patient is alert and oriented and interactive. 05/11: Hypernatremia slowly improving, noted to have hypokalemia, hypomagnesemia and hypophosphatemia. Potassium repleted with IV and p.o., bicarbonate drip discontinued. Started on Flomax and [facility] would like to add doxazosin. Patient started on half-normal saline and [facility] would like to obtain CT abdomen/pelvis with contrast. Updated niece at bedside. Free water flush 350 every 8 p.o. 05/12: Patient to be started on Levophed for hypotension and will be on IV fluids per [facility]. Hematology/oncology consulted and CT head was ordered. CT biopsy of the liver was also ordered. From a PICC line removed today as well as Alvarez catheter. 05/13: Overnight patient was started on Levophed, remains on MIVF. Started on midodrine. Patient had urinary retention and Alvarez catheter was replaced. CT head shows no findings to suggest intracranial metastatic disease and recommended MRI with and without contrast for evaluation. Patient has been titrated off Levophed. 05/14: Patient was restarted on Levophed overnight and has been on and off throughout the day. Given bolus of 500 mL. Hyper kalemia repleted. Magnesium within normal limits. Hospitalist Physical - Constitutional Vitals: Temp Pulse Resp BP Pulse Ox 97.8 F 84 19 111/62 99 05/14/22 12:00 05/14/22 15:00 05/14/22 15:00 05/14/22 15:00 05/14/22 15:00 General appearance: Present: no acute distress, well-nourished - EENT Eyes: Present: PERRL, EOM intact ENT: hearing intact, clear oral mucosa, dentition normal - Neck Neck: Present: normal ROM - Respiratory Respiratory effort: normal Respiratory: bilateral: CTA - Cardiovascular Rhythm: regular Heart Sounds: Present: S1 & S2. Absent: systolic murmur, diastolic murmur - Extremities Extremities: no ischemia, pulses intact, pulses symmetrical, No edema, normal temperature, normal color, Full ROM Peripheral Pulses: within normal limits - Abdominal General gastrointestinal: soft, non-tender, normal bowel sounds - Integumentary Integumentary: Present: warm, dry - Psychiatric Psychiatric: cooperative - Neurologic Neurologic: moves all extremities - Allied Health Allied health notes reviewed: nursing, RT, social work HEART Score - HEART Score Troponin: Troponin T < 0.010 ng/mL (0.00-0.029) 05/09/22 18:51 Results - Labs CBC & Chem 7: 05/14/22 04:00 05/14/22 04:00 Labs: Laboratory Last Values WBC 6.6 K/mm3 (4.5-11.0) 05/14/22 04:00 RBC 3.31 M/mm3 (3.65-5.03) L 05/14/22 04:00 Hgb 9.8 gm/dl (11.8-15.2) L 05/14/22 04:00 Hct 29.2 % (35.5-45.6) L 05/14/22 04:00 MCV 88 fl (84-94) 05/14/22 04:00 MCH 30 pg (28-32) 05/14/22 04:00 MCHC 34 % (32-34) 05/14/22 04:00 RDW 14.8 % (13.2-15.2) 05/14/22 04:00 Plt Count 159 K/mm3 (140-440) 05/14/22 04:00 Lymph % (Auto) 6.4 % (13.4-35.0) L 05/11/22 04:00 [place] % (Auto) 9.6 % (0.0-7.3) H 05/11/22 04:00 Eos % (Auto) 0.0 % (0.0-4.3) 05/11/22 04:00 Baso % (Auto) 0.0 % (0.0-1.8) 05/11/22 04:00 Lymph # (Auto) 0.5 K/mm3 (1.2-5.4) L 05/11/22 04:00 [place] # (Auto) 0.7 K/mm3 (0.0-0.8) 05/11/22 04:00 Eos # (Auto) 0.0 K/mm3 (0.0-0.4) 05/11/22 04:00 Baso # (Auto) 0.0 K/mm3 (0.0-0.1) 05/11/22 04:00 Add Manual Diff Complete 05/09/22 18:51 Total Counted 100 05/09/22 18:51 Seg Neutrophils % 84.0 % (40.0-70.0) H 05/11/22 04:00 Seg Neuts % (Manual) 98.0 % (40.0-70.0) H 05/09/22 18:51 Band Neutrophils % 0 % 05/09/22 18:51 Lymphocytes % (Manual) 1.0 % (13.4-35.0) L 05/09/22 18:51 Reactive Lymphs % (Man) 0 % 05/09/22 18:51 Monocytes % (Manual) 0 % (0.0-7.3) 05/09/22 18:51 Eosinophils % (Manual) 0 % (0.0-4.3) 05/09/22 18:51 Basophils % (Manual) 0 % (0.0-1.8) 05/09/22 18:51 Metamyelocytes % 1.0 % 05/09/22 18:51 Myelocytes % 0 % 05/09/22 18:51 Promyelocytes % 0 % 05/09/22 18:51 Blast Cells % 0 % 05/09/22 18:51 Nucleated RBC % 1.0 % (0.0-0.9) H 05/09/22 18:51 Seg Neutrophils # 5.9 K/mm3 (1.8-7.7) 05/11/22 04:00 Seg Neutrophils # Man 10.6 K/mm3 (1.8-7.7) H 05/09/22 18:51 Band Neutrophils # 0.0 K/mm3 05/09/22 18:51 Lymphocytes # (Manual) 0.1 K/mm3 (1.2-5.4) L 05/09/22 18:51 Abs React Lymphs (Man) 0.0 K/mm3 05/09/22 18:51 Monocytes # (Manual) 0.0 K/mm3 (0.0-0.8) 05/09/22 18:51 Eosinophils # (Manual) 0.0 K/mm3 (0.0-0.4) 05/09/22 18:51 Basophils # (Manual) 0.0 K/mm3 (0.0-0.1) 05/09/22 18:51 Metamyelocytes # 0.1 K/mm3 05/09/22 18:51 Myelocytes # 0.0 K/mm3 05/09/22 18:51 Promyelocytes # 0.0 K/mm3 05/09/22 18:51 Blast Cells # 0.0 K/mm3 05/09/22 18:51 WBC Morphology Not Reportable 05/09/22 18:51 WBC Morphology TNR 05/09/22 18:51 Hypersegmented Neuts Not Reportable 05/09/22 18:51 Hyposegmented Neuts Not Reportable 05/09/22 18:51 Hypogranular Neuts Not Reportable 05/09/22 18:51 Smudge Cells Not Reportable 05/09/22 18:51 Toxic Granulation Not Reportable 05/09/22 18:51 Toxic Vacuolation Not Reportable 05/09/22 18:51 Dohle Bodies Not Reportable 05/09/22 18:51 Pelger-Huet Anomaly Not Reportable 05/09/22 18:51 Paola Rods Not Reportable 05/09/22 18:51 Platelet Estimate Consistent w auto 05/09/22 18:51 Clumped Platelets Not Reportable 05/09/22 18:51 Plt Clumps, EDTA Not Reportable 05/09/22 18:51 Large Platelets Not Reportable 05/09/22 18:51 Giant Platelets Not Reportable 05/09/22 18:51 Platelet Satelliting Not Reportable 05/09/22 18:51 Plt Morphology Comment Not Reportable 05/09/22 18:51 RBC Morphology Not Reportable 05/09/22 18:51 Dimorphic RBCs Not Reportable 05/09/22 18:51 Polychromasia Not Reportable 05/09/22 18:51 Hypochromasia Not Reportable 05/09/22 18:51 Poikilocytosis Not Reportable 05/09/22 18:51 Anisocytosis Not Reportable 05/09/22 18:51 Microcytosis Not Reportable 05/09/22 18:51 Macrocytosis Not Reportable 05/09/22 18:51 Spherocytes Not Reportable 05/09/22 18:51 Pappenheimer Bodies Not Reportable 05/09/22 18:51 Sickle Cells Not Reportable 05/09/22 18:51 Target Cells Few 05/09/22 18:51 Tear Drop Cells Few 05/09/22 18:51 Ovalocytes Not Reportable 05/09/22 18:51 Helmet Cells Not Reportable 05/09/22 18:51 [place] Bodies Not Reportable 05/09/22 18:51 [place] Rings Not Reportable 05/09/22 18:51 Franco Cells Not Reportable 05/09/22 18:51 Bite Cells Not Reportable 05/09/22 18:51 Crenated Cell Not Reportable 05/09/22 18:51 Elliptocytes Not Reportable 05/09/22 18:51 Acanthocytes (Spur) Not Reportable 05/09/22 18:51 Rouleaux Not Reportable 05/09/22 18:51 Hemoglobin C Crystals Not Reportable 05/09/22 18:51 Schistocytes Not Reportable 05/09/22 18:51 Malaria parasites Not Reportable 05/09/22 18:51 Percent Retic 0.53 % (0.78-2.58) L 05/13/22 11:49 Jamal Bodies Not Reportable 05/09/22 18:51 Hem Pathologist Commnt No 05/09/22 18:51 PT 14.0 Sec. (12.2-14.9) 05/09/22 18:51 INR 0.97 (0.87-1.13) 05/09/22 18:51 Sodium 143 mmol/L (137-145) 05/14/22 04:00 Potassium 3.2 mmol/L (3.6-5.0) L 05/14/22 04:00 Chloride 107.4 mmol/L (98-107) H 05/14/22 04:00 Carbon Dioxide 27 mmol/L (22-30) 05/14/22 04:00 Anion Gap 12 mmol/L 05/14/22 04:00 BUN 10 mg/dL (9-20) 05/14/22 04:00 Creatinine 0.4 mg/dL (0.8-1.3) L 05/14/22 04:00 Estimated GFR > 60 ml/min 05/14/22 04:00 BUN/Creatinine Ratio 25 % 05/14/22 04:00 Glucose 98 mg/dL (75-100) 05/14/22 04:00 POC Glucose 95 mg/dL (70-105) 05/13/22 18:18 Lactic Acid 0.60 mmol/L (0.7-2.0) L 05/12/22 15:15 Calcium 7.2 mg/dL (8.4-10.2) L 05/14/22 04:00 Phosphorus 2.70 mg/dL (2.5-4.5) D 05/12/22 02:52 Magnesium 2.00 mg/dL (1.7-2.3) 05/14/22 08:24 Iron 33 ug/dL (49-181) L 05/13/22 11:49 TIBC 126 mcg/dL (250-450) L 05/13/22 11:49 Ferritin 628.3 ng/mL (30.0-300.0) H 05/13/22 11:49 Total Bilirubin 1.10 mg/dL (0.1-1.2) 05/09/22 18:51 AST 13 units/L (5-40) 05/09/22 18:51 ALT 10 units/L (7-56) 05/09/22 18:51 Alkaline Phosphatase 98 units/L (35-129) 05/09/22 18:51 Ammonia 61.0 umol/L (25-60) H 05/09/22 18:51 Lactate Dehydrogenase 238 units/L (91-180) H 05/13/22 11:49 Total Creatine Kinase 92 units/L (55-170) 05/09/22 18:51 Troponin T < 0.010 ng/mL (0.00-0.029) 05/09/22 18:51 C-Reactive Protein 12.90 mg/dL (0.00-1.30) H 05/09/22 18:51 NT-Pro-B Natriuret Pep 817.0 pg/mL (0-900) 05/09/22 18:51 Total Protein 7.7 g/dL (6.3-8.2) 05/09/22 18:51 Albumin 4.6 g/dL (3.9-5) 05/09/22 18:51 Albumin/Globulin Ratio 1.5 % 05/09/22 18:51 TSH 2.020 mlU/mL (0.270-4.200) 05/09/22 18:51 Urine Color Red (Yellow) 05/10/22 02:16 Urine Turbidity Cloudy (Clear) 05/10/22 02:16 Specific [place] (Man) 1.030 (1.003-1.030) 05/10/22 02:16 Ur Protein (Man) >500 mg/dL (Negative) 05/10/22 02:16 Ur Ketones (Man) 5mg/dl (Negative) 05/10/22 02:16 Urine Bilirubin (Man) Negative (Negative) 05/10/22 02:16 Urine WBC (Auto) > 182.0 /HPF (0.0-6.0) H 05/10/22 02:16 Urine RBC (Auto) > 182.0 /HPF (0.0-6.0) 05/10/22 02:16 Urine Bacteria (Auto) 1+ /HPF (Negative) 05/10/22 02:16 Urine RBC (Manual) 5+ (Negative) 05/10/22 02:16 Urine Osmolality 576 Mosm/kg 05/10/22 17:16 Urine Creatinine 61.0 mg/dL (0.1-20.0) H 05/10/22 17:16 Urine Sodium 19 mmol/L 05/10/22 17:16 Urine Urea Nitrogen 1015 05/10/22 17:16 Salicylates < 0.3 mg/dL (2.8-20.0) L 05/09/22 18:51 Urine Opiates Screen Negative 05/10/22 02:16 Urine Methadone Screen Negative 05/10/22 02:16 Acetaminophen 5.0 ug/mL (10.0-30.0) L 05/09/22 18:51 Ur Barbiturates Screen Negative 05/10/22 02:16 Ur Phencyclidine Scrn Negative 05/10/22 02:16 Ur Amphetamines Screen Negative 05/10/22 02:16 U Benzodiazepines Scrn Negative 05/10/22 02:16 Urine Cocaine Screen Negative 05/10/22 02:16 U Marijuana (THC) Screen Positive 05/10/22 02:16 Drugs of Abuse Note Disclamer 05/10/22 02:16 Plasma/Serum Alcohol < 0.01 % (0-0.07) 05/09/22 18:51 Hepatitis A IgM Ab Non-reactive (NonReactive) 05/09/22 23:00 Hep Bs Antigen Non-reactive (Negative) 05/09/22 23:00 Hep B Core IgM Ab Non-reactive (NonReactive) 05/09/22 23:00 Hepatitis C Antibody Non-reactive (NonReactive) 05/09/22 23:00 Alvarez/IV: Voiding Method Urinal Active Medications - Current Medications Current Medications: Generic Name Dose Route Start Last Admin Trade Name Freq PRN Reason Stop Dose Admin Acetaminophen 650 mg 05/10/22 00:08 Acetaminophen 325 Mg Tab PO Q6H PRN Pain MILD(1-3)/Fever >100.5/JOHNSON Arformoterol Tartrate 15 mcg 05/12/22 20:00 05/14/22 08:59 Arformoterol 15 Mcg/2 Ml Nebu IH 15 mcg Q12HRT CAITLIN Administration Ascorbic Acid 250 mg 05/14/22 10:00 05/14/22 10:21 Ascorbic Acid 250 Mg Tab FEEDTUBE 250 mg QDAY CAITLIN Administration Budesonide 0.5 mg 05/12/22 20:00 05/14/22 08:59 Budesonide 0.5 Mg/2 Ml Nebu IH 0.5 mg Q12HRT CAITLIN Administration Docusate Sodium 100 mg 05/10/22 22:00 05/13/22 21:03 Docusate Sodium 100 Mg Cap PO Not Given BID CAITLIN Doxazosin Mesylate 1 mg 05/11/22 22:00 05/13/22 21:03 Doxazosin 1 Mg Tab PO Not Given QHS CAITLIN Ferrous Sulfate 300 mg 05/14/22 10:00 05/14/22 10:21 Ferrous Sulfate 300 Mg (60mg Elemental Iron) / 5 Ml Oral Liqd PO 300 mg QDAY CAITLIN Administration Folic Acid 1 mg 05/10/22 12:00 05/14/22 10:22 Folic Acid 1 Mg Tab PO 1 mg QDAY CAITLIN Administration Heparin Sodium (Porcine) 5,000 unit 05/10/22 06:00 05/14/22 13:53 Heparin 5,000 Unit/1 Ml Vial SUB-Q 5,000 unit Q8HR CAITLIN Administration NORepinephrine/NS 8 MG-250 ML 8 mg in 250 mls @ 3.75 mls/hr 05/10/22 02:00 05/14/22 13:49 Norepinephrine/Ns 8 Mg-250 Ml (Double Conc) IV 2 mcg/min TITRATE CAITLIN 3.75 mls/hr Titration Protocol 2 MCG/MIN Levetiracetam 750 mg 05/10/22 12:00 05/14/22 10:21 Levetiracetam 500 Mg Tab PO 750 mg BID CAITLIN Administration Magnesium Hydroxide 30 ml 05/10/22 00:08 Magnesium Hydroxide (Mom) Oral Liqd Udc PO Q4H PRN Constipation Midodrine 10 mg 05/13/22 09:00 05/14/22 12:07 Midodrine 10 Mg Tab PO 10 mg TID@0800,1200,1600 CAITLIN Administration Morphine Sulfate 2 mg 05/10/22 00:08 Morphine 2 Mg/1 Ml Inj IV Q4H PRN Pain, Moderate (4-6) Morphine Sulfate 4 mg 05/10/22 00:08 Morphine 4 Mg/1 Ml Inj IV Q4H PRN Pain , Severe (7-10) Ondansetron HCl 4 mg 05/10/22 00:08 Ondansetron 4 Mg/2 Ml Inj IV Q8H PRN Nausea And Vomiting Sodium Chloride 10 ml 05/10/22 10:00 05/14/22 10:22 Sodium Chloride 0.9% 10 Ml Flush Syringe IV 10 ml BID CAITLIN Administration Sodium Chloride 10 ml 05/10/22 00:08 Sodium Chloride 0.9% 10 Ml Flush Syringe IV PRN PRN LINE FLUSH Tamsulosin HCl 0.4 mg 05/12/22 10:00 05/14/22 10:22 Tamsulosin 0.4 Mg Cap PO 0.4 mg QDAY CAITLIN Administration Thiamine HCl 100 mg 05/10/22 12:00 05/14/22 10:22 Thiamine 100 Mg Tab PO 100 mg QDAY CAITLIN Administration Nutrition/Malnutrition Assess - Dietary Evaluation Nutrition/Malnutrition Findings: Nutrition Notes Start: 05/10/22 17:09 Freq: Status: Active Protocol: Document 05/10/22 17:09 ARNOLDO (Rec: 05/10/22 17:52 ARNOLDO [email or web address]) Nutrition Notes Need for Assessment generated from: MD Order,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 Current Diet Cardiac -Renal- Diet + D Suppl (since B 05/10). Labs/Tests 05/10: Na 158, K 3.1, Cl 111.5 , BUN 105, Crea 3.7, Glu 112. Pertinent Medications 05/10: Folic acid, Thiamine, others nutritionally unremarkable. Height 5 ft 10 in Weight 35.6 kg [place] Body Weight (kg) 75.45 BMI 11.2 Intake Prior to Admission Poor Weight change and time frame Pt states having loss, unintentionally, more than 34 lb body weight recently. Weight Status Underweight Subjective/Other Information RD consult for Low BMI, risk of malnutrition nutrition education and dietary supplementation assessments. No reports available on Pt's PO intake of meals at the time , will assess at F/U. I will prescribe dietary supplements to compensate for poor or insufficient PO intake of meals during LOS. Pt is on Room Air, O2 saturation @ 98%, according to Physical Assessment History notes. Pt has missing teeth, according to Physical Assessment History notes. Pt shows sudden unintentional loss of body weight and poor PO intake of meals for 2 weeks as signs of concern for risk of malnutrition at the time, according to Admission documents. Procedure on 05/10: L-CFV Dual -tunneled PICC Catheter placement, and R-IJV Triple- lumen HD non-tunneled catheter placement, well tolerated, according to Operative Report notes. Pt's Low BMI seems to correspond to a natural body composition, and exacerbated by a sudden loss of body weight and chronic malnutrition, since some signs of concern were mentioned in the Physical Assessment History and the Progress notes . Pt still in critical condition , not a candidate for Nutrition Education at the time, will assess feasibility on F/U. Percent of energy/protein needs met: Prescribed Cardiac -Renal- Diet provides for energy/ protein needs (2,230 Kcal/85 g ) during LOS; additionally, Dietary Supplements will compensate for possible poor or insufficient PO intake of meals with 1,275 Kcal and 57 g of protein. Burn Absent Trauma Absent GI Symptoms None Food Allergy No Skin Integrity/Comment Assessment WNL. Minimum of two criteria Yes Energy Intake (severe) < or equal to 50% Estimated Energy Requirement > or equal to 5 days Interpretation of Weight Loss (severe) >5% in 1 month Fluid Accumulation N/A Reduced [place] Driver Strength N/A (non-severe) Protein-Calorie Malnutrition Severe #2 Nutrition Diagnosis Underweight Comments: Pt's Low BMI seems to correspond to a natural body composition, and exacerbated by a sudden loss of body weight and chronic malnutrition, since some signs of concern were mentioned in the Physical Assessment History and the Progress notes . Etiology Possibly associated to Adult Failure to Thrive. As Evidenced by Signs and Symptoms BMI: 11.3 Kg/m2. #1 Nutrition Diagnosis Malnutrition Etiology Possibly PATRIZIA. As Evidenced by Signs and Symptoms Pt shows sudden unintentional loss of body weight and poor PO intake of meals for 2 weeks as signs of concern for risk of malnutrition at the time, according to Admission documents. Is patient on ventilator? No Is Patient Ambulatory and/or Out of Bed No REE-([facility]-confined to bed) 1317.564 Kcal/Kg value to use for calculation 58 Approximate Energy Requirements Using 2065 kcal/Kg Calculation Used for Recommendations Kcal/kg Additional Notes Protein: 1.2-1.5 g/Kg ABW; 43- 54 g/day. Fluids: 1 ml/Kcal, or as per MD. Nutrition Intervention Change Diet Order: Continue Cardiac -Renal- Diet as tolerated. Add Supplement/Snack (indicate name/kcal Start 8 fl oz Nepro w/ /protein ) CARBSTEADY; TID. Provides kCal: 1,275 Provides Protein (gm) 57 Goal #1 Compensate, through dietary supplementation, for possible poor or insufficient PO intake of meals during LOS. Goal #2 Adjust the dietary intervention to better serve Pt's needs and clinical conditions during LOS. Follow-Up By: 05/17/22 Additional Comments Continue monitoring food tolerance, %PO intake of meals , dietary supplements, and BM.
[2022-05-14] MEDS: DOCUSATE SODIUM 100 MG CAP PO SCH ×2 (19:04→21:01)
[2022-05-14] MEDS: DOXAZOSIN 1 MG TAB PO SCH (21:02)
[2022-05-15 05:02] LABS: Hematocrit 29.8 % (35.5-45.6); Mean Corpuscular HGB Conc 34 % (32-34); Mean Corpuscular Volume 89 fl (84-94); Platelet Count 179 K/mm3 (140-440); Red Blood Count 3.35 M/mm3 (3.65-5.03); Red Cell Distribution Width 14.6 % (13.2-15.2)
[2022-05-15 05:20] LABS: Blood Urea Nitrogen 8 mg/dL (9-20); Calcium 7.5 mg/dL (8.4-10.2); Hemolysis Index 12
[2022-05-15 05:34] LABS: BUN/Creatinine Ratio 16
[2022-05-15] MEDS: HEPARIN 5,000 UNIT/1 ML VIAL SUB-Q SCH ×4 (05:42→21:37)
[2022-05-15] MEDS ORDERED: SODIUM PHOSPHATE 45 MMOL in SODIUM CHLORIDE 0.9% 500 ML 500 ML IV ONE (07:49)
[2022-05-15] MEDS: BUDESONIDE 0.5 MG/2 ML NEBU IH SCH ×2 (08:18→20:52)
[2022-05-15] MEDS: ARFORMOTEROL 15 MCG/2 ML NEBU IH SCH ×2 (08:18→20:52)
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
[2022-05-15] MEDS: MIDODRINE 10 MG TAB PO SCH ×3 (09:00→16:16)
[2022-05-15] MEDS: levETIRAcetam 500 MG TAB PO SCH ×2 (10:18→21:33)
[2022-05-15] MEDS: ASCORBIC ACID 250 MG TAB FEEDTUBE SCH (10:18)
[2022-05-15] MEDS: THIAMINE 100 MG TAB PO SCH (10:18)
[2022-05-15] MEDS: DOCUSATE SODIUM 100 MG CAP PO SCH ×2 (10:18→21:33)
[2022-05-15] MEDS: FERROUS SULFATE 300 MG (60MG Elemental Iron) / 5 mL ORAL LIQD PO SCH (10:18)
[2022-05-15] MEDS: TAMSULOSIN 0.4 MG CAP PO SCH (10:18)
[2022-05-15] MEDS: FOLIC ACID 1 MG TAB PO SCH (10:18)
--- NOTE | 2022-05-15 10:27 | Progress Note ---
Assessment and Plan Assessment and plan: Assessment and Plan: This is a 76-year-old female with seizure disorder, HTN, nicotine and drug abuse admitted with acute kidney injury Neuro: h/o seizure disorder, marijuana use -Continue home Keppra -Reorientation as needed -Maintain sleep-wake cycle -aspiration/seizure precautions -As needed analgesia -Folic acid, thiamine -CT head shows no evidence of metastatic disease, recommend MRI with and without contrast Cardiac: Hypotension, h/o HTN -Blood pressure monitoring per protocol -Hold home hydralazine -vasopressen suppport with levophed -MAP goal 65 -s/p MIVF, bolus prn -Midodrine p.o. Respiratory: Acute hypoxic respiratory failure (poa, resolved), right lung nodule, current nicotine abuse -CCM consulted, appreciate recommendations -Pulmonary hygiene -SPO2 monitor per protocol -Supplemental oxygen tested and -Nicotine abuse cessation counseling provided -CT chest shows multiple osseous metastatic lesion, right upper lobe nodule, neoplasm not excluded, hemodialysis catheter terminates within the superior vena cava currently at the cavoatrial junction -CT abdomen/pelvis with oral and IV contrast shows hypodense lesions in the dome of the right hepatic lobe, cecum and appendix lie within the right inguinal hernia, small amount of ascites present within the pelvis, lower periaortic lymph nodes increase in size, right pelvic sidewall lymph nodes increased in size which shows central low-attenuation suggesting possible necrosis, prostate is borderline in size and minimally enlarged, multiple osseous metastatic lesions. GI: ? Liver mets -PPI -Cardiac renal diet -BR: Colace -CT guided liver biopsy will not be performed d/t size of mass : Acute kidney injury likely postobstructive, dehydration, Hypokalemia, urinary retention -Nephrology consulted, appreciate recommendations -S/p Vas-Cath placement for emergent hemodialysis however Vas-Cath was not functional -Vascular surgery consulted for PermCath placement -Monitor intake and output -Renally dose medications -Avoid nephrotoxic medications -FeNa 0.7% -s/p MIVF -Flomax and doxazosin (unable to be given d/t BP) -Alvarez catheter replaced on 05/13 for retention -Replete potassium -Trend BMP ID: NAD -Monitor WBC and temperature curve Endo: NAD -Avoid hypoglycemia Heme: NAD -Trend CBC -Transfuse hemoglobin less than 7 -SCDs to BLE while in bed The high probability of a clinically significant, sudden or life threatening deterioration of the [multi] system(s) required my full and direct attention, intervention and personal management. The aggregate critical care time was [60] minutes. This time is in addition to time spent performing reported procedures but includes the following: [x] Data Review and interpretation [x] Patient assessment and monitoring of vital signs [x] Documentation [x] Medication orders and management Disposition Plan: icu Total Time Spent with Patient (Minutes): 60 History Interval history: This is 76-year-old male with seizure disorder, HTN, smoker and drug abuse presents to the emergency department on 05/09 via EMS for evaluation of generalized weakness and decreased oral intake. According to the family patient had decreased oral intake for the past 1 to 2 weeks and has generalized weakness. Work-up in the emergency department revealed hyponatremia at 133, hyperkalemia at 8, elevated BUN and creatinine at 225/15.7 and CXR revealed mild pulmonary vascular congestion. ECG also showed peaked T waves. Nephrology was consulted in the emergency department and a Vas-Cath was placed by [facility] for hemodialysis. Patient was also medically treated with insulin, glucose, calcium gluconate and Kayexalate for hyperkalemia. Patient was admitted to the hospitalist service with consults to nephrology, [facility] and vascular surgery for acute kidney injury requiring urgent dialysis. Hospital course to date: 05/10: Yesterday patient had a Vas-Cath placed by [facility] however this is nonfunctional at this time. Vascular surgery was consulted for placement of Vas-Cath. No acute events reported overnight. Patient suddenly became nonverbal however did follow commands, tracks/focus and pupils were round and reactive. Glucose check which was within normal limits. After approximately half an hour patient became verbal again. This afternoon patient is alert and oriented and interactive. 05/11: Hypernatremia slowly improving, noted to have hypokalemia, hypomagnesemia and hypophosphatemia. Potassium repleted with IV and p.o., bicarbonate drip discontinued. Started on Flomax and [facility] would like to add doxazosin. Patient started on half-normal saline and [facility] would like to obtain CT abdomen/pelvis with contrast. Updated niece at bedside. Free water flush 350 every 8 p.o. 05/12: Patient to be started on Levophed for hypotension and will be on IV fluids per [facility]. Hematology/oncology consulted and CT head was ordered. CT biopsy of the liver was also ordered. From a PICC line removed today as well as Alvarez catheter. 05/13: Overnight patient was started on Levophed, remains on MIVF. Started on midodrine. Patient had urinary retention and Alvarez catheter was replaced. CT head shows no findings to suggest intracranial metastatic disease and recommended MRI with and without contrast for evaluation. Patient has been titrated off Levophed. 05/14: Patient was restarted on Levophed overnight and has been on and off throughout the day. Given bolus of 500 mL. Hypokalemia repleted. Magnesium within normal limits. 05/15: Levophed remained infusing overnight but day RN will try to wean off. Will replete phos. PT consulted Hospitalist Physical - Constitutional Vitals: Temp Pulse Resp BP Pulse Ox 97.8 F 78 22 131/78 99 05/15/22 04:00 05/15/22 09:15 05/15/22 09:15 05/15/22 09:15 05/15/22 09:15 General appearance: Present: no acute distress, well-nourished - EENT Eyes: Present: PERRL, EOM intact ENT: hearing intact, clear oral mucosa, poor dentition - Neck Neck: Present: normal ROM - Respiratory Respiratory effort: normal Respiratory: bilateral: diminished - Cardiovascular Rhythm: regular Heart Sounds: Present: S1 & S2. Absent: systolic murmur, diastolic murmur - Extremities Extremities: no ischemia, pulses intact, pulses symmetrical, No edema, normal temperature, normal color, Full ROM Peripheral Pulses: within normal limits - Abdominal General gastrointestinal: soft, non-tender, non-distended, normal bowel sounds - Integumentary Integumentary: Present: warm, dry - Psychiatric Psychiatric: cooperative - Neurologic Neurologic: CNII-XII intact, no focal deficits, moves all extremities - Allied Health Allied health notes reviewed: nursing, RT HEART Score - HEART Score Troponin: Troponin T < 0.010 ng/mL (0.00-0.029) 05/09/22 18:51 Results - Labs CBC & Chem 7: 05/15/22 04:23 05/15/22 04:23 Labs: Laboratory Last Values WBC 5.8 K/mm3 (4.5-11.0) 05/15/22 04:23 RBC 3.35 M/mm3 (3.65-5.03) L 05/15/22 04:23 Hgb 10.0 gm/dl (11.8-15.2) L 05/15/22 04:23 Hct 29.8 % (35.5-45.6) L 05/15/22 04:23 MCV 89 fl (84-94) 05/15/22 04: MCH 30 pg (28-32) 05/15/22 04: MCHC 34 % (32-34) 05/15/22 04:23 RDW 14.6 % (13.2-15.2) 05/15/22 04:23 Plt Count 179 K/mm3 (140-440) 05/15/22 04:23 Lymph % (Auto) 6.4 % (13.4-35.0) L 05/11/22 04:00 [place] % (Auto) 9.6 % (0.0-7.3) H 05/11/22 04:00 Eos % (Auto) 0.0 % (0.0-4.3) 05/11/22 04:00 Baso % (Auto) 0.0 % (0.0-1.8) 05/11/22 04:00 Lymph # (Auto) 0.5 K/mm3 (1.2-5.4) L 05/11/22 04:00 [place] # (Auto) 0.7 K/mm3 (0.0-0.8) 05/11/22 04:00 Eos # (Auto) 0.0 K/mm3 (0.0-0.4) 05/11/22 04:00 Baso # (Auto) 0.0 K/mm3 (0.0-0.1) 05/11/22 04:00 Add Manual Diff Complete 05/09/22 18:51 Total Counted 100 05/09/22 18:51 Seg Neutrophils % 84.0 % (40.0-70.0) H 05/11/22 04:00 Seg Neuts % (Manual) 98.0 % (40.0-70.0) H 05/09/22 18:51 Band Neutrophils % 0 % 05/09/22 18:51 Lymphocytes % (Manual) 1.0 % (13.4-35.0) L 05/09/22 18:51 Reactive Lymphs % (Man) 0 % 05/09/22 18:51 Monocytes % (Manual) 0 % (0.0-7.3) 05/09/22 18:51 Eosinophils % (Manual) 0 % (0.0-4.3) 05/09/22 18:51 Basophils % (Manual) 0 % (0.0-1.8) 05/09/22 18:51 Metamyelocytes % 1.0 % 05/09/22 18:51 Myelocytes % 0 % 05/09/22 18:51 Promyelocytes % 0 % 05/09/22 18:51 Blast Cells % 0 % 05/09/22 18:51 Nucleated RBC % 1.0 % (0.0-0.9) H 05/09/22 18:51 Seg Neutrophils # 5.9 K/mm3 (1.8-7.7) 05/11/22 04:00 Seg Neutrophils # Man 10.6 K/mm3 (1.8-7.7) H 05/09/22 18:51 Band Neutrophils # 0.0 K/mm3 05/09/22 18:51 Lymphocytes # (Manual) 0.1 K/mm3 (1.2-5.4) L 05/09/22 18:51 Abs React Lymphs (Man) 0.0 K/mm3 05/09/22 18:51 Monocytes # (Manual) 0.0 K/mm3 (0.0-0.8) 05/09/22 18:51 Eosinophils # (Manual) 0.0 K/mm3 (0.0-0.4) 05/09/22 18:51 Basophils # (Manual) 0.0 K/mm3 (0.0-0.1) 05/09/22 18:51 Metamyelocytes # 0.1 K/mm3 05/09/22 18:51 Myelocytes # 0.0 K/mm3 05/09/22 18:51 Promyelocytes # 0.0 K/mm3 05/09/22 18:51 Blast Cells # 0.0 K/mm3 05/09/22 18:51 WBC Morphology Not Reportable 05/09/22 18:51 WBC Morphology TNR 05/09/22 18:51 Hypersegmented Neuts Not Reportable 05/09/22 18:51 Hyposegmented Neuts Not Reportable 05/09/22 18:51 Hypogranular Neuts Not Reportable 05/09/22 18:51 Smudge Cells Not Reportable 05/09/22 18:51 Toxic Granulation Not Reportable 05/09/22 18:51 Toxic Vacuolation Not Reportable 05/09/22 18:51 Dohle Bodies Not Reportable 05/09/22 18:51 Pelger-Huet Anomaly Not Reportable 05/09/22 18:51 Paola Rods Not Reportable 05/09/22 18:51 Platelet Estimate Consistent w auto 05/09/22 18:51 Clumped Platelets Not Reportable 05/09/22 18:51 Plt Clumps, EDTA Not Reportable 05/09/22 18:51 Large Platelets Not Reportable 05/09/22 18:51 Giant Platelets Not Reportable 05/09/22 18:51 Platelet Satelliting Not Reportable 05/09/22 18:51 Plt Morphology Comment Not Reportable 05/09/22 18:51 RBC Morphology Not Reportable 05/09/22 18:51 Dimorphic RBCs Not Reportable 05/09/22 18:51 Polychromasia Not Reportable 05/09/22 18:51 Hypochromasia Not Reportable 05/09/22 18:51 Poikilocytosis Not Reportable 05/09/22 18:51 Anisocytosis Not Reportable 05/09/22 18:51 Microcytosis Not Reportable 05/09/22 18:51 Macrocytosis Not Reportable 05/09/22 18:51 Spherocytes Not Reportable 05/09/22 18:51 Pappenheimer Bodies Not Reportable 05/09/22 18:51 Sickle Cells Not Reportable 05/09/22 18:51 Target Cells Few 05/09/22 18:51 Tear Drop Cells Few 05/09/22 18:51 Ovalocytes Not Reportable 05/09/22 18:51 Helmet Cells Not Reportable 05/09/22 18:51 [place] Bodies Not Reportable 05/09/22 18:51 Hundred Rings Not Reportable 05/09/22 18:51 Franco Cells Not Reportable 05/09/22 18:51 Bite Cells Not Reportable 05/09/22 18:51 Crenated Cell Not Reportable 05/09/22 18:51 Elliptocytes Not Reportable 05/09/22 18:51 Acanthocytes (Spur) Not Reportable 05/09/22 18:51 Rouleaux Not Reportable 05/09/22 18:51 Hemoglobin C Crystals Not Reportable 05/09/22 18:51 Schistocytes Not Reportable 05/09/22 18:51 Malaria parasites Not Reportable 05/09/22 18:51 Percent Retic 0.53 % (0.78-2.58) L 05/13/22 11:49 Jamal Bodies Not Reportable 05/09/22 18:51 Hem Pathologist Commnt No 05/09/22 18:51 PT 14.0 Sec. (12.2-14.9) 05/09/22 18:51 INR 0.97 (0.87-1.13) 05/09/22 18:51 Sodium 139 mmol/L (137-145) 05/15/22 04:23 Potassium 3.9 mmol/L (3.6-5.0) D 05/15/22 04:23 Chloride 105.1 mmol/L (98-107) 05/15/22 04:23 Carbon Dioxide 24 mmol/L (22-30) 05/15/22 04:23 Anion Gap 14 mmol/L 05/15/22 04:23 BUN 8 mg/dL (9-20) L 05/15/22 04:23 Creatinine 0.5 mg/dL (0.8-1.3) L 05/15/22 04:23 Estimated GFR > 60 ml/min 05/15/22 04:23 BUN/Creatinine Ratio 16 % 05/15/22 04:23 Glucose 78 mg/dL (75-100) 05/15/22 04:23 POC Glucose 80 mg/dL (70-105) 05/15/22 02:12 Lactic Acid 0.60 mmol/L (0.7-2.0) L 05/12/22 15:15 Calcium 7.5 mg/dL (8.4-10.2) L 05/15/22 04:23 Phosphorus 1.10 mg/dL (2.5-4.5) L 05/15/22 04:23 Magnesium 2.00 mg/dL (1.7-2.3) 05/14/22 08:24 Iron 33 ug/dL (49-181) L 05/13/22 11:49 TIBC 126 mcg/dL (250-450) L 05/13/22 11:49 Ferritin 628.3 ng/mL (30.0-300.0) H 05/13/22 11:49 Total Bilirubin 1.10 mg/dL (0.1-1.2) 05/09/22 18:51 AST 13 units/L (5-40) 05/09/22 18:51 ALT 10 units/L (7-56) 05/09/22 18:51 Alkaline Phosphatase 98 units/L (35-129) 05/09/22 18:51 Ammonia 61.0 umol/L (25-60) H 05/09/22 18:51 Lactate Dehydrogenase 238 units/L (91-180) H 05/13/22 11:49 Total Creatine Kinase 92 units/L (55-170) 05/09/22 18:51 Troponin T < 0.010 ng/mL (0.00-0.029) 05/09/22 18:51 C-Reactive Protein 12.90 mg/dL (0.00-1.30) H 05/09/22 18:51 NT-Pro-B Natriuret Pep 817.0 pg/mL (0-900) 05/09/22 18:51 Total Protein 7.7 g/dL (6.3-8.2) 05/09/22 18:51 Albumin 4.6 g/dL (3.9-5) 05/09/22 18:51 Albumin/Globulin Ratio 1.5 % 05/09/22 18:51 TSH 2.020 mlU/mL (0.270-4.200) 05/09/22 18:51 Urine Color Red (Yellow) 05/10/22 02:16 Urine Turbidity Cloudy (Clear) 05/10/22 02:16 Specific [place] (Man) 1.030 (1.003-1.030) 05/10/22 02:16 Ur Protein (Man) >500 mg/dL (Negative) 05/10/22 02:16 Ur Ketones (Man) 5mg/dl (Negative) 05/10/22 02:16 Urine Bilirubin (Man) Negative (Negative) 05/10/22 02:16 Urine WBC (Auto) > 182.0 /HPF (0.0-6.0) H 05/10/22 02:16 Urine RBC (Auto) > 182.0 /HPF (0.0-6.0) 05/10/22 02:16 Urine Bacteria (Auto) 1+ /HPF (Negative) 05/10/22 02:16 Urine RBC (Manual) 5+ (Negative) 05/10/22 02:16 Urine Osmolality 576 Mosm/kg 05/10/22 17:16 Urine Creatinine 61.0 mg/dL (0.1-20.0) H 05/10/22 17:16 Urine Sodium 19 mmol/L 05/10/22 17:16 Urine Urea Nitrogen 1015 05/10/22 17:16 Salicylates < 0.3 mg/dL (2.8-20.0) L 05/09/22 18:51 Urine Opiates Screen Negative 05/10/22 02:16 Urine Methadone Screen Negative 05/10/22 02:16 Acetaminophen 5.0 ug/mL (10.0-30.0) L 05/09/22 18:51 Ur Barbiturates Screen Negative 05/10/22 02:16 Ur Phencyclidine Scrn Negative 05/10/22 02:16 Ur Amphetamines Screen Negative 05/10/22 02:16 U Benzodiazepines Scrn Negative 05/10/22 02:16 Urine Cocaine Screen Negative 05/10/22 02:16 U Marijuana (THC) Screen Positive 05/10/22 02:16 Drugs of Abuse Note Disclamer 05/10/22 02:16 Plasma/Serum Alcohol < 0.01 % (0-0.07) 05/09/22 18:51 Hepatitis A IgM Ab Non-reactive (NonReactive) 05/09/22 23:00 Hep Bs Antigen Non-reactive (Negative) 05/09/22 23:00 Hep B Core IgM Ab Non-reactive (NonReactive) 05/09/22 23:00 Hepatitis C Antibody Non-reactive (NonReactive) 05/09/22 23:00 Alvarez/IV: Voiding Method Urinal Active Medications - Current Medications Current Medications: Generic Name Dose Route Start Last Admin Trade Name Freq PRN Reason Stop Dose Admin Acetaminophen 650 mg 05/10/22 00:08 Acetaminophen 325 Mg Tab PO Q6H PRN Pain MILD(1-3)/Fever >100.5/JOHNSON Arformoterol Tartrate 15 mcg 05/12/22 20:00 05/15/22 08:18 Arformoterol 15 Mcg/2 Ml Nebu IH 15 mcg Q12HRT CAITLIN Administration Ascorbic Acid 250 mg 05/14/22 10:00 05/15/22 10:18 Ascorbic Acid 250 Mg Tab FEEDTUBE 250 mg QDAY CAITLIN Administration Budesonide 0.5 mg 05/12/22 20:00 05/15/22 08:18 Budesonide 0.5 Mg/2 Ml Nebu IH 0.5 mg Q12HRT CAITLIN Administration Docusate Sodium 100 mg 05/10/22 22:00 05/15/22 10:18 Docusate Sodium 100 Mg Cap PO 100 mg BID CAITLIN Administration Doxazosin Mesylate 1 mg 05/11/22 22:00 05/14/22 21:02 Doxazosin 1 Mg Tab PO Not Given QHS CAITLIN Ferrous Sulfate 300 mg 05/14/22 10:00 05/15/22 10:18 Ferrous Sulfate 300 Mg (60mg Elemental Iron) / 5 Ml Oral Liqd PO 300 mg QDAY CAITLIN Administration Folic Acid 1 mg 05/10/22 12:00 05/15/22 10:18 Folic Acid 1 Mg Tab PO 1 mg QDAY [facility] Administration Heparin Sodium (Porcine) 5,000 unit 05/10/22 06:00 05/15/22 05:42 Heparin 5,000 Unit/1 Ml Vial SUB-Q 5,000 unit Q8HR CAITLIN Administration NORepinephrine/NS 8 MG-250 ML 8 mg in 250 mls @ 3.75 mls/hr 05/10/22 02:00 05/14/22 13:49 Norepinephrine/Ns 8 Mg-250 Ml (Double Conc) IV 2 mcg/min TITRATE CAITLIN 3.75 mls/hr Titration Protocol 2 MCG/MIN Sodium Phosphate 45 mmol/ 515 mls @ 84 mls/hr 05/15/22 07:49 05/15/22 08:15 Sodium Chloride IV 05/15/22 13:56 84 mls/hr ONCE ONE Administration Levetiracetam 750 mg 05/10/22 12:00 05/15/22 10:18 Levetiracetam 500 Mg Tab PO 750 mg BID CAITLIN Administration Magnesium Hydroxide 30 ml 05/10/22 00:08 Magnesium Hydroxide (Mom) Oral Liqd Udc PO Q4H PRN Constipation Midodrine 10 mg 05/13/22 09:00 05/15/22 09:00 Midodrine 10 Mg Tab PO 10 mg TID@0800,1200,1600 CAITLIN Administration Morphine Sulfate 2 mg 05/10/22 00:08 Morphine 2 Mg/1 Ml Inj IV Q4H PRN Pain, Moderate (4-6) Morphine Sulfate 4 mg 05/10/22 00:08 Morphine 4 Mg/1 Ml Inj IV Q4H PRN Pain , Severe (7-10) Ondansetron HCl 4 mg 05/10/22 00:08 Ondansetron 4 Mg/2 Ml Inj IV Q8H PRN Nausea And Vomiting Sodium Chloride 10 ml 05/10/22 10:00 05/15/22 10:19 Sodium Chloride 0.9% 10 Ml Flush Syringe IV 10 ml BID CAITLIN Administration Sodium Chloride 10 ml 05/10/22 00:08 Sodium Chloride 0.9% 10 Ml Flush Syringe IV PRN PRN LINE FLUSH Tamsulosin HCl 0.4 mg 05/12/22 10:00 05/15/22 10:18 Tamsulosin 0.4 Mg Cap PO 0.4 mg QDAY CAITLIN Administration Thiamine HCl 100 mg 05/10/22 12:00 05/15/22 10:18 Thiamine 100 Mg Tab PO 100 mg QDAY CAITLIN Administration Nutrition/Malnutrition Assess - Dietary Evaluation Nutrition/Malnutrition Findings: Nutrition Notes Start: 05/10/22 17:09 Freq: Status: Active Protocol: Document 05/10/22 17:09 ARNOLDO (Rec: 05/10/22 17:52 ARNOLDO [id number]) Nutrition Notes Need for Assessment generated from: MD Order,reconciliation analyst,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 Current Diet Cardiac -Renal- Diet + D Suppl (since B 05/10). Labs/Tests 05/10: Na 158, K 3.1, Cl 111.5 , BUN 105, Crea 3.7, Glu 112. Pertinent Medications 05/10: Folic acid, Thiamine, others nutritionally unremarkable. Height 5 ft 10 in Weight 35.6 kg [place] Body Weight (kg) 75.45 BMI 11.2 Intake Prior to Admission Poor Weight change and time frame Pt states having loss, unintentionally, more than 34 lb body weight recently. Weight Status Underweight Subjective/Other Information RD consult for Low BMI, risk of malnutrition nutrition education and dietary supplementation assessments. No reports available on Pt's PO intake of meals at the time , will assess at F/U. I will prescribe dietary supplements to compensate for poor or insufficient PO intake of meals during LOS. Pt is on Room Air, O2 saturation @ 98%, according to Physical Assessment History notes. Pt has missing teeth, according to Physical Assessment History notes. Pt shows sudden unintentional loss of body weight and poor PO intake of meals for 2 weeks as signs of concern for risk of malnutrition at the time, according to Admission documents. Procedure on 05/10: L-CFV Dual -tunneled PICC Catheter placement, and R-IJV Triple- lumen HD non-tunneled catheter placement, well tolerated, according to Operative Report notes. Pt's Low BMI seems to correspond to a natural body composition, and exacerbated by a sudden loss of body weight and chronic malnutrition, since some signs of concern were mentioned in the Physical Assessment History and the Progress notes . Pt still in critical condition , not a candidate for Nutrition Education at the time, will assess feasibility on F/U. Percent of energy/protein needs met: Prescribed Cardiac -Renal- Diet provides for energy/ protein needs (2,230 Kcal/85 g ) during LOS; additionally, Dietary Supplements will compensate for possible poor or insufficient PO intake of meals with 1,275 Kcal and 57 g of protein. Burn Absent Trauma Absent GI Symptoms None Food Allergy No Skin Integrity/Comment Assessment WNL. Minimum of two criteria Yes Energy Intake (severe) < or equal to 50% Estimated Energy Requirement > or equal to 5 days Interpretation of Weight Loss (severe) >5% in 1 month Fluid Accumulation N/A Reduced Consultant Strength N/A (non-severe) Protein-Calorie Malnutrition Severe #2 Nutrition Diagnosis Underweight Comments: Pt's Low BMI seems to correspond to a natural body composition, and exacerbated by a sudden loss of body weight and chronic malnutrition, since some signs of concern were mentioned in the Physical Assessment History and the Progress notes . Etiology Possibly associated to Adult Failure to Thrive. As Evidenced by Signs and Symptoms BMI: 11.3 Kg/m2. #1 Nutrition Diagnosis Malnutrition Etiology Possibly PATRIZIA. As Evidenced by Signs and Symptoms Pt shows sudden unintentional loss of body weight and poor PO intake of meals for 2 weeks as signs of concern for risk of malnutrition at the time, according to Admission documents. Is patient on ventilator? No Is Patient Ambulatory and/or Out of Bed No REE-([place]-St. Jeor-confined to bed) 1317.564 Kcal/Kg value to use for calculation 58 Approximate Energy Requirements Using 2064 kcal/Kg Calculation Used for Recommendations Kcal/kg Additional Notes Protein: 1.2-1.5 g/Kg ABW; 43- 54 g/day. Fluids: 1 ml/Kcal, or as per MD. Nutrition Intervention Change Diet Order: Continue Cardiac -Renal- Diet as tolerated. Add Supplement/Snack (indicate name/kcal Start 8 fl oz Nepro w/ /protein ) CARBSTEADY; TID. Provides kCal: 1,275 Provides Protein (gm) 57 Goal #1 Compensate, through dietary supplementation, for possible poor or insufficient PO intake of meals during LOS. Goal #2 Adjust the dietary intervention to better serve Pt's needs and clinical conditions during LOS. Follow-Up By: 05/17/22 Additional Comments Continue monitoring food tolerance, %PO intake of meals , dietary supplements, and BM.
[2022-05-15] MEDS: DEXTROSE 50% IN WATER (25GM) 50 ML SYRINGE IV PRN (17:20)
[2022-05-16 06:27] LABS: Blood Urea Nitrogen 11 mg/dL (9-20); Calcium 7.3 mg/dL (8.4-10.2); Hemolysis Index 9
[2022-05-16 06:32] LABS: BUN/Creatinine Ratio 22
[2022-05-16] MEDS ORDERED: POTASSIUM PHOSPHATE 45 MMOL in SODIUM CHLORIDE 0.9% 500 ML 500 ML IV ONE (07:22)
[2022-05-16] MEDS: ARFORMOTEROL 15 MCG/2 ML NEBU IH SCH ×2 (08:21→21:14)
[2022-05-16] MEDS: BUDESONIDE 0.5 MG/2 ML NEBU IH SCH ×2 (08:21→21:14)
[2022-05-16] MEDS: MIDODRINE 10 MG TAB PO SCH ×3 (08:35→16:15)
[2022-05-16] MEDS: TAMSULOSIN 0.4 MG CAP PO SCH (10:06)
[2022-05-16] MEDS: levETIRAcetam 500 MG TAB PO SCH ×2 (10:06→22:13)
[2022-05-16] MEDS: ASCORBIC ACID 250 MG TAB FEEDTUBE SCH (10:06)
[2022-05-16] MEDS: DOCUSATE SODIUM 100 MG CAP PO SCH ×2 (10:07→22:13)
[2022-05-16] MEDS: THIAMINE 100 MG TAB PO SCH (10:07)
[2022-05-16] MEDS: FERROUS SULFATE 300 MG (60MG Elemental Iron) / 5 mL ORAL LIQD PO SCH (10:07)
[2022-05-16] MEDS: FOLIC ACID 1 MG TAB PO SCH (10:07)
--- NOTE | 2022-05-16 11:54 | Progress Note ---
Assessment and Plan 76-year-old -[place] male with known history of seizure disorder, hypertension and drug abuse brought into the emergency room today via EMS for evaluation of generalized weakness and decreased oral intake. According to family, patient has been having decreased oral intake for the past 1 to 2 weeks. Patient denies any other problems today apart from generalized weakness. He has not had any seizure activity lately. Denies any chest pain or shortness of breath, no headache or dizziness, no diaphoresis, no chest pain or shortness of breath. Work-up in the emergency room , significant findings were that of hyponatremia 133, hyperkalemia of 8.0, BUN of 225 and creatinine of 15.7. Chest x-ray reveals mild central pulmonary vascular congestion. No evidence of focal infiltrate. EKG shows some peaked T waves. Consulted Recovery Coach on-call A Vas-Cath was placed by the food beverage server for hemodialysis. Patient has had insulin and glucose, calcium gluconate, Kayexalate for the hyperkalemia. Patient has history of smoking and alcohol abuse. Patient alert, awake. Weak. Resting on room air. O2 saturation 100. No acute respiratory distress at rest. Patient afebrile. No leukocytosis. Blood pressure 107/70, rate 88, rate 22. Chest xray done 05/10/22 reported No active cardiopulmonary disease. CT scan of chest with out contrast 05/10/22 reported Multiple osseous metastatic lesions. Right upper lobe nodule . Neoplasm not excluded. Hemodialysis catheter terminates within the superior vena cava near the cavoatrial junction. Other findings as detailed. Recommend biopsy of osseous lesions in view of patients severe emphysematous changes. Patient presently on Brovanna/Budesonide aerosol treatments, S/C Heparin. Patient is on vasopressor, Norepinephrine. Recommend GI prophylaxis. I spent critical care time of 35 minutes, obtaining history, reviewing the chart, Examine the patient, review chest xray, CATscan of chest, review labs, talking to the nursing staff and respiratory therapy and work out plan of treatment. - Patient Problems (1) Acute renal failure Current Visit: Yes Status: Acute Plan to address problem: Management as per nephrology. (2) Hyperkalemia Current Visit: Yes Status: Acute Plan to address problem: Hyperkalemia corrected. Repeat K+ to day 3.4 (3) Alcoholic ketoacidosis Current Visit: No Status: Acute Plan to address problem: Improved. To days anion gap 14. (4) Altered mental status Current Visit: No Status: Acute Plan to address problem: Appears some what improved. Management as per primary care and neurology. (5) Hypertension Current Visit: No Status: Acute Plan to address problem: Patient presently on vasopressor , norepinephrine for hypotension. (6) Nicotine dependence with withdrawal Current Visit: No Status: Acute Qualifiers: Nicotine product type: cigarettes Qualified Code(s): F17.213 - Nicotine dependence, cigarettes, with withdrawal Plan to address problem: Counseled to stop smoking. (7) Polysubstance abuse Current Visit: No Status: Acute Plan to address problem: Counselled not to use illegal drugs. Management as per primary care. (8) Recurrent seizures Current Visit: No Status: Acute Plan to address problem: Management as per neurology. (9) Hypotension Current Visit: Yes Status: Acute Plan to address problem: Patient presently on vasopressor , norepinephrine . (10) Right upper lobe pulmonary nodule Current Visit: Yes Status: Acute Plan to address problem: CT guided Biopsy of right upper lobe lung nodule. Prefer to get biopsy of Osseous lesions, in view of Patient severe emphysemous changes. (11) Major osseous defect, multiple sites Current Visit: Yes Status: Acute Plan to address problem: Recommend biopsy of osseous lesions in view of patient severe emphysematous changes. Subjective Date of service: 05/16/22 Principal diagnosis: PATRIZIA; Hyperkalemia; Lung Mass; Tobacco Abuse; Seizures; COPD; HTN Interval history: 76-year-old -M[place]ese male with known history of seizure disorder, hypertension and drug abuse brought into the emergency room today via EMS for evaluation of generalized weakness and decreased oral intake. According to family, patient has been having decreased oral intake for the past 1 to 2 weeks. Patient denies any other problems today apart from generalized weakness. He has not had any seizure activity lately. Denies any chest pain or shortness of breath, no headache or dizziness, no diaphoresis, no chest pain or shortness of breath. Work-up in the emergency room , significant findings were that of hyponatremia 133, hyperkalemia of 8.0, BUN of 225 and creatinine of 15.7. Chest x-ray reveals mild central pulmonary vascular congestion. No evidence of focal infiltrate. EKG shows some peaked T waves. Consulted Recovery Coach on-call A Vas-Cath was placed by the food beverage server for hemodialysis. Patient has had insulin and glucose, calcium gluconate, Kayexalate for the hyperkalemia. Patient has history of smoking and alcohol abuse. Patient alert, awake. Weak. Resting on room air. O2 saturation 100%. No acute respiratory distress at rest. Patient afebrile. No leukocytosis. Blood pressure 107/70, rate 88, rate 22. Chest xray done 05/10/22 reported No active cardiopulmonary disease. CT scan of chest with out contrast 05/10/22 reported Multiple osseous metastatic lesions. Right upper lobe nodule . Neoplasm not excluded. Hemodialysis catheter terminates within the superior vena cava near the cavoatrial junction. Other findings as detailed. Patient presently on Brovanna/Budesonide aerosol treatments, S/C Heparin. Patient is on norepinephrine. Recommend GI prophylaxis. Objective Vital Signs - 12hr 05/16/22 05/16/22 05/16/22 00:00 00:15 00:30 Temperature 97.9 F Pulse Rate 79 77 82 Pulse Rate [ Bilateral Throughout] Pulse Rate [ 82 From Monitor] Respiratory 21 15 20 Rate Respiratory Rate [Bilateral Throughout] Blood Pressure 103/63 103/64 96/54 O2 Sat by Pulse 98 99 99 Oximetry 05/16/22 05/16/22 05/16/22 00:45 01:00 01:15 Temperature Pulse Rate 84 94 H 82 Pulse Rate [ Bilateral Throughout] Pulse Rate [ From Monitor] Respiratory 16 15 22 Rate Respiratory Rate [Bilateral Throughout] Blood Pressure 95/56 101/61 107/60 O2 Sat by Pulse 100 100 100 Oximetry 05/16/22 05/16/22 05/16/22 01:31 01:45 02:00 Temperature Pulse Rate 78 77 74 Pulse Rate [ Bilateral Throughout] Pulse Rate [ From Monitor] Respiratory 25 H 19 19 Rate Respiratory Rate [Bilateral Throughout] Blood Pressure 117/69 108/66 108/65 O2 Sat by Pulse 89 98 98 Oximetry 05/16/22 05/16/22 05/16/22 02:15 02:30 02:45 Temperature Pulse Rate 79 83 87 Pulse Rate [ Bilateral Throughout] Pulse Rate [ From Monitor] Respiratory 19 18 21 Rate Respiratory Rate [Bilateral Throughout] Blood Pressure 104/62 101/63 119/70 O2 Sat by Pulse 99 99 100 Oximetry 05/16/22 05/16/22 05/16/22 03:00 03:15 03:30 Temperature Pulse Rate 82 88 83 Pulse Rate [ Bilateral Throughout] Pulse Rate [ From Monitor] Respiratory 17 19 18 Rate Respiratory Rate [Bilateral Throughout] Blood Pressure 91/52 90/52 88/51 O2 Sat by Pulse 100 98 99 Oximetry 05/16/22 05/16/22 05/16/22 03:45 04:00 04:15 Temperature 97.8 F Pulse Rate 82 95 H 81 Pulse Rate [ Bilateral Throughout] Pulse Rate [ 36 L From Monitor] Respiratory 19 19 21 Rate Respiratory Rate [Bilateral Throughout] Blood Pressure 91/52 95/54 107/66 O2 Sat by Pulse 98 98 100 Oximetry 05/16/22 05/16/22 05/16/22 04:30 04:45 05:00 Temperature Pulse Rate 84 82 79 Pulse Rate [ Bilateral Throughout] Pulse Rate [ From Monitor] Respiratory 22 20 22 Rate Respiratory Rate [Bilateral Throughout] Blood Pressure 94/51 89/48 98/61 O2 Sat by Pulse 99 99 100 Oximetry 05/16/22 05/16/22 05/16/22 05:15 05:30 05:45 Temperature Pulse Rate 74 76 82 Pulse Rate [ Bilateral Throughout] Pulse Rate [ From Monitor] Respiratory 28 H 22 21 Rate Respiratory Rate [Bilateral Throughout] Blood Pressure 107/65 106/66 93/57 O2 Sat by Pulse 100 98 100 Oximetry 05/16/22 05/16/22 05/16/22 06:00 06:15 06:30 Temperature Pulse Rate 75 83 79 Pulse Rate [ Bilateral Throughout] Pulse Rate [ From Monitor] Respiratory 19 19 27 H Rate Respiratory Rate [Bilateral Throughout] Blood Pressure 115/73 91/52 91/52 O2 Sat by Pulse 100 99 100 Oximetry 05/16/22 05/16/22 05/16/22 06:45 07:00 07:15 Temperature Pulse Rate 80 81 76 Pulse Rate [ Bilateral Throughout] Pulse Rate [ From Monitor] Respiratory 22 19 23 Rate Respiratory Rate [Bilateral Throughout] Blood Pressure 105/64 98/59 108/67 O2 Sat by Pulse 99 100 98 Oximetry 05/16/22 05/16/22 05/16/22 07:30 07:46 08:00 Temperature 98 F Pulse Rate 77 96 H 79 Pulse Rate [ 88 Bilateral Throughout] Pulse Rate [ 85 From Monitor] Respiratory 18 14 19 Rate Respiratory 16 Rate [Bilateral Throughout] Blood Pressure 111/68 116/64 108/65 O2 Sat by Pulse 96 51 L Oximetry 05/16/22 05/16/22 05/16/22 08:15 08:30 08:45 Temperature Pulse Rate 85 88 82 Pulse Rate [ Bilateral Throughout] Pulse Rate [ From Monitor] Respiratory 21 23 16 Rate Respiratory Rate [Bilateral Throughout] Blood Pressure 98/56 92/54 103/52 O2 Sat by Pulse 98 88 88 Oximetry 05/16/22 05/16/22 05/16/22 09:00 09:15 09:30 Temperature Pulse Rate 85 84 85 Pulse Rate [ Bilateral Throughout] Pulse Rate [ From Monitor] Respiratory 18 18 17 Rate Respiratory Rate [Bilateral Throughout] Blood Pressure 100/58 98/59 100/61 O2 Sat by Pulse 67 L 100 100 Oximetry 05/16/22 05/16/22 05/16/22 09:45 10:00 10:15 Temperature Pulse Rate 87 83 80 Pulse Rate [ Bilateral Throughout] Pulse Rate [ From Monitor] Respiratory 17 18 21 Rate Respiratory Rate [Bilateral Throughout] Blood Pressure 105/64 102/61 96/60 O2 Sat by Pulse 97 100 100 Oximetry 05/16/22 05/16/22 05/16/22 10:30 10:45 11:00 Temperature Pulse Rate 76 81 76 Pulse Rate [ Bilateral Throughout] Pulse Rate [ From Monitor] Respiratory 20 21 15 Rate Respiratory Rate [Bilateral Throughout] Blood Pressure 119/76 122/73 113/71 O2 Sat by Pulse 91 89 100 Oximetry Constitutional: no acute distress, alert, other (elderly cachectic male ) Eyes: non-icteric ENT: oropharynx moist Neck: supple, no lymphadenopathy, no JVD Effort: normal Ascultation: Bilateral: diminished breath sounds Percussion: Bilateral: not dull Cardiovascular: regular rate and rhythm, other (S1,S2) Gastrointestinal: normoactive bowel sounds, soft, non-tender, non-distended Integumentary: other (poor turgor) Extremities: no cyanosis, no edema, pulses normal, no ischemia or petechiae Neurologic: non-focal exam, pupils equal and round, CN II-XII normal Psychiatric: mood appropriate, affect normal CBC and BMP: 05/17/22 04:13 05/17/22 04:20 ABG, PT/INR, D-dimer: PT/INR, D-dimer PT 14.0 Sec. (12.2-14.9) 05/09/22 18:51 INR 0.97 (0.87-1.13) 05/09/22 18:51 Abnormal lab findings: Abnormal Labs 05/09/22 05/09/22 05/09/22 18:51 18:51 18:51 RBC 5.65 H Hgb 16.6 H Hct 48.9 H MCHC RDW 15.4 H Plt Count Lymph % (Auto) [facility] % (Auto) Lymph # (Auto) Seg Neutrophils % Seg Neuts % (Manual) 98.0 H Lymphocytes % (Manual) 1.0 L Nucleated RBC % 1.0 H Seg Neutrophils # Man 10.6 H Lymphocytes # (Manual) 0.1 L Percent Retic Sodium 133 L Potassium 8.0 H* Chloride 89.9 L Carbon Dioxide 11 L BUN 225 H Creatinine 15.7 H Glucose 122 H POC Glucose Lactic Acid Calcium Phosphorus Magnesium Iron TIBC Ferritin Ammonia 61.0 H Lactate Dehydrogenase C-Reactive Protein 12.90 H Urine WBC (Auto) Urine Creatinine Salicylates Acetaminophen 05/09/22 05/09/22 05/10/22 18:51 18:51 02:16 RBC Hgb Hct MCHC RDW Plt Count Lymph % (Auto) [facility] % (Auto) Lymph # (Auto) Seg Neutrophils % Seg Neuts % (Manual) Lymphocytes % (Manual) Nucleated RBC % Seg Neutrophils # Man Lymphocytes # (Manual) Percent Retic Sodium Potassium Chloride Carbon Dioxide BUN Creatinine Glucose POC Glucose Lactic Acid Calcium Phosphorus Magnesium Iron TIBC Ferritin Ammonia Lactate Dehydrogenase C-Reactive Protein Urine WBC (Auto) > 182.0 H Urine Creatinine Salicylates < 0.3 L Acetaminophen 5.0 L 05/10/22 05/10/22 05/10/22 04:18 11:30 17:16 RBC Hgb Hct MCHC RDW Plt Count Lymph % (Auto) [facility] % (Auto) Lymph # (Auto) Seg Neutrophils % Seg Neuts % (Manual) Lymphocytes % (Manual) Nucleated RBC % Seg Neutrophils # Man Lymphocytes # (Manual) Percent Retic Sodium 146 H D 158 H D Potassium 6.3 H* D 3.1 L D Chloride 111.5 H Carbon Dioxide 18 L D BUN 162 H 105 H Creatinine 9.1 H 3.7 H D Glucose 112 H POC Glucose Lactic Acid Calcium Phosphorus Magnesium Iron TIBC Ferritin Ammonia Lactate Dehydrogenase C-Reactive Protein Urine WBC (Auto) Urine Creatinine 61.0 H Salicylates Acetaminophen 05/11/22 05/11/22 05/11/22 04:00 04:00 04:00 RBC 3.53 L Hgb 10.5 L D Hct 30.0 L D MCHC 35 H RDW Plt Count 118 L Lymph % (Auto) 6.[address] [facility] % (Auto) 9.6 H Lymph # (Auto) 0.5 L Seg Neutrophils % 84.0 H Seg Neuts % (Manual) Lymphocytes % (Manual) Nucleated RBC % Seg Neutrophils # Man Lymphocytes # (Manual) Percent Retic Sodium 149 H D Potassium 2.3 L* D Chloride Carbon Dioxide 36 H D BUN 41 H Creatinine Glucose 117 H POC Glucose Lactic Acid Calcium 7.5 L Phosphorus Magnesium 1.60 L Iron TIBC Ferritin Ammonia Lactate Dehydrogenase C-Reactive Protein Urine WBC (Auto) Urine Creatinine Salicylates Acetaminophen 05/11/22 05/11/22 05/12/22 04:00 15:30 02:52 RBC Hgb Hct MCHC RDW Plt Count Lymph % (Auto) [facility] % (Auto) Lymph # (Auto) Seg Neutrophils % Seg Neuts % (Manual) Lymphocytes % (Manual) Nucleated RBC % Seg Neutrophils # Man Lymphocytes # (Manual) Percent Retic Sodium Potassium 2.3 L* Chloride Carbon Dioxide 32 H BUN 27 H Creatinine 0.6 L 0.4 L Glucose POC Glucose Lactic Acid Calcium 7.7 L 6.9 L Phosphorus 1.70 L 1.00 L D Magnesium Iron TIBC Ferritin Ammonia Lactate Dehydrogenase C-Reactive Protein Urine WBC (Auto) Urine Creatinine Salicylates Acetaminophen 05/12/22 05/13/22 05/13/22 15:15 04:00 04:00 RBC 3.13 L Hgb 9.3 L Hct 27.6 L MCHC RDW Plt Count 121 L Lymph % (Auto) [facility] % (Auto) Lymph # (Auto) Seg Neutrophils % Seg Neuts % (Manual) Lymphocytes % (Manual) Nucleated RBC % Seg Neutrophils # Man Lymphocytes # (Manual) Percent Retic Sodium Potassium 3.1 L Chloride Carbon Dioxide BUN Creatinine 0.5 L Glucose 68 L POC Glucose Lactic Acid 0.60 L Calcium 7.3 L Phosphorus Magnesium Iron TIBC Ferritin Ammonia Lactate Dehydrogenase C-Reactive Protein Urine WBC (Auto) Urine Creatinine Salicylates Acetaminophen 05/13/22 05/13/22 05/13/22 11:49 11:49 11:49 RBC Hgb Hct MCHC RDW Plt Count Lymph % (Auto) [facility] % (Auto) Lymph # (Auto) Seg Neutrophils % Seg Neuts % (Manual) Lymphocytes % (Manual) Nucleated RBC % Seg Neutrophils # Man Lymphocytes # (Manual) Percent Retic 0.53 L Sodium Potassium Chloride Carbon Dioxide BUN Creatinine Glucose POC Glucose Lactic Acid Calcium Phosphorus Magnesium 1.40 L Iron TIBC Ferritin Ammonia Lactate Dehydrogenase 238 H C-Reactive Protein Urine WBC (Auto) Urine Creatinine Salicylates Acetaminophen 05/13/22 05/13/22 05/14/22 11:49 11:49 04:00 RBC 3.31 L Hgb 9.8 L Hct 29.2 L MCHC RDW Plt Count Lymph % (Auto) [facility] % (Auto) Lymph # (Auto) Seg Neutrophils % Seg Neuts % (Manual) Lymphocytes % (Manual) Nucleated RBC % Seg Neutrophils # Man Lymphocytes # (Manual) Percent Retic Sodium Potassium Chloride Carbon Dioxide BUN Creatinine Glucose POC Glucose Lactic Acid Calcium Phosphorus Magnesium Iron 33 L TIBC 126 L Ferritin 628.3 H Ammonia Lactate Dehydrogenase C-Reactive Protein Urine WBC (Auto) Urine Creatinine Salicylates Acetaminophen 05/14/22 05/14/22 05/15/22 04:00 16:48 04:23 RBC 3.35 L Hgb 10.0 L Hct 29.8 L MCHC RDW Plt Count Lymph % (Auto) [facility] % (Auto) Lymph # (Auto) Seg Neutrophils % Seg Neuts % (Manual) Lymphocytes % (Manual) Nucleated RBC % Seg Neutrophils # Man Lymphocytes # (Manual) Percent Retic Sodium Potassium 3.2 L Chloride 107.4 H Carbon Dioxide BUN Creatinine 0.4 L Glucose POC Glucose 168 H Lactic Acid Calcium 7.2 L Phosphorus Magnesium Iron TIBC Ferritin Ammonia Lactate Dehydrogenase C-Reactive Protein Urine WBC (Auto) Urine Creatinine Salicylates Acetaminophen 05/15/22 05/15/22 05/15/22 04:23 10:13 16:14 RBC Hgb Hct MCHC RDW Plt Count Lymph % (Auto) [facility] % (Auto) Lymph # (Auto) Seg Neutrophils % Seg Neuts % (Manual) Lymphocytes % (Manual) Nucleated RBC % Seg Neutrophils # Man Lymphocytes # (Manual) Percent Retic Sodium Potassium Chloride Carbon Dioxide BUN 8 L Creatinine 0.5 L Glucose POC Glucose 62 L 44 L Lactic Acid Calcium 7.5 L Phosphorus 1.10 L Magnesium Iron TIBC Ferritin Ammonia Lactate Dehydrogenase C-Reactive Protein Urine WBC (Auto) Urine Creatinine Salicylates Acetaminophen 05/15/22 05/16/22 18:30 05:13 RBC Hgb Hct MCHC RDW Plt Count Lymph % (Auto) [facility] % (Auto) Lymph # (Auto) Seg Neutrophils % Seg Neuts % (Manual) Lymphocytes % (Manual) Nucleated RBC % Seg Neutrophils # Man Lymphocytes # (Manual) Percent Retic Sodium Potassium 3.4 L Chloride Carbon Dioxide BUN Creatinine 0.5 L Glucose POC Glucose 153 H Lactic Acid Calcium 7.3 L Phosphorus 1.80 L D Magnesium Iron TIBC Ferritin Ammonia Lactate Dehydrogenase C-Reactive Protein Urine WBC (Auto) Urine Creatinine Salicylates Acetaminophen Allied health notes reviewed: nursing
[2022-05-16] MEDS: DEXTROSE 50% IN WATER (25GM) 50 ML SYRINGE IV PRN (12:26)
[2022-05-16] MEDS: DOXAZOSIN 1 MG TAB PO SCH ×2 (13:49→22:13)
[2022-05-16] MEDS: HEPARIN 5,000 UNIT/1 ML VIAL SUB-Q SCH ×2 (13:50→22:31)
[2022-05-16 15:11] LABS: Albumin 2.8 g/dL (3.8-4.8); Gamma Globulin 0.9 g/dL (0.8-1.7)
--- NOTE | 2022-05-16 15:46 | Progress Note ---
Assessment and Plan Assessment and plan: Assessment and Plan: This is a 76-year-old female with seizure disorder, HTN, nicotine and drug abuse admitted with acute kidney injury Neuro: h/o seizure disorder, marijuana use -Continue home Keppra -Reorientation as needed -Maintain sleep-wake cycle -aspiration/seizure precautions -As needed analgesia -Folic acid, thiamine -CT head shows no evidence of metastatic disease, recommend MRI with and without contrast Cardiac: Hypotension, h/o HTN -Blood pressure monitoring per protocol -Hold home hydralazine -s/p vasopressen support with levophed -MAP goal 65 -s/p MIVF, bolus prn -Midodrine p.o. Respiratory: Acute hypoxic respiratory failure (poa, resolved), right lung nodule, current nicotine abuse -[facility] consulted, appreciate recommendations -Pulmonary hygiene -SPO2 monitor per protocol -Supplemental oxygen tested and -Nicotine abuse cessation counseling provided -CT chest shows multiple osseous metastatic lesion, right upper lobe nodule, neoplasm not excluded, hemodialysis catheter terminates within the superior vena cava currently at the cavoatrial junction -CT abdomen/pelvis with oral and IV contrast shows hypodense lesions in the dome of the right hepatic lobe, cecum and appendix lie within the right inguinal hernia, small amount of ascites present within the pelvis, lower periaortic lymph nodes increase in size, right pelvic sidewall lymph nodes increased in size which shows central low-attenuation suggesting possible necrosis, prostate is borderline in size and minimally enlarged, multiple osseous metastatic lesions. GI: Liver Mass -PPI -Cardiac renal diet -BR: Colace -CT guided liver biopsy will not be performed d/t size of mass : Acute kidney injury likely postobstructive, dehydration, Hypokalemia, urinary retention -Nephrology consulted, appreciate recommendations -S/p Vas-Cath placement for emergent hemodialysis however Vas-Cath was not functional -Vascular surgery consulted for PermCath placement -Monitor intake and output -Renally dose medications -Avoid nephrotoxic medications -FeNa 0.7% -s/p MIVF -Flomax and doxazosin (unable to be given d/t BP) -Alvarez catheter replaced on 05/13 for retention -Replete potassium -Trend BMP ID: NAD -Monitor WBC and temperature curve Endo: NAD -Avoid hypoglycemia Heme: NAD -Trend CBC -Transfuse hemoglobin less than 7 -SCDs to BLE while in bed Oncology: Liver mass -CT chest showed multiple osseous metastatic lesions, right upper lobe nodule -CT abdomen/pelvis with contrast showed hypodense lesions in the dome of the right hepatic lobe, lower periaortic lymph nodes increase in size, right pelvic sidewall lymph nodes increase in size showing central low attenuation suggesting possible necrosis, multiple osseous metastatic lesions -Hematology/oncology consulted, appreciate recommendations -Bone marrow biopsy pending -Outpatient follow-up with heme-onc The high probability of a clinically significant, sudden or life threatening deterioration of the [multi] system(s) required my full and direct attention, intervention and personal management. The aggregate critical care time was [60] minutes. This time is in addition to time spent performing reported procedures but includes the following: [x] Data Review and interpretation [x] Patient assessment and monitoring of vital signs [x] Documentation [x] Medication orders and management Disposition Plan: icu Total Time Spent with Patient (Minutes): 60 History Interval history: This is 76-year-old male with seizure disorder, HTN, smoker and drug abuse presents to the emergency department on 05/09 via EMS for evaluation of generalized weakness and decreased oral intake. According to the family patient had decreased oral intake for the past 1 to 2 weeks and has generalized weakness. Work-up in the emergency department revealed hyponatremia at 133, hyperkalemia at 8, elevated BUN and creatinine at 225/15.7 and CXR revealed mild pulmonary vascular congestion. ECG also showed peaked T waves. Nephrology was consulted in the emergency department and a Vas-Cath was placed by [facility] for hemodialysis. Patient was also medically treated with insulin, glucose, calcium gluconate and Kayexalate for hyperkalemia. Patient was admitted to the hospitalist service with consults to nephrology, [facility] and vascular surgery for acute kidney injury requiring urgent dialysis. Hospital course to date: 05/10: Yesterday patient had a Vas-Cath placed by [facility] however this is nonfunctional at this time. Vascular surgery was consulted for placement of Vas-Cath. No acute events reported overnight. Patient suddenly became nonverbal however did follow commands, tracks/focus and pupils were round and reactive. Glucose check which was within normal limits. After approximately half an hour patient became verbal again. This afternoon patient is alert and oriented and interactive. 05/11: Hypernatremia slowly improving, noted to have hypokalemia, hypomagnesemia and hypophosphatemia. Potassium repleted with IV and p.o., bicarbonate drip discontinued. Started on Flomax and [facility] would like to add doxazosin. Patient started on half-normal saline and [facility] would like to obtain CT abdomen/pelvis with contrast. Updated niece at bedside. Free water flush 350 every 8 p.o. 05/12: Patient to be started on Levophed for hypotension and will be on IV fluids per [facility]. Hematology/oncology consulted and CT head was ordered. CT biopsy of the liver was also ordered. From a PICC line removed today as well as Alvarez catheter. 05/13: Overnight patient was started on Levophed, remains on MIVF. Started on midodrine. Patient had urinary retention and Alvarez catheter was replaced. CT head shows no findings to suggest intracranial metastatic disease and recommended MRI with and without contrast for evaluation. Patient has been titrated off Levophed. 05/14: Patient was restarted on Levophed overnight and has been on and off throughout the day. Given bolus of 500 mL. Hypokalemia repleted. Magnesium within normal limits. 05/15: Levophed remained infusing overnight but day RN will try to wean off. Will replete phos. PT consulted 05/16: Bone marrow biopsy ordered, weaned off of Levophed. Potassium and ph osphurous repleted. Hospitalist Physical - Constitutional Vitals: Temp Pulse Resp BP Pulse Ox 97.7 F 78 13 97/59 99 05/16/22 12:00 05/16/22 15:15 05/16/22 15:15 05/16/22 15:15 05/16/22 15:15 General appearance: Present: no acute distress, well-nourished - EENT Eyes: Present: PERRL ENT: hearing intact, poor dentition - Neck Neck: Present: normal ROM - Respiratory Respiratory effort: normal Respiratory: bilateral: CTA - Cardiovascular Rhythm: regular Heart Sounds: Present: S1 & S2 - Extremities Extremities: no ischemia, pulses intact, pulses symmetrical, No edema, normal temperature, normal color Peripheral Pulses: within normal limits - Abdominal General gastrointestinal: soft, non-tender, non-distended, hypoactive bowel sounds - Integumentary Integumentary: Present: warm, dry - Psychiatric Psychiatric: cooperative - Neurologic Neurologic: CNII-XII intact, no focal deficits, moves all extremities - Allied Health Allied health notes reviewed: nursing HEART Score - HEART Score Troponin: Troponin T < 0.010 ng/mL (0.00-0.029) 05/09/22 18:51 Results - Labs CBC & Chem 7: 05/15/22 04:23 05/16/22 05:13 Labs: Laboratory Last Values WBC 5.8 K/mm3 (4.5-11.0) 05/15/22 04:23 RBC 3.35 M/mm3 (3.65-5.03) L 05/15/22 04:23 Hgb 10.0 gm/dl (11.8-15.2) L 05/15/22 04:23 Hct 29.8 % (35.5-45.6) L 05/15/22 04:23 MCV 89 fl (84-94) 05/15/22 04:23 MCH 30 pg (28-32) 05/15/22 04:23 MCHC 34 % (32-34) 05/15/22 04:23 RDW 14.6 % (13.2-15.2) 05/15/22 04:23 Plt Count 179 K/mm3 (140-440) 05/15/22 04:23 Lymph % (Auto) 6.4 % (13.4-35.0) L 05/11/22 04:00 [place] % (Auto) 9.6 % (0.0-7.3) H 05/11/22 04:00 Eos % (Auto) 0.0 % (0.0-4.3) 05/11/22 04:00 Baso % (Auto) 0.0 % (0.0-1.8) 05/11/22 04:00 Lymph # (Auto) 0.5 K/mm3 (1.2-5.4) L 05/11/22 04:00 [place] # (Auto) 0.7 K/mm3 (0.0-0.8) 05/11/22 04:00 Eos # (Auto) 0.0 K/mm3 (0.0-0.4) 05/11/22 04:00 Baso # (Auto) 0.0 K/mm3 (0.0-0.1) 05/11/22 04:00 Add Manual Diff Complete 05/09/22 18:51 Total Counted 100 05/09/22 18:51 Seg Neutrophils % 84.0 % (40.0-70.0) H 05/11/22 04:00 Seg Neuts % (Manual) 98.0 % (40.0-70.0) H 05/09/22 18:51 Band Neutrophils % 0 % 05/09/22 18:51 Lymphocytes % (Manual) 1.0 % (13.4-35.0) L 05/09/22 18:51 Reactive Lymphs % (Man) 0 % 05/09/22 18:51 Monocytes % (Manual) 0 % (0.0-7.3) 05/09/22 18:51 Eosinophils % (Manual) 0 % (0.0-4.3) 05/09/22 18:51 Basophils % (Manual) 0 % (0.0-1.8) 05/09/22 18:51 Metamyelocytes % 1.0 % 05/09/22 18:51 Myelocytes % 0 % 05/09/22 18:51 Promyelocytes % 0 % 05/09/22 18:51 Blast Cells % 0 % 05/09/22 18:51 Nucleated RBC % 1.0 % (0.0-0.9) H 05/09/22 18:51 Seg Neutrophils # 5.9 K/mm3 (1.8-7.7) 05/11/22 04:00 Seg Neutrophils # Man 10.6 K/mm3 (1.8-7.7) H 05/09/22 18:51 Band Neutrophils # 0.0 K/mm3 05/09/22 18:51 Lymphocytes # (Manual) 0.1 K/mm3 (1.2-5.4) L 05/09/22 18:51 Abs React Lymphs (Man) 0.0 K/mm3 05/09/22 18:51 Monocytes # (Manual) 0.0 K/mm3 (0.0-0.8) 05/09/22 18:51 Eosinophils # (Manual) 0.0 K/mm3 (0.0-0.4) 05/09/22 18:51 Basophils # (Manual) 0.0 K/mm3 (0.0-0.1) 05/09/22 18:51 Metamyelocytes # 0.1 K/mm3 05/09/22 18:51 Myelocytes # 0.0 K/mm3 05/09/22 18:51 Promyelocytes # 0.0 K/mm3 05/09/22 18:51 Blast Cells # 0.0 K/mm3 05/09/22 18:51 WBC Morphology Not Reportable 05/09/22 18:51 WBC Morphology TNR 05/09/22 18:51 Hypersegmented Neuts Not Reportable 05/09/22 18:51 Hyposegmented Neuts Not Reportable 05/09/22 18:51 Hypogranular Neuts Not Reportable 05/09/22 18:51 Smudge Cells Not Reportable 05/09/22 18:51 Toxic Granulation Not Reportable 05/09/22 18:51 Toxic Vacuolation Not Reportable 05/09/22 18:51 Dohle Bodies Not Reportable 05/09/22 18:51 Pelger-Huet Anomaly Not Reportable 05/09/22 18:51 Paola Rods Not Reportable 05/09/22 18:51 Platelet Estimate Consistent w auto 05/09/22 18:51 Clumped Platelets Not Reportable 05/09/22 18:51 Plt Clumps, EDTA Not Reportable 05/09/22 18:51 Large Platelets Not Reportable 05/09/22 18:51 Giant Platelets Not Reportable 05/09/22 18:51 Platelet Satelliting Not Reportable 05/09/22 18:51 Plt Morphology Comment Not Reportable 05/09/22 18:51 RBC Morphology Not Reportable 05/09/22 18:51 Dimorphic RBCs Not Reportable 05/09/22 18:51 Polychromasia Not Reportable 05/09/22 18:51 Hypochromasia Not Reportable 05/09/22 18:51 Poikilocytosis Not Reportable 05/09/22 18:51 Anisocytosis Not Reportable 05/09/22 18:51 Microcytosis Not Reportable 05/09/22 18:51 Macrocytosis Not Reportable 05/09/22 18:51 Spherocytes Not Reportable 05/09/22 18:51 Pappenheimer Bodies Not Reportable 05/09/22 18:51 Sickle Cells Not Reportable 05/09/22 18:51 Target Cells Few 05/09/22 18:51 Tear Drop Cells Few 05/09/22 18:51 Ovalocytes Not Reportable 05/09/22 18:51 Helmet Cells Not Reportable 05/09/22 18:51 [place] Bodies Not Reportable 05/09/22 18:51 [place] Rings Not Reportable 05/09/22 18:51 [place] Cells Not Reportable 05/09/22 18:51 Bite Cells Not Reportable 05/09/22 18:51 Crenated Cell Not Reportable 05/09/22 18:51 Elliptocytes Not Reportable 05/09/22 18:51 Acanthocytes (Spur) Not Reportable 05/09/22 18:51 Rouleaux Not Reportable 05/09/22 18:51 Hemoglobin C Crystals Not Reportable 05/09/22 18:51 Schistocytes Not Reportable 05/09/22 18:51 Malaria parasites Not Reportable 05/09/22 18:51 Percent Retic 0.53 % (0.78-2.58) L 05/13/22 11:49 Jamal Bodies Not Reportable 05/09/22 18:51 Hem Pathologist Commnt No 05/09/22 18:51 PT 14.0 Sec. (12.2-14.9) 05/09/22 18:51 INR 0.97 (0.87-1.13) 05/09/22 18:51 Sodium 139 mmol/L (137-145) 05/16/22 05:13 Potassium 3.4 mmol/L (3.6-5.0) L 05/16/22 05:13 Chloride 104.5 mmol/L (98-107) 05/16/22 05:13 Carbon Dioxide 24 mmol/L (22-30) 05/16/22 05:13 Anion Gap 14 mmol/L 05/16/22 05:13 BUN 11 mg/dL (9-20) 05/16/22 05:13 Creatinine 0.5 mg/dL (0.8-1.3) L 05/16/22 05:13 Estimated GFR > 60 ml/min 05/16/22 05:13 BUN/Creatinine Ratio 22 % 05/16/22 05:13 Glucose 82 mg/dL (75-100) 05/16/22 05:13 POC Glucose 72 mg/dL (70-105) 05/16/22 12:25 Lactic Acid 0.60 mmol/L (0.7-2.0) L 05/12/22 15:15 Calcium 7.3 mg/dL (8.4-10.2) L 05/16/22 05:13 Phosphorus 1.80 mg/dL (2.5-4.5) L D 05/16/22 05:13 Magnesium 2.00 mg/dL (1.7-2.3) 05/14/22 08:24 Iron 33 ug/dL (49-181) L 05/13/22 11:49 TIBC 126 mcg/dL (250-450) L 05/13/22 11:49 Ferritin 628.3 ng/mL (30.0-300.0) H 05/13/22 11:49 Total Bilirubin 1.10 mg/dL (0.1-1.2) 05/09/22 18:51 AST 13 units/L (5-40) 05/09/22 18:51 ALT 10 units/L (7-56) 05/09/22 18:51 Alkaline Phosphatase 98 units/L (35-129) 05/09/22 18:51 Ammonia 61.0 umol/L (25-60) H 05/09/22 18:51 Lactate Dehydrogenase 238 units/L (91-180) H 05/13/22 11:49 Total Creatine Kinase 92 units/L (55-170) 05/09/22 18:51 Troponin T < 0.010 ng/mL (0.00-0.029) 05/09/22 18:51 C-Reactive Protein 12.90 mg/dL (0.00-1.30) H 05/09/22 18:51 NT-Pro-B Natriuret Pep 817.0 pg/mL (0-900) 05/09/22 18:51 Serum Total Protein 5.6 g/dL (6.1-8.1) L 05/13/22 11:49 Total Protein 7.7 g/dL (6.3-8.2) 05/09/22 18:51 Albumin 2.8 g/dL (3.8-4.8) L 05/13/22 11:49 Albumin/Globulin Ratio 1.5 % 05/09/22 18:51 Dkpsa-7-Boknoelht 0.5 g/dL (0.2-0.3) H 05/13/22 11:49 Capjy-2-Tbnwggdar 0.8 g/dL (0.5-0.9) 05/13/22 11:49 Beta Globulins 0.4 g/dL (0.2-0.5) 05/13/22 11:49 Gamma Globulins 0.9 g/dL (0.8-1.7) 05/13/22 11:49 Abnorm Protein Band 1 see below 05/13/22 11:49 PEP Interpretation see below H 05/13/22 11:49 TSH 2.020 mlU/mL (0.270-4.200) 05/09/22 18:51 Urine Color Red (Yellow) 05/10/22 02:16 Urine Turbidity Cloudy (Clear) 05/10/22 02:16 Specific [place] (Man) 1.030 (1.003-1.030) 05/10/22 02:16 Ur Protein (Man) >500 mg/dL (Negative) 05/10/22 02:16 Ur Ketones (Man) 5mg/dl (Negative) 05/10/22 02:16 Urine Bilirubin (Man) Negative (Negative) 05/10/22 02:16 Urine WBC (Auto) > 182.0 /HPF (0.0-6.0) H 05/10/22 02:16 Urine RBC (Auto) > 182.0 /HPF (0.0-6.0) 05/10/22 02:16 Urine Bacteria (Auto) 1+ /HPF (Negative) 05/10/22 02:16 Urine RBC (Manual) 5+ (Negative) 05/10/22 02:16 Urine Osmolality 576 Mosm/kg 05/10/22 17:16 Urine Creatinine 61.0 mg/dL (0.1-20.0) H 05/10/22 17:16 Urine Sodium 19 mmol/L 05/10/22 17:16 Urine Urea Nitrogen 1015 05/10/22 17:16 Salicylates < 0.3 mg/dL (2.8-20.0) L 05/09/22 18:51 Urine Opiates Screen Negative 05/10/22 02:16 Urine Methadone Screen Negative 05/10/22 02:16 Acetaminophen 5.0 ug/mL (10.0-30.0) L 05/09/22 18:51 Ur Barbiturates Screen Negative 05/10/22 02:16 Ur Phencyclidine Scrn Negative 05/10/22 02:16 Ur Amphetamines Screen Negative 05/10/22 02:16 U Benzodiazepines Scrn Negative 05/10/22 02:16 Urine Cocaine Screen Negative 05/10/22 02:16 U Marijuana (THC) Screen Positive 05/10/22 02:16 Drugs of Abuse Note Disclamer 05/10/22 02:16 Plasma/Serum Alcohol < 0.01 % (0-0.07) 05/09/22 18:51 Hepatitis A IgM Ab Non-reactive (NonReactive) 05/09/22 23:00 Hep Bs Antigen Non-reactive (Negative) 05/09/22 23:00 Hep B Core IgM Ab Non-reactive (NonReactive) 05/09/22 23:00 Hepatitis C Antibody Non-reactive (NonReactive) 05/09/22 23:00 Alvarez/IV: Voiding Method Urinal Active Medications - Current Medications Current Medications: Generic Name Dose Route Start Last Admin Trade Name Freq PRN Reason Stop Dose Admin Acetaminophen 650 mg 05/10/22 00:08 Acetaminophen 325 Mg Tab PO Q6H PRN Pain MILD(1-3)/Fever >100.5/JOHNSON Arformoterol Tartrate 15 mcg 05/12/22 20:00 05/16/22 08:21 Arformoterol 15 Mcg/2 Ml Nebu IH 15 mcg Q12HRT CAITLIN Administration Ascorbic Acid 250 mg 05/14/22 10:00 05/16/22 10:06 Ascorbic Acid 250 Mg Tab FEEDTUBE 250 mg QDAY CAITLIN Administration Budesonide 0.5 mg 05/12/22 20:00 05/16/22 08:21 Budesonide 0.5 Mg/2 Ml Nebu IH 0.5 mg Q12HRT CAITLIN Administration Dextrose 50 ml 05/15/22 17:10 05/16/22 12:26 Dextrose 50% In Water (25gm) 50 Ml Syringe IV 10 ml ONCE PRN Administration Hypoglycemia Protocol Docusate Sodium 100 mg 05/10/22 22:00 05/16/22 10:07 Docusate Sodium 100 Mg Cap PO 100 mg BID CAITLIN Administration Doxazosin Mesylate 1 mg 05/11/22 22:00 05/16/22 13:49 Doxazosin 1 Mg Tab PO Not Given QHS CAITLIN Ferrous Sulfate 300 mg 05/14/22 10:00 05/16/22 10:07 Ferrous Sulfate 300 Mg (60mg Elemental Iron) / 5 Ml Oral Liqd PO 300 mg QDAY CAITLIN Administration Folic Acid 1 mg 05/10/22 12:00 05/16/22 10:07 Folic Acid 1 Mg Tab PO 1 mg QDAY CAITLIN Administration Heparin Sodium (Porcine) 5,000 unit 05/10/22 06:00 05/16/22 13:50 Heparin 5,000 Unit/1 Ml Vial SUB-Q Not Given Q8HR CAITLIN NORepinephrine/NS 8 MG-250 ML 8 mg in 250 mls @ 3.75 mls/hr 05/10/22 02:00 05/15/22 10:28 Norepinephrine/Ns 8 Mg-250 Ml (Double Conc) IV 0 mcg/min TITRATE CAITLIN 0 mls/hr Titration Protocol 2 MCG/MIN Levetiracetam 750 mg 05/10/22 12:00 05/16/22 10:06 Levetiracetam 500 Mg Tab PO 750 mg BID CAITLIN Administration Magnesium Hydroxide 30 ml 05/10/22 00:08 Magnesium Hydroxide (Mom) Oral Liqd Udc PO Q4H PRN Constipation Midodrine 10 mg 05/13/22 09:00 05/16/22 08:35 Midodrine 10 Mg Tab PO 10 mg TID@0800,1200,1600 CAITLIN Administration Ondansetron HCl 4 mg 05/10/22 00:08 Ondansetron 4 Mg/2 Ml Inj IV Q8H PRN Nausea And Vomiting Sodium Chloride 10 ml 05/10/22 10:00 05/16/22 13:50 Sodium Chloride 0.9% 10 Ml Flush Syringe IV Not Given BID CAITLIN Sodium Chloride 10 ml 05/10/22 00:08 Sodium Chloride 0.9% 10 Ml Flush Syringe IV PRN PRN LINE FLUSH Tamsulosin HCl 0.4 mg 05/12/22 10:00 05/16/22 10:06 Tamsulosin 0.4 Mg Cap PO 0.4 mg QDAY CAITLIN Administration Thiamine HCl 100 mg 05/10/22 12:00 05/16/22 10:07 Thiamine 100 Mg Tab PO 100 mg QDAY CAITLIN Administration Nutrition/Malnutrition Assess - Dietary Evaluation Nutrition/Malnutrition Findings: Nutrition Notes Start: 05/10/22 17:09 Freq: Status: Active Protocol: Document 05/10/22 17:09 ARNOLDO (Rec: 05/10/22 17:52 ARNOLDO [email or web address]) Nutrition Notes Need for Assessment generated from: Order,white metal caster,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 Current Diet Cardiac -Renal- Diet + D Suppl (since B 05/10). Labs/Tests 05/10: Na 158, K 3.1, Cl 111.5 , BUN 105, Crea 3.7, Glu 112. Pertinent Medications 05/10: Folic acid, Thiamine, others nutritionally unremarkable. Height 5 ft 10 in Weight 35.6 kg [place] Body Weight (kg) 75.45 BMI 11.2 Intake Prior to Admission Poor Weight change and time frame Pt states having loss, unintentionally, more than 34 lb body weight recently. Weight Status Underweight Subjective/Other Information RD consult for Low BMI, risk of malnutrition nutrition education and dietary supplementation assessments. No reports available on Pt's PO intake of meals at the time , will assess at F/U. I will prescribe dietary supplements to compensate for poor or insufficient PO intake of meals during LOS. Pt is on Room Air, O2 saturation @ 98%, according to Physical Assessment History notes. Pt has missing teeth, according to Physical Assessment History notes. Pt shows sudden unintentional loss of body weight and poor PO intake of meals for 2 weeks as signs of concern for risk of malnutrition at the time, according to Admission documents. Procedure on 05/10: L-CFV Dual -tunneled PICC Catheter placement, and R-IJV Triple- lumen HD non-tunneled catheter placement, well tolerated, according to Operative Report notes. Pt's Low BMI seems to correspond to a natural body composition, and exacerbated by a sudden loss of body weight and chronic malnutrition, since some signs of concern were mentioned in the Physical Assessment History and the Progress notes . Pt still in critical condition , not a candidate for Nutrition Education at the time, will assess feasibility on F/U. Percent of energy/protein needs met: Prescribed Cardiac -Renal- Diet provides for energy/ protein needs (2,230 Kcal/85 g ) during LOS; additionally, Dietary Supplements will compensate for possible poor or insufficient PO intake of meals with 1,275 Kcal and 57 g of protein. Burn Absent Trauma Absent GI Symptoms None Food Allergy No Skin Integrity/Comment Assessment WNL. 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 Etiology Possibly associated to Adult Failure to Thrive. As Evidenced by Signs and Symptoms BMI: 11.3 Kg/m2. #1 Nutrition Diagnosis Malnutrition Etiology Possibly PATRIZIA. As Evidenced by Signs and Symptoms Pt shows sudden unintentional loss of body weight and poor PO intake of meals for 2 weeks as signs of concern for risk of malnutrition at the time, according to Admission documents. Is patient on ventilator? No Is Patient Ambulatory and/or Out of Bed No [facility] [phone] Kcal/Kg value to use for calculation 58 Approximate Energy Requirements Using 5 kcal/Kg Calculation Used for Recommendations Kcal/kg Additional Notes Protein: 1.2-1.5 g/Kg ABW; 43- 54 g/day. Fluids: 1 ml/Kcal, or as per MD. Nutrition Intervention Change Diet Order: Continue Cardiac -Renal- Diet as tolerated. Add Supplement/Snack (indicate name/kcal Start 8 fl oz Nepro w/ /protein ) CARBSTEADY; TID. Provides kCal: 1,275 Provides Protein (gm) 57 Goal #1 Compensate, through dietary supplementation, for possible poor or insufficient PO intake of meals during LOS. Goal #2 Adjust the dietary intervention to better serve Pt's needs and clinical conditions during LOS. Follow-Up By: 05/17/22 Additional Comments Continue monitoring food tolerance, %PO intake of meals , dietary supplements, and BM.
[2022-05-17] MEDS ORDERED: SODIUM CHLORIDE 0.9% 1000 ML 1,000 ML IV ONE (04:04)
[2022-05-17 05:01] LABS: Hematocrit 27.3 % (35.5-45.6); Hemoglobin 9.2 gm/dl (11.8-15.2); Mean Corpuscular HGB Conc 34 % (32-34); Mean Corpuscular Volume 88 fl (84-94); Platelet Count 227 K/mm3 (140-440); Red Cell Distribution Width 15.2 % (13.2-15.2)
[2022-05-17 05:23] LABS: Alanine Aminotransferase 17 units/L (7-56); Albumin 2.9 g/dL (3.9-5); Blood Urea Nitrogen 8 mg/dL (9-20); Calcium 7.6 mg/dL (8.4-10.2); Hemolysis Index 3
[2022-05-17 05:25] LABS: BUN/Creatinine Ratio 20
[2022-05-17] MEDS: HEPARIN 5,000 UNIT/1 ML VIAL SUB-Q SCH ×3 (07:25→21:04)
[2022-05-17] MEDS ORDERED: POTASSIUM PHOSPHATE 15 MMOL in SODIUM CHLORIDE 0.9% 250ML 250 ML IV ONE (07:36)
[2022-05-17 07:49] LABS: Heparin-Induced Platelet Antib Negative (Negative); Unfractionated Heparin Negative (Negative)
[2022-05-17] MEDS: MIDODRINE 10 MG TAB PO SCH ×3 (08:01→16:01)
--- NOTE | 2022-05-17 08:47 | Progress Note ---
Subjective Principal diagnosis: PATRIZIA; Hyperkalemia; Lung Mass; Tobacco Abuse; Seizures; COPD; HTN Interval history: Assessment and plan Acute kidney injury: Renal function has normalized current creatinine is 0.4, Moderately severe hypophosphatemia, supplement orally as well as empirically give vitamin D 5000 unit daily, #Hypokalemia appears to have improved as of today potassium is around four- point, #Anemia leukopenia, #Hypotension blood pressure 93/58, heart rate around 101, would like to officially Discontinue doxazosin, discontinue tamsulosin which can worsen hypotension as well #Urinary retention: Suggest urology evaluation and follow-up avoid antihypertensive treatment Enlarged prostate metastatic lesion, liver mass, lung lesion, obstructive uropathy, Prognosis appears to be very poor, mortality risk remains high given the comorbidities, admitted with severe hyperkalemia, renal failure, If there are any renal related issues in regards to this patient please feel free to reach out without any hesitation at [phone] We'll continue to follow and make recommendation for renal standpoint. Progress note by: Evan Mcgowan MD [address] [place] [id number] Tele [phone] [email or web address] Patient was seen today for follow-up of multiple renal related issues Events of this hospitalization were noted, CT scan obtained 05/11/2022 shows enlarged prostate, multiple metastatic lesions, bladder wall thickening, mild hydronephrosis and left-sided hydroureter Past medical history: Reviewed Family history: Reviewed Social history: Reviewed Allergies: Reviewed Physical examination: Vitals: Reviewed HEENT: No pallor or icterus oral mucosa moist Neck: Supple no JVD no thyromegaly Chest: Bilateral clear to auscultation anteriorly Heart: Regular rate and rhythm S1-S2 heard no S3-S4 Abdomen: Soft nontender no voluntary guarding rigidity rebound Extremity: Dry skin less than 1+ peripheral edema Psychiatric: No evidence of agitation and aggression noted Dermatology: No petechial rashes Labs and x-rays: Reviewed from today Objective - Vital Signs Vital signs: Vital Signs - 12hr 05/16/22 05/16/22 05/16/22 21:00 21:15 21:30 Temperature Pulse Rate 76 74 69 Pulse Rate [ 68 Bilateral Throughout] Pulse Rate [ From Monitor] Respiratory 22 16 17 Rate Respiratory 16 Rate [Bilateral Throughout] Blood Pressure 98/53 108/75 113/71 O2 Sat by Pulse 83 L 98 50 L Oximetry 05/16/22 05/16/22 05/16/22 21:45 22:00 22:13 Temperature Pulse Rate 74 70 90 Pulse Rate [ Bilateral Throughout] Pulse Rate [ From Monitor] Respiratory 14 14 Rate Respiratory Rate [Bilateral Throughout] Blood Pressure 113/71 119/74 119/74 O2 Sat by Pulse 100 Oximetry 05/16/22 05/16/22 05/16/22 22:15 22:30 22:45 Temperature Pulse Rate 101 H 77 77 Pulse Rate [ Bilateral Throughout] Pulse Rate [ From Monitor] Respiratory 12 20 20 Rate Respiratory Rate [Bilateral Throughout] Blood Pressure 106/66 112/64 108/64 O2 Sat by Pulse 99 82 L Oximetry 05/16/22 05/16/22 05/16/22 23:00 23:15 23:30 Temperature Pulse Rate 75 77 Pulse Rate [ Bilateral Throughout] Pulse Rate [ From Monitor] Respiratory 18 29 H 22 Rate Respiratory Rate [Bilateral Throughout] Blood Pressure 98/56 92/53 94/53 O2 Sat by Pulse 90 98 100 Oximetry 05/16/22 05/17/22 05/17/22 23:45 00:00 00:06 Temperature 98 F Pulse Rate 81 85 82 Pulse Rate [ Bilateral Throughout] Pulse Rate [ 83 From Monitor] Respiratory 29 H 19 19 Rate Respiratory Rate [Bilateral Throughout] Blood Pressure 91/50 78/50 84/49 O2 Sat by Pulse 78 L 99 99 Oximetry 05/17/22 05/17/22 05/17/22 00:15 00:30 00:45 Temperature Pulse Rate 86 86 80 Pulse Rate [ Bilateral Throughout] Pulse Rate [ From Monitor] Respiratory 19 19 18 Rate Respiratory Rate [Bilateral Throughout] Blood Pressure 86/49 81/49 89/51 O2 Sat by Pulse 99 99 99 Oximetry 05/17/22 05/17/22 05/17/22 01:00 01:15 01:30 Temperature Pulse Rate 99 H 83 84 Pulse Rate [ Bilateral Throughout] Pulse Rate [ From Monitor] Respiratory 18 18 33 H Rate Respiratory Rate [Bilateral Throughout] Blood Pressure 89/51 96/60 85/51 O2 Sat by Pulse 95 96 Oximetry 05/17/22 05/17/22 05/17/22 01:45 02:00 02:15 Temperature Pulse Rate 85 90 86 Pulse Rate [ Bilateral Throughout] Pulse Rate [ From Monitor] Respiratory 28 H 18 31 H Rate Respiratory Rate [Bilateral Throughout] Blood Pressure 89/55 91/57 105/65 O2 Sat by Pulse 99 99 98 Oximetry 05/17/22 05/17/22 05/17/22 02:30 02:45 03:00 Temperature Pulse Rate 83 80 82 Pulse Rate [ Bilateral Throughout] Pulse Rate [ From Monitor] Respiratory 20 24 20 Rate Respiratory Rate [Bilateral Throughout] Blood Pressure 93/59 92/58 94/58 O2 Sat by Pulse 99 100 99 Oximetry 05/17/22 05/17/22 05/17/22 03:15 03:30 03:45 Temperature Pulse Rate 83 104 H 85 Pulse Rate [ Bilateral Throughout] Pulse Rate [ From Monitor] Respiratory 19 24 27 H Rate Respiratory Rate [Bilateral Throughout] Blood Pressure 113/69 115/69 75/44 O2 Sat by Pulse 99 99 100 Oximetry 05/17/22 05/17/22 05/17/22 04:00 04:15 04:30 Temperature 98 F Pulse Rate 114 H 91 H 76 Pulse Rate [ Bilateral Throughout] Pulse Rate [ 80 From Monitor] Respiratory 43 H 27 H 23 Rate Respiratory Rate [Bilateral Throughout] Blood Pressure 78/43 84/52 113/63 O2 Sat by Pulse 100 100 96 Oximetry 05/17/22 05/17/22 05/17/22 04:45 05:00 05:15 Temperature Pulse Rate 76 80 78 Pulse Rate [ Bilateral Throughout] Pulse Rate [ From Monitor] Respiratory 21 28 H 20 Rate Respiratory Rate [Bilateral Throughout] Blood Pressure 111/65 99/54 103/62 O2 Sat by Pulse 99 93 81 L Oximetry 05/17/22 05/17/22 05/17/22 05:30 05:45 06:00 Temperature Pulse Rate 70 80 79 Pulse Rate [ Bilateral Throughout] Pulse Rate [ From Monitor] Respiratory 33 H 24 18 Rate Respiratory Rate [Bilateral Throughout] Blood Pressure 114/68 111/53 100/55 O2 Sat by Pulse 95 55 L 80 L Oximetry 05/17/22 05/17/2222 06:15 06:30 06:45 Temperature Pulse Rate 78 89 70 Pulse Rate [ Bilateral Throughout] Pulse Rate [ From Monitor] Respiratory 18 17 18 Rate Respiratory Rate [Bilateral Throughout] Blood Pressure 118/61 118/61 115/65 O2 Sat by Pulse 98 99 89 Oximetry 05/17/22 05/17/22 05/17/22 07:00 07:15 07:17 Temperature 98.2 F Pulse Rate 81 88 Pulse Rate [ Bilateral Throughout] Pulse Rate [ From Monitor] Respiratory 24 32 H Rate Respiratory Rate [Bilateral Throughout] Blood Pressure 108/66 86/49 O2 Sat by Pulse 92 98 Oximetry 05/17/22 05/17/22 05/17/22 07:30 07:45 08:00 Temperature 97.9 F Pulse Rate 85 87 101 H Pulse Rate [ Bilateral Throughout] Pulse Rate [ 103 H From Monitor] Respiratory 24 23 26 H Rate Respiratory Rate [Bilateral Throughout] Blood Pressure 93/51 92/58 93/58 O2 Sat by Pulse 98 97 99 Oximetry - Lab 05/17/22 04:13 05/17/22 04:20 Most recent lab results Calcium 7.6 mg/dL (8.4-10.2) L 05/17/22 04:20 Phosphorus 1.70 mg/dL (2.5-4.5) L 05/17/22 04:20 Magnesium 1.60 mg/dL (1.7-2.3) L 05/17/22 04:20 Urine Creatinine 61.0 mg/dL (0.1-20.0) H 05/10/22 17:16 Urine Sodium 19 mmol/L 05/10/22 17:16 Medications & Allergies - Medications Allergies/Adverse Reactions: Allergies No Known Allergies Allergy (Verified 11/23/20 17:16) Home Medications: Home Medications Medication Instructions Recorded Confirmed Last Taken Type amLODIPine [Norvasc] 5 mg PO DAILY 05/10/22 05/10/22 Unknown History levETIRAcetam [Keppra TAB] 500 mg PO BID 05/10/22 05/10/22 Unknown History Active Medications: Generic Name Dose Route Start Last Admin Trade Name Freq PRN Reason Stop Dose Admin Acetaminophen 650 mg 05/10/22 00:08 Acetaminophen 325 Mg Tab PO Q6H PRN Pain MILD(1-3)/Fever >100.5/JOHNSON Arformoterol Tartrate 15 mcg 05/12/22 20:00 05/16/22 21:14 Arformoterol 15 Mcg/2 Ml Nebu IH 15 mcg Q12HRT CAITLIN Administration Ascorbic Acid 250 mg 05/14/22 10:00 05/16/22 10:06 Ascorbic Acid 250 Mg Tab FEEDTUBE 250 mg QDAY CAITLIN Administration Budesonide 0.5 mg 05/12/22 20:00 05/16/22 21:14 Budesonide 0.5 Mg/2 Ml Nebu IH 0.5 mg Q12HRT CAITLIN Administration Dextrose 50 ml 05/15/22 17:10 05/16/22 12:26 Dextrose 50% In Water (25gm) 50 Ml Syringe IV 10 ml ONCE PRN Administration Hypoglycemia Protocol Docusate Sodium 100 mg 05/10/22 22:00 05/16/22 22:13 Docusate Sodium 100 Mg Cap PO 100 mg BID CAITLIN Administration Doxazosin Mesylate 1 mg 05/11/22 22:00 05/16/22 22:13 Doxazosin 1 Mg Tab PO 1 mg QHS CAITLIN Administration Ferrous Sulfate 300 mg 05/14/22 10:00 05/16/22 10:07 Ferrous Sulfate 300 Mg (60mg Elemental Iron) / 5 Ml Oral Liqd PO 300 mg QDAY CAITLIN Administration Folic Acid 1 mg 05/10/22 12:00 05/16/22 10:07 Folic Acid 1 Mg Tab PO 1 mg QDAY CAITLIN Administration Heparin Sodium (Porcine) 5,000 unit 05/10/22 06:00 05/17/22 07:25 Heparin 5,000 Unit/1 Ml Vial SUB-Q Not Given Q8HR CAITLIN NORepinephrine/NS 8 MG-250 ML 8 mg in 250 mls @ 3.75 mls/hr 05/10/22 02:00 05/15/22 10:28 Norepinephrine/Ns 8 Mg-250 Ml (Double Conc) IV 0 mcg/min TITRATE CAITLIN 0 mls/hr Titration Protocol 2 MCG/MIN Potassium Phosphate 15 mmol/ 255 mls @ 125 mls/hr 05/17/22 07:36 Sodium Chloride IV 05/17/22 09:38 ONCE ONE Levetiracetam 750 mg 05/10/22 12:00 05/16/22 22:13 Levetiracetam 500 Mg Tab PO 750 mg BID CAITLIN Administration Magnesium Citrate 300 ml 05/17/22 10:00 Magnesium Citrate 300 Ml Oral Liqd PO 05/19/22 09:59 DAILY CAITLIN Magnesium Hydroxide 30 ml 05/10/22 00:08 Magnesium Hydroxide (Mom) Oral Liqd Udc PO Q4H PRN Constipation Midodrine 10 mg 05/13/22 09:00 05/17/22 08:01 Midodrine 10 Mg Tab PO 10 mg TID@0800,1200,1600 CAITLIN Administration Ondansetron HCl 4 mg 05/10/22 00:08 Ondansetron 4 Mg/2 Ml Inj IV Q8H PRN Nausea And Vomiting Potassium Phos/Sodium Phos 1 each 05/17/22 14:00 Phos-Nak Powder Packet PO 05/19/22 13:59 Q8HR [facility] Sodium Chloride 10 ml 05/10/22 10:00 05/16/22 22:14 Sodium Chloride 0.9% 10 Ml Flush Syringe IV 10 ml BID CAITLIN Administration Sodium Chloride 10 ml 05/10/22 00:08 Sodium Chloride 0.9% 10 Ml Flush Syringe IV PRN PRN LINE FLUSH Tamsulosin HCl 0.4 mg 05/12/22 10:00 05/16/22 10:06 Tamsulosin 0.4 Mg Cap PO 0.4 mg QDAY CAITLIN Administration Thiamine HCl 100 mg 05/10/22 12:00 05/16/22 10:07 Thiamine 100 Mg Tab PO 100 mg QDAY CAITLIN Administration
[2022-05-17] MEDS: ASCORBIC ACID 250 MG TAB FEEDTUBE SCH (09:47)
[2022-05-17] MEDS: levETIRAcetam 500 MG TAB PO SCH ×2 (09:47→21:04)
[2022-05-17] MEDS: FERROUS SULFATE 300 MG (60MG Elemental Iron) / 5 mL ORAL LIQD PO SCH (09:47)
[2022-05-17] MEDS: MAGNESIUM OXIDE 400 MG TAB PO SCH (09:47)
[2022-05-17] MEDS: TAMSULOSIN 0.4 MG CAP PO SCH (09:48)
[2022-05-17] MEDS: DOCUSATE SODIUM 100 MG CAP PO SCH ×2 (09:48→21:07)
[2022-05-17] MEDS: THIAMINE 100 MG TAB PO SCH (09:48)
[2022-05-17] MEDS: FOLIC ACID 1 MG TAB PO SCH (09:50)
[2022-05-17] MEDS: BUDESONIDE 0.5 MG/2 ML NEBU IH SCH ×2 (09:56→21:35)
[2022-05-17] MEDS: ARFORMOTEROL 15 MCG/2 ML NEBU IH SCH ×2 (09:56→21:35)
[2022-05-17] MEDS ORDERED: MAGNESIUM CITRATE 300 ML ORAL LIQD PO SCH (10:00)
--- NOTE | 2022-05-17 11:36 | Progress Note ---
Assessment and Plan PATRIZIA Severe Hyperkalemia Lung Mass (RUL) Tobacco Abuse (10+ pk year) Severe protein calorie malnutrition Dehydration H/O Seizures COPD HTN H/O Drug Abuse PATRIZIA-reolved Severe Hyperkalemia-resolved Lung Mass (RUL) Tobacco Abuse (10+ pk year) Severe protein calorie malnutrition Dehydration H/O Seizures COPD HTN H/O Drug Abuse Awaiting diagnostic biopsy OK to transfer telemetry -accuchecks with glycemic control per SSI (While critically ill target blood glucose of 140-180 mg/dL; avoid hypoglycemia) - avoid nephrotoxins, renally dose all medications - avoid benzodiazepines, reduce the possibility of delirium - prn analgesia per pain score - Maintenance of sleep-wake cycle, avoid delirium - VTE prophylaxis - PT/OT/ROM exercises - mobility protocols for pressure ulcer prophylaxis - Monitor hemodynamics closely -Chronic home medications as clinically indicated Subjective Date of service: 05/17/22 Principal diagnosis: PATRIZIA; Hyperkalemia; Lung Mass; Tobacco Abuse; Seizures; COPD; HTN Interval history: Patient is seen today for: PATRIZIA; Severe Hyperkalemia; Lung Mass (RUL); Tobacco Abuse; H/O Seizures; COPD; HTN; H/O Drug Abuse Seen and examined at bedside; 24hour events reviewed; nursing and respiratory care staff consulted; no adverse overnight events reported to me; resting peacefully in bed; awaiting bone biopsy; no N/V/F/C; off Levophed, with low normal SBP Objective Vital Signs - 12hr 05/16/22 05/17/22 05/17/22 23:45 00:00 00:06 Temperature 98 F Pulse Rate 81 85 82 Pulse Rate [ Bilateral Throughout] Pulse Rate [ 83 From Monitor] Respiratory 29 H 19 19 Rate Respiratory Rate [Bilateral Throughout] Blood Pressure 91/50 78/50 84/49 O2 Sat by Pulse 78 L 99 99 Oximetry 05/17/22 05/17/22 05/17/22 00:15 00:30 00:45 Temperature Pulse Rate 86 86 80 Pulse Rate [ Bilateral Throughout] Pulse Rate [ From Monitor] Respiratory 19 19 18 Rate Respiratory Rate [Bilateral Throughout] Blood Pressure 86/49 81/49 89/51 O2 Sat by Pulse 99 99 99 Oximetry 05/17/22 05/17/22 05/17/22 01:00 01:15 01:30 Temperature Pulse Rate 99 H 83 84 Pulse Rate [ Bilateral Throughout] Pulse Rate [ From Monitor] Respiratory 18 18 33 H Rate Respiratory Rate [Bilateral Throughout] Blood Pressure 89/51 96/60 85/51 O2 Sat by Pulse 95 96 Oximetry 05/17/22 05/17/22 05/17/22 01:45 02:00 02:15 Temperature Pulse Rate 85 90 86 Pulse Rate [ Bilateral Throughout] Pulse Rate [ From Monitor] Respiratory 28 H 18 31 H Rate Respiratory Rate [Bilateral Throughout] Blood Pressure 89/55 91/57 105/65 O2 Sat by Pulse 99 99 98 Oximetry 05/17/22 05/17/22 05/17/22 02:30 02:45 03:00 Temperature Pulse Rate 83 80 82 Pulse Rate [ Bilateral Throughout] Pulse Rate [ From Monitor] Respiratory 20 24 20 Rate Respiratory Rate [Bilateral Throughout] Blood Pressure 93/59 92/58 94/58 O2 Sat by Pulse 99 100 99 Oximetry 05/17/22 05/17/22 05/17/22 03:15 03:30 03:45 Temperature Pulse Rate 83 104 H 85 Pulse Rate [ Bilateral Throughout] Pulse Rate [ From Monitor] Respiratory 19 24 27 H Rate Respiratory Rate [Bilateral Throughout] Blood Pressure 113/69 115/69 75/44 O2 Sat by Pulse 99 99 100 Oximetry 05/17/22 05/17/22 05/17/22 04:00 04:15 04:30 Temperature 98 F Pulse Rate 114 H 91 H 76 Pulse Rate [ Bilateral Throughout] Pulse Rate [ 80 From Monitor] Respiratory 43 H 27 H 23 Rate Respiratory Rate [Bilateral Throughout] Blood Pressure 78/43 84/52 113/63 O2 Sat by Pulse 100 100 96 Oximetry 05/17/22 05/17/22 05/17/22 04:45 05:00 05:15 Temperature Pulse Rate 76 80 78 Pulse Rate [ Bilateral Throughout] Pulse Rate [ From Monitor] Respiratory 21 28 H 20 Rate Respiratory Rate [Bilateral Throughout] Blood Pressure 111/65 99/54 103/62 O2 Sat by Pulse 99 93 81 L Oximetry 05/17/22 05/17/22 05/17/22 05:30 05:45 06:00 Temperature Pulse Rate 70 80 79 Pulse Rate [ Bilateral Throughout] Pulse Rate [ From Monitor] Respiratory 33 H 24 18 Rate Respiratory Rate [Bilateral Throughout] Blood Pressure 114/68 111/53 100/55 O2 Sat by Pulse 95 55 L 80 L Oximetry 05/17/22 05/17/22 05/17/22 06:15 06:30 06:45 Temperature Pulse Rate 78 89 70 Pulse Rate [ Bilateral Throughout] Pulse Rate [ From Monitor] Respiratory 18 17 18 Rate Respiratory Rate [Bilateral Throughout] Blood Pressure 118/61 118/61 115/65 O2 Sat by Pulse 98 99 89 Oximetry 05/17/22 05/17/22 05/17/22 07:00 07:15 07:17 Temperature 98.2 F Pulse Rate 81 88 Pulse Rate [ Bilateral Throughout] Pulse Rate [ From Monitor] Respiratory 24 32 H Rate Respiratory Rate [Bilateral Throughout] Blood Pressure 108/66 86/49 O2 Sat by Pulse 92 98 Oximetry 05/17/22 05/17/22 05/17/22 07:30 07:45 08:00 Temperature 97.9 F Pulse Rate 85 87 101 H Pulse Rate [ Bilateral Throughout] Pulse Rate [ 103 H From Monitor] Respiratory 24 23 26 H Rate Respiratory Rate [Bilateral Throughout] Blood Pressure 93/51 92/58 93/58 O2 Sat by Pulse 98 97 99 Oximetry 05/17/22 05/17/22 05/17/22 08:15 08:30 08:45 Temperature Pulse Rate 83 81 88 Pulse Rate [ Bilateral Throughout] Pulse Rate [ From Monitor] Respiratory 16 13 19 Rate Respiratory Rate [Bilateral Throughout] Blood Pressure 95/59 102/64 98/54 O2 Sat by Pulse 80 L 92 98 Oximetry 05/17/22 05/17/22 05/17/22 09:00 09:15 09:30 Temperature Pulse Rate 85 83 86 Pulse Rate [ Bilateral Throughout] Pulse Rate [ From Monitor] Respiratory 16 17 18 Rate Respiratory Rate [Bilateral Throughout] Blood Pressure 96/52 96/53 95/53 O2 Sat by Pulse 97 100 100 Oximetry 05/17/22 05/17/22 05/17/22 09:45 09:56 10:00 Temperature Pulse Rate 87 83 Pulse Rate [ 71 Bilateral Throughout] Pulse Rate [ From Monitor] Respiratory 18 16 Rate Respiratory 18 Rate [Bilateral Throughout] Blood Pressure 88/51 107/72 O2 Sat by Pulse 96 90 Oximetry 05/17/22 10:15 Temperature Pulse Rate 69 Pulse Rate [ Bilateral Throughout] Pulse Rate [ From Monitor] Respiratory 13 Rate Respiratory Rate [Bilateral Throughout] Blood Pressure 117/75 O2 Sat by Pulse 34 L Oximetry Constitutional: no acute distress, alert, other (elderly cachectic male ) Eyes: non-icteric ENT: oropharynx moist Neck: supple, no lymphadenopathy, no JVD, other (RIJ HD catheter) Effort: normal Ascultation: Bilateral: clear, diminished breath sounds Percussion: Bilateral: not dull Cardiovascular: regular rate and rhythm, other (S1,S2) Gastrointestinal: normoactive bowel sounds, soft, non-tender, non-distended Integumentary: other (poor turgor) Extremities: no cyanosis, no edema, pulses normal, no ischemia or petechiae Neurologic: non-focal exam, pupils equal and round, CN II-XII normal Psychiatric: mood appropriate, affect normal CBC and BMP: 05/17/22 04:13 05/17/22 04:20 ABG, PT/INR, D-dimer: PT/INR, D-dimer PT 14.0 Sec. (12.2-14.9) 05/09/22 18:51 INR 0.97 (0.87-1.13) 05/09/22 18:51 Abnormal lab findings: Abnormal Labs 05/09/22 05/09/22 05/09/22 18:51 18:51 18:51 WBC RBC 5.65 H Hgb 16.6 H Hct 48.9 H MCHC RDW 15.4 H Plt Count Lymph % (Auto) [place] % (Auto) Lymph # (Auto) Seg Neutrophils % Seg Neuts % (Manual) 98.0 H Lymphocytes % (Manual) 1.0 L Nucleated RBC % 1.0 H Seg Neutrophils # Man 10.6 H Lymphocytes # (Manual) 0.1 L Percent Retic Sodium 133 L Potassium 8.0 H* Chloride 89.9 L Carbon Dioxide 11 L BUN 225 H Creatinine 15.7 H Glucose 122 H POC Glucose Lactic Acid Calcium Phosphorus Magnesium Iron TIBC Ferritin Ammonia 61.0 H Lactate Dehydrogenase C-Reactive Protein 12.90 H Serum Total Protein Total Protein Albumin [id number]-[id number] PEP Interpretation Urine WBC (Auto) Urine Creatinine Salicylates Acetaminophen 05/09/22 05/09/22 05/10/22 18:51 18:51 02:16 WBC RBC Hgb Hct MCHC RDW Plt Count Lymph % (Auto) [place] % (Auto) Lymph # (Auto) Seg Neutrophils % Seg Neuts % (Manual) Lymphocytes % (Manual) Nucleated RBC % Seg Neutrophils # Man Lymphocytes # (Manual) Percent Retic Sodium Potassium Chloride Carbon Dioxide BUN Creatinine Glucose POC Glucose Lactic Acid Calcium Phosphorus Magnesium Iron TIBC Ferritin Ammonia Lactate Dehydrogenase C-Reactive Protein Serum Total Protein Total Protein Albumin Xqmel-2-Brziajrbh PEP Interpretation Urine WBC (Auto) > 182.0 H Urine Creatinine Salicylates < 0.3 L Acetaminophen 5.0 L 05/10/22 05/10/22 05/10/22 04:18 11:30 17:16 WBC RBC Hgb Hct MCHC RDW Plt Count Lymph % (Auto) [place] % (Auto) Lymph # (Auto) Seg Neutrophils % Seg Neuts % (Manual) Lymphocytes % (Manual) Nucleated RBC % Seg Neutrophils # Man Lymphocytes # (Manual) Percent Retic Sodium 146 H D 158 H D Potassium 6.3 H* D 3.1 L D Chloride 111.5 H Carbon Dioxide 18 L D BUN 162 H 105 H Creatinine 9.1 H 3.7 H D Glucose 112 H POC Glucose Lactic Acid Calcium Phosphorus Magnesium Iron TIBC Ferritin Ammonia Lactate Dehydrogenase C-Reactive Protein Serum Total Protein Total Protein Albumin Nbujc-4-Hpaxgnvuc PEP Interpretation Urine WBC (Auto) Urine Creatinine 61.0 H Salicylates Acetaminophen 05/11/22 05/11/22 05/11/22 04:00 04:00 04:00 WBC RBC 3.53 L Hgb 10.5 L D Hct 30.0 L D MCHC 35 H RDW Plt Count 118 L Lymph % (Auto) 6.4 L [place] % (Auto) 9.6 H Lymph # (Auto) 0.5 L Seg Neutrophils % 84.0 H Seg Neuts % (Manual) Lymphocytes % (Manual) Nucleated RBC % Seg Neutrophils # Man Lymphocytes # (Manual) Percent Retic Sodium 149 H D Potassium 2.3 L* D Chloride Carbon Dioxide 36 H D BUN 41 H Creatinine Glucose 117 H POC Glucose Lactic Acid Calcium 7.5 L Phosphorus Magnesium 1.60 L Iron TIBC Ferritin Ammonia Lactate Dehydrogenase C-Reactive Protein Serum Total Protein Total Protein Albumin Tkopj-2-Wvpyzncnq PEP Interpretation Urine WBC (Auto) Urine Creatinine Salicylates Acetaminophen 05/11/22 05/11/22 05/12/22 04:00 15:30 02:52 WBC RBC Hgb Hct MCHC RDW Plt Count Lymph % (Auto) [place] % (Auto) Lymph # (Auto) Seg Neutrophils % Seg Neuts % (Manual) Lymphocytes % (Manual) Nucleated RBC % Seg Neutrophils # Man Lymphocytes # (Manual) Percent Retic Sodium Potassium 2.3 L* Chloride Carbon Dioxide 32 H BUN 27 H Creatinine 0.6 L 0.4 L Glucose POC Glucose Lactic Acid Calcium 7.7 L 6.9 L Phosphorus 1.70 L 1.00 L D Magnesium Iron TIBC Ferritin Ammonia Lactate Dehydrogenase C-Reactive Protein Serum Total Protein Total Protein Albumin Cpwnz-4-Sqvjmjvep PEP Interpretation Urine WBC (Auto) Urine Creatinine Salicylates Acetaminophen 05/12/22 05/13/22 05/13/22 15:15 04:00 04:00 WBC RBC 3.13 L Hgb 9.3 L Hct 27.6 L MCHC RDW Plt Count 121 L Lymph % (Auto) [place] % (Auto) Lymph # (Auto) Seg Neutrophils % Seg Neuts % (Manual) Lymphocytes % (Manual) Nucleated RBC % Seg Neutrophils # Man Lymphocytes # (Manual) Percent Retic Sodium Potassium 3.1 L Chloride Carbon Dioxide BUN Creatinine 0.5 L Glucose 68 L POC Glucose Lactic Acid 0.60 L Calcium 7.3 L Phosphorus Magnesium Iron TIBC Ferritin Ammonia Lactate Dehydrogenase C-Reactive Protein Serum Total Protein Total Protein Albumin Ouubp-8-Tkosjjliz PEP Interpretation Urine WBC (Auto) Urine Creatinine Salicylates Acetaminophen 05/13/22 05/13/22 05/13/22 11:49 11:49 11:49 WBC RBC Hgb Hct MCHC RDW Plt Count Lymph % (Auto) [place] % (Auto) Lymph # (Auto) Seg Neutrophils % Seg Neuts % (Manual) Lymphocytes % (Manual) Nucleated RBC % Seg Neutrophils # Man Lymphocytes # (Manual) Percent Retic 0.53 L Sodium Potassium Chloride Carbon Dioxide BUN Creatinine Glucose POC Glucose Lactic Acid Calcium Phosphorus Magnesium 1.40 L Iron TIBC Ferritin Ammonia Lactate Dehydrogenase 238 H C-Reactive Protein Serum Total Protein Total Protein Albumin Ezfno-2-Geonyeirc PEP Interpretation Urine WBC (Auto) Urine Creatinine Salicylates Acetaminophen 05/13/22 05/13/22 05/13/22 11:49 11:49 11:49 WBC RBC Hgb Hct MCHC RDW Plt Count Lymph % (Auto) [place] % (Auto) Lymph # (Auto) Seg Neutrophils % Seg Neuts % (Manual) Lymphocytes % (Manual) Nucleated RBC % Seg Neutrophils # Man Lymphocytes # (Manual) Percent Retic Sodium Potassium Chloride Carbon Dioxide BUN Creatinine Glucose POC Glucose Lactic Acid Calcium Phosphorus Magnesium Iron 33 L TIBC 126 L Ferritin 628.3 H Ammonia Lactate Dehydrogenase C-Reactive Protein Serum Total Protein 5.6 L Total Protein Albumin 2.8 L Faiuf-6-Iqecasnmu 0.5 H PEP Interpretation see below H Urine WBC (Auto) Urine Creatinine Salicylates Acetaminophen 05/14/22 05/14/22 05/14/22 04:00 04:00 16:48 WBC RBC 3.31 L Hgb 9.8 L Hct 29.2 L MCHC RDW Plt Count Lymph % (Auto) [place] % (Auto) Lymph # (Auto) Seg Neutrophils % Seg Neuts % (Manual) Lymphocytes % (Manual) Nucleated RBC % Seg Neutrophils # Man Lymphocytes # (Manual) Percent Retic Sodium Potassium 3.2 L Chloride 107.4 H Carbon Dioxide BUN Creatinine 0.4 L Glucose POC Glucose 168 H Lactic Acid Calcium 7.2 L Phosphorus Magnesium Iron TIBC Ferritin Ammonia Lactate Dehydrogenase C-Reactive Protein Serum Total Protein Total Protein Albumin [id number]-[id number] PEP Interpretation Urine WBC (Auto) Urine Creatinine Salicylates Acetaminophen 05/15/22 05/15/22 05/15/22 04:23 04:23 10:13 WBC RBC 3.35 L Hgb 10.0 L Hct 29.8 L MCHC RDW Plt Count Lymph % (Auto) [place] % (Auto) Lymph # (Auto) Seg Neutrophils % Seg Neuts % (Manual) Lymphocytes % (Manual) Nucleated RBC % Seg Neutrophils # Man Lymphocytes # (Manual) Percent Retic Sodium Potassium Chloride Carbon Dioxide BUN 8 L Creatinine 0.5 L Glucose POC Glucose 62 L Lactic Acid Calcium 7.5 L Phosphorus 1.10 L Magnesium Iron TIBC Ferritin Ammonia Lactate Dehydrogenase C-Reactive Protein Serum Total Protein Total Protein Albumin Jbqou-6-Pmnsaeosn PEP Interpretation Urine WBC (Auto) Urine Creatinine Salicylates Acetaminophen 05/15/22 05/15/22 05/16/22 16:14 18:30 05:13 WBC RBC Hgb Hct MCHC RDW Plt Count Lymph % (Auto) [place] % (Auto) Lymph # (Auto) Seg Neutrophils % Seg Neuts % (Manual) Lymphocytes % (Manual) Nucleated RBC % Seg Neutrophils # Man Lymphocytes # (Manual) Percent Retic Sodium Potassium 3.4 L Chloride Carbon Dioxide BUN Creatinine 0.5 L Glucose POC Glucose 44 L 153 H Lactic Acid Calcium 7.3 L Phosphorus 1.80 L D Magnesium Iron TIBC Ferritin Ammonia Lactate Dehydrogenase C-Reactive Protein Serum Total Protein Total Protein Albumin Erigf-0-Czcqkllfb PEP Interpretation Urine WBC (Auto) Urine Creatinine Salicylates Acetaminophen 05/17/22 05/17/22 04:13 04:20 WBC 4.1 L RBC 3.10 L Hgb 9.2 L Hct 27.3 L MCHC RDW Plt Count Lymph % (Auto) [place] % (Auto) Lymph # (Auto) Seg Neutrophils % Seg Neuts % (Manual) Lymphocytes % (Manual) Nucleated RBC % Seg Neutrophils # Man Lymphocytes # (Manual) Percent Retic Sodium Potassium Chloride 108.4 H Carbon Dioxide BUN 8 L Creatinine 0.4 L Glucose POC Glucose Lactic Acid Calcium 7.6 L Phosphorus 1.70 L Magnesium 1.60 L Iron TIBC Ferritin Ammonia Lactate Dehydrogenase C-Reactive Protein Serum Total Protein Total Protein 5.1 L Albumin 2.9 L Pccac-8-Yholeewie PEP Interpretation Urine WBC (Auto) Urine Creatinine Salicylates Acetaminophen Allied health notes reviewed: nursing
[2022-05-17] MEDS: PHOS-NAK POWDER PACKET PO SCH ×2 (14:03→21:04)
--- NOTE | 2022-05-17 15:20 | Progress Note ---
<TYMaryanaRENETTALorne - Last Filed: 05/17/22 15:18> Assessment and Plan Assessment and plan: Assessment and Plan: This is a 76-year-old female with seizure disorder, HTN, nicotine and drug abuse admitted with acute kidney injury Neuro: h/o seizure disorder, marijuana use -Continue home Keppra -Reorientation as needed -Maintain sleep-wake cycle -aspiration/seizure precautions -As needed analgesia -Folic acid, thiamine -CT head shows no evidence of metastatic disease, recommend MRI with and without contrast Cardiac: Hypotension, h/o HTN -Blood pressure monitoring per protocol -Hold home hydralazine -s/p vasopressen support with levophed -MAP goal 65 -s/p MIVF, bolus prn -Midodrine p.o. Respiratory: Acute hypoxic respiratory failure (poa, resolved), right lung nodule, current nicotine abuse -[facility] consulted, appreciate recommendations -Pulmonary hygiene -SPO2 monitor per protocol -Supplemental oxygen tested and -Nicotine abuse cessation counseling provided -CT chest shows multiple osseous metastatic lesion, right upper lobe nodule, neoplasm not excluded, hemodialysis catheter terminates within the superior vena cava currently at the cavoatrial junction -CT abdomen/pelvis with oral and IV contrast shows hypodense lesions in the dome of the right hepatic lobe, cecum and appendix lie within the right inguinal hernia, small amount of ascites present within the pelvis, lower periaortic lymph nodes increase in size, right pelvic sidewall lymph nodes increased in size which shows central low-attenuation suggesting possible necrosis, prostate is borderline in size and minimally enlarged, multiple osseous metastatic lesions. GI: Liver Mass -PPI -Cardiac renal diet -BR: Colace -CT guided liver biopsy will not be performed d/t size of mass : Acute kidney injury likely postobstructive, dehydration, hypomagnesemia, hypophosphatemia urinary retention -Nephrology consulted, appreciate recommendations -S/p Vas-Cath placement for emergent hemodialysis however Vas-Cath was not functional -Vascular surgery consulted for PermCath placement -Monitor intake and output -Renally dose medications -Avoid nephrotoxic medications -FeNa 0.7% -s/p MIVF -Flomax and doxazosin (unable to be given d/t BP) -Alvarez catheter replaced on 05/13 for retention -Replete magnesium and phosphate with p.o. -Trend BMP ID: NAD -Monitor WBC and temperature curve Endo: NAD -Avoid hypoglycemia Heme: NAD -Trend CBC -Transfuse hemoglobin less than 7 -SCDs to BLE while in bed Oncology: Liver mass -CT chest showed multiple osseous metastatic lesions, right upper lobe nodule -CT abdomen/pelvis with contrast showed hypodense lesions in the dome of the right hepatic lobe, lower periaortic lymph nodes increase in size, right pelvic sidewall lymph nodes increase in size showing central low attenuation suggesting possible necrosis, multiple osseous metastatic lesions -Hematology/oncology consulted, appreciate recommendations -Bone marrow biopsy pending -Outpatient follow-up with heme-onc The high probability of a clinically significant, sudden or life threatening deterioration of the [multi] system(s) required my full and direct attention, intervention and personal management. The aggregate critical care time was [60] minutes. This time is in addition to time spent performing reported procedures but includes the following: [x] Data Review and interpretation [x] Patient assessment and monitoring of vital signs [x] Documentation [x] Medication orders and management Disposition Plan: transfer to floor Total Time Spent with Patient (Minutes): 60 History Interval history: This is 76-year-old male with seizure disorder, HTN, smoker and drug abuse presents to the emergency department on 05/09 via EMS for evaluation of generalized weakness and decreased oral intake. According to the family patient had decreased oral intake for the past 1 to 2 weeks and has generalized weakness. Work-up in the emergency department revealed hyponatremia at 133, hyperkalemia at 8, elevated BUN and creatinine at 225/15.7 and CXR revealed mild pulmonary vascular congestion. ECG also showed peaked T waves. Nephrology was consulted in the emergency department and a Vas-Cath was placed by [facility] for hem odialysis. Patient was also medically treated with insulin, glucose, calcium gluconate and Kayexalate for hyperkalemia. Patient was admitted to the hospitalist service with consults to nephrology, [facility] and vascular surgery for acute kidney injury requiring urgent dialysis. Hospital course to date: 05/10: Yesterday patient had a Vas-Cath placed by [facility] however this is nonfu nctional at this time. Vascular surgery was consulted for placement of Vas- Cath. No acute events reported overnight. Patient suddenly became nonverbal however did follow commands, tracks/focus and pupils were round and reactive. Glucose check which was within normal limits. After approximately half an hour patient became verbal again. This afternoon patient is alert and oriented and interactive. 05/11: Hypernatremia slowly improving, noted to have hypokalemia, hypomagnesemia and hypophosphatemia. Potassium repleted with IV and p.o., bicarbonate drip discontinued. Started on Flomax and [facility] would like to add doxazosin. Patient started on half-normal saline and [facility] would like to obtain CT abdomen/pelvis with contrast. Updated niece at bedside. Free water flush 350 every 8 p.o. 05/12: Patient to be started on Levophed for hypotension and will be on IV fluids per [facility]. Hematology/oncology consulted and CT head was ordered. CT biopsy of the liver was also ordered. From a PICC line removed today as well as Alvarez catheter. 05/13: Overnight patient was started on Levophed, remains on MIVF. Started on midodrine. Patient had urinary retention and Alvarez catheter was replaced. CT head shows no findings to suggest intracranial metastatic disease and recommended MRI with and without contrast for evaluation. Patient has been titrated off Levophed. 05/14: Patient was restarted on Levophed overnight and has been on and off throughout the day. Given bolus of 500 mL. Hypokalemia repleted. Magnesium within normal limits. 05/15: Levophed remained infusing overnight but day RN will try to wean off. Will replete phos. PT consulted 05/16: Bone marrow biopsy ordered, weaned off of Levophed. Potassium and phosphurous repleted. 05/17: Bone biopsy delayed due to patient not being NPO. Patient has been off Levophed for over 24 hours. At this point patient will be transferred to the floor. We did replete magnesium and phosphorus today with PO. Hospitalist Physical - Constitutional Vitals: Temp Pulse Resp BP Pulse Ox 98.1 F 74 18 101/51 76 L 05/17/22 12:00 05/17/22 14:05/17/22 14:05/17/22 14:05/17/22 14:00 General appearance: Present: no acute distress, well-nourished - EENT Eyes: Present: PERRL, EOM intact ENT: poor dentition - Neck Neck: Present: normal ROM - Respiratory Respiratory effort: normal Respiratory: bilateral: CTA, diminished - Cardiovascular Rhythm: regular Heart Sounds: Present: S1 & S2. Absent: systolic murmur, diastolic murmur - Extremities Extremities: no ischemia, pulses intact, pulses symmetrical, No edema, normal temperature, normal color, Full ROM Peripheral Pulses: within normal limits - Abdominal General gastrointestinal: soft, non-tender, non-distended, normal bowel sounds - Integumentary Integumentary: Present: warm, dry - Psychiatric Psychiatric: cooperative - Neurologic Neurologic: CNII-XII intact, no focal deficits, moves all extremities - Allied Health Allied health notes reviewed: nursing, RT, social work HEART Score - HEART Score Troponin: Troponin T < 0.010 ng/mL (0.00-0.029) 05/09/22 18:51 Results - Labs CBC & Chem 7: 05/17/22 04:13 05/17/22 04:20 Labs: Laboratory Last Values WBC 4.1 K/mm3 (4.5-11.0) L 05/17/22 04:13 RBC 3.10 M/mm3 (3.65-5.03) L 05/17/22 04:13 Hgb 9.2 gm/dl (11.8-15.2) L 05/17/22 04:13 Hct 27.3 % (35.5-45.6) L 05/17/22 04:13 MCV 88 fl (84-94) 05/17/22 04:13 MCH 30 pg (28-32) 05/17/22 04:13 MCHC 34 % (32-34) 05/17/22 04:13 RDW 15.2 % (13.2-15.2) 05/17/22 04:13 Plt Count 227 K/mm3 (140-440) 05/17/22 04:13 Lymph % (Auto) 6.4 % (13.4-35.0) L 05/11/22 04:00 Frontier % (Auto) 9.6 % (0.0-7.3) H 05/11/22 04:00 Eos % (Auto) 0.0 % (0.0-4.3) 05/11/22 04:00 Baso % (Auto) 0.0 % (0.0-1.8) 05/11/22 04:00 Lymph # (Auto) 0.5 K/mm3 (1.2-5.4) L 05/11/22 04:00 Frontier # (Auto) 0.7 K/mm3 (0.0-0.8) 05/11/22 04:00 Eos # (Auto) 0.0 K/mm3 (0.0-0.4) 05/11/22 04:00 Baso # (Auto) 0.0 K/mm3 (0.0-0.1) 05/11/22 04:00 Add Manual Diff Complete 05/09/22 18:51 Total Counted 100 05/09/22 18:51 Seg Neutrophils % 84.0 % (40.0-70.0) H 05/11/22 04:00 Seg Neuts % (Manual) 98.0 % (40.0-70.0) H 05/09/22 18:51 Band Neutrophils % 0 % 05/09/22 18:51 Lymphocytes % (Manual) 1.0 % (13.4-35.0) L 05/09/22 18:51 Reactive Lymphs % (Man) 0 % 05/09/22 18:51 Monocytes % (Manual) 0 % (0.0-7.3) 05/09/22 18:51 Eosinophils % (Manual) 0 % (0.0-4.3) 05/09/22 18:51 Basophils % (Manual) 0 % (0.0-1.8) 05/09/22 18:51 Metamyelocytes % 1.0 % 05/09/22 18:51 Myelocytes % 0 % 05/09/22 18:51 Promyelocytes % 0 % 05/09/22 18:51 Blast Cells % 0 % 05/09/22 18:51 Nucleated RBC % 1.0 % (0.0-0.9) H 05/09/22 18:51 Seg Neutrophils # 5.9 K/mm3 (1.8-7.7) 05/11/22 04:00 Seg Neutrophils # Man 10.6 K/mm3 (1.8-7.7) H 05/09/22 18:51 Band Neutrophils # 0.0 K/mm3 05/09/22 18:51 Lymphocytes # (Manual) 0.1 K/mm3 (1.2-5.4) L 05/09/22 18:51 Abs React Lymphs (Man) 0.0 K/mm3 05/09/22 18:51 Monocytes # (Manual) 0.0 K/mm3 (0.0-0.8) 05/09/22 18:51 Eosinophils # (Manual) 0.0 K/mm3 (0.0-0.4) 05/09/22 18:51 Basophils # (Manual) 0.0 K/mm3 (0.0-0.1) 05/09/22 18:51 Metamyelocytes # 0.1 K/mm3 05/09/22 18:51 Myelocytes # 0.0 K/mm3 05/09/22 18:51 Promyelocytes # 0.0 K/mm3 05/09/22 18:51 Blast Cells # 0.0 K/mm3 05/09/22 18:51 WBC Morphology Not Reportable 05/09/22 18:51 WBC Morphology TNR 05/09/22 18:51 Hypersegmented Neuts Not Reportable 05/09/22 18:51 Hyposegmented Neuts Not Reportable 05/09/22 18:51 Hypogranular Neuts Not Reportable 05/09/22 18:51 Smudge Cells Not Reportable 05/09/22 18:51 Toxic Granulation Not Reportable 05/09/22 18:51 Toxic Vacuolation Not Reportable 05/09/22 18:51 Dohle Bodies Not Reportable 05/09/22 18:51 Pelger-Huet Anomaly Not Reportable 05/09/22 18:51 Paola Rods Not Reportable 05/09/22 18:51 Platelet Estimate Consistent w auto 05/09/22 18:51 Clumped Platelets Not Reportable 05/09/22 18:51 Plt Clumps, EDTA Not Reportable 05/09/22 18:51 Large Platelets Not Reportable 05/09/22 18:51 Giant Platelets Not Reportable 05/09/22 18:51 Platelet Satelliting Not Reportable 05/09/22 18:51 Plt Morphology Comment Not Reportable 05/09/22 18:51 RBC Morphology Not Reportable 05/09/22 18:51 Dimorphic RBCs Not Reportable 05/09/22 18:51 Polychromasia Not Reportable 05/09/22 18:51 Hypochromasia Not Reportable 05/09/22 18:51 Poikilocytosis Not Reportable 05/09/22 18:51 Anisocytosis Not Reportable 05/09/22 18:51 Microcytosis Not Reportable 05/09/22 18:51 Macrocytosis Not Reportable 05/09/22 18:51 Spherocytes Not Reportable 05/09/22 18:51 Pappenheimer Bodies Not Reportable 05/09/22 18:51 Sickle Cells Not Reportable 05/09/22 18:51 Target Cells Few 05/09/22 18:51 Tear Drop Cells Few 05/09/22 18:51 Ovalocytes Not Reportable 05/09/22 18:51 Helmet Cells Not Reportable 05/09/22 18:51 Kemp-Garnavillo Bodies Not Reportable 05/09/22 18:51 [place] Rings Not Reportable 05/09/22 18:51 Franco Cells Not Reportable 05/09/22 18:51 Bite Cells Not Reportable 05/09/22 18:51 Crenated Cell Not Reportable 05/09/22 18:51 Elliptocytes Not Reportable 05/09/22 18:51 Acanthocytes (Spur) Not Reportable 05/09/22 18:51 Rouleaux Not Reportable 05/09/22 18:51 Hemoglobin C Crystals Not Reportable 05/09/22 18:51 Schistocytes Not Reportable 05/09/22 18:51 Malaria parasites Not Reportable 05/09/22 18:51 Percent Retic 0.53 % (0.78-2.58) L 05/13/22 11:49 Jamal Bodies Not Reportable 05/09/22 18:51 Hem Pathologist Commnt No 05/09/22 18:51 PT 14.0 Sec. (12.2-14.9) 05/09/22 18:51 INR 0.97 (0.87-1.13) 05/09/22 18:51 Heparin Anti-Xa, Unfract Negative (Negative) 05/13/22 11:49 Sodium 142 mmol/L (137-145) 05/17/22 04:20 Potassium 3.9 mmol/L (3.6-5.0) 05/17/22 04:20 Chloride 108.4 mmol/L (98-107) H 05/17/22 04:20 Carbon Dioxide 25 mmol/L (22-30) 05/17/22 04:20 Anion Gap 13 mmol/L 05/17/22 04:20 BUN 8 mg/dL (9-20) L 05/17/22 04:20 Creatinine 0.4 mg/dL (0.8-1.3) L 05/17/22 04:20 Estimated GFR > 60 ml/min 05/17/22 04:20 BUN/Creatinine Ratio 20 % 05/17/22 04:20 Glucose 86 mg/dL (75-100) 05/17/22 04:20 POC Glucose 103 mg/dL (70-105) 05/16/22 22:23 Lactic Acid 0.60 mmol/L (0.7-2.0) L 05/12/22 15:15 Calcium 7.6 mg/dL (8.4-10.2) L 05/17/22 04:20 Phosphorus 1.70 mg/dL (2.5-4.5) L 05/17/22 04:20 Magnesium 1.60 mg/dL (1.7-2.3) L 05/17/22 04:20 Iron 33 ug/dL (49-181) L 05/13/22 11:49 TIBC 126 mcg/dL (250-450) L 05/13/22 11:49 Ferritin 628.3 ng/mL (30.0-300.0) H 05/13/22 11:49 Total Bilirubin 0.30 mg/dL (0.1-1.2) 05/17/22 04:20 AST 17 units/L (5-40) 05/17/22 04:20 ALT 17 units/L (7-56) 05/17/22 04:20 Alkaline Phosphatase 82 units/L (35-129) 05/17/22 04:20 Ammonia 61.0 umol/L (25-60) H 05/09/22 18:51 Lactate Dehydrogenase 238 units/L (91-180) H 05/13/22 11:49 Total Creatine Kinase 92 units/L (55-170) 05/09/22 18:51 Troponin T < 0.010 ng/mL (0.00-0.029) 05/09/22 18:51 C-Reactive Protein 12.90 mg/dL (0.00-1.30) H 05/09/22 18:51 NT-Pro-B Natriuret Pep 817.0 pg/mL (0-900) 05/09/22 18:51 Serum Total Protein 5.6 g/dL (6.1-8.1) L 05/13/22 11:49 Total Protein 5.1 g/dL (6.3-8.2) L 05/17/22 04:20 Albumin 2.9 g/dL (3.9-5) L 05/17/22 04:20 Albumin/Globulin Ratio 1.3 % 05/17/22 04:20 Bmmua-4-Ciyhcomoh 0.5 g/dL (0.2-0.3) H 05/13/22 11:49 Zhbxw-3-Pjedhehld 0.8 g/dL (0.5-0.9) 05/13/22 11:49 Beta Globulins 0.4 g/dL (0.2-0.5) 05/13/22 11:49 Gamma Globulins 0.9 g/dL (0.8-1.7) 05/13/22 11:49 Abnorm Protein Band 1 see below 05/13/22 11:49 PEP Interpretation see below H 05/13/22 11:49 TSH 2.020 mlU/mL (0.270-4.200) 05/09/22 18:51 Urine Color Red (Yellow) 05/10/22 02:16 Urine Turbidity Cloudy (Clear) 05/10/22 02:16 Specific [place] (Man) 1.030 (1.003-1.030) 05/10/22 02:16 Ur Protein (Man) >500 mg/dL (Negative) 05/10/22 02:16 Ur Ketones (Man) 5mg/dl (Negative) 05/10/22 02:16 Urine Bilirubin (Man) Negative (Negative) 05/10/22 02:16 Urine WBC (Auto) > 182.0 /HPF (0.0-6.0) H 05/10/22 02:16 Urine RBC (Auto) > 182.0 /HPF (0.0-6.0) 05/10/22 02:16 Urine Bacteria (Auto) 1+ /HPF (Negative) 05/10/22 02:16 Urine RBC (Manual) 5+ (Negative) 05/10/22 02:16 Urine Osmolality 576 Mosm/kg 05/10/22 17:16 Urine Creatinine 61.0 mg/dL (0.1-20.0) H 05/10/22 17:16 Urine Sodium 19 mmol/L 05/10/22 17:16 Urine Urea Nitrogen 1015 05/10/22 17:16 Salicylates < 0.3 mg/dL (2.8-20.0) L 05/09/22 18:51 Urine Opiates Screen Negative 05/10/22 02:16 Urine Methadone Screen Negative 05/10/22 02:16 Acetaminophen 5.0 ug/mL (10.0-30.0) L 05/09/22 18:51 Ur Barbiturates Screen Negative 05/10/22 02:16 Ur Phencyclidine Scrn Negative 05/10/22 02:16 Ur Amphetamines Screen Negative 05/10/22 02:16 U Benzodiazepines Scrn Negative 05/10/22 02:16 Urine Cocaine Screen Negative 05/10/22 02:16 U Marijuana (THC) Screen Positive 05/10/22 02:16 Drugs of Abuse Note Disclamer 05/10/22 02:16 Plasma/Serum Alcohol < 0.01 % (0-0.07) 05/09/22 18:51 Heparin-induced Plt Ab Negative (Negative) 05/13/22 11:49 UF Heparin High Dose 0 % Release 05/13/22 11:49 CIERA UFH Low Dose 0.1 0 % Release 05/13/22 11:49 CIERA UFH Low Dose 0.5 0 % Release 05/13/22 11:49 Hepatitis A IgM Ab Non-reactive (NonReactive) 05/09/22 23:00 Hep Bs Antigen Non-reactive (Negative) 05/09/22 23:00 Hep B Core IgM Ab Non-reactive (NonReactive) 05/09/22 23:00 Hepatitis C Antibody Non-reactive (NonReactive) 05/09/22 23:00 Alvarez/IV: Voiding Method Urinal Active Medications - Current Medications Current Medications: Generic Name Dose Route Start Last Admin Trade Name Freq PRN Reason Stop Dose Admin Acetaminophen 650 mg 05/10/22 00:08 Acetaminophen 325 Mg Tab PO Q6H PRN Pain MILD(1-3)/Fever >100.5/JOHNSON Arformoterol Tartrate 15 mcg 05/12/22 20:00 05/17/22 09:56 Arformoterol 15 Mcg/2 Ml Nebu IH 15 mcg Q12HRT CAITLIN Administration Ascorbic Acid 250 mg 05/14/22 10:00 05/17/22 09:47 Ascorbic Acid 250 Mg Tab FEEDTUBE 250 mg QDAY CAITLIN Administration Budesonide 0.5 mg 05/12/22 20:00 05/17/22 09:56 Budesonide 0.5 Mg/2 Ml Nebu IH 0.5 mg Q12HRT CAITLIN Administration Dextrose 50 ml 05/15/22 17:10 05/16/22 12:26 Dextrose 50% In Water (25gm) 50 Ml Syringe IV 10 ml ONCE PRN Administration Hypoglycemia Protocol Docusate Sodium 100 mg 05/10/22 22:00 05/17/22 09:48 Docusate Sodium 100 Mg Cap PO 100 mg BID CAITLIN Administration Doxazosin Mesylate 1 mg 05/11/22 22:00 05/16/22 22:13 Doxazosin 1 Mg Tab PO 1 mg QHS CAITLIN Administration Ferrous Sulfate 300 mg 05/14/22 10:00 05/17/22 09:47 Ferrous Sulfate 300 Mg (60mg Elemental Iron) / 5 Ml Oral Liqd PO 300 mg QDAY CAITLIN Administration Folic Acid 1 mg 05/10/22 12:00 05/17/22 09:50 Folic Acid 1 Mg Tab PO 1 mg QDAY CAITLIN Administration Heparin Sodium (Porcine) 5,000 unit 05/10/22 06:00 05/17/22 14:00 Heparin 5,000 Unit/1 Ml Vial SUB-Q Not Given Q8HR CAITLIN NORepinephrine/NS 8 MG-250 ML 8 mg in 250 mls @ 3.75 mls/hr 05/10/22 02:00 10:28 Norepinephrine/Ns 8 Mg-250 Ml (Double Conc) IV 0 mcg/min TITRATE CAITLIN 0 mls/hr Titration Protocol 2 MCG/MIN Levetiracetam 750 mg 05/10/22 12:00 05/17/22 09:47 Levetiracetam 500 Mg Tab PO 750 mg BID CAITLIN Administration Magnesium Hydroxide 30 ml 05/10/22 00:08 Magnesium Hydroxide (Mom) Oral Liqd Udc PO Q4H PRN Constipation Magnesium Oxide 400 mg 05/17/22 10:00 05/17/22 09:47 Magnesium Oxide 400 Mg Tab PO 05/19/22 10:01 400 mg QDAY CAITLIN Administration Midodrine 10 mg 05/13/22 09:00 05/17/22 12:01 Midodrine 10 Mg Tab PO 10 mg TID@0800,1200,1600 CAITLIN Administration Ondansetron HCl 4 mg 05/10/22 00:08 Ondansetron 4 Mg/2 Ml Inj IV Q8H PRN Nausea And Vomiting Potassium Phos/Sodium Phos 1 each 05/17/22 14:00 05/17/22 14:03 Phos-Nak Powder Packet PO 05/19/22 13:59 1 each Q8HR CAITLIN Administration Sodium Chloride 10 ml 05/10/22 10:00 05/17/22 09:48 Sodium Chloride 0.9% 10 Ml Flush Syringe IV 10 ml BID CAITLIN Administration Sodium Chloride 10 ml 05/10/22 00:08 Sodium Chloride 0.9% 10 Ml Flush Syringe IV PRN PRN LINE FLUSH Tamsulosin HCl 0.4 mg 05/12/22 10:00 05/17/22 09:48 Tamsulosin 0.4 Mg Cap PO 0.4 mg QDAY CAITLIN Administration Thiamine HCl 100 mg 05/10/22 12:00 05/17/22 09:48 Thiamine 100 Mg Tab PO 100 mg QDAY CAITLIN Administration Nutrition/Malnutrition Assess - Dietary Evaluation Nutrition/Malnutrition Findings: Nutrition Notes Start: 05/10/22 17:09 Freq: Status: Active Protocol: Document 05/10/22 17:09 ARNOLDO (Rec: 05/10/22 17:52 ARNOLDO [id number]) Nutrition Notes Need for Assessment generated from: MD Order,warehouse consultant,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 Current Diet Cardiac -Renal- Diet + D Suppl (since B 05/10). Labs/Tests 05/10: Na 158, K 3.1, Cl 111.5 , BUN 105, Crea 3.7, Glu 112. Pertinent Medications 05/10: Folic acid, Thiamine, others nutritionally unremarkable. Height 5 ft 10 in Weight 35.6 kg [place] Body Weight (kg) 75.45 BMI 11.2 Intake Prior to Admission Poor Weight change and time frame Pt states having loss, unintentionally, more than 34 lb body weight recently. Weight Status Underweight Subjective/Other Information RD consult for Low BMI, risk of malnutrition nutrition education and dietary supplementation assessments. No reports available on Pt's PO intake of meals at the time , will assess at F/U. I will prescribe dietary supplements to compensate for poor or insufficient PO intake of meals during LOS. Pt is on Room Air, O2 saturation @ 98%, according to Physical Assessment History notes. Pt has missing teeth, according to Physical Assessment History notes. Pt shows sudden unintentional loss of body weight and poor PO intake of meals for 2 weeks as signs of concern for risk of malnutrition at the time, according to Admission documents. Procedure on 05/10: L-CFV Dual -tunneled PICC Catheter placement, and R-IJV Triple- lumen HD non-tunneled catheter placement, well tolerated, according to Operative Report notes. Pt's Low BMI seems to correspond to a natural body composition, and exacerbated by a sudden loss of body weight and chronic malnutrition, since some signs of concern were mentioned in the Physical Assessment History and the Progress notes . Pt still in critical condition , not a candidate for Nutrition Education at the time, will assess feasibility on F/U. Percent of energy/protein needs met: Prescribed Cardiac -Renal- Diet provides for energy/ protein needs (2,230 Kcal/85 g ) during LOS; additionally, Dietary Supplements will compensate for possible poor or insufficient PO intake of meals with 1,275 Kcal and 57 g of protein. Burn Absent Trauma Absent GI Symptoms None Food Allergy No Skin Integrity/Comment Assessment WNL. Minimum of two criteria Yes Energy Intake (severe) < or equal to 50% Estimated Energy Requirement > or equal to 5 days Interpretation of Weight Loss (severe) >5% in 1 month Fluid Accumulation N/A Reduced Technical Expert Strength N/A (non-severe) Protein-Calorie Malnutrition Severe #2 Nutrition Diagnosis Underweight Comments: Pt's Low BMI seems to correspond to a natural body composition, and exacerbated by a sudden loss of body weight and chronic malnutrition, since some signs of concern were mentioned in the Physical Assessment History and the Progress notes . Etiology Possibly associated to Adult Failure to Thrive. As Evidenced by Signs and Symptoms BMI: 11.3 Kg/m2. #1 Nutrition Diagnosis Malnutrition Etiology Possibly PATRIZIA. As Evidenced by Signs and Symptoms Pt shows sudden unintentional loss of body weight and poor PO intake of meals for 2 weeks as signs of concern for risk of malnutrition at the time, according to Admission documents. Is patient on ventilator? No Is Patient Ambulatory and/or Out of Bed No REE-([facility]-confined to bed) 1317.564 Kcal/Kg value to use for calculation 58 Approximate Energy Requirements Using 2065 kcal/Kg Calculation Used for Recommendations Kcal/kg Additional Notes Protein: 1.2-1.5 g/Kg ABW; 43- 54 g/day. Fluids: 1 ml/Kcal, or as per MD. Nutrition Intervention Change Diet Order: Continue Cardiac -Renal- Diet as tolerated. Add Supplement/Snack (indicate name/kcal Start 8 fl oz Nepro w/ /protein ) CARBSTEADY; TID. Provides kCal: 1,275 Provides Protein (gm) 57 Goal #1 Compensate, through dietary supplementation, for possible poor or insufficient PO intake of meals during LOS. Goal #2 Adjust the dietary intervention to better serve Pt's needs and clinical conditions during LOS. Follow-Up By: 05/17/22 Additional Comments Continue monitoring food tolerance, %PO intake of meals , dietary supplements, and BM. <VETO OTERO - Last Filed: 06/01/22 11:03> History Interval history: I saw and evaluated the patient. I agree with the findings and assessment/plan documented by the nurse practitioner. Hospitalist Physical - Constitutional Vitals: Temp Pulse Resp BP Pulse Ox 97.9 F 80 18 97/65 97 05/20/22 16:28 05/20/22 20:00 05/20/22 20:00 05/20/22 16:28 05/20/22 20:00 HEART Score - HEART Score Troponin: Troponin T < 0.010 ng/mL (0.00-0.029) 05/09/22 18:51 Results - Labs CBC & Chem 7: 05/20/22 08:03 05/20/22 08:03 Labs: Laboratory Last Values WBC 4.0 K/mm3 (4.5-11.0) L 05/20/22 08:03 RBC 3.07 M/mm3 (3.65-5.03) L 05/20/22 08:03 Hgb 9.3 gm/dl (11.8-15.2) L 05/20/22 08:03 Hgb Comment See scanned result 05/13/22 11:49 Hct 27.5 % (35.5-45.6) L 05/20/22 08:03 MCV 90 fl (84-94) 05/20/22 08:03 MCH 30 pg (28-32) 05/20/22 08:03 MCHC 34 % (32-34) 05/20/22 08:03 RDW 15.6 % (13.2-15.2) H 05/20/22 08:03 Plt Count 281 K/mm3 (140-440) 05/20/22 08:03 Lymph % (Auto) 34.1 % (13.4-35.0) 05/20/22 08:03 Frontier % (Auto) 8.6 % (0.0-7.3) H 05/20/22 08:03 Eos % (Auto) 0.1 % (0.0-4.3) 05/20/22 08:03 Baso % (Auto) 1.5 % (0.0-1.8) 05/20/22 08:03 Lymph # (Auto) 1.3 K/mm3 (1.2-5.4) 05/20/22 08:03 Frontier # (Auto) 0.3 K/mm3 (0.0-0.8) 05/20/22 08:03 Eos # (Auto) 0.0 K/mm3 (0.0-0.4) 05/20/22 08:03 Baso # (Auto) 0.1 K/mm3 (0.0-0.1) 05/20/22 08:03 Add Manual Diff Complete 05/09/22 18:51 Total Counted 100 05/09/22 18:51 Seg Neutrophils % 55.7 % (40.0-70.0) 05/20/22 08:03 Seg Neuts % (Manual) 98.0 % (40.0-70.0) H 05/09/22 18:51 Band Neutrophils % 0 % 05/09/22 18:51 Lymphocytes % (Manual) 1.0 % (13.4-35.0) L 05/09/22 18:51 Reactive Lymphs % (Man) 0 % 05/09/22 18:51 Monocytes % (Manual) 0 % (0.0-7.3) 05/09/22 18:51 Eosinophils % (Manual) 0 % (0.0-4.3) 05/09/22 18:51 Basophils % (Manual) 0 % (0.0-1.8) 05/09/22 18:51 Metamyelocytes % 1.0 % 05/09/22 18:51 Myelocytes % 0 % 05/09/22 18:51 Promyelocytes % 0 % 05/09/22 18:51 Blast Cells % 0 % 05/09/22 18:51 Nucleated RBC % 1.0 % (0.0-0.9) H 05/09/22 18:51 Seg Neutrophils # 2.2 K/mm3 (1.8-7.7) 05/20/22 08:03 Seg Neutrophils # Man 10.6 K/mm3 (1.8-7.7) H 05/09/22 18:51 Band Neutrophils # 0.0 K/mm3 05/09/22 18:51 Lymphocytes # (Manual) 0.1 K/mm3 (1.2-5.4) L 05/09/22 18:51 Abs React Lymphs (Man) 0.0 K/mm3 05/09/22 18:51 Monocytes # (Manual) 0.0 K/mm3 (0.0-0.8) 05/09/22 18:51 Eosinophils # (Manual) 0.0 K/mm3 (0.0-0.4) 05/09/22 18:51 Basophils # (Manual) 0.0 K/mm3 (0.0-0.1) 05/09/22 18:51 Metamyelocytes # 0.1 K/mm3 05/09/22 18:51 Myelocytes # 0.0 K/mm3 05/09/22 18:51 Promyelocytes # 0.0 K/mm3 05/09/22 18:51 Blast Cells # 0.0 K/mm3 05/09/22 18:51 WBC Morphology Not Reportable 05/09/22 18:51 WBC Morphology TNR 05/09/22 18:51 Hypersegmented Neuts Not Reportable 05/09/22 18:51 Hyposegmented Neuts Not Reportable 05/09/22 18:51 Hypogranular Neuts Not Reportable 05/09/22 18:51 Smudge Cells Not Reportable 05/09/22 18:51 Toxic Granulation Not Reportable 05/09/22 18:51 Toxic Vacuolation Not Reportable 05/09/22 18:51 Dohle Bodies Not Reportable 05/09/22 18:51 Pelger-Huet Anomaly Not Reportable 05/09/22 18:51 Paola Rods Not Reportable 08/21/22 18:51 Platelet Estimate Consistent w auto 05/09/22 18:51 Clumped Platelets Not Reportable 05/09/22 18:51 Plt Clumps, EDTA Not Reportable 05/09/22 18:51 Large Platelets Not Reportable 05/09/22 18:51 Giant Platelets Not Reportable 05/09/22 18:51 Platelet Satelliting Not Reportable 05/09/22 18:51 Plt Morphology Comment Not Reportable 05/09/22 18:51 RBC Morphology Not Reportable 05/09/22 18:51 Dimorphic RBCs Not Reportable 05/09/22 18:51 Polychromasia Not Reportable 05/09/22 18:51 Hypochromasia Not Reportable 05/09/22 18:51 Poikilocytosis Not Reportable 05/09/22 18:51 Anisocytosis Not Reportable 05/09/22 18:51 Microcytosis Not Reportable 05/09/22 18:51 Macrocytosis Not Reportable 05/09/22 18:51 Spherocytes Not Reportable 05/09/22 18:51 Pappenheimer Bodies Not Reportable 05/09/22 18:51 Sickle Cells Not Reportable 05/09/22 18:51 Target Cells Few 05/09/22 18:51 Tear Drop Cells Few 05/09/22 18:51 Ovalocytes Not Reportable 05/09/22 18:51 Helmet Cells Not Reportable 05/09/22 18:51 Kemp-Garnavillo Bodies Not Reportable 05/09/22 18:51 [place] Rings Not Reportable 05/09/22 18:51 Franco Cells Not Reportable 05/09/22 18:51 Bite Cells Not Reportable 05/09/22 18:51 Crenated Cell Not Reportable 05/09/22 18:51 Elliptocytes Not Reportable 05/09/22 18:51 Acanthocytes (Spur) Not Reportable 05/09/22 18:51 Rouleaux Not Reportable 05/09/22 18:51 Hemoglobin C Crystals Not Reportable 05/09/22 18:51 Schistocytes Not Reportable 05/09/22 18:51 Malaria parasites Not Reportable 05/09/22 18:51 Percent Retic 0.53 % (0.78-2.58) L 05/13/22 11:49 Sickle Cell Solubility See scanned result 05/13/22 11:49 Hemoglobin A See scanned result 05/13/22 11:49 Hemoglobin A2 See scanned result 05/13/22 11:49 Hemoglobin A2 Prime See scanned result 05/13/22 11:49 Hemoglobin C See scanned result 05/13/22 11:49 Hemoglobin D See scanned result 05/13/22 11:49 Hemoglobin E See scanned result 05/13/22 11:49 Hgb F Diffential Stain See scanned result 05/13/22 11:49 Hemoglobin F Quant See scanned result 05/13/22 11:49 Hemoglobin G See scanned result 05/13/22 11:49 Hemoglobin S See scanned result 05/13/22 11:49 Hemoglobin O-Maceo See scanned result 05/13/22 11:49 Hemoglobin Barts See scanned result 05/13/22 11:49 Hemoglobin Roxanne See scanned result 05/13/22 11:49 Variant Hemoglobin See scanned result 05/13/22 11:49 Abnorm Hgb IEF Confirm See scanned result 05/13/22 11:49 Hemoglobin Interpret See scanned result 05/13/22 11:49 Hemoglobinopathy Note See scanned result 05/13/22 11:49 Jamal Bodies Not Reportable 05/09/22 18:51 Hem Pathologist Commnt No 05/09/22 18:51 PT 13.1 Sec. (12.2-14.9) 05/18/22 06:24 INR 0.90 (0.87-1.13) 05/18/22 06:24 Heparin Anti-Xa, Unfract Negative (Negative) 05/13/22 11:49 Sodium 137 mmol/L (137-145) 05/20/22 08:03 Potassium 4.5 mmol/L (3.6-5.0) 05/20/22 08:03 Chloride 107.8 mmol/L (98-107) H 05/20/22 08:03 Carbon Dioxide 19 mmol/L (22-30) L 05/20/22 08:03 Anion Gap 15 mmol/L 05/20/22 08:03 BUN 6 mg/dL (9-20) L 05/20/22 08:03 Creatinine 0.5 mg/dL (0.8-1.3) L 05/20/22 08:03 Estimated GFR > 60 ml/min 05/20/22 08:03 BUN/Creatinine Ratio 12 % 05/20/22 08:03 Glucose 96 mg/dL (75-100) 05/20/22 08:03 POC Glucose 103 mg/dL (70-105) 05/20/22 16:24 Lactic Acid 0.60 mmol/L (0.7-2.0) L 05/12/22 15:15 Calcium 8.0 mg/dL (8.4-10.2) L 05/20/22 08:03 Phosphorus 1.70 mg/dL (2.5-4.5) L 05/17/22 04:20 Magnesium 1.60 mg/dL (1.7-2.3) L 05/17/22 04:20 Iron 33 ug/dL (49-181) L 05/13/22 11:49 TIBC 126 mcg/dL (250-450) L 05/13/22 11:49 Ferritin 628.3 ng/mL (30.0-300.0) H 05/13/22 11:49 Total Bilirubin 0.30 mg/dL (0.1-1.2) 05/17/22 04:20 AST 17 units/L (5-40) 05/17/22 04:20 ALT 17 units/L (7-56) 05/17/22 04:20 Alkaline Phosphatase 82 units/L (35-129) 05/17/22 04:20 Ammonia 61.0 umol/L (25-60) H 05/09/22 18:51 Lactate Dehydrogenase 238 units/L (91-180) H 05/13/22 11:49 Total Creatine Kinase 92 units/L (55-170) 05/09/22 18:51 Troponin T < 0.010 ng/mL (0.00-0.029) 05/09/22 18:51 C-Reactive Protein 12.90 mg/dL (0.00-1.30) H 05/09/22 18:51 NT-Pro-B Natriuret Pep 817.0 pg/mL (0-900) 05/09/22 18:51 Serum Total Protein 5.6 g/dL (6.1-8.1) L 05/13/22 11:49 Total Protein 5.1 g/dL (6.3-8.2) L 05/17/22 04:20 Albumin 2.9 g/dL (3.9-5) L 05/17/22 04:20 Albumin/Globulin Ratio 1.3 % 05/17/22 04:20 Mihyg-8-Agvuwscqr 0.5 g/dL (0.2-0.3) H 05/13/22 11:49 Lsbhs-7-Spwzksltu 0.8 g/dL (0.5-0.9) 05/13/22 11:49 Beta Globulins 0.4 g/dL (0.2-0.5) 05/13/22 11:49 Gamma Globulins 0.9 g/dL (0.8-1.7) 05/13/22 11:49 Abnorm Protein Band 1 see below 05/13/22 11:49 PEP Interpretation see below H 05/13/22 11:49 Serotonin Release Assay See scanned result 05/13/22 11:49 TSH 2.020 mlU/mL (0.270-4.200) 05/09/22 18:51 Urine Color Red (Yellow) 05/10/22 02:16 Urine Turbidity Cloudy (Clear) 05/10/22 02:16 Specific [place] (Man) 1.030 (1.003-1.030) 05/10/22 02:16 Ur Protein (Man) >500 mg/dL (Negative) 05/10/22 02:16 Ur Ketones (Man) 5mg/dl (Negative) 05/10/22 02:16 Urine Bilirubin (Man) Negative (Negative) 05/10/22 02:16 Urine WBC (Auto) > 182.0 /HPF (0.0-6.0) H 05/10/22 02:16 Urine RBC (Auto) > 182.0 /HPF (0.0-6.0) 05/10/22 02:16 Urine Bacteria (Auto) 1+ /HPF (Negative) 05/10/22 02:16 Urine RBC (Manual) 5+ (Negative) 05/10/22 02:16 Urine Osmolality 576 Mosm/kg 05/10/22 17:16 Urine Creatinine 61.0 mg/dL (0.1-20.0) H 05/10/22 17:16 Urine Sodium 19 mmol/L 05/10/22 17:16 Urine Urea Nitrogen 1015 05/10/22 17:16 Salicylates < 0.3 mg/dL (2.8-20.0) L 05/09/22 18:51 Urine Opiates Screen Negative 05/10/22 02:16 Urine Methadone Screen Negative 05/10/22 02:16 Acetaminophen 5.0 ug/mL (10.0-30.0) L 05/09/22 18:51 Ur Barbiturates Screen Negative 05/10/22 02:16 Ur Phencyclidine Scrn Negative 05/10/22 02:16 Ur Amphetamines Screen Negative 05/10/22 02:16 U Benzodiazepines Scrn Negative 05/10/22 02:16 Urine Cocaine Screen Negative 05/10/22 02:16 U Marijuana (THC) Screen Positive 05/10/22 02:16 Drugs of Abuse Note Disclamer 05/10/22 02:16 Plasma/Serum Alcohol < 0.01 % (0-0.07) 05/09/22 18:51 Immunofix Electrophor see below 05/13/22 11:49 Heparin-induced Plt Ab Negative (Negative) 05/13/22 11:49 UF Heparin High Dose 0 % Release 05/13/22 11:49 CIERA UFH Low Dose 0.1 0 % Release 05/13/22 11:49 CIERA UFH Low Dose 0.5 0 % Release 05/13/22 11:49 Hepatitis A IgM Ab Non-reactive (NonReactive) 05/09/22 23:00 Hep Bs Antigen Non-reactive (Negative) 05/09/22 23:00 Hep B Core IgM Ab Non-reactive (NonReactive) 05/09/22 23:00 Hepatitis C Antibody Non-reactive (NonReactive) 05/09/22 23:00 Alvarez/IV: Voiding Method Indwelling Catheter Nutrition/Malnutrition Assess - Dietary Evaluation Nutrition/Malnutrition Findings: Nutrition Notes Start: 05/10/22 17:09 Freq: Status: Discharge Protocol: Document 05/19/22 15:31 ARNOLDO (Rec: 05/19/22 16:10 ARNOLDO [id number]) Nutrition Notes Initial or Follow up Brief Note Current Diagnosis Hypertension Other Pertinent Diagnosis Seizures, Substances Abuse, Anemia, R-Lung Mass, Hepatic Mass, Urinary Ret. Current Diet Regular Diet (since L 05/18), D Suppl (from D 05/19). Height 5 ft 10 in Weight 40.5 kg [place] Body Weight (kg) 75.45 BMI 12.8 Weight change and time frame No body weight change reported in 2 days. Weight Status Underweight Subjective/Other Information RD consult for routine F/U on dietary advancement. Diet advanced to Regular (No Renal restriction), Pt's PO intake of meals has been Fair (50-75%) and well tolerated, according to ADL notes. I will prescribe dietary supplements again to compensate for poor or insufficient PO intake of meals during LOS. Pt is on Room Air, O2 saturation @ 96%, according to Physical Assessment History notes. Procedure on 05/18: [place] biopsy, well tolerated, according to Progress notes. Pt can be discharged from Physical Therapy point of view , according to Progress notes. Percent of energy/protein needs met: Prescribed Regular Diet provides for energy/protein needs (2,289 Kcal/89 g) during LOS; additionally, Dietary Supplements will compensate for possible poor or insufficient PO intake of meals with 320 Kcal and 32 g of protein. #2 Nutrition Diagnosis Underweight Diagnosis Progress(for reassessment Continues documentation) #1 Nutrition Diagnosis Malnutrition Diagnosis Progress(for reassessment Continues documentation) Is patient on ventilator? No Is Patient Ambulatory and/or Out of Bed No REE-([place]-confined to bed) 1370.412 Kcal/Kg value to use for calculation 45 Approximate Energy Requirements Using 1823 kcal/Kg Calculation Used for Recommendations Kcal/kg Additional Notes Protein: 1.2-1.5 g/Kg ABW; 43- 54 g/day. Fluids: 1 ml/Kcal, or as per MD. Nutrition Intervention Change Diet Order: Continue Regular Diet as tolerated. Add Supplement/Snack (indicate name/kcal Start Ensure High Protein; BID /protein ) . Provides kCal: 320 Provides Protein (gm) 32 Goal #1 Compensate, through dietary supplementation, for possible poor or insufficient PO intake of meals during LOS. Goal #2 Adjust the dietary intervention to better serve Pt's needs and clinical conditions during LOS. Follow-Up By: 05/26/22 Additional Comments Continue monitoring food tolerance, %PO intake of meals , dietary supplements, and BM.
[2022-05-17] MEDS: DEXTROSE 50% IN WATER (25GM) 50 ML SYRINGE IV PRN (16:25)
[2022-05-17] MEDS: SODIUM CHLORIDE 0.9% 1000 ML 1,000 ML IV SCH (16:34)
[2022-05-17] MEDS: DOXAZOSIN 1 MG TAB PO SCH (22:53)
[2022-05-18] MEDS: SODIUM CHLORIDE 0.9% 1000 ML 1,000 ML IV SCH (01:21)
[2022-05-18] MEDS: PHOS-NAK POWDER PACKET PO SCH ×3 (05:33→21:34)
[2022-05-18] MEDS: HEPARIN 5,000 UNIT/1 ML VIAL SUB-Q SCH ×3 (05:33→21:34)
[2022-05-18 07:12] LABS: INR 0.9 (0.87-1.13)
[2022-05-18] MEDS: ARFORMOTEROL 15 MCG/2 ML NEBU IH SCH ×2 (08:45→20:19)
[2022-05-18] MEDS: BUDESONIDE 0.5 MG/2 ML NEBU IH SCH ×2 (08:45→20:19)
--- NOTE | 2022-05-18 08:48 | Progress Note ---
Subjective Principal diagnosis: PATRIZIA; Hyperkalemia; Lung Mass; Tobacco Abuse; Seizures; COPD; HTN Interval history: From renal standpoint:creatinine is 0.4 potassium 3.9, phosphorus was 1.7, albumin 2.9 calcium was 7.6, hemoglobin 9.2. Suggest replacing phosphorus both orally and parenterally, to keep it above 2,. Would recommend giving potassium phosphate at least 30 mmol today Suggest checking ionized calcium magnesium phosphorus tomorrow along with basic metabolic profile Assessment and plan If there are any renal related issues in regards to this patient please feel free to reach out without any hesitation at [phone] We'll continue to follow and make recommendation for renal standpoint. Progress note by: Evan Mcgowan MD [address] [place] [address] Tele [phone] [email or web address] Patient was seen today for follow-up of multiple renal related issues Interdisciplinary notes that also reviewed Events of 24 hours vitals labs intake output medications were reviewed Past medical history: Reviewed Family history: Reviewed Social history: Reviewed Allergies: Reviewed Physical examination: Vitals: Reviewed Physical examination could not be performed as patient was out of the room but findings were reviewed from hospital medicine service attending physician note as well as interdisciplinary notes were also reviewed Labs and x-rays: Reviewed from today If there is any question in regard to this patient renal care please feel free to call me in [phone] Objective - Vital Signs Vital signs: Vital Signs - 12hr 05/17/22 05/17/22 05/17/22 21:00 21:35 22:00 Pulse Rate 74 91 H Pulse Rate [ 84 Bilateral Throughout] Respiratory 20 20 Rate Respiratory 18 Rate [Bilateral Throughout] Blood Pressure 103/64 109/64 O2 Sat by Pulse 100 94 Oximetry 05/18/22 00:00 Pulse Rate 83 Pulse Rate [ Bilateral Throughout] Respiratory Rate Respiratory Rate [Bilateral Throughout] Blood Pressure O2 Sat by Pulse Oximetry - Lab 05/20/22 08:03 05/20/22 08:03 Most recent lab results Calcium 7.6 mg/dL (8.4-10.2) L 05/17/22 04:20 Phosphorus 1.70 mg/dL (2.5-4.5) L 05/17/22 04:20 Magnesium 1.60 mg/dL (1.7-2.3) L 05/17/22 04:20 Urine Creatinine 61.0 mg/dL (0.1-20.0) H 05/10/22 17:16 Urine Sodium 19 mmol/L 05/10/22 17:16 Medications & Allergies - Medications Allergies/Adverse Reactions: Allergies No Known Allergies Allergy (Verified 11/23/20 17:16) Home Medications: Home Medications Medication Instructions Recorded Confirmed Last Taken Type Ferrous Sulfate [Ferrous Sulfate 300 mg PO QDAY 30 Days #30 05/20/22 Unknown Rx Oral Liq 300 Mg/5 Ml] oral.liqd Folic Acid [Folvite] 1 mg PO QDAY #30 tablet 05/20/22 Unknown Rx Midodrine [Proamatine] 10 mg PO BID 30 Days #60 tablet 05/20/22 Unknown Rx Thiamine [Vitamin B-1] 100 mg PO QDAY #30 tablet 05/20/22 Unknown Rx amLODIPine 5 mg PO DAILY #30 05/20/22 Unknown Rx levETIRAcetam [Keppra TAB] 750 mg PO BID #60 tablet 05/20/22 Unknown Rx Active Medications: Generic Name Dose Route Start Last Admin Trade Name Freq PRN Reason Stop Dose Admin Acetaminophen 650 mg 05/10/22 00:08 Acetaminophen 325 Mg Tab PO Q6H PRN Pain MILD(1-3)/Fever >100.5/JOHNSON Arformoterol Tartrate 15 mcg 05/12/22 20:00 05/17/22 21:35 Arformoterol 15 Mcg/2 Ml Nebu IH 15 mcg Q12HRT CAITLIN Administration Ascorbic Acid 250 mg 05/14/22 10:00 05/17/22 09:47 Ascorbic Acid 250 Mg Tab FEEDTUBE 250 mg QDAY CAITLIN Administration Budesonide 0.5 mg 05/12/22 20:00 05/17/22 21:35 Budesonide 0.5 Mg/2 Ml Nebu IH 0.5 mg Q12HRT CAITLIN Administration Dextrose 50 ml 05/15/22 17:10 05/17/22 16:25 Dextrose 50% In Water (25gm) 50 Ml Syringe IV 50 ml ONCE PRN Administration Hypoglycemia Protocol Docusate Sodium 100 mg 05/10/22 22:00 05/17/22 21:07 Docusate Sodium 100 Mg Cap PO 100 mg BID CAITLIN Administration Doxazosin Mesylate 1 mg 05/11/22 22:00 05/17/22 22:53 Doxazosin 1 Mg Tab PO Not Given QHS CAITLIN Ferrous Sulfate 300 mg 05/14/22 10:00 05/17/22 09:47 Ferrous Sulfate 300 Mg (60mg Elemental Iron) / 5 Ml Oral Liqd PO 300 mg QDAY CAITLIN Administration Folic Acid 1 mg 05/10/22 12:00 05/17/22 09:50 Folic Acid 1 Mg Tab PO 1 mg QDAY CAITLIN Administration Heparin Sodium (Porcine) 5,000 unit 05/10/22 06:00 05/18/22 05:33 Heparin 5,000 Unit/1 Ml Vial SUB-Q Not Given Q8HR CAITLIN Sodium Chloride 1,000 mls @ 75 mls/hr 05/17/22 16:30 05/18/22 01:21 Nacl 0.9% 1000 Ml IV 75 mls/hr DIRECT CAITLIN Administration Levetiracetam 750 mg 05/10/22 12:00 05/17/22 21:04 Levetiracetam 500 Mg Tab PO 750 mg BID CAITLIN Administration Magnesium Hydroxide 30 ml 05/10/22 00:08 Magnesium Hydroxide (Mom) Oral Liqd Udc PO Q4H PRN Constipation Magnesium Oxide 400 mg 05/17/22 10:00 05/17/22 09:47 Magnesium Oxide 400 Mg Tab PO 05/19/22 10:01 400 mg QDAY CAITLIN Administration Midodrine 10 mg 05/13/22 09:00 05/17/22 16:01 Midodrine 10 Mg Tab PO 10 mg TID@0800,1200,1600 CAITLIN Administration Ondansetron HCl 4 mg 05/10/22 00:08 Ondansetron 4 Mg/2 Ml Inj IV Q8H PRN Nausea And Vomiting Potassium Phos/Sodium Phos 1 each 05/17/22 14:00 05/18/22 05:33 Phos-Nak Powder Packet PO 05/19/22 13:59 Not Given Q8HR CAITLIN Sodium Chloride 10 ml 05/10/22 10:00 05/17/22 21:05 Sodium Chloride 0.9% 10 Ml Flush Syringe IV 10 ml BID CAITLIN Administration Sodium Chloride 10 ml 05/10/22 00:08 Sodium Chloride 0.9% 10 Ml Flush Syringe IV PRN PRN LINE FLUSH Tamsulosin HCl 0.4 mg 05/12/22 10:00 05/17/22 09:48 Tamsulosin 0.4 Mg Cap PO 0.4 mg QDAY CAITLIN Administration Thiamine HCl 100 mg 05/10/22 12:00 05/17/22 09:48 Thiamine 100 Mg Tab PO 100 mg QDAY CAITLIN Administration
[2022-05-18] MEDS ORDERED: ONDANSETRON 4 MG/2 ML INJ IV NR (08:58)
[2022-05-18] MEDS ORDERED: HYDROmorphone 1 MG/1 ML INJ IV NR (09:01)
--- NOTE | 2022-05-18 10:51 | Progress Note ---
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 Vascular surgery was consulted for placement of Vas-Cath. No acute events reported overnight. Patient suddenly became nonverbal however did follow commands, tracks/focus and pupils were round and reactive. Glucose check which was within normal limits. After approximately half an hour patient became verbal again. This afternoon patient is alert and oriented and interactive. 05/11: Hypernatremia slowly improving, noted to have hypokalemia, hypomagnesemia and hypophosphatemia. Potassium repleted with IV and p.o., bicarbonate drip dis continued. Started on Flomax and [facility] would like to add doxazosin. Patient started on half-normal saline and [facility] would like to obtain CT abdomen/pelvis with contrast. Updated niece at bedside. Free water flush 350 every 8 p.o. 05/12: Patient to be started on Levophed for hypotension and will be on IV fluids per [facility]. Hematology/oncology consulted and CT head was ordered. CT biopsy of the liver was also ordered. From a PICC line removed today as well as Alvarez catheter. 05/13: Overnight patient was started on Levophed, remains on MIVF. Started on midodrine. Patient had urinary retention and Alvarez catheter was replaced. CT head shows no findings to suggest intracranial metastatic disease and recommended MRI with and without contrast for evaluation. Patient has been titrated off Levophed. 05/14: Patient was restarted on Levophed overnight and has been on and off throughout the day. Given bolus of 500 mL. Hypokalemia repleted. Magnesium within normal limits. 05/15: Levophed remained infusing overnight but day RN will try to wean off. Will replete phos. PT consulted 05/16: Bone marrow biopsy ordered, weaned off of Levophed. Potassium and phosphurous repleted. 05/17: Bone biopsy delayed due to patient not being NPO. Patient has been off Levophed for over 24 hours. At this point patient will be transferred to the floor. We did replete magnesium and phosphorus today with PO. 05/18: Patient for bone biopsy today. Creatinine back to baseline. Hypotension resolved after discontinuation of doxazosin and tamsulosin. History Interval history: No new issues overnight Hospitalist Physical - Constitutional Vitals: Temp Pulse Resp BP Pulse Ox 98.8 F 77 18 145/82 96 05/17/22 20:00 05/18/22 10:31 05/18/22 10:31 05/18/22 10:31 05/18/22 10:31 General appearance: Present: no acute distress, well-nourished - EENT Eyes: Present: PERRL, EOM intact ENT: hearing intact, clear oral mucosa, dentition normal - Neck Neck: Present: supple, normal ROM - Respiratory Respiratory effort: normal Respiratory: bilateral: CTA - Cardiovascular Rhythm: regular Heart Sounds: Present: S1 & S2. Absent: gallop, rub - Extremities Extremities: no ischemia, No edema, Full ROM - Abdominal General gastrointestinal: soft, non-tender, non-distended, normal bowel sounds - Integumentary Integumentary: Present: clear, warm, dry - Neurologic Neurologic: CNII-XII intact, moves all extremities HEART Score - HEART Score Troponin: Troponin T < 0.010 ng/mL (0.00-0.029) 05/09/22 18:51 Results - Labs CBC & Chem 7: 05/17/22 04:13 05/17/22 04:20 Labs: Laboratory Last Values WBC 4.1 K/mm3 (4.5-11.0) L 05/17/22 04:13 RBC 3.10 M/mm3 (3.65-5.03) L 05/17/22 04:13 Hgb 9.2 gm/dl (11.8-15.2) L 05/17/22 04:13 Hct 27.3 % (35.5-45.6) L 05/17/22 04:13 MCV 88 fl (84-94) 05/17/22 04:13 MCH 30 pg (28-32) 05/17/22 04:13 MCHC 34 % (32-34) 05/17/22 04:13 RDW 15.2 % (13.2-15.2) 05/17/22 04:13 Plt Count 227 K/mm3 (140-440) 05/17/22 04:13 Lymph % (Auto) 6.4 % (13.4-35.0) L 05/11/22 04:00 [place] % (Auto) 9.6 % (0.0-7.3) H 05/11/22 04:00 Eos % (Auto) 0.0 % (0.0-4.3) 05/11/22 04:00 Baso % (Auto) 0.0 % (0.0-1.8) 05/11/22 04:00 Lymph # (Auto) 0.5 K/mm3 (1.2-5.4) L 05/11/22 04:00 [place] # (Auto) 0.7 K/mm3 (0.0-0.8) 05/11/22 04:00 Eos # (Auto) 0.0 K/mm3 (0.0-0.4) 05/11/22 04:00 Baso # (Auto) 0.0 K/mm3 (0.0-0.1) 05/11/22 04:00 Add Manual Diff Complete 05/09/22 18:51 Total Counted 100 05/09/22 18:51 Seg Neutrophils % 84.0 % (40.0-70.0) H 05/11/22 04:00 Seg Neuts % (Manual) 98.0 % (40.0-70.0) H 05/09/22 18:51 Band Neutrophils % 0 % 05/09/22 18:51 Lymphocytes % (Manual) 1.0 % (13.4-35.0) L 05/09/22 18:51 Reactive Lymphs % (Man) 0 % 05/09/22 18:51 Monocytes % (Manual) 0 % (0.0-7.3) 05/09/22 18:51 Eosinophils % (Manual) 0 % (0.0-4.3) 05/09/22 18:51 Basophils % (Manual) 0 % (0.0-1.8) 05/09/22 18:51 Metamyelocytes % 1.0 % 05/09/22 18:51 Myelocytes % 0 % 05/09/22 18:51 Promyelocytes % 0 % 05/09/22 18:51 Blast Cells % 0 % 05/09/22 18:51 Nucleated RBC % 1.0 % (0.0-0.9) H 05/09/22 18:51 Seg Neutrophils # 5.9 K/mm3 (1.8-7.7) 05/11/22 04:00 Seg Neutrophils # Man 10.6 K/mm3 (1.8-7.7) H 05/09/22 18:51 Band Neutrophils # 0.0 K/mm3 05/09/22 18:51 Lymphocytes # (Manual) 0.1 K/mm3 (1.2-5.4) L 05/09/22 18:51 Abs React Lymphs (Man) 0.0 K/mm3 05/09/22 18:51 Monocytes # (Manual) 0.0 K/mm3 (0.0-0.8) 05/09/22 18:51 Eosinophils # (Manual) 0.0 K/mm3 (0.0-0.4) 05/09/22 18:51 Basophils # (Manual) 0.0 K/mm3 (0.0-0.1) 05/09/22 18:51 Metamyelocytes # 0.1 K/mm3 05/09/22 18:51 Myelocytes # 0.0 K/mm3 05/09/22 18:51 Promyelocytes # 0.0 K/mm3 05/09/22 18:51 Blast Cells # 0.0 K/mm3 05/09/22 18:51 WBC Morphology Not Reportable 05/09/22 18:51 WBC Morphology TNR 05/09/22 18:51 Hypersegmented Neuts Not Reportable 05/09/22 18:51 Hyposegmented Neuts Not Reportable 05/09/22 18:51 Hypogranular Neuts Not Reportable 05/09/22 18:51 Smudge Cells Not Reportable 05/09/22 18:51 Toxic Granulation Not Reportable 05/09/22 18:51 Toxic Vacuolation Not Reportable 05/09/22 18:51 Dohle Bodies Not Reportable 05/09/22 18:51 Pelger-Huet Anomaly Not Reportable 05/09/22 18:51 Paola Rods Not Reportable 05/09/22 18:51 Platelet Estimate Consistent w auto 05/09/22 18:51 Clumped Platelets Not Reportable 05/09/22 18:51 Plt Clumps, EDTA Not Reportable 05/09/22 18:51 Large Platelets Not Reportable 05/09/22 18:51 Giant Platelets Not Reportable 05/09/22 18:51 Platelet Satelliting Not Reportable 05/09/22 18:51 Plt Morphology Comment Not Reportable 05/09/22 18:51 RBC Morphology Not Reportable 05/09/22 18:51 Dimorphic RBCs Not Reportable 05/09/22 18:51 Polychromasia Not Reportable 05/09/22 18:51 Hypochromasia Not Reportable 05/09/22 18:51 Poikilocytosis Not Reportable 05/09/22 18:51 Anisocytosis Not Reportable 05/09/22 18:51 Microcytosis Not Reportable 05/09/22 18:51 Macrocytosis Not Reportable 05/09/22 18:51 Spherocytes Not Reportable 05/09/22 18:51 Pappenheimer Bodies Not Reportable 05/09/22 18:51 Sickle Cells Not Reportable 05/09/22 18:51 Target Cells Few 05/09/22 18:51 Tear Drop Cells Few 05/09/22 18:51 Ovalocytes Not Reportable 05/09/22 18:51 Helmet Cells Not Reportable 05/09/22 18:51 [place] Bodies Not Reportable 05/09/22 18:51 [place] Rings Not Reportable 05/09/22 18:51 Franco Cells Not Reportable 05/09/22 18:51 Bite Cells Not Reportable 05/09/22 18:51 Crenated Cell Not Reportable 05/09/22 18:51 Elliptocytes Not Reportable 05/09/22 18:51 Acanthocytes (Spur) Not Reportable 05/09/22 18:51 Rouleaux Not Reportable 05/09/22 18:51 Hemoglobin C Crystals Not Reportable 05/09/22 18:51 Schistocytes Not Reportable 05/09/22 18:51 Malaria parasites Not Reportable 05/09/22 18:51 Percent Retic 0.53 % (0.78-2.58) L 05/13/22 11:49 Jamal Bodies Not Reportable 05/09/22 18:51 Hem Pathologist Commnt No 05/09/22 18:51 PT 13.1 Sec. (12.2-14.9) 05/18/22 06:24 INR 0.90 (0.87-1.13) 05/18/22 06:24 Heparin Anti-Xa, Unfract Negative (Negative) 05/13/22 11:49 Sodium 142 mmol/L (137-145) 05/17/22 04:20 Potassium 3.9 mmol/L (3.6-5.0) 05/17/22 04:20 Chloride 108.4 mmol/L (98-107) H 05/17/22 04:20 Carbon Dioxide 25 mmol/L (22-30) 05/17/22 04:20 Anion Gap 13 mmol/L 05/17/22 04:20 BUN 8 mg/dL (9-20) L 05/17/22 04:20 Creatinine 0.4 mg/dL (0.8-1.3) L 05/17/22 04:20 Estimated GFR > 60 ml/min 05/17/22 04:20 BUN/Creatinine Ratio 20 % 05/17/22 04:20 Glucose 86 mg/dL (75-100) 05/17/22 04:20 POC Glucose 166 mg/dL (70-105) H 05/17/22 16:53 Lactic Acid 0.60 mmol/L (0.7-2.0) L 05/12/22 15:15 Calcium 7.6 mg/dL (8.4-10.2) L 05/17/22 04:20 Phosphorus 1.70 mg/dL (2.5-4.5) L 05/17/22 04:20 Magnesium 1.60 mg/dL (1.7-2.3) L 05/17/22 04:20 Iron 33 ug/dL (49-181) L 05/13/22 11:49 TIBC 126 mcg/dL (250-450) L 05/13/22 11:49 Ferritin 628.3 ng/mL (30.0-300.0) H 05/13/22 11:49 Total Bilirubin 0.30 mg/dL (0.1-1.2) 05/17/22 04:20 AST 17 units/L (5-40) 05/17/22 04:20 ALT 17 units/L (7-56) 05/17/22 04:20 Alkaline Phosphatase 82 units/L (35-129) 05/17/22 04:20 Ammonia 61.0 umol/L (25-60) H 05/09/22 18:51 Lactate Dehydrogenase 238 units/L (91-180) H 05/13/22 11:49 Total Creatine Kinase 92 units/L (55-170) 05/09/22 18:51 Troponin T < 0.010 ng/mL (0.00-0.029) 05/09/22 18:51 C-Reactive Protein 12.90 mg/dL (0.00-1.30) H 05/09/22 18:51 NT-Pro-B Natriuret Pep 817.0 pg/mL (0-900) 05/09/22 18:51 Serum Total Protein 5.6 g/dL (6.1-8.1) L 05/13/22 11:49 Total Protein 5.1 g/dL (6.3-8.2) L 05/17/22 04:20 Albumin 2.9 g/dL (3.9-5) L 05/17/22 04:20 Albumin/Globulin Ratio 1.3 % 05/17/22 04:20 Jkuaf-1-Rqfdhyroc 0.5 g/dL (0.2-0.3) H 05/13/22 11:49 Tkpga-6-Qmgqlddql 0.8 g/dL (0.5-0.9) 05/13/22 11:49 Beta Globulins 0.4 g/dL (0.2-0.5) 05/13/22 11:49 Gamma Globulins 0.9 g/dL (0.8-1.7) 05/13/22 11:49 Abnorm Protein Band 1 see below 05/13/22 11:49 PEP Interpretation see below H 05/13/22 11:49 TSH 2.020 mlU/mL (0.270-4.200) 05/09/22 18:51 Urine Color Red (Yellow) 05/10/22 02:16 Urine Turbidity Cloudy (Clear) 05/10/22 02:16 Specific [place] (Man) 1.030 (1.003-1.030) 05/10/22 02:16 Ur Protein (Man) >500 mg/dL (Negative) 05/10/22 02:16 Ur Ketones (Man) 5mg/dl (Negative) 05/10/22 02:16 Urine Bilirubin (Man) Negative (Negative) 05/10/22 02:16 Urine WBC (Auto) > 182.0 /HPF (0.0-6.0) H 05/10/22 02:16 Urine RBC (Auto) > 182.0 /HPF (0.0-6.0) 05/10/22 02:16 Urine Bacteria (Auto) 1+ /HPF (Negative) 05/10/22 02:16 Urine RBC (Manual) 5+ (Negative) 05/10/22 02:16 Urine Osmolality 576 Mosm/kg 05/10/22 17:16 Urine Creatinine 61.0 mg/dL (0.1-20.0) H 05/10/22 17:16 Urine Sodium 19 mmol/L 05/10/22 17:16 Urine Urea Nitrogen 1015 05/10/22 17:16 Salicylates < 0.3 mg/dL (2.8-20.0) L 05/09/22 18:51 Urine Opiates Screen Negative 05/10/22 02:16 Urine Methadone Screen Negative 05/10/22 02:16 Acetaminophen 5.0 ug/mL (10.0-30.0) L 05/09/22 18:51 Ur Barbiturates Screen Negative 05/10/22 02:16 Ur Phencyclidine Scrn Negative 05/10/22 02:16 Ur Amphetamines Screen Negative 05/10/22 02:16 U Benzodiazepines Scrn Negative 05/10/22 02:16 Urine Cocaine Screen Negative 05/10/22 02:16 U Marijuana (THC) Screen Positive 05/10/22 02:16 Drugs of Abuse Note Disclamer 05/10/22 02:16 Plasma/Serum Alcohol < 0.01 % (0-0.07) 05/09/22 18:51 Heparin-induced Plt Ab Negative (Negative) 05/13/22 11:49 UF Heparin High Dose 0 % Release 05/13/22 11:49 CIERA UFH Low Dose 0.1 0 % Release 05/13/22 11:49 CIERA UFH Low Dose 0.5 0 % Release 05/13/22 11:49 Hepatitis A IgM Ab Non-reactive (NonReactive) 05/09/22 23:00 Hep Bs Antigen Non-reactive (Negative) 05/09/22 23:00 Hep B Core IgM Ab Non-reactive (NonReactive) 05/09/22 23:00 Hepatitis C Antibody Non-reactive (NonReactive) 05/09/22 23:00 Alvarez/IV: Voiding Method Urinal Active Medications - Current Medications Current Medications: Generic Name Dose Route Start Last Admin Trade Name Freq PRN Reason Stop Dose Admin Acetaminophen 650 mg 05/10/22 00:08 Acetaminophen 325 Mg Tab PO Q6H PRN Pain MILD(1-3)/Fever >100.5/JOHNSON Arformoterol Tartrate 15 mcg 05/12/22 20:00 05/17/22 21:35 Arformoterol 15 Mcg/2 Ml Nebu IH 15 mcg Q12HRT CAITLIN Administration Ascorbic Acid 250 mg 05/14/22 10:00 05/17/22 09:47 Ascorbic Acid 250 Mg Tab FEEDTUBE 250 mg QDAY CAITLIN Administration Budesonide 0.5 mg 05/12/22 20:00 05/17/22 21:35 Budesonide 0.5 Mg/2 Ml Nebu IH 0.5 mg Q12HRT CAITLIN Administration Dextrose 50 ml 05/15/22 17:10 05/17/22 16:25 Dextrose 50% In Water (25gm) 50 Ml Syringe IV 50 ml ONCE PRN Administration Hypoglycemia Protocol Docusate Sodium 100 mg 05/10/22 22:00 05/17/22 21:07 Docusate Sodium 100 Mg Cap PO 100 mg BID CAITLIN Administration Doxazosin Mesylate 1 mg 05/11/22 22:00 05/17/22 22:53 Doxazosin 1 Mg Tab PO Not Given QHS CAITLIN Ferrous Sulfate 300 mg 05/14/22 10:00 05/17/22 09:47 Ferrous Sulfate 300 Mg (60mg Elemental Iron) / 5 Ml Oral Liqd PO 300 mg QDAY CAITLIN Administration Folic Acid 1 mg 05/10/22 12:00 05/17/22 09:50 Folic Acid 1 Mg Tab PO 1 mg QDAY CAITLIN Administration Heparin Sodium (Porcine) 5,000 unit 05/10/22 06:00 05/18/22 05:33 Heparin 5,000 Unit/1 Ml Vial SUB-Q Not Given Q8HR CAITLIN Hydromorphone HCl 1 mg 05/18/22 09:01 05/18/22 09:48 Hydromorphone 1 Mg/1 Ml Inj IV 05/18/22 23:00 0.5 mg ONCE NR Administration Sodium Chloride 1,000 mls @ 75 mls/hr 05/17/22 16:30 05/18/22 01:21 Nacl 0.9% 1000 Ml IV 75 mls/hr DIRECT CAITLIN Administration Potassium Phosphate 30 mmol/ 510 mls @ 83 mls/hr 05/18/22 12:00 Sodium Chloride IV 05/18/22 18:08 ONCE ONE Levetiracetam 750 mg 05/10/22 12:00 05/17/22 21:04 Levetiracetam 500 Mg Tab PO 750 mg BID CAITLIN Administration Magnesium Hydroxide 30 ml 05/10/22 00:08 Magnesium Hydroxide (Mom) Oral Liqd Udc PO Q4H PRN Constipation Magnesium Oxide 400 mg 05/17/22 10:00 05/17/22 09:47 Magnesium Oxide 400 Mg Tab PO 05/19/22 10:01 400 mg QDAY CAITLIN Administration Midodrine 10 mg 05/13/22 09:00 05/17/22 16:01 Midodrine 10 Mg Tab PO 10 mg TID@0800,1200,1600 CAITLIN Administration Ondansetron HCl 4 mg 05/10/22 00:08 Ondansetron 4 Mg/2 Ml Inj IV Q8H PRN Nausea And Vomiting Ondansetron HCl 4 mg 05/18/22 08:58 Ondansetron 4 Mg/2 Ml Inj IV 05/18/22 23:00 ONCE NR Potassium Phos/Sodium Phos 1 each 05/17/22 14:00 05/18/22 05:33 Phos-Nak Powder Packet PO 05/19/22 13:59 Not Given Q8HR CAITLIN Sodium Chloride 10 ml 05/10/22 10:00 05/17/22 21:05 Sodium Chloride 0.9% 10 Ml Flush Syringe IV 10 ml BID CAITLIN Administration Sodium Chloride 10 ml 05/10/22 00:08 Sodium Chloride 0.9% 10 Ml Flush Syringe IV PRN PRN LINE FLUSH Tamsulosin HCl 0.4 mg 05/12/22 10:00 05/17/22 09:48 Tamsulosin 0.4 Mg Cap PO 0.4 mg QDAY CAITLIN Administration Thiamine HCl 100 mg 05/10/22 12:00 05/17/22 09:48 Thiamine 100 Mg Tab PO 100 mg QDAY CAITLIN Administration Nutrition/Malnutrition Assess - Dietary Evaluation Nutrition/Malnutrition Findings: Nutrition Notes Start: 05/10/22 17:09 Freq: Status: Active Protocol: Document 05/17/22 16:19 IARICHARD (Rec: 05/17/22 16:29 [facility] [id number]) Nutrition Notes Initial or Follow up Reassessment Current Diagnosis Acute Kidney Injury, Hypertension Other Pertinent Diagnosis (R) lung nodule, liver mass, seizure D/O Current Diet Cardiac/Renal + Nepro TID Labs/Tests Ca 7.6 (adjusted 8.48) Phos 1.7 Mg 1.6 Pertinent Medications Vit C, Colace, Ferrous sulfate , Mag Ox, Phos-Nak Height 5 ft 10 in Weight 40.5 kg [place] Body Weight (kg) 75.45 BMI 12.8 Weight change and time frame Current wt obtained from bed scale Weight Status Underweight Subjective/Other Information No PO intakes documented. Obeserved 2 Nepro cartons on bedside table; pt does not like these. He says he'd rather eat. His family brings him food at times. Per nephrology, renal function normalized now. Pt says he has always been "slim". Pt scheduled for bone marrow biopsy tomorrow. Burn Absent Trauma Absent Minimum of two criteria Yes #2 Nutrition Diagnosis Underweight Diagnosis Progress(for reassessment Continues documentation) #1 Nutrition Diagnosis Malnutrition Diagnosis Progress(for reassessment Continues documentation) Is patient on ventilator? No Is Patient Ambulatory and/or Out of Bed No REE-([place]-confined to bed) 1370.412 Kcal/Kg value to use for calculation 45 Approximate Energy Requirements Using 1823 kcal/Kg Calculation Used for Recommendations Kcal/kg Additional Notes Pro needs 1.2-2g/k-81g/ day Fluid needs 1ml/kcal Nutrition Intervention Change Diet Order: Continue current diet order; consider removal of renal restriction to improve PO intakes Add Supplement/Snack (indicate name/kcal D/C Nepro shakes; order Ensure /protein ) High Protein when PO diet resumed Goal #1 PO intake of meals plus ONS to meet 100% energy and pro needs Goal #2 Wt maintenance and/or gain Anticipated Discharge Needs: Continue ONS 2-3 times daily for wt maintenance; high- calorie/high-protein diet Follow-Up By: 05/19/22 Additional Comments F/U: ONS order, intakes, removal of renal restriction
[2022-05-18] MEDS: MAGNESIUM OXIDE 400 MG TAB PO SCH (11:09)
[2022-05-18] MEDS: ASCORBIC ACID 250 MG TAB FEEDTUBE SCH (11:09)
[2022-05-18] MEDS: TAMSULOSIN 0.4 MG CAP PO SCH (11:09)
[2022-05-18] MEDS: levETIRAcetam 500 MG TAB PO SCH ×2 (11:09→21:33)
[2022-05-18] MEDS: FOLIC ACID 1 MG TAB PO SCH (11:09)
[2022-05-18] MEDS: DOCUSATE SODIUM 100 MG CAP PO SCH ×2 (11:09→21:33)
[2022-05-18] MEDS: THIAMINE 100 MG TAB PO SCH (11:09)
[2022-05-18] MEDS: MIDODRINE 10 MG TAB PO SCH ×3 (11:16→17:16)
[2022-05-18] MEDS: FERROUS SULFATE 300 MG (60MG Elemental Iron) / 5 mL ORAL LIQD PO SCH (11:16)
--- NOTE | 2022-05-18 11:41 | Cat Scan Report ---
CT-GUIDED BONE MARROW ASPIRATION AND BIOPSY INDICATION : Bone met biopsy PROCEDURE: The risks (including but not limited to bleeding and infection) and benefits were explain ed to the patient and informed consent was obtained. All CT examinations performed at this facility utilize dose modulation, iterative reconstruction or weight-based dosing, when appropriate, to reduce radiation dose to as low as reasonably achievable. A time out procedure was performed. The procedu re site was prepped and draped in the usual sterile fashion and lidocaine was used for local anesthes ia. Under CT guidance, the right posterior iliac wing was selected for biopsy. An 11 gauge needle was ad vanced to the posterior margin of the iliac wing, cortex breached, and 4.5 mL bone marrow aspirate ob tained. The needle was then advanced and a bone marrow biopsy was obtained measuring approximately 2 cm. Samples were given directly to the magnetic testing technician who was present during the exam. The patient tolerated the procedure well with no complications. IMPRESSION: Technically successful bone marrow aspirate and biopsy. Signer Name: Avtar Crooks Jr, MD Signed: 05/18/2022 11:37 AM Workstation Name: [id number]
--- NOTE | 2022-05-18 11:55 | Progress Note ---
Assessment and Plan 76-year-old -[place] male with known history of seizure disorder, hypertension and drug abuse brought into the emergency room today via EMS for evaluation of generalized weakness and decreased oral intake. According to family, patient has been having decreased oral intake for the past 1 to 2 weeks. Patient denies any other problems today apart from generalized weakness. He has not had any seizure activity lately. Denies any chest pain or shortness of breath, no headache or dizziness, no diaphoresis, no chest pain or shortness of breath. Work-up in the emergency room , significant findings were that of hyponatremia 133, hyperkalemia of 8.0, BUN of 225 and creatinine of 15.7. Chest x-ray reveals mild central pulmonary vascular congestion. No evidence of focal infiltrate. EKG shows some peaked T waves. Consulted Nursing Services Manager on-call A Vas-Cath was placed by the industrial ecology technician for hemodialysis. Patient has had insulin and glucose, calcium gluconate, Kayexalate for the hyperkalemia. Patient has history of smoking and alcohol abuse. Patient transfered to telemetry. Patient alert, awake. Weak. Resting on room air. O2 saturation 99%. No acute respiratory distress at rest. Patient afebrile. No leukocytosis. Blood pressure 145/82, rate 78, rate 16. Chest xray done 05/10/22 reported No active cardiopulmonary disease. CT scan of chest with out contrast 05/10/22 reported Multiple osseous metastatic lesions. Right upper lobe nodule . Neoplasm not excluded. Hemodialysis catheter terminates within the superior vena cava near the cavoatrial junction. Other findings as detailed. Patient undergone bone marrow biopsy. Results pending. Patient presently on Brovanna/Budesonide aerosol treatments, S/C Heparin. Recommend GI prophylaxis. - Patient Problems (1) Acute renal failure Current Visit: Yes Status: Acute Plan to address problem: Management as per nephrology. (2) Hyperkalemia Current Visit: Yes Status: Acute Plan to address problem: Hyperkalemia corrected. Repeat K+ to day 3.9 (3) Alcoholic ketoacidosis Current Visit: No Status: Acute Plan to address problem: Improved. Anion gap 05/17/22 is 13. (4) Altered mental status Current Visit: No Status: Acute Plan to address problem: Appears some what improved. Management as per primary care and neurology. (5) Hypertension Current Visit: No Status: Acute Plan to address problem: Management as per primary care. (6) Nicotine dependence with withdrawal Current Visit: No Status: Acute Qualifiers: Nicotine product type: cigarettes Qualified Code(s): F17.213 - Nicotine dependence, cigarettes, with withdrawal Plan to address problem: Counseled to stop smoking. (7) Polysubstance abuse Current Visit: No Status: Acute Plan to address problem: Counselled not to use illegal drugs. Management as per primary care. (8) Recurrent seizures Current Visit: No Status: Acute Plan to address problem: Management as per neurology. (9) Hypotension Current Visit: Yes Status: Acute Plan to address problem: .Improved. Todays blood pressure 130/82 (10) Right upper lobe pulmonary nodule Current Visit: Yes Status: Acute Plan to address problem: CT guided Biopsy of right upper lobe lung nodule. Prefer to get biopsy of Osseous lesions, in view of Patient severe emphysemous changes. (11) Major osseous defect, multiple sites Current Visit: Yes Status: Acute Plan to address problem: Patient undergone bone marrow biopsy. Results pending. Subjective Date of service: 05/18/22 Principal diagnosis: PATRIZIA; Hyperkalemia; Lung Mass; Tobacco Abuse; Seizures; COPD; HTN Interval history: 76-year-old -[place] male with known history of seizure disorder, hypertension and drug abuse brought into the emergency room today via EMS for evaluation of generalized weakness and decreased oral intake. According to family, patient has been having decreased oral intake for the past 1 to 2 weeks. Patient denies any other problems today apart from generalized weakness. He has not had any seizure activity lately. Denies any chest pain or shortness of breath, no headache or dizziness, no diaphoresis, no chest pain or shortness of breath. Work-up in the emergency room , significant findings were that of hyponatremia 133, hyperkalemia of 8.0, BUN of 225 and creatinine of 15.7. Chest x-ray reveals mild central pulmonary vascular congestion. No evidence of focal infiltrate. EKG shows some peaked T waves. Consulted Nursing Services Manager on-call A Vas-Cath was placed by the industrial ecology technician for hemodialysis. Patient has had insulin and glucose, calcium gluconate, Kayexalate for the hyperkalemia. Patient has history of smoking and alcohol abuse. Patient transfered to telemetry. Patient alert, awake. Weak. Resting on room air. O2 saturation 99%. No acute respiratory distress at rest. Patient afebrile. No leukocytosis. Blood pressure 145/82, rate 78, rate 16. Chest xray done 05/10/22 reported No active cardiopulmonary disease. CT scan of chest with out contrast 05/10/22 reported Multiple osseous metastatic lesions. Right upper lobe nodule . Neoplasm not excluded. Hemodialysis catheter terminates within the superior vena cava near the cavoatrial junction. Other findings as detailed. Patient undergone bone marrow biopsy. Results pending. Patient presently on Brovanna/Budesonide aerosol treatments, S/C Heparin. Recommend GI prophylaxis. Objective Vital Signs - 12hr 05/18/22 05/18/22 05/18/22 00:00 09:37 09:48 Pulse Rate 83 Pulse Rate [ Intra-Procedure ] Pulse Rate [ Post-Procedure] Pulse Rate [Pre 83 -Procedure] Respiratory 16 Rate Respiratory Rate [Intra- Procedure] Respiratory Rate [Post- Procedure] Respiratory 21 Rate [Pre- Procedure] Blood Pressure [Intra- Procedure] Blood Pressure [Post-Procedure ] Blood Pressure 147/81 [Pre-Procedure] O2 Sat by Pulse Oximetry [ Intra-Procedure ] O2 Sat by Pulse Oximetry [Post -Procedure] O2 Sat by Pulse 94 Oximetry [Pre- Procedure] 05/18/22 05/18/22 05/18/22 09:49 09:54 09:59 Pulse Rate Pulse Rate [ 85 82 79 Intra-Procedure ] Pulse Rate [ Post-Procedure] Pulse Rate [Pre -Procedure] Respiratory Rate Respiratory 24 19 16 Rate [Intra- Procedure] Respiratory Rate [Post- Procedure] Respiratory Rate [Pre- Procedure] Blood Pressure 154/88 146/80 149/80 [Intra- Procedure] Blood Pressure [Post-Procedure ] Blood Pressure [Pre-Procedure] O2 Sat by Pulse 96 100 100 Oximetry [ Intra-Procedure ] O2 Sat by Pulse Oximetry [Post -Procedure] O2 Sat by Pulse Oximetry [Pre- Procedure] 05/18/22 05/18/22 05/18/22 10:04 10:06 10:20 Pulse Rate Pulse Rate [ 95 H Intra-Procedure ] Pulse Rate [ 80 74 Post-Procedure] Pulse Rate [Pre -Procedure] Respiratory Rate Respiratory 20 Rate [Intra- Procedure] Respiratory 22 20 Rate [Post- Procedure] Respiratory Rate [Pre- Procedure] Blood Pressure 149/81 [Intra- Procedure] Blood Pressure 159/94 165/88 [Post-Procedure ] Blood Pressure [Pre-Procedure] O2 Sat by Pulse 100 Oximetry [ Intra-Procedure ] O2 Sat by Pulse 100 97 Oximetry [Post -Procedure] O2 Sat by Pulse Oximetry [Pre- Procedure] 05/18/22 10:31 Pulse Rate Pulse Rate [ Intra-Procedure ] Pulse Rate [ 77 Post-Procedure] Pulse Rate [Pre -Procedure] Respiratory Rate Respiratory Rate [Intra- Procedure] Respiratory 18 Rate [Post- Procedure] Respiratory Rate [Pre- Procedure] Blood Pressure [Intra- Procedure] Blood Pressure 145/82 [Post-Procedure ] Blood Pressure [Pre-Procedure] O2 Sat by Pulse Oximetry [ Intra-Procedure ] O2 Sat by Pulse 96 Oximetry [Post -Procedure] O2 Sat by Pulse Oximetry [Pre- Procedure] Constitutional: no acute distress, alert, other (elderly cachectic male ) Eyes: non-icteric ENT: oropharynx moist Neck: supple, no lymphadenopathy, no JVD, other (RIJ HD catheter) Effort: normal Ascultation: Bilateral: diminished breath sounds Percussion: Bilateral: not dull Cardiovascular: regular rate and rhythm, other (S1,S2) Gastrointestinal: normoactive bowel sounds, soft, non-tender, non-distended Integumentary: other (poor turgor) Extremities: no cyanosis, no edema, pulses normal, no ischemia or petechiae Neurologic: non-focal exam, pupils equal and round, CN II-XII normal Psychiatric: mood appropriate, affect normal CBC and BMP: 05/19/22 07:39 05/19/22 07:39 ABG, PT/INR, D-dimer: PT/INR, D-dimer PT 13.1 Sec. (12.2-14.9) 05/18/22 06:24 INR 0.90 (0.87-1.13) 05/18/22 06:24 Abnormal lab findings: Abnormal Labs 05/09/22 05/09/22 05/09/22 18:51 18:51 18:51 WBC RBC 5.65 H Hgb 16.6 H Hct 48.9 H MCHC RDW 15.4 H Plt Count Lymph % (Auto) Stanton % (Auto) Lymph # (Auto) Seg Neutrophils % Seg Neuts % (Manual) 98.0 H Lymphocytes % (Manual) 1.0 L Nucleated RBC % 1.0 H Seg Neutrophils # Man 10.6 H Lymphocytes # (Manual) 0.1 L Percent Retic Sodium 133 L Potassium 8.0 H* Chloride 89.9 L Carbon Dioxide 11 L BUN 225 H Creatinine 15.7 H Glucose 122 H POC Glucose Lactic Acid Calcium Phosphorus Magnesium Iron TIBC Ferritin Ammonia 61.0 H Lactate Dehydrogenase C-Reactive Protein 12.90 H Serum Total Protein Total Protein Albumin Tvvpq-3-Kdpolrikk PEP Interpretation Urine WBC (Auto) Urine Creatinine Salicylates Acetaminophen 05/09/22 05/09/22 05/10/22 18:51 18:51 02:16 WBC RBC Hgb Hct MCHC RDW Plt Count Lymph % (Auto) Stanton % (Auto) Lymph # (Auto) Seg Neutrophils % Seg Neuts % (Manual) Lymphocytes % (Manual) Nucleated RBC % Seg Neutrophils # Man Lymphocytes # (Manual) Percent Retic Sodium Potassium Chloride Carbon Dioxide BUN Creatinine Glucose POC Glucose Lactic Acid Calcium Phosphorus Magnesium Iron TIBC Ferritin Ammonia Lactate Dehydrogenase C-Reactive Protein Serum Total Protein Total Protein Albumin Lmcxy-6-Ffhpgmgat PEP Interpretation Urine WBC (Auto) > 182.0 H Urine Creatinine Salicylates < 0.3 L Acetaminophen 5.0 L 05/10/22 05/10/22 05/10/22 04:18 11:30 17:16 WBC RBC Hgb Hct MCHC RDW Plt Count Lymph % (Auto) Stanton % (Auto) Lymph # (Auto) Seg Neutrophils % Seg Neuts % (Manual) Lymphocytes % (Manual) Nucleated RBC % Seg Neutrophils # Man Lymphocytes # (Manual) Percent Retic Sodium 146 H D 158 H D Potassium 6.3 H* D 3.1 L D Chloride 111.5 H Carbon Dioxide 18 L D BUN 162 H 105 H Creatinine 9.1 H 3.7 H D Glucose 112 H POC Glucose Lactic Acid Calcium Phosphorus Magnesium Iron TIBC Ferritin Ammonia Lactate Dehydrogenase C-Reactive Protein Serum Total Protein Total Protein Albumin Cdfad-8-Lailwjyua PEP Interpretation Urine WBC (Auto) Urine Creatinine 61.0 H Salicylates Acetaminophen 05/11/22 05/11/22 05/11/22 04:00 04:00 04:00 WBC RBC 3.53 L Hgb 10.5 L D Hct 30.0 L D MCHC 35 H RDW Plt Count 118 L Lymph % (Auto) 6.4 L Stanton % (Auto) 9.6 H Lymph # (Auto) 0.5 L Seg Neutrophils % 84.0 H Seg Neuts % (Manual) Lymphocytes % (Manual) Nucleated RBC % Seg Neutrophils # Man Lymphocytes # (Manual) Percent Retic Sodium 149 H D Potassium 2.3 L* D Chloride Carbon Dioxide 36 H D BUN 41 H Creatinine Glucose 117 H POC Glucose Lactic Acid Calcium 7.5 L Phosphorus Magnesium 1.60 L Iron TIBC Ferritin Ammonia Lactate Dehydrogenase C-Reactive Protein Serum Total Protein Total Protein Albumin Tckbc-3-Cgaozvynu PEP Interpretation Urine WBC (Auto) Urine Creatinine Salicylates Acetaminophen 05/11/22 05/11/22 05/12/22 04:00 15:30 02:52 WBC RBC Hgb Hct MCHC RDW Plt Count Lymph % (Auto) Stanton % (Auto) Lymph # (Auto) Seg Neutrophils % Seg Neuts % (Manual) Lymphocytes % (Manual) Nucleated RBC % Seg Neutrophils # Man Lymphocytes # (Manual) Percent Retic Sodium Potassium 2.3 L* Chloride Carbon Dioxide 32 H BUN 27 H Creatinine 0.6 L 0.4 L Glucose POC Glucose Lactic Acid Calcium 7.7 L 6.9 L Phosphorus 1.70 L 1.00 L D Magnesium Iron TIBC Ferritin Ammonia Lactate Dehydrogenase C-Reactive Protein Serum Total Protein Total Protein Albumin Cywmy-7-Zlijhulgu PEP Interpretation Urine WBC (Auto) Urine Creatinine Salicylates Acetaminophen 05/12/22 05/13/22 05/13/22 15:15 04:00 04:00 WBC RBC 3.13 L Hgb 9.3 L Hct 27.6 L MCHC RDW Plt Count 121 L Lymph % (Auto) Stanton % (Auto) Lymph # (Auto) Seg Neutrophils % Seg Neuts % (Manual) Lymphocytes % (Manual) Nucleated RBC % Seg Neutrophils # Man Lymphocytes # (Manual) Percent Retic Sodium Potassium 3.1 L Chloride Carbon Dioxide BUN Creatinine 0.5 L Glucose 68 L POC Glucose Lactic Acid 0.60 L Calcium 7.3 L Phosphorus Magnesium Iron TIBC Ferritin Ammonia Lactate Dehydrogenase C-Reactive Protein Serum Total Protein Total Protein Albumin Miyir-0-Ousudydqy PEP Interpretation Urine WBC (Auto) Urine Creatinine Salicylates Acetaminophen 05/13/22 05/13/22 05/13/22 11:49 11:49 11:49 WBC RBC Hgb Hct MCHC RDW Plt Count Lymph % (Auto) Stanton % (Auto) Lymph # (Auto) Seg Neutrophils % Seg Neuts % (Manual) Lymphocytes % (Manual) Nucleated RBC % Seg Neutrophils # Man Lymphocytes # (Manual) Percent Retic 0.53 L Sodium Potassium Chloride Carbon Dioxide BUN Creatinine Glucose POC Glucose Lactic Acid Calcium Phosphorus Magnesium 1.40 L Iron TIBC Ferritin Ammonia Lactate Dehydrogenase 238 H C-Reactive Protein Serum Total Protein Total Protein Albumin Fdrqd-3-Smicmxbkk PEP Interpretation Urine WBC (Auto) Urine Creatinine Salicylates Acetaminophen 05/13/22 05/13/22 05/13/22 11:49 11:49 11:49 WBC RBC Hgb Hct MCHC RDW Plt Count Lymph % (Auto) Stanton % (Auto) Lymph # (Auto) Seg Neutrophils % Seg Neuts % (Manual) Lymphocytes % (Manual) Nucleated RBC % Seg Neutrophils # Man Lymphocytes # (Manual) Percent Retic Sodium Potassium Chloride Carbon Dioxide BUN Creatinine Glucose POC Glucose Lactic Acid Calcium Phosphorus Magnesium Iron 33 L TIBC 126 L Ferritin 628.3 H Ammonia Lactate Dehydrogenase C-Reactive Protein Serum Total Protein 5.6 L Total Protein Albumin 2.8 L Tgxis-3-Lgrvllcta 0.5 H PEP Interpretation see below H Urine WBC (Auto) Urine Creatinine Salicylates Acetaminophen 05/14/22 05/14/22 05/14/22 04:00 04:00 16:48 WBC RBC 3.31 L Hgb 9.8 L Hct 29.2 L MCHC RDW Plt Count Lymph % (Auto) Stanton % (Auto) Lymph # (Auto) Seg Neutrophils % Seg Neuts % (Manual) Lymphocytes % (Manual) Nucleated RBC % Seg Neutrophils # Man Lymphocytes # (Manual) Percent Retic Sodium Potassium 3.2 L Chloride 107.4 H Carbon Dioxide BUN Creatinine 0.4 L Glucose POC Glucose 168 H Lactic Acid Calcium 7.2 L Phosphorus Magnesium Iron TIBC Ferritin Ammonia Lactate Dehydrogenase C-Reactive Protein Serum Total Protein Total Protein Albumin Xajiz-3-Gdnevqxxf PEP Interpretation Urine WBC (Auto) Urine Creatinine Salicylates Acetaminophen 05/15/22 05/15/22 05/15/22 04:23 04:23 10:13 WBC RBC 3.35 L Hgb 10.0 L Hct 29.8 L MCHC RDW Plt Count Lymph % (Auto) Stanton % (Auto) Lymph # (Auto) Seg Neutrophils % Seg Neuts % (Manual) Lymphocytes % (Manual) Nucleated RBC % Seg Neutrophils # Man Lymphocytes # (Manual) Percent Retic Sodium Potassium Chloride Carbon Dioxide BUN 8 L Creatinine 0.5 L Glucose POC Glucose 62 L Lactic Acid Calcium 7.5 L Phosphorus 1.10 L Magnesium Iron TIBC Ferritin Ammonia Lactate Dehydrogenase C-Reactive Protein Serum Total Protein Total Protein Albumin Twzix-1-Jyyrsqoul PEP Interpretation Urine WBC (Auto) Urine Creatinine Salicylates Acetaminophen 05/15/22 05/15/22 05/16/22 16:14 18:30 05:13 WBC RBC Hgb Hct MCHC RDW Plt Count Lymph % (Auto) Stanton % (Auto) Lymph # (Auto) Seg Neutrophils % Seg Neuts % (Manual) Lymphocytes % (Manual) Nucleated RBC % Seg Neutrophils # Man Lymphocytes # (Manual) Percent Retic Sodium Potassium 3.4 L Chloride Carbon Dioxide BUN Creatinine 0.5 L Glucose POC Glucose 44 L 153 H Lactic Acid Calcium 7.3 L Phosphorus 1.80 L D Magnesium Iron TIBC Ferritin Ammonia Lactate Dehydrogenase C-Reactive Protein Serum Total Protein Total Protein Albumin Mspds-7-Ewinughxq PEP Interpretation Urine WBC (Auto) Urine Creatinine Salicylates Acetaminophen 05/17/22 05/17/22 05/17/22 04:13 04:20 16:19 WBC 4.1 L RBC 3.10 L Hgb 9.2 L Hct 27.3 L MCHC RDW Plt Count Lymph % (Auto) Stanton % (Auto) Lymph # (Auto) Seg Neutrophils % Seg Neuts % (Manual) Lymphocytes % (Manual) Nucleated RBC % Seg Neutrophils # Man Lymphocytes # (Manual) Percent Retic Sodium Potassium Chloride 108.4 H Carbon Dioxide BUN 8 L Creatinine 0.4 L Glucose POC Glucose 64 L Lactic Acid Calcium 7.6 L Phosphorus 1.70 L Magnesium 1.60 L Iron TIBC Ferritin Ammonia Lactate Dehydrogenase C-Reactive Protein Serum Total Protein Total Protein 5.1 L Albumin 2.9 L Ubuzj-7-Iikvwpkfs PEP Interpretation Urine WBC (Auto) Urine Creatinine Salicylates Acetaminophen 05/17/22 16:53 WBC RBC Hgb Hct MCHC RDW Plt Count Lymph % (Auto) Stanton % (Auto) Lymph # (Auto) Seg Neutrophils % Seg Neuts % (Manual) Lymphocytes % (Manual) Nucleated RBC % Seg Neutrophils # Man Lymphocytes # (Manual) Percent Retic Sodium Potassium Chloride Carbon Dioxide BUN Creatinine Glucose POC Glucose 166 H Lactic Acid Calcium Phosphorus Magnesium Iron TIBC Ferritin Ammonia Lactate Dehydrogenase C-Reactive Protein Serum Total Protein Total Protein Albumin Ftega-2-Gpdmsvtqu PEP Interpretation Urine WBC (Auto) Urine Creatinine Salicylates Acetaminophen Additional Studies: CT-GUIDED BONE MARROW ASPIRATION AND BIOPSY 05/18/22 INDICATION : Bone met biopsy PROCEDURE: The risks (including but not limited to bleeding and infection) and benefits were explained to the patient and informed consent was obtained. All CT examinations performed at this facility utilize dose modulation, iterative reconstruction or weight-based dosing, when appropriate, to reduce radiation dose to as low as reasonably achievable. A time out procedure was performed. The procedure site was prepped and draped in the usual sterile fashion and lidocaine was used for local anesthesia. Under CT guidance, the right posterior iliac wing was selected for biopsy. An 11 gauge needle was advanced to the posterior margin of the iliac wing, cortex breached, and 4.5 mL bone marrow aspirate obtained. The needle was then advanced and a bone marrow biopsy was obtained measuring approximately 2 cm. Samples were given directly to the application support technician who was present during the exam. The patient tolerated the procedure well with no complications. IMPRESSION: Technically successful bone marrow aspirate and biopsy. Allied health notes reviewed: nursing
[2022-05-18] MEDS ORDERED: POTASSIUM PHOSPHATE 30 MMOL in SODIUM CHLORIDE 0.9% 500 ML 500 ML IV ONE (12:00)
[2022-05-18] MEDS: DOXAZOSIN 1 MG TAB PO SCH (21:40)
[2022-05-19] MEDS: PHOS-NAK POWDER PACKET PO SCH (05:25)
[2022-05-19] MEDS: HEPARIN 5,000 UNIT/1 ML VIAL SUB-Q SCH ×3 (05:26→21:58)
[2022-05-19 08:01] LABS: Basophils # (Auto) 0.1 K/mm3 (0.0-0.1); Basophils % (Auto) 1.5 % (0.0-1.8); Eosinophils % (Auto) 0.1 % (0.0-4.3); Hematocrit 27.1 % (35.5-45.6); Hemoglobin 9.2 gm/dl (11.8-15.2); Lymphocytes # (Auto) 1.4 K/mm3 (1.2-5.4); Lymphocytes % (Auto) 39.7 % (13.4-35.0); Mean Corpuscular HGB Conc 34 % (32-34); Mean Corpuscular Volume 89 fl (84-94); Monocytes # (Auto) 0.3 K/mm3 (0.0-0.8); Platelet Count 261 K/mm3 (140-440); Red Blood Count 3.04 M/mm3 (3.65-5.03); Red Cell Distribution Width 15.4 % (13.2-15.2)
[2022-05-19 08:14] LABS: Blood Urea Nitrogen 7 mg/dL (9-20); Calcium 7.7 mg/dL (8.4-10.2); Hemolysis Index 1
[2022-05-19 08:15] LABS: BUN/Creatinine Ratio 14
--- NOTE | 2022-05-19 09:04 | Progress Note ---
Subjective Principal diagnosis: PATRIZIA; Hyperkalemia; Lung Mass; Tobacco Abuse; Seizures; COPD; HTN Interval history: Assessment and plan Acute kidney injury, renal function has normalized, continue to monitor and follow #Hypophosphatemia patient did receive supplementation yesterday #Hypocalcemia currently stable, check ionized calcium, her albumin is 2.9, corrected calcium appears to be normal #Hypokalemia appears to have improved #Hypotension transferred out of ICU, history of urinary retention needs follow- up with urology, multiple other medical problems including but not limited to prostate cancer with metastatic lesion in liver, lung, Doxazosin and tamsulosin if blood pressure is stable, otherwise continue to hold, blood pressure in the low 90s range If there are any renal related issues in regards to this patient please feel free to reach out without any hesitation at [phone] We'll continue to follow and make recommendation for renal standpoint. Progress note by: Evan Mcgowan MD [address] [place] [address] Tele [phone] [email or web address] Patient was seen today for follow-up of multiple renal related issues No acute complaints, events of 24 hours vitals current available labs intake output medications were reviewed Past medical history: Reviewed Family history: Reviewed Social history: Reviewed Allergies: Reviewed Physical examination: Vitals: Reviewed HEENT: No pallor or icterus oral mucosa moist Neck: Supple no JVD no thyromegaly Chest: Bilateral clear to auscultation anteriorly Heart: Regular rate and rhythm S1-S2 heard no S3-S4 Abdomen: Soft nontender no voluntary guarding rigidity rebound Extremity: Dry skin less than 1+ peripheral edema Psychiatric: No evidence of agitation and aggression noted Dermatology: No petechial rashes Labs and x-rays: Reviewed from today Objective - Vital Signs Vital signs: Vital Signs - 12hr 05/18/22 05/18/22 05/19/22 21:40 23:07 05:26 Temperature 98.0 F 98.0 F Pulse Rate 68 72 79 Respiratory 18 18 Rate Blood Pressure 92/54 96/54 Blood Pressure 100/59 [Left] O2 Sat by Pulse 97 98 Oximetry - Lab 05/19/22 07:39 05/19/22 07:39 Most recent lab results Calcium 7.7 mg/dL (8.4-10.2) L 05/19/22 07:39 Phosphorus 1.70 mg/dL (2.5-4.5) L 05/17/22 04:20 Magnesium 1.60 mg/dL (1.7-2.3) L 05/17/22 04:20 Urine Creatinine 61.0 mg/dL (0.1-20.0) H 05/10/22 17:16 Urine Sodium 19 mmol/L 05/10/22 17:16 Medications & Allergies - Medications Allergies/Adverse Reactions: Allergies No Known Allergies Allergy (Verified 11/23/20 17:16) Home Medications: Home Medications Medication Instructions Recorded Confirmed Last Taken Type amLODIPine [Norvasc] 5 mg PO DAILY 05/10/22 05/10/22 Unknown History levETIRAcetam [Keppra TAB] 500 mg PO BID 05/10/22 05/10/22 Unknown History Active Medications: Generic Name Dose Route Start Last Admin Trade Name Freq PRN Reason Stop Dose Admin Acetaminophen 650 mg 05/10/22 00:08 05/18/22 19:37 Acetaminophen 325 Mg Tab PO 650 mg Q6H PRN Administration Pain MILD(1-3)/Fever >100.5/JOHNSON Arformoterol Tartrate 15 mcg 05/12/22 20:00 05/18/22 20:19 Arformoterol 15 Mcg/2 Ml Nebu IH 15 mcg Q12HRT CAITLIN Administration Ascorbic Acid 250 mg 05/14/22 10:00 05/18/22 11:09 Ascorbic Acid 250 Mg Tab FEEDTUBE 250 mg QDAY CAITLIN Administration Budesonide 0.5 mg 05/12/22 20:00 05/18/22 20:19 Budesonide 0.5 Mg/2 Ml Nebu IH 0.5 mg Q12HRT CAITLIN Administration Dextrose 50 ml 05/15/22 17:10 05/17/22 16:25 Dextrose 50% In Water (25gm) 50 Ml Syringe IV 50 ml ONCE PRN Administration Hypoglycemia Protocol Docusate Sodium 100 mg 05/10/22 22:00 05/18/22 21:33 Docusate Sodium 100 Mg Cap PO 100 mg BID CAITLIN Administration Doxazosin Mesylate 1 mg 05/11/22 22:00 05/18/22 21:40 Doxazosin 1 Mg Tab PO Not Given QHS CAITLIN Ferrous Sulfate 300 mg 05/14/22 10:00 05/18/22 11:16 Ferrous Sulfate 300 Mg (60mg Elemental Iron) / 5 Ml Oral Liqd PO 300 mg QDAY CAITLIN Administration Folic Acid 1 mg 05/10/22 12:00 05/18/22 11:09 Folic Acid 1 Mg Tab PO 1 mg QDAY CAITLIN Administration Heparin Sodium (Porcine) 5,000 unit 05/10/22 06:00 05/19/22 05:26 Heparin 5,000 Unit/1 Ml Vial SUB-Q Not Given Q8HR [facility] Sodium Chloride 1,000 mls @ 75 mls/hr 05/17/22 16:30 05/18/22 01:21 Nacl 0.9% 1000 Ml IV 75 mls/hr DIRECT CAITLIN Administration Levetiracetam 750 mg 05/10/22 12:00 05/18/22 21:33 Levetiracetam 500 Mg Tab PO 750 mg BID CAITLIN Administration Magnesium Hydroxide 30 ml 05/10/22 00:08 Magnesium Hydroxide (Mom) Oral Liqd Udc PO Q4H PRN Constipation Magnesium Oxide 400 mg 05/17/22 10:00 05/18/22 11:09 Magnesium Oxide 400 Mg Tab PO 05/19/22 10:01 400 mg QDAY CAITLIN Administration Midodrine 10 mg 05/13/22 09:00 05/18/22 17:16 Midodrine 10 Mg Tab PO 10 mg TID@0800,1200,1600 CAITLIN Administration Ondansetron HCl 4 mg 05/10/22 00:08 Ondansetron 4 Mg/2 Ml Inj IV Q8H PRN Nausea And Vomiting Potassium Phos/Sodium Phos 1 each 05/17/22 14:00 05/19/22 05:25 Phos-Nak Powder Packet PO 05/19/22 13:59 1 each Q8HR CAITLIN Administration Sodium Chloride 10 ml 05/10/22 10:00 05/18/22 21:34 Sodium Chloride 0.9% 10 Ml Flush Syringe IV 10 ml BID CAITLIN Administration Sodium Chloride 10 ml 05/10/22 00:08 Sodium Chloride 0.9% 10 Ml Flush Syringe IV PRN PRN LINE FLUSH Tamsulosin HCl 0.4 mg 05/12/22 10:00 05/18/22 11:09 Tamsulosin 0.4 Mg Cap PO 0.4 mg QDAY CAITLIN Administration Thiamine HCl 100 mg 05/10/22 12:00 05/18/22 11:09 Thiamine 100 Mg Tab PO 100 mg QDAY CAITLIN Administration
[2022-05-19] MEDS: DOCUSATE SODIUM 100 MG CAP PO SCH ×2 (09:18→21:57)
[2022-05-19] MEDS: MIDODRINE 10 MG TAB PO SCH ×3 (09:18→17:15)
[2022-05-19] MEDS: ASCORBIC ACID 250 MG TAB FEEDTUBE SCH (09:18)
[2022-05-19] MEDS: TAMSULOSIN 0.4 MG CAP PO SCH (09:18)
[2022-05-19] MEDS: levETIRAcetam 500 MG TAB PO SCH ×2 (09:18→21:58)
[2022-05-19] MEDS: FERROUS SULFATE 300 MG (60MG Elemental Iron) / 5 mL ORAL LIQD PO SCH (09:19)
[2022-05-19] MEDS: MAGNESIUM OXIDE 400 MG TAB PO SCH (09:19)
[2022-05-19] MEDS: THIAMINE 100 MG TAB PO SCH (09:19)
[2022-05-19] MEDS: FOLIC ACID 1 MG TAB PO SCH (09:19)
[2022-05-19] MEDS: BUDESONIDE 0.5 MG/2 ML NEBU IH SCH ×2 (09:36→19:54)
[2022-05-19] MEDS: ARFORMOTEROL 15 MCG/2 ML NEBU IH SCH ×2 (09:36→19:54)
--- NOTE | 2022-05-19 10:05 | Progress Note ---
Assessment and Plan Assessment and plan: This is a 76-year-old female with seizure disorder, HTN, nicotine and drug abuse admitted with acute kidney injury Acute hypoxic respiratory failure Acute kidney injury Nonoliguric PATRIZIA secondary to volume depletion vs obstruction Hypokalemia Anemia Urinary retention sz d/o RUL nodule New right upper lobe mass with multiple bone and liver metastatic lesions, with hyponatremia- suspect metastatic small cell lung cancer hepatic mass -CT chest showed multiple osseous metastatic lesions, right upper lobe nodule -CT abdomen/pelvis with contrast showed hypodense lesions in the dome of the right hepatic lobe, lower periaortic lymph nodes increase in size, right pelvic sidewall lymph nodes increase in size showing central low attenuation suggesting possible necrosis, multiple osseous metastatic lesions Hospital course to date: 05/10: Yesterday patient had a Vas-Cath placed by [facility] however this is nonfunctional at this time. Vascular surgery was consulted for placement of Vas-Cath. No acute events reported overnight. Patient suddenly became nonverbal however did follow commands, tracks/focus and pupils were round and reactive. Glucose check which was within normal limits. After approximately half an hour patient became verbal again. This afternoon patient is alert and oriented and interactive. 05/11: Hypernatremia slowly improving, noted to have hypokalemia, hypomagnesemia and hypophosphatemia. Potassium repleted with IV and p.o., bicarbonate drip dis continued. Started on Flomax and [facility] would like to add doxazosin. Patient started on half-normal saline and [facility] would like to obtain CT abdomen/pelvis with contrast. Updated niece at bedside. Free water flush 350 every 8 p.o. 05/12: Patient to be started on Levophed for hypotension and will be on IV fluids per [facility]. Hematology/oncology consulted and CT head was ordered. CT biopsy of the liver was also ordered. From a PICC line removed today as well as Alvarez catheter. 05/13: Overnight patient was started on Levophed, remains on MIVF. Started on midodrine. Patient had urinary retention and Alvarez catheter was replaced. CT head shows no findings to suggest intracranial metastatic disease and recommended MRI with and without contrast for evaluation. Patient has been titrated off Levophed. 05/14: Patient was restarted on Levophed overnight and has been on and off throughout the day. Given bolus of 500 mL. Hypokalemia repleted. Magnesium within normal limits. 05/15: Levophed remained infusing overnight but day RN will try to wean off. Will replete phos. PT consulted 05/16: Bone marrow biopsy ordered, weaned off of Levophed. Potassium and phosphurous repleted. 05/17: Bone biopsy delayed due to patient not being NPO. Patient has been off Levophed for over 24 hours. At this point patient will be transferred to the floor. We did replete magnesium and phosphorus today with PO. 05/18: Patient for bone biopsy today. Creatinine back to baseline. Hypotension resolved after discontinuation of doxazosin and tamsulosin. 05/19: Patient continues to have hypotension. We will check orthostatic vital signs. Physical therapy reports patient can discharge home with no needs. Consider midodrine for blood pressure. Continue to monitor off doxazosin and tamsulosin. History Interval history: No new issues overnight Hospitalist Physical - Constitutional Vitals: Temp Pulse Resp BP Pulse Ox 98.0 F 88 19 96/54 98 05/19/22 05:26 05/19/22 09:36 05/19/22 09:36 05/19/22 05:26 05/19/22 05:26 General appearance: Present: no acute distress, well-nourished - EENT Eyes: Present: PERRL, EOM intact ENT: hearing intact, clear oral mucosa, dentition normal - Neck Neck: Present: supple, normal ROM - Respiratory Respiratory effort: normal Respiratory: bilateral: CTA - Cardiovascular Rhythm: regular Heart Sounds: Present: S1 & S2. Absent: gallop, rub - Extremities Extremities: no ischemia, No edema, Full ROM - Abdominal General gastrointestinal: soft, non-tender, non-distended, normal bowel sounds - Integumentary Integumentary: Present: clear, warm, dry - Neurologic Neurologic: CNII-XII intact, moves all extremities HEART Score - HEART Score Troponin: Troponin T < 0.010 ng/mL (0.00-0.029) 05/09/22 18:51 Results - Labs CBC & Chem 7: 05/19/22 07:39 05/19/22 07:39 Labs: Laboratory Last Values WBC 3.5 K/mm3 (4.5-11.0) L 05/19/22 07:39 RBC 3.04 M/mm3 (3.65-5.03) L 05/19/22 07:39 Hgb 9.2 gm/dl (11.8-15.2) L 05/19/22 07:39 Hct 27.1 % (35.5-45.6) L 05/19/22 07:39 MCV 89 fl (84-94) 05/19/22 07:39 MCH 30 pg (28-32) 05/19/22 07:39 MCHC 34 % (32-34) 05/19/22 07:39 RDW 15.4 % (13.2-15.2) H 05/19/22 07:39 Plt Count 261 K/mm3 (140-440) 05/19/22 07:39 Lymph % (Auto) 39.7 % (13.4-35.0) H 05/19/22 07:39 Steele % (Auto) 9.0 % (0.0-7.3) H 05/19/22 07:39 Eos % (Auto) 0.1 % (0.0-4.3) 05/19/22 07:39 Baso % (Auto) 1.5 % (0.0-1.8) 05/19/22 07:39 Lymph # (Auto) 1.4 K/mm3 (1.2-5.4) 05/19/22 07:39 Steele # (Auto) 0.3 K/mm3 (0.0-0.8) 05/19/22 07:39 Eos # (Auto) 0.0 K/mm3 (0.0-0.4) 05/19/22 07:39 Baso # (Auto) 0.1 K/mm3 (0.0-0.1) 05/19/22 07:39 Add Manual Diff Complete 05/09/22 18:51 Total Counted 100 05/09/22 18:51 Seg Neutrophils % 49.7 % (40.0-70.0) 05/19/22 07:39 Seg Neuts % (Manual) 98.0 % (40.0-70.0) H 05/09/22 18:51 Band Neutrophils % 0 % 05/09/22 18:51 Lymphocytes % (Manual) 1.0 % (13.4-35.0) L 05/09/22 18:51 Reactive Lymphs % (Man) 0 % 05/09/22 18:51 Monocytes % (Manual) 0 % (0.0-7.3) 05/09/22 18:51 Eosinophils % (Manual) 0 % (0.0-4.3) 05/09/22 18:51 Basophils % (Manual) 0 % (0.0-1.8) 05/09/22 18:51 Metamyelocytes % 1.0 % 05/09/22 18:51 Myelocytes % 0 % 05/09/22 18:51 Promyelocytes % 0 % 05/09/22 18:51 Blast Cells % 0 % 05/09/22 18:51 Nucleated RBC % 1.0 % (0.0-0.9) H 05/09/22 18:51 Seg Neutrophils # 1.8 K/mm3 (1.8-7.7) 05/19/22 07:39 Seg Neutrophils # Man 10.6 K/mm3 (1.8-7.7) H 05/09/22 18:51 Band Neutrophils # 0.0 K/mm3 05/09/22 18:51 Lymphocytes # (Manual) 0.1 K/mm3 (1.2-5.4) L 05/09/22 18:51 Abs React Lymphs (Man) 0.0 K/mm3 05/09/22 18:51 Monocytes # (Manual) 0.0 K/mm3 (0.0-0.8) 05/09/22 18:51 Eosinophils # (Manual) 0.0 K/mm3 (0.0-0.4) 05/09/22 18:51 Basophils # (Manual) 0.0 K/mm3 (0.0-0.1) 05/09/22 18:51 Metamyelocytes # 0.1 K/mm3 05/09/22 18:51 Myelocytes # 0.0 K/mm3 05/09/22 18:51 Promyelocytes # 0.0 K/mm3 05/09/22 18:51 Blast Cells # 0.0 K/mm3 05/09/22 18:51 WBC Morphology Not Reportable 05/09/22 18:51 WBC Morphology TNR 05/09/22 18:51 Hypersegmented Neuts Not Reportable 05/09/22 18:51 Hyposegmented Neuts Not Reportable 05/09/22 18:51 Hypogranular Neuts Not Reportable 05/09/22 18:51 Smudge Cells Not Reportable 05/09/22 18:51 Toxic Granulation Not Reportable 05/09/22 18:51 Toxic Vacuolation Not Reportable 05/09/22 18:51 Dohle Bodies Not Reportable 05/09/22 18:51 Pelger-Huet Anomaly Not Reportable 05/09/22 18:51 Paola Rods Not Reportable 05/09/22 18:51 Platelet Estimate Consistent w auto 05/09/22 18:51 Clumped Platelets Not Reportable 05/09/22 18:51 Plt Clumps, EDTA Not Reportable 05/09/22 18:51 Large Platelets Not Reportable 05/09/22 18:51 Giant Platelets Not Reportable 05/09/22 18:51 Platelet Satelliting Not Reportable 05/09/22 18:51 Plt Morphology Comment Not Reportable 05/09/22 18:51 RBC Morphology Not Reportable 05/09/22 18:51 Dimorphic RBCs Not Reportable 05/09/22 18:51 Polychromasia Not Reportable 05/09/22 18:51 Hypochromasia Not Reportable 05/09/22 18:51 Poikilocytosis Not Reportable 05/09/22 18:51 Anisocytosis Not Reportable 05/09/22 18:51 Microcytosis Not Reportable 05/09/22 18:51 Macrocytosis Not Reportable 05/09/22 18:51 Spherocytes Not Reportable 05/09/22 18:51 Pappenheimer Bodies Not Reportable 05/09/22 18:51 Sickle Cells Not Reportable 05/09/22 18:51 Target Cells Few 05/09/22 18:51 Tear Drop Cells Few 05/09/22 18:51 Ovalocytes Not Reportable 05/09/22 18:51 Helmet Cells Not Reportable 05/09/22 18:51 Kemp-Twilight Bodies Not Reportable 05/09/22 18:51 [place] Rings Not Reportable 05/09/22 18:51 Franco Cells Not Reportable 05/09/22 18:51 Bite Cells Not Reportable 05/09/22 18:51 Crenated Cell Not Reportable 05/09/22 18:51 Elliptocytes Not Reportable 05/09/22 18:51 Acanthocytes (Spur) Not Reportable 05/09/22 18:51 Rouleaux Not Reportable 05/09/22 18:51 Hemoglobin C Crystals Not Reportable 05/09/22 18:51 Schistocytes Not Reportable 05/09/22 18:51 Malaria parasites Not Reportable 05/09/22 18:51 Percent Retic 0.53 % (0.78-2.58) L 05/13/22 11:49 Jamal Bodies Not Reportable 05/09/22 18:51 Hem Pathologist Commnt No 05/09/22 18:51 PT 13.1 Sec. (12.2-14.9) 05/18/22 06:24 INR 0.90 (0.87-1.13) 05/18/22 06:24 Heparin Anti-Xa, Unfract Negative (Negative) 05/13/22 11:49 Sodium 138 mmol/L (137-145) 05/19/22 07:39 Potassium 4.6 mmol/L (3.6-5.0) 05/19/22 07:39 Chloride 108.5 mmol/L (98-107) H 05/19/22 07:39 Carbon Dioxide 23 mmol/L (22-30) 05/19/22 07:39 Anion Gap 11 mmol/L 05/19/22 07:39 BUN 7 mg/dL (9-20) L 05/19/22 07:39 Creatinine 0.5 mg/dL (0.8-1.3) L 05/19/22 07:39 Estimated GFR > 60 ml/min 05/19/22 07:39 BUN/Creatinine Ratio 14 % 05/19/22 07:39 Glucose 72 mg/dL (75-100) L 05/19/22 07:39 POC Glucose 78 mg/dL (70-105) 05/19/22 09:18 Lactic Acid 0.60 mmol/L (0.7-2.0) L 05/12/22 15:15 Calcium 7.7 mg/dL (8.4-10.2) L 05/19/22 07:39 Phosphorus 1.70 mg/dL (2.5-4.5) L 05/17/22 04:20 Magnesium 1.60 mg/dL (1.7-2.3) L 05/17/22 04:20 Iron 33 ug/dL (49-181) L 05/13/22 11:49 TIBC 126 mcg/dL (250-450) L 05/13/22 11:49 Ferritin 628.3 ng/mL (30.0-300.0) H 05/13/22 11:49 Total Bilirubin 0.30 mg/dL (0.1-1.2) 05/17/22 04:20 AST 17 units/L (5-40) 05/17/22 04:20 ALT 17 units/L (7-56) 05/17/22 04:20 Alkaline Phosphatase 82 units/L (35-129) 05/17/22 04:20 Ammonia 61.0 umol/L (25-60) H 05/09/22 18:51 Lactate Dehydrogenase 238 units/L (91-180) H 05/13/22 11:49 Total Creatine Kinase 92 units/L (55-170) 05/09/22 18:51 Troponin T < 0.010 ng/mL (0.00-0.029) 05/09/22 18:51 C-Reactive Protein 12.90 mg/dL (0.00-1.30) H 05/09/22 18:51 NT-Pro-B Natriuret Pep 817.0 pg/mL (0-900) 05/09/22 18:51 Serum Total Protein 5.6 g/dL (6.1-8.1) L 05/13/22 11:49 Total Protein 5.1 g/dL (6.3-8.2) L 05/17/22 04:20 Albumin 2.9 g/dL (3.9-5) L 05/17/22 04:20 Albumin/Globulin Ratio 1.3 % 05/17/22 04:20 Fgidu-1-Bdwcbbujh 0.5 g/dL (0.2-0.3) H 05/13/22 11:49 Pjdxx-4-Bhkausujm 0.8 g/dL (0.5-0.9) 05/13/22 11:49 Beta Globulins 0.4 g/dL (0.2-0.5) 05/13/22 11:49 Gamma Globulins 0.9 g/dL (0.8-1.7) 05/13/22 11:49 Abnorm Protein Band 1 see below 05/13/22 11:49 PEP Interpretation see below H 05/13/22 11:49 TSH 2.020 mlU/mL (0.270-4.200) 05/09/22 18:51 Urine Color Red (Yellow) 05/10/22 02:16 Urine Turbidity Cloudy (Clear) 05/10/22 02:16 Specific [place] (Man) 1.030 (1.003-1.030) 05/10/22 02:16 Ur Protein (Man) >500 mg/dL (Negative) 05/10/22 02:16 Ur Ketones (Man) 5mg/dl (Negative) 05/10/22 02:16 Urine Bilirubin (Man) Negative (Negative) 05/10/22 02:16 Urine WBC (Auto) > 182.0 /HPF (0.0-6.0) H 05/10/22 02:16 Urine RBC (Auto) > 182.0 /HPF (0.0-6.0) 05/10/22 02:16 Urine Bacteria (Auto) 1+ /HPF (Negative) 05/10/22 02:16 Urine RBC (Manual) 5+ (Negative) 05/10/22 02:16 Urine Osmolality 576 Mosm/kg 05/10/22 17:16 Urine Creatinine 61.0 mg/dL (0.1-20.0) H 05/10/22 17:16 Urine Sodium 19 mmol/L 05/10/22 17:16 Urine Urea Nitrogen 1015 05/10/22 17:16 Salicylates < 0.3 mg/dL (2.8-20.0) L 05/09/22 18:51 Urine Opiates Screen Negative 05/10/22 02:16 Urine Methadone Screen Negative 05/10/22 02:16 Acetaminophen 5.0 ug/mL (10.0-30.0) L 05/09/22 18:51 Ur Barbiturates Screen Negative 05/10/22 02:16 Ur Phencyclidine Scrn Negative 05/10/22 02:16 Ur Amphetamines Screen Negative 05/10/22 02:16 U Benzodiazepines Scrn Negative 05/10/22 02:16 Urine Cocaine Screen Negative 05/10/22 02:16 U Marijuana (THC) Screen Positive 05/10/22 02:16 Drugs of Abuse Note Disclamer 05/10/22 02:16 Plasma/Serum Alcohol < 0.01 % (0-0.07) 05/09/22 18:51 Heparin-induced Plt Ab Negative (Negative) 05/13/22 11:49 UF Heparin High Dose 0 % Release 05/13/22 11:49 CIERA UFH Low Dose 0.1 0 % Release 05/13/22 11:49 CIERA UFH Low Dose 0.5 0 % Release 05/13/22 11:49 Hepatitis A IgM Ab Non-reactive (NonReactive) 05/09/22 23:00 Hep Bs Antigen Non-reactive (Negative) 05/09/22 23:00 Hep B Core IgM Ab Non-reactive (NonReactive) 05/09/22 23:00 Hepatitis C Antibody Non-reactive (NonReactive) 05/09/22 23:00 Alvarez/IV: Voiding Method Indwelling Catheter Active Medications - Current Medications Current Medications: Generic Name Dose Route Start Last Admin Trade Name Freq PRN Reason Stop Dose Admin Acetaminophen 650 mg 05/10/22 00:08 05/18/22 19:37 Acetaminophen 325 Mg Tab PO 650 mg Q6H PRN Administration Pain MILD(1-3)/Fever >100.5/JOHNSON Arformoterol Tartrate 15 mcg 05/12/22 20:00 05/19/22 09:36 Arformoterol 15 Mcg/2 Ml Nebu IH 15 mcg Q12HRT CAITLIN Administration Ascorbic Acid 250 mg 05/14/22 10:00 05/19/22 09:18 Ascorbic Acid 250 Mg Tab FEEDTUBE 250 mg QDAY CAITLIN Administration Budesonide 0.5 mg 05/12/22 20:00 05/19/22 09:36 Budesonide 0.5 Mg/2 Ml Nebu IH 0.5 mg Q12HRT CAITLIN Administration Dextrose 50 ml 05/15/22 17:10 05/17/22 16:25 Dextrose 50% In Water (25gm) 50 Ml Syringe IV 50 ml ONCE PRN Administration Hypoglycemia Protocol Docusate Sodium 100 mg 05/10/22 22:00 05/19/22 09:18 Docusate Sodium 100 Mg Cap PO 100 mg BID CAITLIN Administration Doxazosin Mesylate 1 mg 05/11/22 22:00 05/18/22 21:40 Doxazosin 1 Mg Tab PO Not Given QHS CAITLIN Ferrous Sulfate 300 mg 05/14/22 10:00 05/19/22 09:19 Ferrous Sulfate 300 Mg (60mg Elemental Iron) / 5 Ml Oral Liqd PO 300 mg QDAY CAITLIN Administration Folic Acid 1 mg 05/10/22 12:00 05/19/22 09:19 Folic Acid 1 Mg Tab PO 1 mg QDAY CAITLIN Administration Heparin Sodium (Porcine) 5,000 unit 05/10/22 06:00 05/19/22 05:26 Heparin 5,000 Unit/1 Ml Vial SUB-Q Not Given Q8HR CAITLIN Sodium Chloride 1,000 mls @ 75 mls/hr 05/17/22 16:30 05/18/22 01:21 Nacl 0.9% 1000 Ml IV 75 mls/hr DIRECT CAITLIN Administration Levetiracetam 750 mg 05/10/22 12:00 05/19/22 09:18 Levetiracetam 500 Mg Tab PO 750 mg BID CAITLIN Administration Magnesium Hydroxide 30 ml 05/10/22 00:08 Magnesium Hydroxide (Mom) Oral Liqd Udc PO Q4H PRN Constipation Midodrine 10 mg 05/13/22 09:00 05/19/22 09:18 Midodrine 10 Mg Tab PO 10 mg TID@0800,1200,1600 CAITLIN Administration Ondansetron HCl 4 mg 05/10/22 00:08 Ondansetron 4 Mg/2 Ml Inj IV Q8H PRN Nausea And Vomiting Potassium Phos/Sodium Phos 1 each 05/17/22 14:00 05/19/22 05:25 Phos-Nak Powder Packet PO 05/19/22 13:59 1 each Q8HR CAITLIN Administration Sodium Chloride 10 ml 05/10/22 10:00 05/19/22 09:18 Sodium Chloride 0.9% 10 Ml Flush Syringe IV 10 ml BID CAITLIN Administration Sodium Chloride 10 ml 05/10/22 00:08 Sodium Chloride 0.9% 10 Ml Flush Syringe IV PRN PRN LINE FLUSH Tamsulosin HCl 0.4 mg 05/12/22 10:00 05/19/22 09:18 Tamsulosin 0.4 Mg Cap PO 0.4 mg QDAY CAITLIN Administration Thiamine HCl 100 mg 05/10/22 12:00 05/19/22 09:19 Thiamine 100 Mg Tab PO 100 mg QDAY CAITLIN Administration Nutrition/Malnutrition Assess - Dietary Evaluation Nutrition/Malnutrition Findings: Nutrition Notes Start: 05/10/22 17:09 Freq: Status: Active Protocol: Document 05/17/22 16:19 NHALL (Rec: 05/17/22 16:29 [facility] [id number]) Nutrition Notes Initial or Follow up Reassessment Current Diagnosis Acute Kidney Injury, Hypertension Other Pertinent Diagnosis (R) lung nodule, liver mass, seizure D/O Current Diet Cardiac/Renal + Nepro TID Labs/Tests Ca 7.6 (adjusted 8.48) Phos 1.7 Mg 1.6 Pertinent Medications Vit C, Colace, Ferrous sulfate , Mag Ox, Phos-Nak Height 5 ft 10 in Weight 40.5 kg Amery Body Weight (kg) 75.45 BMI 12.8 Weight change and time frame Current wt obtained from bed scale Weight Status Underweight Subjective/Other Information No PO intakes documented. Obeserved 2 Nepro cartons on bedside table; pt does not like these. He says he'd rather eat. His family brings him food at times. Per nephrology, renal function normalized now. Pt says he has always been "slim". Pt scheduled for bone marrow biopsy tomorrow. Burn Absent Trauma Absent Minimum of two criteria Yes #2 Nutrition Diagnosis Underweight Diagnosis Progress(for reassessment Continues documentation) #1 Nutrition Diagnosis Malnutrition Diagnosis Progress(for reassessment Continues documentation) Is patient on ventilator? No Is Patient Ambulatory and/or Out of Bed No REE-([facility]-confined to bed) 1370.412 Kcal/Kg value to use for calculation 45 Approximate Energy Requirements Using 1823 kcal/Kg Calculation Used for Recommendations Kcal/kg Additional Notes Pro needs 1.2-2g/k-81g/ day Fluid needs 1ml/kcal Nutrition Intervention Change Diet Order: Continue current diet order; consider removal of renal restriction to improve PO intakes Add Supplement/Snack (indicate name/kcal D/C Nepro shakes; order Ensure /protein ) High Protein when PO diet resumed Goal #1 PO intake of meals plus ONS to meet 100% energy and pro needs Goal #2 Wt maintenance and/or gain Anticipated Discharge Needs: Continue ONS 2-3 times daily for wt maintenance; high- calorie/high-protein diet Follow-Up By: 05/19/22 Additional Comments F/U: ONS order, intakes, removal of renal restriction
--- NOTE | 2022-05-19 12:57 | Progress Note ---
Assessment and Plan 76-year-old -[place] male with known history of seizure disorder, hypertension and drug abuse brought into the emergency room today via EMS for evaluation of generalized weakness and decreased oral intake. According to family, patient has been having decreased oral intake for the past 1 to 2 weeks. Patient denies any other problems today apart from generalized weakness. He has not had any seizure activity lately. Denies any chest pain or shortness of breath, no headache or dizziness, no diaphoresis, no chest pain or shortness of breath. Work-up in the emergency room , significant findings were that of hyponatremia 133, hyperkalemia of 8.0, BUN of 225 and creatinine of 15.7. Chest x-ray reveals mild central pulmonary vascular congestion. No evidence of focal infiltrate. EKG shows some peaked T waves. Consulted Stock Puller on-call A Vas-Cath was placed by the shipyard helper for hemodialysis. Patient has had insulin and glucose, calcium gluconate, Kayexalate for the hyperkalemia. Patient has history of smoking and alcohol abuse. Patient transfered to telemetry. Patient sleeping. Not responding to verbal stimuli.On room air. O2 saturation 100%. No acute respiratory distress . Patient afebrile. No leukocytosis. Blood pressure 112/66, rate 76, rate 18. Chest xray done 05/10/22 reported No active cardiopulmonary disease. CT scan of chest with out contrast 05/10/22 reported Multiple osseous metastatic lesions. Right upper lobe nodule . Neoplasm not excluded. Hemodialysis catheter terminates within the superior vena cava near the cavoatrial junction. Other findings as detailed. Patient undergone bone marrow biopsy.Pathology Results still pending. Patient presently on Brovanna/Budesonide aerosol treatments, S/C Heparin. Recommend GI prophylaxis. - Patient Problems (1) Acute renal failure Current Visit: Yes Status: Acute Plan to address problem: Management as per nephrology. (2) Hyperkalemia Current Visit: Yes Status: Acute Plan to address problem: Hyperkalemia corrected. K+ to day 4.6 (3) Alcoholic ketoacidosis Current Visit: No Status: Acute Plan to address problem: Improved. Anion gap 05/19/22 is 11. (4) Altered mental status Current Visit: No Status: Acute Plan to address problem: Appears some what improved during my last visit. Management as per primary care and neurology. (5) Hypertension Current Visit: No Status: Acute Plan to address problem: Management as per primary care. (6) Nicotine dependence with withdrawal Current Visit: No Status: Acute Qualifiers: Nicotine product type: cigarettes Qualified Code(s): F17.213 - Nicotine dependence, cigarettes, with withdrawal Plan to address problem: Counseled to stop smoking. (7) Polysubstance abuse Current Visit: No Status: Acute Plan to address problem: Counselled not to use illegal drugs. Management as per primary care. (8) Recurrent seizures Current Visit: No Status: Acute Plan to address problem: Management as per neurology. (9) Hypotension Current Visit: Yes Status: Acute Plan to address problem: .Improved. Todays blood pressure 112/66 (10) Right upper lobe pulmonary nodule Current Visit: Yes Status: Acute Plan to address problem: CT guided Biopsy of right upper lobe lung nodule. Prefer to get biopsy of Osseous lesions, in view of Patient severe emphysemous changes. (11) Major osseous defect, multiple sites Current Visit: Yes Status: Acute Plan to address problem: Patient undergone bone marrow biopsy.Pathology results still pending. Subjective Date of service: 05/19/22 Principal diagnosis: PATRIZIA; Hyperkalemia; Lung Mass; Tobacco Abuse; Seizures; COPD; HTN Interval history: 76-year-old -[place] male with known history of seizure disorder, hypertension and drug abuse brought into the emergency room today via EMS for evaluation of generalized weakness and decreased oral intake. According to family, patient has been having decreased oral intake for the past 1 to 2 weeks. Patient denies any other problems today apart from generalized weakness. He has not had any seizure activity lately. Denies any chest pain or shortness of breath, no headache or dizziness, no diaphoresis, no chest pain or shortness of breath. Work-up in the emergency room , significant findings were that of hyponatremia 133, hyperkalemia of 8.0, BUN of 225 and creatinine of 15.7. Chest x-ray reveals mild central pulmonary vascular congestion. No evidence of focal infiltrate. EKG shows some peaked T waves. Consulted Stock Puller on-call A Vas-Cath was placed by the shipyard helper for hemodialysis. Patient has had insulin and glucose, calcium gluconate, Kayexalate for the hyperkalemia. Patient has history of smoking and alcohol abuse. Patient transfered to telemetry. Patient sleeping. Not responding to verbal stimuli.On room air. O2 saturation 100%. No acute respiratory distress . Patient afebrile. No leukocytosis. Blood pressure 112/66, rate 76, rate 18. Chest xray done 05/10/22 reported No active cardiopulmonary disease. CT scan of chest with out contrast 05/10/22 reported Multiple osseous metastatic lesions. Right upper lobe nodule . Neoplasm not excluded. Hemodialysis catheter terminates within the superior vena cava near the cavoatrial junction. Other findings as detailed. Patient undergone bone marrow biopsy.Pathology Results still pending. Patient presently on Brovanna/Budesonide aerosol treatments, S/C Heparin. Recommend GI prophylaxis. Objective Vital Signs - 12hr 05/19/22 05/19/22 05:26 09:36 Temperature 98.0 F Pulse Rate 79 Pulse Rate [ 88 Bilateral Throughout] Respiratory 18 Rate Respiratory 19 Rate [Bilateral Throughout] Blood Pressure 96/54 O2 Sat by Pulse 98 Oximetry Constitutional: no acute distress, alert, other (elderly cachectic male ) Eyes: non-icteric ENT: oropharynx moist Neck: supple, no lymphadenopathy, no JVD, other (RIJ HD catheter) Effort: normal Ascultation: Bilateral: diminished breath sounds Percussion: Bilateral: not dull Cardiovascular: regular rate and rhythm, other (S1,S2) Gastrointestinal: normoactive bowel sounds, soft, non-tender, non-distended Integumentary: other (poor turgor) Extremities: no cyanosis, no edema, pulses normal, no ischemia or petechiae Neurologic: non-focal exam, pupils equal and round, CN II-XII normal Psychiatric: mood appropriate, affect normal CBC and BMP: 05/19/22 07:39 05/19/22 07:39 ABG, PT/INR, D-dimer: PT/INR, D-dimer PT 13.1 Sec. (12.2-14.9) 05/18/22 06:24 INR 0.90 (0.87-1.13) 05/18/22 06:24 Abnormal lab findings: Abnormal Labs 05/09/22 05/09/22 05/09/22 18:51 18:51 18:51 WBC RBC 5.65 H Hgb 16.6 H Hct 48.9 H MCHC RDW 15.4 H Plt Count Lymph % (Auto) [place] % (Auto) Lymph # (Auto) Seg Neutrophils % Seg Neuts % (Manual) 98.0 H Lymphocytes % (Manual) 1.0 L Nucleated RBC % 1.0 H Seg Neutrophils # Man 10.6 H Lymphocytes # (Manual) 0.1 L Percent Retic Sodium 133 L Potassium 8.0 H* Chloride 89.9 L Carbon Dioxide 11 L BUN 225 H Creatinine 15.7 H Glucose 122 H POC Glucose Lactic Acid Calcium Phosphorus Magnesium Iron TIBC Ferritin Ammonia 61.0 H Lactate Dehydrogenase C-Reactive Protein 12.90 H Serum Total Protein Total Protein Albumin Kgkmb-6-Vlsktrmte PEP Interpretation Urine WBC (Auto) Urine Creatinine Salicylates Acetaminophen 05/09/22 05/09/22 05/10/22 18:51 18:51 02:16 WBC RBC Hgb Hct MCHC RDW Plt Count Lymph % (Auto) [place] % (Auto) Lymph # (Auto) Seg Neutrophils % Seg Neuts % (Manual) Lymphocytes % (Manual) Nucleated RBC % Seg Neutrophils # Man Lymphocytes # (Manual) Percent Retic Sodium Potassium Chloride Carbon Dioxide BUN Creatinine Glucose POC Glucose Lactic Acid Calcium Phosphorus Magnesium Iron TIBC Ferritin Ammonia Lactate Dehydrogenase C-Reactive Protein Serum Total Protein Total Protein Albumin Qrpjk-2-Ysiqobayw PEP Interpretation Urine WBC (Auto) > 182.0 H Urine Creatinine Salicylates < 0.3 L Acetaminophen 5.0 L 05/10/22 05/10/22 05/10/22 04:18 11:30 17:16 WBC RBC Hgb Hct MCHC RDW Plt Count Lymph % (Auto) [place] % (Auto) Lymph # (Auto) Seg Neutrophils % Seg Neuts % (Manual) Lymphocytes % (Manual) Nucleated RBC % Seg Neutrophils # Man Lymphocytes # (Manual) Percent Retic Sodium 146 H D 158 H D Potassium 6.3 H* D 3.1 L D Chloride 111.5 H Carbon Dioxide 18 L D BUN 162 H 105 H Creatinine 9.1 H 3.7 H D Glucose 112 H POC Glucose Lactic Acid Calcium Phosphorus Magnesium Iron TIBC Ferritin Ammonia Lactate Dehydrogenase C-Reactive Protein Serum Total Protein Total Protein Albumin Zxucs-8-Tmwxszcze PEP Interpretation Urine WBC (Auto) Urine Creatinine 61.0 H Salicylates Acetaminophen 05/11/22 05/11/22 05/11/22 04:00 04:00 04:00 WBC RBC 3.53 L Hgb 10.5 L D Hct 30.0 L D MCHC 35 H RDW Plt Count 118 L Lymph % (Auto) 6.4 L [place] % (Auto) 9.6 H Lymph # (Auto) 0.5 L Seg Neutrophils % 84.0 H Seg Neuts % (Manual) Lymphocytes % (Manual) Nucleated RBC % Seg Neutrophils # Man Lymphocytes # (Manual) Percent Retic Sodium 149 H D Potassium 2.3 L* D Chloride Carbon Dioxide 36 H D BUN 41 H Creatinine Glucose 117 H POC Glucose Lactic Acid Calcium 7.5 L Phosphorus Magnesium 1.60 L Iron TIBC Ferritin Ammonia Lactate Dehydrogenase C-Reactive Protein Serum Total Protein Total Protein Albumin Btiit-8-Uvufpdeci PEP Interpretation Urine WBC (Auto) Urine Creatinine Salicylates Acetaminophen 05/11/22 05/11/22 05/12/22 04:00 15:30 02:52 WBC RBC Hgb Hct MCHC RDW Plt Count Lymph % (Auto) [place] % (Auto) Lymph # (Auto) Seg Neutrophils % Seg Neuts % (Manual) Lymphocytes % (Manual) Nucleated RBC % Seg Neutrophils # Man Lymphocytes # (Manual) Percent Retic Sodium Potassium 2.3 L* Chloride Carbon Dioxide 32 H BUN 27 H Creatinine 0.6 L 0.4 L Glucose POC Glucose Lactic Acid Calcium 7.7 L 6.9 L Phosphorus 1.70 L 1.00 L D Magnesium Iron TIBC Ferritin Ammonia Lactate Dehydrogenase C-Reactive Protein Serum Total Protein Total Protein Albumin Nqhfy-5-Ccdxspxxb PEP Interpretation Urine WBC (Auto) Urine Creatinine Salicylates Acetaminophen 05/12/22 05/13/22 05/13/22 15:15 04:00 04:00 WBC RBC 3.13 L Hgb 9.3 L Hct 27.6 L MCHC RDW Plt Count 121 L Lymph % (Auto) [place] % (Auto) Lymph # (Auto) Seg Neutrophils % Seg Neuts % (Manual) Lymphocytes % (Manual) Nucleated RBC % Seg Neutrophils # Man Lymphocytes # (Manual) Percent Retic Sodium Potassium 3.1 L Chloride Carbon Dioxide BUN Creatinine 0.5 L Glucose 68 L POC Glucose Lactic Acid 0.60 L Calcium 7.3 L Phosphorus Magnesium Iron TIBC Ferritin Ammonia Lactate Dehydrogenase C-Reactive Protein Serum Total Protein Total Protein Albumin Kgtoh-9-Qpotqrbkm PEP Interpretation Urine WBC (Auto) Urine Creatinine Salicylates Acetaminophen 05/13/22 05/13/22 05/13/22 11:49 11:49 11:49 WBC RBC Hgb Hct MCHC RDW Plt Count Lymph % (Auto) [place] % (Auto) Lymph # (Auto) Seg Neutrophils % Seg Neuts % (Manual) Lymphocytes % (Manual) Nucleated RBC % Seg Neutrophils # Man Lymphocytes # (Manual) Percent Retic 0.53 L Sodium Potassium Chloride Carbon Dioxide BUN Creatinine Glucose POC Glucose Lactic Acid Calcium Phosphorus Magnesium 1.40 L Iron TIBC Ferritin Ammonia Lactate Dehydrogenase 238 H C-Reactive Protein Serum Total Protein Total Protein Albumin Onrmj-0-Vtituexlk PEP Interpretation Urine WBC (Auto) Urine Creatinine Salicylates Acetaminophen 05/13/22 05/13/22 05/13/22 11:49 11:49 11:49 WBC RBC Hgb Hct MCHC RDW Plt Count Lymph % (Auto) [place] % (Auto) Lymph # (Auto) Seg Neutrophils % Seg Neuts % (Manual) Lymphocytes % (Manual) Nucleated RBC % Seg Neutrophils # Man Lymphocytes # (Manual) Percent Retic Sodium Potassium Chloride Carbon Dioxide BUN Creatinine Glucose POC Glucose Lactic Acid Calcium Phosphorus Magnesium Iron 33 L TIBC 126 L Ferritin 628.3 H Ammonia Lactate Dehydrogenase C-Reactive Protein Serum Total Protein 5.6 L Total Protein Albumin 2.8 L Hgehc-5-Eejizafhr 0.5 H PEP Interpretation see below H Urine WBC (Auto) Urine Creatinine Salicylates Acetaminophen 05/14/22 05/14/22 05/14/22 04:00 04:00 16:48 WBC RBC 3.31 L Hgb 9.8 L Hct 29.2 L MCHC RDW Plt Count Lymph % (Auto) [place] % (Auto) Lymph # (Auto) Seg Neutrophils % Seg Neuts % (Manual) Lymphocytes % (Manual) Nucleated RBC % Seg Neutrophils # Man Lymphocytes # (Manual) Percent Retic Sodium Potassium 3.2 L Chloride 107.4 H Carbon Dioxide BUN Creatinine 0.4 L Glucose POC Glucose 168 H Lactic Acid Calcium 7.2 L Phosphorus Magnesium Iron TIBC Ferritin Ammonia Lactate Dehydrogenase C-Reactive Protein Serum Total Protein Total Protein Albumin Ipfgi-9-Wncqedohx PEP Interpretation Urine WBC (Auto) Urine Creatinine Salicylates Acetaminophen 05/15/22 05/15/22 05/15/22 04:23 04:23 10:13 WBC RBC 3.35 L Hgb 10.0 L Hct 29.8 L MCHC RDW Plt Count Lymph % (Auto) [place] % (Auto) Lymph # (Auto) Seg Neutrophils % Seg Neuts % (Manual) Lymphocytes % (Manual) Nucleated RBC % Seg Neutrophils # Man Lymphocytes # (Manual) Percent Retic Sodium Potassium Chloride Carbon Dioxide BUN 8 L Creatinine 0.5 L Glucose POC Glucose 62 L Lactic Acid Calcium 7.5 L Phosphorus 1.10 L Magnesium Iron TIBC Ferritin Ammonia Lactate Dehydrogenase C-Reactive Protein Serum Total Protein Total Protein Albumin Ujxem-1-Fbslywsoy PEP Interpretation Urine WBC (Auto) Urine Creatinine Salicylates Acetaminophen 05/15/22 05/15/22 05/16/22 16:14 18:30 05:13 WBC RBC Hgb Hct MCHC RDW Plt Count Lymph % (Auto) [place] % (Auto) Lymph # (Auto) Seg Neutrophils % Seg Neuts % (Manual) Lymphocytes % (Manual) Nucleated RBC % Seg Neutrophils # Man Lymphocytes # (Manual) Percent Retic Sodium Potassium 3.4 L Chloride Carbon Dioxide BUN Creatinine 0.5 L Glucose POC Glucose 44 L 153 H Lactic Acid Calcium 7.3 L Phosphorus 1.80 L D Magnesium Iron TIBC Ferritin Ammonia Lactate Dehydrogenase C-Reactive Protein Serum Total Protein Total Protein Albumin Rhapx-9-Rmyruigto PEP Interpretation Urine WBC (Auto) Urine Creatinine Salicylates Acetaminophen 05/17/22 05/17/22 05/17/22 04:13 04:20 16:19 WBC 4.1 L RBC 3.10 L Hgb 9.2 L Hct 27.3 L MCHC RDW Plt Count Lymph % (Auto) [place] % (Auto) Lymph # (Auto) Seg Neutrophils % Seg Neuts % (Manual) Lymphocytes % (Manual) Nucleated RBC % Seg Neutrophils # Man Lymphocytes # (Manual) Percent Retic Sodium Potassium Chloride 108.4 H Carbon Dioxide BUN 8 L Creatinine 0.4 L Glucose POC Glucose 64 L Lactic Acid Calcium 7.6 L Phosphorus 1.70 L Magnesium 1.60 L Iron TIBC Ferritin Ammonia Lactate Dehydrogenase C-Reactive Protein Serum Total Protein Total Protein 5.1 L Albumin 2.9 L Mmdpz-9-Oqzslhujr PEP Interpretation Urine WBC (Auto) Urine Creatinine Salicylates Acetaminophen 05/17/22 05/18/22 05/19/22 16:53 12:29 07:39 WBC 3.5 L RBC 3.04 L Hgb 9.2 L Hct 27.1 L MCHC RDW 15.4 H Plt Count Lymph % (Auto) 39.7 H [place] % (Auto) 9.0 H Lymph # (Auto) Seg Neutrophils % Seg Neuts % (Manual) Lymphocytes % (Manual) Nucleated RBC % Seg Neutrophils # Man Lymphocytes # (Manual) Percent Retic Sodium Potassium Chloride Carbon Dioxide BUN Creatinine Glucose POC Glucose 166 H 53 L Lactic Acid Calcium Phosphorus Magnesium Iron TIBC Ferritin Ammonia Lactate Dehydrogenase C-Reactive Protein Serum Total Protein Total Protein Albumin Bemhs-3-Exhmywylm PEP Interpretation Urine WBC (Auto) Urine Creatinine Salicylates Acetaminophen 05/19/22 07:39 WBC RBC Hgb Hct MCHC RDW Plt Count Lymph % (Auto) [place] % (Auto) Lymph # (Auto) Seg Neutrophils % Seg Neuts % (Manual) Lymphocytes % (Manual) Nucleated RBC % Seg Neutrophils # Man Lymphocytes # (Manual) Percent Retic Sodium Potassium Chloride 108.5 H Carbon Dioxide BUN 7 L Creatinine 0.5 L Glucose 72 L POC Glucose Lactic Acid Calcium 7.7 L Phosphorus Magnesium Iron TIBC Ferritin Ammonia Lactate Dehydrogenase C-Reactive Protein Serum Total Protein Total Protein Albumin Btlha-5-Vdoxfenvf PEP Interpretation Urine WBC (Auto) Urine Creatinine Salicylates Acetaminophen Allied health notes reviewed: nursing
[2022-05-19] MEDS: SODIUM CHLORIDE 0.9% 1000 ML 1,000 ML IV SCH (21:57)
[2022-05-20] MEDS: HEPARIN 5,000 UNIT/1 ML VIAL SUB-Q SCH ×2 (07:28→14:00)
[2022-05-20 08:51] LABS: Basophils # (Auto) 0.1 K/mm3 (0.0-0.1); Basophils % (Auto) 1.5 % (0.0-1.8); Eosinophils % (Auto) 0.1 % (0.0-4.3); Hematocrit 27.5 % (35.5-45.6); Hemoglobin 9.3 gm/dl (11.8-15.2); Lymphocytes # (Auto) 1.3 K/mm3 (1.2-5.4); Lymphocytes % (Auto) 34.1 % (13.4-35.0); Mean Corpuscular HGB Conc 34 % (32-34); Mean Corpuscular Volume 90 fl (84-94); Monocytes # (Auto) 0.3 K/mm3 (0.0-0.8); Monocytes % (Auto) 8.6 % (0.0-7.3); Platelet Count 281 K/mm3 (140-440); Red Blood Count 3.07 M/mm3 (3.65-5.03); Red Cell Distribution Width 15.6 % (13.2-15.2)
[2022-05-20 09:05] LABS: Blood Urea Nitrogen 6 mg/dL (9-20); Hemolysis Index 5
[2022-05-20 09:20] LABS: BUN/Creatinine Ratio 12
[2022-05-20] MEDS: ARFORMOTEROL 15 MCG/2 ML NEBU IH SCH ×2 (09:33→20:00)
[2022-05-20] MEDS: BUDESONIDE 0.5 MG/2 ML NEBU IH SCH ×2 (09:34→20:00)
[2022-05-20] MEDS: MIDODRINE 10 MG TAB PO SCH ×3 (10:13→16:51)
[2022-05-20] MEDS: TAMSULOSIN 0.4 MG CAP PO SCH (10:14)
[2022-05-20] MEDS: DOCUSATE SODIUM 100 MG CAP PO SCH (10:14)
[2022-05-20] MEDS: levETIRAcetam 500 MG TAB PO SCH (10:14)
[2022-05-20] MEDS: THIAMINE 100 MG TAB PO SCH (10:14)
[2022-05-20] MEDS: ASCORBIC ACID 250 MG TAB FEEDTUBE SCH (10:14)
[2022-05-20] MEDS: FOLIC ACID 1 MG TAB PO SCH (10:14)
[2022-05-20] MEDS: FERROUS SULFATE 300 MG (60MG Elemental Iron) / 5 mL ORAL LIQD PO SCH (10:15)
--- NOTE | 2022-05-20 13:26 | Progress Note ---
Assessment and Plan 76-year-old -[place] male with known history of seizure disorder, hypertension and drug abuse brought into the emergency room today via EMS for evaluation of generalized weakness and decreased oral intake. According to family, patient has been having decreased oral intake for the past 1 to 2 weeks. Patient denies any other problems today apart from generalized weakness. He has not had any seizure activity lately. Denies any chest pain or shortness of breath, no headache or dizziness, no diaphoresis, no chest pain or shortness of breath. Work-up in the emergency room , significant findings were that of hyponatremia 133, hyperkalemia of 8.0, BUN of 225 and creatinine of 15.7. Chest x-ray reveals mild central pulmonary vascular congestion. No evidence of focal infiltrate. EKG shows some peaked T waves. Consulted Social Science Research Assistant on-call A Vas-Cath was placed by the division operations specialist for hemodialysis. Patient has had insulin and glucose, calcium gluconate, Kayexalate for the hyperkalemia. Patient has history of smoking and alcohol abuse. Patient transfered to medical floor.. Patient awake. resting On room air. O2 saturation 100%. No acute respiratory distress . Patient afebrile. No leukocytosis. Blood pressure 96/56, rate 76, rate 18. Chest xray done 05/10/22 reported No active cardiopulmonary disease. CT scan of chest with out contrast 05/10/22 reported Multiple osseous metastatic lesions. Right upper lobe nodule . Neoplasm not excluded. Hemodialysis catheter terminates within the superior vena cava near the cavoatrial junction. Other findings as detailed. Patient undergone bone marrow aspiration.Pathology Results still pending. Patient presently on Brovanna/Budesonide aerosol treatments, S/C Heparin. Recommend GI prophylaxis. - Patient Problems (1) Acute renal failure Current Visit: Yes Status: Acute Plan to address problem: Management as per nephrology. (2) Hyperkalemia Current Visit: Yes Status: Acute Plan to address problem: Hyperkalemia corrected. K+ to day 4.5 (3) Alcoholic ketoacidosis Current Visit: No Status: Acute Plan to address problem: Anion gap 05/19/22 is 15. (4) Altered mental status Current Visit: No Status: Acute Plan to address problem: Appears some what improved . Management as per primary care and neurology. (5) Hypertension Current Visit: No Status: Acute Plan to address problem: Management as per primary care. (6) Nicotine dependence with withdrawal Current Visit: No Status: Acute Qualifiers: Nicotine product type: cigarettes Qualified Code(s): F17.213 - Nicotine dependence, cigarettes, with withdrawal Plan to address problem: Counseled to stop smoking. (7) Polysubstance abuse Current Visit: No Status: Acute Plan to address problem: Counselled not to use illegal drugs. Management as per primary care. (8) Recurrent seizures Current Visit: No Status: Acute Plan to address problem: Management as per neurology. (9) Hypotension Current Visit: Yes Status: Acute Plan to address problem: .To days blood pressure 96/56. (10) Right upper lobe pulmonary nodule Current Visit: Yes Status: Acute Plan to address problem: CT guided Biopsy of right upper lobe lung nodule. Prefer to get biopsy of Osseous lesions, in view of Patient severe emphysemous changes. (11) Major osseous defect, multiple sites Current Visit: Yes Status: Acute Plan to address problem: Patient undergone bone marrow aspiration.Pathology results still pending. Subjective Date of service: 05/20/22 Principal diagnosis: PATRIZIA; Hyperkalemia; Lung Mass; Tobacco Abuse; Seizures; COPD; HTN Interval history: 76-year-old -[place] male with known history of seizure disorder, hypertension and drug abuse brought into the emergency room today via EMS for evaluation of generalized weakness and decreased oral intake. According to family, patient has been having decreased oral intake for the past 1 to 2 weeks. Patient denies any other problems today apart from generalized weakness. He has not had any seizure activity lately. Denies any chest pain or shortness of breath, no headache or dizziness, no diaphoresis, no chest pain or shortness of breath. Work-up in the emergency room , significant findings were that of hyponatremia 133, hyperkalemia of 8.0, BUN of 225 and creatinine of 15.7. Chest x-ray reveals mild central pulmonary vascular congestion. No evidence of focal infiltrate. EKG shows some peaked T waves. Consulted Social Science Research Assistant on-call A Vas-Cath was placed by the division operations specialist for hemodialysis. Patient has had insulin and glucose, calcium gluconate, Kayexalate for the hyperkalemia. Patient has history of smoking and alcohol abuse. Patient transfered to medical floor.. Patient awake. resting On room air. O2 saturation 100%. No acute respiratory distress . Patient afebrile. No leukocytosis. Blood pressure 96/56, rate 76, rate 18. Chest xray done 05/10/22 reported No active cardiopulmonary disease. CT scan of chest with out contrast 05/10/22 reported Multiple osseous metastatic lesions. Right upper lobe nodule . Neoplasm not excluded. Hemodialysis catheter terminates within the superior vena cava near the cavoatrial junction. Other findings as detailed. Patient undergone bone marrow aspiration,.Pathology Results still pending. Patient presently on Brovanna/Budesonide aerosol treatments, S/C Heparin. Recommend GI prophylaxis. Objective Vital Signs - 12hr 05/20/22 05/20/22 05:24 09:33 Temperature 98.3 F Pulse Rate 72 Pulse Rate [ 74 Bilateral Throughout] Respiratory 18 Rate Respiratory 20 Rate [Bilateral Throughout] Blood Pressure 95/61 [Left] O2 Sat by Pulse 98 Oximetry Constitutional: no acute distress, alert, other (elderly cachectic male ) Eyes: non-icteric ENT: oropharynx moist Neck: supple, no lymphadenopathy, no JVD, other (RIJ HD catheter) Effort: normal Ascultation: Bilateral: diminished breath sounds Percussion: Bilateral: not dull Cardiovascular: regular rate and rhythm, other (S1,S2) Gastrointestinal: normoactive bowel sounds, soft, non-tender, non-distended Integumentary: other (poor turgor) Extremities: no cyanosis, no edema, pulses normal, no ischemia or petechiae Neurologic: non-focal exam, pupils equal and round, CN II-XII normal Psychiatric: mood appropriate, affect normal CBC and BMP: 05/20/22 08:03 05/20/22 08:03 ABG, PT/INR, D-dimer: PT/INR, D-dimer PT 13.1 Sec. (12.2-14.9) 05/18/22 06:24 INR 0.90 (0.87-1.13) 05/18/22 06:24 Abnormal lab findings: Abnormal Labs 05/09/22 05/09/22 05/09/22 18:51 18:51 18:51 WBC RBC 5.65 H Hgb 16.6 H Hct 48.9 H MCHC RDW 15.4 H Plt Count Lymph % (Auto) Rock % (Auto) Lymph # (Auto) Seg Neutrophils % Seg Neuts % (Manual) 98.0 H Lymphocytes % (Manual) 1.0 L Nucleated RBC % 1.0 H Seg Neutrophils # Man 10.6 H Lymphocytes # (Manual) 0.1 L Percent Retic Sodium 133 L Potassium 8.0 H* Chloride 89.9 L Carbon Dioxide 11 L BUN 225 H Creatinine 15.7 H Glucose 122 H POC Glucose Lactic Acid Calcium Phosphorus Magnesium Iron TIBC Ferritin Ammonia 61.0 H Lactate Dehydrogenase C-Reactive Protein 12.90 H Serum Total Protein Total Protein Albumin Ukymx-3-Drqfkdjve PEP Interpretation Urine WBC (Auto) Urine Creatinine Salicylates Acetaminophen 05/09/22 05/09/22 05/10/22 18:51 18:51 02:16 WBC RBC Hgb Hct MCHC RDW Plt Count Lymph % (Auto) Rock % (Auto) Lymph # (Auto) Seg Neutrophils % Seg Neuts % (Manual) Lymphocytes % (Manual) Nucleated RBC % Seg Neutrophils # Man Lymphocytes # (Manual) Percent Retic Sodium Potassium Chloride Carbon Dioxide BUN Creatinine Glucose POC Glucose Lactic Acid Calcium Phosphorus Magnesium Iron TIBC Ferritin Ammonia Lactate Dehydrogenase C-Reactive Protein Serum Total Protein Total Protein Albumin Xuxvy-5-Awfqjclyu PEP Interpretation Urine WBC (Auto) > 182.0 H Urine Creatinine Salicylates < 0.3 L Acetaminophen 5.0 L 05/10/22 05/10/22 05/10/22 04:18 11:30 17:16 WBC RBC Hgb Hct MCHC RDW Plt Count Lymph % (Auto) Rock % (Auto) Lymph # (Auto) Seg Neutrophils % Seg Neuts % (Manual) Lymphocytes % (Manual) Nucleated RBC % Seg Neutrophils # Man Lymphocytes # (Manual) Percent Retic Sodium 146 H D 158 H D Potassium 6.3 H* D 3.1 L D Chloride 111.5 H Carbon Dioxide 18 L D BUN 162 H 105 H Creatinine 9.1 H 3.7 H D Glucose 112 H POC Glucose Lactic Acid Calcium Phosphorus Magnesium Iron TIBC Ferritin Ammonia Lactate Dehydrogenase C-Reactive Protein Serum Total Protein Total Protein Albumin Qxuij-5-Gtqkudpvp PEP Interpretation Urine WBC (Auto) Urine Creatinine 61.0 H Salicylates Acetaminophen 05/11/22 05/11/22 05/11/22 04:00 04:00 04:00 WBC RBC 3.53 L Hgb 10.5 L D Hct 30.0 L D MCHC 35 H RDW Plt Count 118 L Lymph % (Auto) 6.4 L Rock % (Auto) 9.6 H Lymph # (Auto) 0.5 L Seg Neutrophils % 84.0 H Seg Neuts % (Manual) Lymphocytes % (Manual) Nucleated RBC % Seg Neutrophils # Man Lymphocytes # (Manual) Percent Retic Sodium 149 H D Potassium 2.3 L* D Chloride Carbon Dioxide 36 H D BUN 41 H Creatinine Glucose 117 H POC Glucose Lactic Acid Calcium 7.5 L Phosphorus Magnesium 1.60 L Iron TIBC Ferritin Ammonia Lactate Dehydrogenase C-Reactive Protein Serum Total Protein Total Protein Albumin Awpdo-6-Yxqbjfirt PEP Interpretation Urine WBC (Auto) Urine Creatinine Salicylates Acetaminophen 05/11/22 05/11/22 05/12/22 04:00 15:30 02:52 WBC RBC Hgb Hct MCHC RDW Plt Count Lymph % (Auto) Rock % (Auto) Lymph # (Auto) Seg Neutrophils % Seg Neuts % (Manual) Lymphocytes % (Manual) Nucleated RBC % Seg Neutrophils # Man Lymphocytes # (Manual) Percent Retic Sodium Potassium 2.3 L* Chloride Carbon Dioxide 32 H BUN 27 H Creatinine 0.6 L 0.4 L Glucose POC Glucose Lactic Acid Calcium 7.7 L 6.9 L Phosphorus 1.70 L 1.00 L D Magnesium Iron TIBC Ferritin Ammonia Lactate Dehydrogenase C-Reactive Protein Serum Total Protein Total Protein Albumin Ernqa-1-Ukiiiehol PEP Interpretation Urine WBC (Auto) Urine Creatinine Salicylates Acetaminophen 05/12/22 05/13/22 05/13/22 15:15 04:00 04:00 WBC RBC 3.13 L Hgb 9.3 L Hct 27.6 L MCHC RDW Plt Count 121 L Lymph % (Auto) Rock % (Auto) Lymph # (Auto) Seg Neutrophils % Seg Neuts % (Manual) Lymphocytes % (Manual) Nucleated RBC % Seg Neutrophils # Man Lymphocytes # (Manual) Percent Retic Sodium Potassium 3.1 L Chloride Carbon Dioxide BUN Creatinine 0.5 L Glucose 68 L POC Glucose Lactic Acid 0.60 L Calcium 7.3 L Phosphorus Magnesium Iron TIBC Ferritin Ammonia Lactate Dehydrogenase C-Reactive Protein Serum Total Protein Total Protein Albumin Gcojg-1-Disbmxhim PEP Interpretation Urine WBC (Auto) Urine Creatinine Salicylates Acetaminophen 05/13/22 05/13/22 05/13/22 11:49 11:49 11:49 WBC RBC Hgb Hct MCHC RDW Plt Count Lymph % (Auto) Rock % (Auto) Lymph # (Auto) Seg Neutrophils % Seg Neuts % (Manual) Lymphocytes % (Manual) Nucleated RBC % Seg Neutrophils # Man Lymphocytes # (Manual) Percent Retic 0.53 L Sodium Potassium Chloride Carbon Dioxide BUN Creatinine Glucose POC Glucose Lactic Acid Calcium Phosphorus Magnesium 1.40 L Iron TIBC Ferritin Ammonia Lactate Dehydrogenase 238 H C-Reactive Protein Serum Total Protein Total Protein Albumin Sengt-1-Giffrcppg PEP Interpretation Urine WBC (Auto) Urine Creatinine Salicylates Acetaminophen 05/13/22 05/13/22 05/13/22 11:49 11:49 11:49 WBC RBC Hgb Hct MCHC RDW Plt Count Lymph % (Auto) Rock % (Auto) Lymph # (Auto) Seg Neutrophils % Seg Neuts % (Manual) Lymphocytes % (Manual) Nucleated RBC % Seg Neutrophils # Man Lymphocytes # (Manual) Percent Retic Sodium Potassium Chloride Carbon Dioxide BUN Creatinine Glucose POC Glucose Lactic Acid Calcium Phosphorus Magnesium Iron 33 L TIBC 126 L Ferritin 628.3 H Ammonia Lactate Dehydrogenase C-Reactive Protein Serum Total Protein 5.6 L Total Protein Albumin 2.8 L Ghgph-8-Lgmoltzks 0.5 H PEP Interpretation see below H Urine WBC (Auto) Urine Creatinine Salicylates Acetaminophen 05/14/22 05/14/22 05/14/22 04:00 04:00 16:48 WBC RBC 3.31 L Hgb 9.8 L Hct 29.2 L MCHC RDW Plt Count Lymph % (Auto) Rock % (Auto) Lymph # (Auto) Seg Neutrophils % Seg Neuts % (Manual) Lymphocytes % (Manual) Nucleated RBC % Seg Neutrophils # Man Lymphocytes # (Manual) Percent Retic Sodium Potassium 3.2 L Chloride 107.4 H Carbon Dioxide BUN Creatinine 0.4 L Glucose POC Glucose 168 H Lactic Acid Calcium 7.2 L Phosphorus Magnesium Iron TIBC Ferritin Ammonia Lactate Dehydrogenase C-Reactive Protein Serum Total Protein Total Protein Albumin Vkgdc-4-Mhjpryndd PEP Interpretation Urine WBC (Auto) Urine Creatinine Salicylates Acetaminophen 05/15/22 05/15/22 05/15/22 04:23 04:23 10:13 WBC RBC 3.35 L Hgb 10.0 L Hct 29.8 L MCHC RDW Plt Count Lymph % (Auto) Rock % (Auto) Lymph # (Auto) Seg Neutrophils % Seg Neuts % (Manual) Lymphocytes % (Manual) Nucleated RBC % Seg Neutrophils # Man Lymphocytes # (Manual) Percent Retic Sodium Potassium Chloride Carbon Dioxide BUN 8 L Creatinine 0.5 L Glucose POC Glucose 62 L Lactic Acid Calcium 7.5 L Phosphorus 1.10 L Magnesium Iron TIBC Ferritin Ammonia Lactate Dehydrogenase C-Reactive Protein Serum Total Protein Total Protein Albumin Otqpe-0-Qdmbwurlg PEP Interpretation Urine WBC (Auto) Urine Creatinine Salicylates Acetaminophen 05/15/22 05/15/22 05/16/22 16:14 18:30 05:13 WBC RBC Hgb Hct MCHC RDW Plt Count Lymph % (Auto) Rock % (Auto) Lymph # (Auto) Seg Neutrophils % Seg Neuts % (Manual) Lymphocytes % (Manual) Nucleated RBC % Seg Neutrophils # Man Lymphocytes # (Manual) Percent Retic Sodium Potassium 3.4 L Chloride Carbon Dioxide BUN Creatinine 0.5 L Glucose POC Glucose 44 L 153 H Lactic Acid Calcium 7.3 L Phosphorus 1.80 L D Magnesium Iron TIBC Ferritin Ammonia Lactate Dehydrogenase C-Reactive Protein Serum Total Protein Total Protein Albumin Wpxrb-8-Totssjkji PEP Interpretation Urine WBC (Auto) Urine Creatinine Salicylates Acetaminophen 05/17/22 05/17/22 05/17/22 04:13 04:20 16:19 WBC 4.1 L RBC 3.10 L Hgb 9.2 L Hct 27.3 L MCHC RDW Plt Count Lymph % (Auto) Rock % (Auto) Lymph # (Auto) Seg Neutrophils % Seg Neuts % (Manual) Lymphocytes % (Manual) Nucleated RBC % Seg Neutrophils # Man Lymphocytes # (Manual) Percent Retic Sodium Potassium Chloride 108.4 H Carbon Dioxide BUN 8 L Creatinine 0.4 L Glucose POC Glucose 64 L Lactic Acid Calcium 7.6 L Phosphorus 1.70 L Magnesium 1.60 L Iron TIBC Ferritin Ammonia Lactate Dehydrogenase C-Reactive Protein Serum Total Protein Total Protein 5.1 L Albumin 2.9 L Eskad-0-Qtcmjfkfn PEP Interpretation Urine WBC (Auto) Urine Creatinine Salicylates Acetaminophen 05/17/22 05/18/22 05/19/22 16:53 12:29 07:39 WBC 3.5 L RBC 3.04 L Hgb 9.2 L Hct 27.1 L MCHC RDW 15.4 H Plt Count Lymph % (Auto) 39.7 H Rock % (Auto) 9.0 H Lymph # (Auto) Seg Neutrophils % Seg Neuts % (Manual) Lymphocytes % (Manual) Nucleated RBC % Seg Neutrophils # Man Lymphocytes # (Manual) Percent Retic Sodium Potassium Chloride Carbon Dioxide BUN Creatinine Glucose POC Glucose 166 H 53 L Lactic Acid Calcium Phosphorus Magnesium Iron TIBC Ferritin Ammonia Lactate Dehydrogenase C-Reactive Protein Serum Total Protein Total Protein Albumin Nfxyw-5-Yidbuqnhq PEP Interpretation Urine WBC (Auto) Urine Creatinine Salicylates Acetaminophen 05/19/22 05/20/22 05/20/22 07:39 08:03 08:03 WBC 4.0 L RBC 3.07 L Hgb 9.3 L Hct 27.5 L MCHC RDW 15.6 H Plt Count Lymph % (Auto) Rock % (Auto) 8.6 H Lymph # (Auto) Seg Neutrophils % Seg Neuts % (Manual) Lymphocytes % (Manual) Nucleated RBC % Seg Neutrophils # Man Lymphocytes # (Manual) Percent Retic Sodium Potassium Chloride 108.5 H 107.8 H Carbon Dioxide 19 L BUN 7 L 6 L Creatinine 0.5 L 0.5 L Glucose 72 L POC Glucose Lactic Acid Calcium 7.7 L 8.0 L Phosphorus Magnesium Iron TIBC Ferritin Ammonia Lactate Dehydrogenase C-Reactive Protein Serum Total Protein Total Protein Albumin Qievo-2-Spqpkpucn PEP Interpretation Urine WBC (Auto) Urine Creatinine Salicylates Acetaminophen 05/20/22 08:11 WBC RBC Hgb Hct MCHC RDW Plt Count Lymph % (Auto) Rock % (Auto) Lymph # (Auto) Seg Neutrophils % Seg Neuts % (Manual) Lymphocytes % (Manual) Nucleated RBC % Seg Neutrophils # Man Lymphocytes # (Manual) Percent Retic Sodium Potassium Chloride Carbon Dioxide BUN Creatinine Glucose POC Glucose 115 H Lactic Acid Calcium Phosphorus Magnesium Iron TIBC Ferritin Ammonia Lactate Dehydrogenase C-Reactive Protein Serum Total Protein Total Protein Albumin Qtamu-2-Dtbcikown PEP Interpretation Urine WBC (Auto) Urine Creatinine Salicylates Acetaminophen Allied health notes reviewed: nursing
[2022-05-20] MEDS: SODIUM CHLORIDE 0.9% 1000 ML 1,000 ML IV SCH (14:02)
--- NOTE | 2022-05-20 15:24 | Progress Note ---
Subjective Date of service: 05/20/22 Principal diagnosis: PATRIZIA; Hyperkalemia; Lung Mass; Tobacco Abuse; Seizures; COPD; HTN Objective - Constitutional Vitals: Vital Signs - 12hr 05/20/22 05/20/22 05/20/22 05:24 09:33 10:00 Temperature 98.3 F Pulse Rate 72 Pulse Rate [ 74 Bilateral Throughout] Respiratory 18 Rate Respiratory 20 Rate [Bilateral Throughout] Blood Pressure Blood Pressure 95/61 [Left] O2 Sat by Pulse 98 97 Oximetry 05/20/22 11:29 Temperature 98.5 F Pulse Rate 76 Pulse Rate [ Bilateral Throughout] Respiratory 18 Rate Respiratory Rate [Bilateral Throughout] Blood Pressure 96/56 Blood Pressure [Left] O2 Sat by Pulse 100 Oximetry General appearance: Present: no acute distress, well-nourished - EENT Eyes: PERRL, EOM intact ENT: hearing intact, clear oral mucosa Ears: bilateral: normal - Neck Neck: supple, normal ROM - Respiratory Respiratory effort: normal Respiratory: bilateral: CTA - Breasts Breasts: normal - Cardiovascular Rhythm: regular Heart Sounds: Present: S1 & S2. Absent: gallop, rub Extremities: pulses intact, No edema, normal color, Full ROM - Gastrointestinal General gastrointestinal: Present: soft, non-tender, non-distended, normal bowel sounds - Genitourinary Male genitourinary: normal - Integumentary Integumentary: clear, warm, dry - Musculoskeletal Musculoskeletal: 1, strength equal bilaterally - Neurologic Neurologic: moves all extremities - Psychiatric Psychiatric: memory intact, appropriate mood/affect, intact judgment & insight - Labs CBC & Chem 7: 05/20/22 08:03 05/20/22 08:03 Labs: Abnormal lab results 05/20/22 05/20/22 05/20/22 Range/Units 08:03 08:03 08:11 WBC 4.0 L (4.5-11.0) K/mm3 RBC 3.07 L (3.65-5.03) M/mm3 Hgb 9.3 L (11.8-15.2) gm/dl Hct 27.5 L (35.5-45.6) % RDW 15.6 H (13.2-15.2) % [place] % (Auto) 8.6 H (0.0-7.3) % Chloride 107.8 H (98-107) mmol/L Carbon Dioxide 19 L (22-30) mmol/L BUN 6 L (9-20) mg/dL Creatinine 0.5 L (0.8-1.3) mg/dL POC Glucose 115 H (70-105) mg/dL Calcium 8.0 L (8.4-10.2) mg/dL HEART Score - HEART Score Troponin: Troponin T < 0.010 ng/mL (0.00-0.029) 05/09/22 18:51
[2022-05-20 17:49] VITALS: BP 97/65
--- NOTE | 2022-05-20 18:20 | Discharge Summary ---
Providers - Providers Date of Admission: 05/10/22 00:09 Date of discharge: 05/20/22 Attending physician: CHRISTIN KILPATRICK 05/09/22 20:31 Consult to Physician [CONS] Stat Comment: Consulting Provider: JOHANA BARBA Physician Instructions: Reason For Exam: hyperkalemia 05/10/22 00:09 Consult to Dietitian/Nutrition [CONS] Routine Physician Instructions: Reason For Exam: Reason for Consult: Diet education 05/10/22 03:30 Consult to Physician [CONS] Routine Comment: call office/manda Consulting Provider: FANY CRAIG Physician Instructions: Reason For Exam: Hyperkalemia- Requires vacular Access for dialysis 05/10/22 11:41 Consult to Physician [CONS] Routine Comment: Consulting Provider: SIVA QUINONES Physician Instructions: Reason For Exam: critical care 05/12/22 11:23 Consult to Physician [CONS] Routine Comment: noted/ dimitry Consulting Provider: ASHWIN ORTIZ Physician Instructions: Reason For Exam: lung nodule with mets 05/15/22 09:08 Physical Therapy Evaluation and Treat [CONS] Routine Comment: Reason For Exam: weakness Primary care physician: BASIA GARZA Hospitalization Condition: Critical Hospital course: Assessment and Plan Assessment and plan: Assessment and Plan: This is a 76-year-old female with seizure disorder, HTN, nicotine and drug abuse admitted with acute kidney injury Neuro: h/o seizure disorder, marijuana use -Continue home Keppra -Reorientation as needed -Maintain sleep-wake cycle -aspiration/seizure precautions -As needed analgesia -Folic acid, thiamine -CT head shows no evidence of metastatic disease, recommend MRI with and without contrast Cardiac: Hypotension, h/o HTN -Blood pressure monitoring per protocol -Hold home hydralazine -s/p vasopressen support with levophed -MAP goal 65 -s/p MIVF, bolus prn -Midodrine p.o. Respiratory: Acute hypoxic respiratory failure (poa, resolved), right lung nodule, current nicotine abuse -[facility] consulted, appreciate recommendations -Pulmonary hygiene -SPO2 monitor per protocol -Supplemental oxygen tested and -Nicotine abuse cessation counseling provided -CT chest shows multiple osseous metastatic lesion, right upper lobe nodule, neoplasm not excluded, hemodialysis catheter terminates within the superior vena cava currently at the cavoatrial junction -CT abdomen/pelvis with oral and IV contrast shows hypodense lesions in the dome of the right hepatic lobe, cecum and appendix lie within the right inguinal hernia, small amount of ascites present within the pelvis, lower periaortic lymph nodes increase in size, right pelvic sidewall lymph nodes increased in size which shows central low-attenuation suggesting possible necrosis, prostate is borderline in size and minimally enlarged, multiple osseous metastatic lesions. GI: Liver Mass -PPI -Cardiac renal diet -BR: Colace -CT guided liver biopsy will not be performed d/t size of mass : Acute kidney injury likely postobstructive, dehydration, hypomagnesemia, hypophosphatemia urinary retention -Nephrology consulted, appreciate recommendations -S/p Vas-Cath placement for emergent hemodialysis however Vas-Cath was not functional -Vascular surgery consulted for PermCath placement -Monitor intake and output -Renally dose medications -Avoid nephrotoxic medications -FeNa 0.7% -s/p MIVF -Flomax and doxazosin (unable to be given d/t BP) -Alvarez catheter replaced on 05/13 for retention -Replete magnesium and phosphate with p.o. -Trend BMP ID: NAD -Monitor WBC and temperature curve Endo: NAD -Avoid hypoglycemia Heme: NAD -Trend CBC -Transfuse hemoglobin less than 7 -SCDs to BLE while in bed Oncology: Liver mass -CT chest showed multiple osseous metastatic lesions, right upper lobe nodule -CT abdomen/pelvis with contrast showed hypodense lesions in the dome of the right hepatic lobe, lower periaortic lymph nodes increase in size, right pelvic sidewall lymph nodes increase in size showing central low attenuation suggesting possible necrosis, multiple osseous metastatic lesions -Hematology/oncology consulted, appreciate recommendations -Bone marrow biopsy pending -Outpatient follow-up with heme-onc Disposition Plan: transfer to floor Total Time Spent with Patient (Minutes): 60 History Interval history: This is 76-year-old male with seizure disorder, HTN, smoker and drug abuse presents to the emergency department on 05/09 via EMS for evaluation of generalized weakness and decreased oral intake. According to the family patient had decreased oral intake for the past 1 to 2 weeks and has generalized weakness. Work-up in the emergency department revealed hyponatremia at 133, hyperkalemia at 8, elevated BUN and creatinine at 225/15.7 and CXR revealed mild pulmonary vascular congestion. ECG also showed peaked T waves. Nephrology was consulted in the emergency department and a Vas-Cath was placed by [facility] for hemodialysis. Patient was also medically treated with insulin, glucose, calcium gluconate and Kayexalate for hyperkalemia. Patient was admitted to the hospitalist service with consults to nephrology, [facility] and vascular surgery for acute kidney injury requiring urgent dialysis. Hospital course to date: 05/10: Yesterday patient had a Vas-Cath placed by [facility] however this is nonfunctional at this time. Vascular surgery was consulted for placement of Vas-Cath. No acute events reported overnight. Patient suddenly became non verbal however did follow commands, tracks/focus and pupils were round and reactive. Glucose check which was within normal limits. After approximately half an hour patient became verbal again. This afternoon patient is alert and oriented and interactive. 05/11: Hypernatremia slowly improving, noted to have hypokalemia, hypomagnesemia and hypophosphatemia. Potassium repleted with IV and p.o., bicarbonate drip discontinued. Started on Flomax and [facility] would like to add doxazosin. Patient started on half-normal saline and [facility] would like to obtain CT abdomen/pelvis with contrast. Updated niece at bedside. Free water flush 350 every 8 p.o. 05/12: Patient to be started on Levophed for hypotension and will be on IV fluids per [facility]. Hematology/oncology consulted and CT head was ordered. CT biopsy of the liver was also ordered. From a PICC line removed today as well as Alvarez catheter. 05/13: Overnight patient was started on Levophed, remains on MIVF. Started on midodrine. Patient had urinary retention and Alvarez catheter was replaced. CT head shows no findings to suggest intracranial metastatic disease and recommended MRI with and without contrast for evaluation. Patient has been titrated off Levophed. 05/14: Patient was restarted on Levophed overnight and has been on and off throughout the day. Given bolus of 500 mL. Hypokalemia repleted. Magnesium within normal limits. 05/15: Levophed remained infusing overnight but day RN will try to wean off. Will replete phos. PT consulted 05/16: Bone marrow biopsy ordered, weaned off of Levophed. Potassium and phosphurous repleted. 05/17: Bone biopsy delayed due to patient not being NPO. Patient has been off Levophed for over 24 hours. At this point patient will be transferred to the floor. We did replete magnesium and phosphorus today with PO. Disposition: 01 HOME / SELF CARE / HOMELESS Final Discharge Diagnosis (Prints w/discharge instructions): Acute respiratory failure with hypoxia. PATRIZIA. Sepsis Time spent for discharge: 35 minutes Core Measure Documentation - Palliative Care Palliative Care/ Comfort Measures: Not Applicable - Core Measures Any of the following diagnoses?: none Exam - Constitutional Vitals: Temp Pulse Resp BP Pulse Ox 97.9 F 96 H 18 97/65 100 05/20/22 16:28 05/20/22 16:28 05/20/22 16:28 05/20/22 16:28 05/20/22 16:28 General appearance: Present: no acute distress, well-nourished - EENT Eyes: Present: PERRL ENT: hearing intact, clear oral mucosa - Neck Neck: Present: supple, normal ROM - Respiratory Respiratory effort: normal Respiratory: bilateral: CTA - Cardiovascular Heart rate: 78 Rhythm: regular Heart Sounds: Present: S1 & S2. Absent: rub, click - Extremities Extremities: pulses symmetrical, No edema Peripheral Pulses: within normal limits - Abdominal General gastrointestinal: Present: soft, non-tender, non-distended, normal bowel sounds Male genitourinary: Present: normal - Integumentary Integumentary: Present: clear, warm, dry - Musculoskeletal Musculoskeletal: gait normal, strength equal bilaterally - Psychiatric Psychiatric: appropriate mood/affect, intact judgment & insight - Neurologic Neurologic: CNII-XII intact, moves all extremities Plan Activity: no restrictions Diet: low salt Follow up with: BASIA GARZA MD [Primary Care Provider] - 7 Days ADDIS CHRIS MD [Staff Physician] - 7 Days Forms: Accompanied Note Prescriptions: amLODIPine 5 mg PO DAILY #30 Ferrous Sulfate [Ferrous Sulfate Oral Liq 300 Mg/5 Ml] 300 mg PO QDAY 30 Days #30 oral.liqd Folic Acid [Folvite] 1 mg PO QDAY #30 tablet levETIRAcetam [Keppra TAB] 750 mg PO BID #60 tablet Midodrine [Proamatine] 10 mg PO BID 30 Days #60 tablet Thiamine [Vitamin B-1] 100 mg PO QDAY #30 tablet
[2022-05-21 07:39] LABS: Hemoglobin A2 Prime SEE SCANNED RESULT; Hemoglobin Barts SEE SCANNED RESULT; Hemoglobin E SEE SCANNED RESULT; Hemoglobin G SEE SCANNED RESULT; Hemoglobin Lepore SEE SCANNED RESULT; Hemoglobin O-Arab SEE SCANNED RESULT; IEF Confirm SEE SCANNED RESULT; Interpretation SEE SCANNED RESULT; Sickle Solubility Test SEE SCANNED RESULT
== END 2022-05-20 20:55 | disposition home or self-care (01) | DRG 673 ==
LOC: ED 16:53 → IMCU 05-10 00:09 → CC1 05-10 03:01 → 3A 05-18 01:09
PROVIDERS: ADMIT Internal Medicine Geriatric Medicine; ATTEND Internal Medicine
PROC: 5A1D70Z Performance of Urinary Filtration, Intermittent, Less than 6 Hours Per Day (ICD-10-PCS; 2022-05-09)
PROC: 0JH63XZ Insertion of Tunneled Vascular Access Device into Chest Subcutaneous Tissue and Fascia, Percutaneous Approach (ICD-10-PCS; principal; 2022-05-10)
PROC: 02HV33Z Insertion of Infusion Device into Superior Vena Cava, Percutaneous Approach (ICD-10-PCS; 2022-05-10)
PROC: B5181ZA Fluoroscopy of Superior Vena Cava using Low Osmolar Contrast, Guidance (ICD-10-PCS; 2022-05-10)
PROC: B548ZZA Ultrasonography of Superior Vena Cava, Guidance (ICD-10-PCS; 2022-05-10)
PROC: 02PYX3Z Removal of Infusion Device from Great Vessel, External Approach (ICD-10-PCS; 2022-05-10)
PROC: 02HV33Z Insertion of Infusion Device into Superior Vena Cava, Percutaneous Approach (ICD-10-PCS; 2022-05-10)
DX: T82.41XA Breakdown (mechanical) of vascular dialysis catheter, initial encounter (principal); J96.01 Acute respiratory failure with hypoxia; N17.9 Acute kidney failure, unspecified; F17.213 Nicotine dependence, cigarettes, with withdrawal; Z68.1 Body mass index [BMI] 19.9 or less, adult; E44.0 Moderate protein-calorie malnutrition; E87.0 Hyperosmolality and hypernatremia; E87.2 Acidosis; E87.5 Hyperkalemia; R91.1 Solitary pulmonary nodule; I10 Essential (primary) hypertension; Z71.6 Tobacco abuse counseling; I95.9 Hypotension, unspecified; M89.79 Major osseous defect, multiple sites; F19.10 Other psychoactive substance abuse, uncomplicated; G40.909 Epilepsy, unspecified, not intractable, without status epilepticus; F03.90 Unspecified dementia, unspecified severity, without behavioral disturbance, psychotic disturbance, mood disturbance, and anxiety; R62.7 Adult failure to thrive; E86.0 Dehydration; R91.8 Other nonspecific abnormal finding of lung field; J44.9 Chronic obstructive pulmonary disease, unspecified; E87.6 Hypokalemia; R33.9 Retention of urine, unspecified; F12.90 Cannabis use, unspecified, uncomplicated; Y83.8 Other surgical procedures as the cause of abnormal reaction of the patient, or of later complication, without mention of misadventure at the time of the procedure; Y92.238 Other place in hospital as the place of occurrence of the external cause
CPT/HCPCS: 36415; 36573; 36580; 38221; 38222; 70450; 71045; 71250; 74177; 77012; 80048; 80053; 80074; 80307; 80320; 81001; 82140; 82550; 82570; 82728; 82962; 83550; 83615; 83735; 83880; 83935; 84100; 84132; 84165; 84300; 84443; 84484; 84520; 85007; 85025; 85027; 85045; 85610; 86022; 86140; 86334; 88184; 88185; 88230; 88291; 88305; 93005; 94640; 94644; 99291; G0378; J2354; J3490; J7510; Q9967; C1751; C1752; G0480; J0610; J1170; J1644; J1815; J2250; J3010; J3370; J3475; J3480; J7030; J7040; J7050; J7070; J7120